=== PATIENT | male | born 1965 | race Caucasian/White ===

== ENCOUNTER 2024-02-16 11:34 | Outpatient (OUT) | payer OTHER, SELFPAY ==
--- NOTE | 2024-02-16 12:02 | XR_ITS ---
The [address] [address] Patient Name: SHEYLA KOHLI MRN: [id number] date: 1965 Sex: M Assigned Patient Location: [facility] Current Patient Location: Accession/Order Number: [id number] Exam Date: 02/16/2024 11:55 Report Date: 02/18/2024 09:10 At the request of: JEFF KILPATRICK Procedure: XR lumbar spine 2-3V EXAMINATION: XR lumbar spine 2-3V HISTORY: Chronic midline low back pain M54.50 ; lumbar pain radiating into left leg COMPARISON: No relevant comparison available. FINDINGS: BONES: Mild degenerative facet arthropathy L4-5, L5-S1. No fracture or significant spondylolisthesis. DISC SPACES: Minimal narrowing L4-5, L5-S1. PARASPINOUS: Negative. No paraspinous abnormality is seen. OTHER: Negative. XR/XR lumbar spine 2-3V IMPRESSION: 1. No appreciable acute abnormality. 2. Mild degenerative changes of lower lumbar spine. Electronically authenticated by: WENDY PERLA Date: 02/18/2024 09:10
== END 2024-02-16 11:35 | disposition home or self-care (01) ==
LOC: RAD 11:43
PROVIDERS: PCP Family Medicine; Visit Provider Family Medicine
DX: M54.50 Low back pain, unspecified (principal); G89.29 Other chronic pain; M51.36 Other intervertebral disc degeneration, lumbar region
CPT/HCPCS: 72100

== ENCOUNTER 2024-06-26 13:34 | Emergency (ER) | payer OTHER, SELFPAY ==
[2024-06-26 13:44] VITALS: BP 128/77; PULSE 88; TEMP 36.6; O2SAT 98; BMI 24.2
--- NOTE | 2024-06-26 13:53 | ECG_ITS ---
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
--- NOTE | 2024-06-26 13:53 | CT_ITS ---
[address] [address] Patient Name: SHEYLA KOHLI MRN: [id number] date: 1965 Sex: M Assigned Patient Location: ER Current Patient Location: ER Accession/Order Number: [id number] Exam Date: 06/26/2024 15:09 Report Date: 06/26/2024 15:51 At the request of: SIOBHAN OLIVIER Procedure: CT angio chest EXAMINATION: CT angio chest HISTORY: PE, right chest pain COMPARISON: No relevant comparison available. TECHNIQUE: Multi-planar CT images were created with IV contrast. Axial, Coronal, and Sagittal images. Dose reduction techniques were achieved by using automated exposure control and/or adjustment of mA and/or kV according to patient size and/or use of iterative reconstruction technique. FINDINGS: LUNGS: Mild centrilobular and paraseptal emphysema with an upper lobe predominance. Some patchy infiltrates in both lung apices, favor pleural parenchymal scarring. No significant pulmonary nodule or mass PLEURA: No mass, effusion, or pneumothorax. VASCULATURE: Normal postcontrast opacification. No filling defect to suggest a central pulmonary embolus SHRUTHI: No mass or adenopathy. MEDIASTINUM: No mass or adenopathy. CARDIAC: No enlargement or pericardial effusion Coronary arteries: Absent calcifications AORTA: No aneurysm or dissection. CHEST WALL: No mass or axillary adenopathy. BONES: No bone lesion or fracture. LIMITED ABDOMEN: No suspicious findings. Limited images of the upper abdomen. OTHER: Negative. CT/CT angio chest IMPRESSION: No central pulmonary thromboembolic disease Electronically authenticated by: MICHAEL ALY Date: 06/26/2024 15:51
--- NOTE | 2024-06-26 13:55 | ED.GENADUL1 ---
HPI HPI - General Adult General Chief complaint: Chest Pain Stated complaint: RIGHT SIDE FLANK PAIN Time Seen by Provider: 06/26/24 13:43 Source: patient Mode of arrival: walk-in Limitations: no limitations History of Present Illness HPI narrative: Patient is a 59-year-old male who presents to the emergency department for 5 to 6 days of pain in the right chest wall. He describes the pain is worse with deep breathing and movement. He believes it began after lifting a toolbox. He denies any fall or direct injury. He states last night the pain radiated to the sternum and today he is now noting the pain radiating to the right posterior thoracic area. No rashes, color change or bruising. He has not had any fevers, upper respiratory symptoms and he denies shortness of breath. No medications taken prior to arrival. He denies abdominal pain or urinary symptoms. Related Data Home Medications ?Medication ?Instructions ?Recorded ?Confirmed albuterol sulfate 90 mcg/actuation 2 puff inhalation BID PRN 06/26/24 06/26/24 aerosol inhaler (Ventolin HFA) shortness of breath or wheezing Previous Rx's ?Medication ?Instructions ?Recorded ketorolac 10 mg tablet 10 mg PO TID PRN pain #10 tabs 06/26/24 methocarbamol 750 mg tablet 750 mg PO TID PRN pain #20 tabs 06/26/24 Allergies Allergy/AdvReac Type Severity Reaction Status Date / Time Penicillins Allergy Severe Hives Verified 06/26/24 13:48 watermelon Allergy Severe Hives Verified 06/26/24 13:49 fluticasone AdvReac Severe tachycardia Verified 06/26/24 13:48 [From Advair Diskus] salmeterol AdvReac Severe tachycardia Verified 06/26/24 13:48 [From Advair Diskus] hydrocodone [From Vicodin] AdvReac Mild Unknown Verified 06/26/24 13:55 Opioid HPI Opioid Management Most Recent Opioid Data: Last Pain Scale 8 06/26/24 14:12 Last MAR Pain Assessment 06/26/24 14:12 Review of Systems ROS Constitutional Denies: fever or chills Ears, nose, mouth, and throat Denies: throat pain or nasal congestion Cardiovascular Reports: chest pain Respiratory Denies: shortness of breath Gastrointestinal Denies: abdominal pain, nausea, vomiting or diarrhea Musculoskeletal Denies: back pain or neck pain Integumentary/Breast Denies: rash Neurological Denies: numbness in extremities or weakness in extremities Hematologic/Lymphatic Denies: easy bruising or easy bleeding PFSH PFS Social History Little interest or pleasure in doing things: not at all Feeling down, depressed, or hopeless: not at all Exam Narrative Exam Narrative: Gen.: Awake, alert, in no distress Head: Normocephalic, atraumatic ENT: Moist mucous membranes Respiratory: No respiratory distress, lungs clear bilaterally Cardio: Regular rate and rhythm; tenderness of the right chest wall with no appreciable rash, swelling or ecchymosis Gastrointestinal: Abdomen is soft, nondistended and nontender to palpation Extremities: Moves extremities equally Psych: Normal mood and affect Neuro: No focal neuro deficit Skin: Warm, dry, intact Constitutional Vital Signs, click to edit/add: Last Vital Signs Temp 97.8 F 06/26/24 13:44 Pulse 77 06/26/24 16:23 Resp 18 06/26/24 16:23 BP 145/78 H 06/26/24 16:23 Pulse Ox 99 06/26/24 16:23 O2 Del Method Room Air 06/26/24 16:23 Course Vital Signs Vital signs: Vital Signs Temperature 97.8 F 06/26/24 13:44 Pulse Rate 88 06/26/24 13:44 Respiratory Rate 16 06/26/24 13:44 Blood Pressure 128/77 06/26/24 13:44 Pulse Oximetry 98 06/26/24 13:44 Oxygen Delivery Method Room Air 06/26/24 13:44 Temperature 97.8 F 06/26/24 13:44 Pulse Rate 77 06/26/24 16:23 Respiratory Rate 18 06/26/24 16:23 Blood Pressure 145/78 H 06/26/24 16:23 Pulse Oximetry 99 06/26/24 16:23 Oxygen Delivery Method Room Air 06/26/24 16:23 Medical Decision Making MDM Narrative Medical decision making narrative: Patient medicated with IV Robaxin and Toradol. Laboratory studies within normal limits, no EKG changes. CT angio of the chest with no evidence of acute cardiopulmonary changes. Patient treated for chest wall pain with muscle relaxants and NSAIDs for home. Follow-up with PCP and return to the ER if symptoms change or worsen. SUPERVISED APC VISIT, PHYSICIAN ATTESTATION: Based on the medical record the care appears appropriate. ? Medical Records Medical records reviewed: Yes I reviewed the patient's medical records Lab Data Lab results reviewed: Yes I reviewed the patient's lab results Labs: Lab Results 06/26/24 Range/Units 14:06 WBC 9.0 (4.0-11.0) 10^3/uL RBC 4.62 L (4.70-6.10) 10^6/uL Hgb 14.3 (14.0-18.0) g/dL Hct 42.1 (42.0-54.0) % MCV 91.1 (80.0-94.0) fL MCH 31.0 (25.9-34.0) pg MCHC 34.0 (29.9-35.2) g/dL RDW 12.7 (11.0-15.0) % Plt Count 165 (150-450) 10^3/uL MPV 10.4 (9.5-13.5) fL Neut % (Auto) 71.1 (43.0-75.0) % Lymph % (Auto) 22.1 (20.5-60.0) % [place] % (Auto) 5.5 (1.7-12.0) % Eos % (Auto) 0.4 L (0.9-7.0) % Baso % (Auto) 0.8 (0.2-2.0) % Neut # (Auto) 6.4 (1.4-6.5) 10^3/uL Lymph # (Auto) 2.0 (1.2-3.8) 10^3/uL [place] # (Auto) 0.5 (0.3-0.8) 10^3/uL Eos # (Auto) 0.0 (0.0-0.7) 10^3/uL Baso # (Auto) 0.1 (0.0-0.1) 10^3/uL Abs Immat Gran (auto) 0.01 (0.00-0.03) 10^3/uL Imm/Tot Granulo (auto) 0.1 (0.0-0.5) % Sodium 134 L (136-145) mmol/L Potassium 3.9 (3.5-5.1) mmol/L Chloride 101 (98-107) mmol/L Carbon Dioxide 29.9 (21.0-32.0) mmol/L Anion Gap 7.0 BUN 10.0 (7.0-18.0) mg/dL Creatinine 0.98 (0.70-1.30) mg/dL Est GFR ( Amer) >60 (>=60) Est GFR (Non-Af Amer) >60 (>=60) BUN/Creatinine Ratio 10.2 Glucose 105 (74-106) mg/dL Calcium 8.9 (8.5-10.1) mg/dL Total Bilirubin 0.6 (0.2-1.0) mg/dL AST 15 (15-37) U/L ALT 8 L (16-63) U/L Alkaline Phosphatase 57 (46-116) U/L Troponin I High Sens 5.2 (4.0-76.1) pg/mL Total Protein 7.0 (6.4-8.2) g/dL Albumin 3.8 (3.4-5.0) g/dL Globulin 3.2 g/dL Albumin/Globulin Ratio 1.2 Lipase 21.0 (16.0-77.0) U/L Imaging Data CT scan - chest: Attestation: I have reviewed the pertinent imaging results. Radiologist's impression: ITS Impressions Chest CTA 06/26/24 13:53 IMPRESSION: No central pulmonary thromboembolic disease Electronically authenticated by: MICHAEL ALY Date: 06/26/2024 15:51 ECG Data Attestation: I personally reviewed and interpreted this ECG as follows: (Normal sinus rhythm at a rate of 83, no acute ST elevation or ectopy. EKG reviewed by attending physician) Discharge Plan Discharge Chief Complaint: Chest Pain Clinical Impression: Atypical chest pain Patient Disposition: Home, Self-Care Time of Disposition Decision: 15:57 Condition: Good Prescriptions / Home Meds: New ketorolac 10 mg tablet 10 mg PO TID PRN (Reason: pain) Qty: 10 0RF methocarbamol 750 mg tablet 750 mg PO TID PRN (Reason: pain) Qty: 20 0RF No Action albuterol sulfate [Ventolin HFA] 90 mcg/actuation HFA aerosol inhaler 2 puff INHALATION BID PRN (Reason: shortness of breath or wheezing) Print Language: Northern Irish Instructions: Chest Wall Pain (ED) Referrals: JEFF KILPATRICK [Primary Care Provider] - 1 week Discharge Date/Time: 06/26/24 16:23
[2024-06-26 14:12] LABS: Basophils Absolute Auto 0.1 10^3/uL (0.0-0.1); Basophils Percent Auto 0.8 % (0.2-2.0); Eosinophils Percent Auto 0.4 % (0.9-7.0); Hematocrit 42.1 % (42.0-54.0); Hemoglobin 14.3 g/dL (14.0-18.0); Immature Granulocytes Abs Auto 0.01 10^3/uL (0.00-0.03); Immature Granulocytes Pct Auto 0.1 % (0.0-0.5); Lymphocytes Percent Auto 22.1 % (20.5-60.0); Mean Corpuscular Volume 91.1 fL (80.0-94.0); Mean Platelet Volume 10.4 fL (9.5-13.5); Monocytes Absolute Auto 0.5 10^3/uL (0.3-0.8); Monocytes Percent Auto 5.5 % (1.7-12.0); Neutrophils Absolute Auto 6.4 10^3/uL (1.4-6.5); Neutrophils Percent Auto 71.1 % (43.0-75.0); Platelet Count 165 10^3/uL (150-450); Red Blood Count 4.62 10^6/uL (4.70-6.10); Red Cell Distribution Width 12.7 % (11.0-15.0)
[2024-06-26] MEDS: KETOROLAC TROMETHAMINE 30 MG/ML VIAL IVP (14:12)
[2024-06-26] MEDS: METHOCARBAMOL 1,000 MG/10 ML VIAL 1000 MG IV (14:13)
[2024-06-26 14:30] VITALS: PULSE 74
[2024-06-26 14:45] LABS: Alanine Aminotransferase 8 U/L (16-63); Albumin Globulin Ratio 1.2; Albumin Level 3.8 g/dL (3.4-5.0); Alkaline Phosphatase 57 U/L (46-116); Aspartate Amino Transferase 15 U/L (15-37); BUN Creatinine Ratio 10.2; Bilirubin Total 0.6 mg/dL (0.2-1.0); Calcium 8.9 mg/dL (8.5-10.1); Carbon Dioxide 29.9 mmol/L (21.0-32.0); Chloride 101 mmol/L (98-107); Estimated GFR (African America >60 (>=60); Estimated GFR (Non-African Ame >60 (>=60); Globulin 3.2 g/dL; Glucose 105 mg/dL (74-106); Potassium 3.9 mmol/L (3.5-5.1); Sodium 134 mmol/L (136-145); Troponin I High Sensitivity 5.2 pg/mL (4.0-76.1)
[2024-06-26 15:01] VITALS: BP 150/81; PULSE 67; O2SAT 100
[2024-06-26 16:23] VITALS: BP 145/78; PULSE 77; O2SAT 99
== END 2024-06-26 16:23 | disposition home or self-care (01) ==
PROVIDERS: Physician Assistant; Emergency Provider Emergency Medicine; PCP Family Medicine
DX: R07.89 Other chest pain (principal)
CPT/HCPCS: 36415; 71275; 80053; 83690; 84484; 85025; 93005; 96374; 96375; 99285; J1885; J2800; Q9967

== ENCOUNTER 2025-07-06 09:43 | Outpatient (OUT) | payer OTHER, SELFPAY ==
--- OUTSIDE RECORDS SUMMARY | 2021-08-13 05:00 | XMS_ITS | Continuity of Care Document ---
Author Organization [facility] Address [address] [place] [address] Phone Care Team Providers Care Infection Preventionist Name Role Phone Siddhartha Raza DO Unavailable Allergies, Adverse Reactions, Alerts Substance Reaction Status Criticality PENICILLIN Active No Information SALMETEROL XINAFOATE Active No Info rmation FLUTICASONE PROPIONATE Active No In formation caffeine Active No Information butalbital Active No Information acetaminophen Active No Information hydrocodone Active No Information Medications Medication Instructions Dosage Effective Dates (start - stop) Status Comments Ubrelvy 100 mg tablet take 1 tablet by oral route once may repeat dose once after 2 hours if needed, not to exceed 200 mg in24 hours 100 MG - Active Tessalon Perles 100 mg capsule take 1 capsule by oral route 3 times every day as needed for cough - Active Celebrex 100 mg capsule take 1 capsule by oral route every day 100 MG - Active omeprazole 40 mg capsule,delayed release take 1 capsule by oral route every day before a meal as needed 40 MG - Active propranolol 20 mg tablet take 1 tablet by oral route 2 times every day 20 MG - Active Singulair 10 mg tablet take 1 tablet by oral route every day in the evening 10 MG - Active Symbicort 160 mcg-4.5 mcg/actuation HFA aerosol inhaler inhale 2 puff by inhalation route 2 times every day in the morning and evening 2.00 puff - Active Ventolin HFA 90 mcg/actuation aerosol inhaler inhale 2 puff by inhalation route every 4 - 6 hours as needed 180 MCG - Active Ativan 1 mg tablet take 1 tablet by oral route 3 times every day as needed 1 MG - Active F41.9 albuterol sulfate 2.5 mg/3 mL (0.083 %) solution for nebulization inhale 3 milliliter by nebulization route 3 times every day 2.5 MG - Active Imitrex 100 mg tablet take 1 tablet by oral route after onset of migraine; may repeat after 2 hours if headache returns,not to exceed 200mg in 24hrs 100 MG - Active doxycycline hyclate 100 mg tablet take 1 tablet by oral route 2 times every day 100 MG - No Longer Active oxycodone-acetamin ophen 5 mg-325 mg tablet take 1 tablet by oral route every 4 hours as needed 1 tablet - No Longer Active M25.561 Pt allergic to hydrocodone, and tramadol did not work enough Antivert 50 mg tablet take 1 tablet by oral route 4 times every day as needed 1 tablet - No Longer Active oxycodone-acetamin ophen 7.5 mg-325 mg tablet take 1 tablet by oral route every 6 hours as needed 1.00 tablet - No Longer Active M25.561 Pt allergic to hydrocodone, and tramadol did not work enough Aimovig Autoinjector 140 mg/mL subcutaneous auto-injector inject (140MG) by subcutaneous route every month in the abdomen, thigh, or outer area of upper arm 140 MG - No Longer Active Celebrex 100 mg capsule take 1 capsule by oral route every day 100 MG No Longer Active omeprazole 40 mg capsule,delayed release take 1 capsule by oral route every day before a meal as needed 40 MG No Longer Active propranolol 20 mg tablet take 1 tablet by oral route 2 times every day 20 MG No Longer Active Singulair 10 mg tablet take 1 tablet by oral route every day in the evening 10 MG - No Longer Active Symbicort 160 mcg-4.5 mcg/actuation HFA aerosol inhaler inhale 2 puff by inhalation route 2 times every day in the morning and evening 2.00 puff - No Longer Active Ventolin HFA 90 mcg/actuation aerosol inhaler inhale 2 puff by inhalation route every 4 - 6 hours as needed 180 MCG - No Longer Active Procedures Procedure Date OFFICE/OUTPATIENT VISIT, EST OFFICE/OUTPATIENT VISIT, EST IMMUNIZATION ADMIN FLU VAC NO PRSV 4 TISHA 3 YRS+ OFFICE/OUTPATIENT VISIT, EST OFFICE/OUTPATIENT VISIT, EST J&J Covid Administration J&J Covid Vaccination OFFICE/OUTPATIENT VISIT, EST OFFICE/OUTPATIENT VISIT, EST OFFICE/OUTPATIENT VISIT, EST OFFICE/OUTPATIENT VISIT, EST OFFICE/OUTPATIENT VISIT, EST OFFICE/OUTPATIENT VISIT, EST DRUG TEST PRSMV DIR OPT OBS OFFICE/OUTPATIENT VISIT, EST IMMUNIZATION ADMIN HEP A VACCINE, ADULT IM OFFICE/OUTPATIENT VISIT, EST OFFICE/OUTPATIENT VISIT, EST OFFICE/OUTPATIENT VISIT, EST DRUG SCREENING FENTANYL DRUG TEST PRSMV DIR OPT OBS IMMUNIZATION ADMIN HEP A VACCINE, ADULT IM Advance Directives Directive Yes / No Effective Date File Name No Information Encounters Encounter Description Practice Location Reason(s) For Visit Diagnoses Date Provider Providers Copied on Encounter OFFICE/OUTPA TIENT VISIT, EST [facility], [address] [place] [address], [place], [place], [id number] , [place] tel:[phone] [facility] Migraine Issues (chief complaint) Body mass index [BMI] 21.0-21.9, adultMigraine aura, persistent, intractable, with status migrainosusChronic sinusitis of both maxillary sinuses 1 [facility] DO [facility] [address], [place], [id number] , [place]. tel: [phone] OFFICE/OUTPA TIENT VISIT, [facility], [address], [place], [id number] , [place] tel: [phone] [facility] check up (chief complaint) Body mass index [BMI] 21.0-21.9, adultVertigoArthriti s 1 [facility] DO [facility]. [address] [place] [address], [id number] , [place]. tel: [phone] OFFICE/OUTPA TIENT VISIT, [facility], [address] [place] [address], [id number] , [place] tel: [phone] [facility] f/u L hip and shoulder pain (chief complaint)M usculoskele michael pain (chief complaint) Body mass index [BMI] 21.0-21.9, adultPain in left hip 1 [facility] DO [facility] [address] [place] [address], [id number] , [place]. tel: [phone] [facility], [address] [place] [address], [id number] , [place] tel: [phone] [facility] Acute wrist pain, unspecified laterality 1 [facility] DO [facility] [address], [place], [id number] , [place]. tel: [phone] OFFICE/OUTPA TIENT VISIT, [facility], [address] [place] [address], [id number] , [place] tel: [phone] [facility] med refills (chief complaint)m usc (chief complaint)M usculoskele michael pain (chief complaint) Acute pain of left shoulderBody mass index [BMI] 20.0-20.9, adultAnxiety 1 [facility] DO [facility] [address], [place], [id number] , [place]. tel:[phone] OFFICE/OUTPA TIENT VISIT, [facility], [address], [place], [id number] , [place] tel: [phone] [facility] med refill (chief complaint)M usculoskele michael pain (chief complaint) AnxietyArthritisLow back pain radiating to right legMigraine aura, persistent, intractable, with status migrainosusBody mass index [BMI] 22.0-22.9, adult Apr- 1 [facility] DO [facility] [address], [place], [id number] , [place]. tel: [phone] OFFICE/OUTPA TIENT VISIT, [facility], [address] [place] [address], [id number] , [place] tel: [phone] [facility] Sinus symptoms (chronic) (chief complaint) Chronic sinusitis of both maxillary sinusesLow back pain radiating to right legCOPD mixed typeAcute pain of right knee 1 [facility] DO [facility]. [address] [place] [address], [id number] , [place]. tel: [phone] OFFICE/OUTPA TIENT VISIT, [facility], [address] [place] [address], [id number] , [place] tel: [phone] [facility] Sinus symptoms (chronic) (chief complaint) Chronic sinusitis of both maxillary sinusesCOPD mixed typeMigraine aura, persistent, intractable, with status migrainosusLow back pain radiating to right leg 0 [facility] DO [facility]. [address] [place] [address], [id number] , [place]. tel:[phone] OFFICE/OUTPA TIENT VISIT, [facility], [address] [place] [address], [id number] , [place] tel: [phone] [facility] problem visit (chief complaint)S inus symptoms (chronic) (chief complaint) Chronic sinusitis of both maxillary sinusesCOPD mixed typeAnxiety 0 [facility] DO [facility] [address], [place], [id number] , [place]. tel: [phone] OFFICE/OUTPA TIENT VISIT, [facility], [address], [place], [id number] , [place] tel: [phone] [facility] Cough (chief complaint) Chronic sinusitis of both maxillary sinuses 0 [facility] DO [facility] [address], [place], [id number] , [place]. tel: [phone] OFFICE/OUTPA TIENT VISIT, [facility], [address], [place], [id number] , [place] tel: [phone] [facility] Med follow Up (chief complaint)b ack pain (chief complaint) Body mass index (BMI) 22.0-22.9, adultArthritisLow back pain radiating to right leg 0 [facility] DO [facility] [address], [place], [id number] , [place]. tel: [phone] OFFICE/OUTPA TIENT VISIT, [facility], [address], [place], [id number] , [place] tel: [phone] [facility] Med Refill (chief complaint)b ack pain (chief complaint) Body mass index (BMI) 21.0-21.9, adultAnxietyLow back pain radiating to right leg 0 [facility] DO [address] [address], [place], [id number] , [place]. tel: [phone] OFFICE/OUTPA TIENT VISIT, [facility], [address], [place], [id number] , [place] tel: [phone] [facility] Hep A (chief complaint)c hronic conditions (chief complaint)W eight loss (chief complaint) Body mass index (BMI) 20.0-20.9, adultCOPD mixed type 9 [facility] DO [facility] [address], [place], [id number] , [place]. tel: [phone] OFFICE/OUTPA TIENT VISIT, [facility], [address], [place], [id number] , [place] tel: [phone] [facility] MED REFILLS (chief complaint)D RUG SCREEN (chief complaint) AnxietyBody mass index (BMI) 21.0-21.9, adultSkin cancerHyperlipemia, mixed 9 [facility] DO [place]. [address], [place], [id number] , [place]. tel: [phone] OFFICE/OUTPA TIENT VISIT, [facility], [address], [place], [id number] , [place] tel: [phone] [facility] Med refill (chief complaint)U rine Drug Screen (chief complaint)O ARRS (chief complaint) AnxietyChronic sinusitis of both maxillary sinusesHypertension, unspecified typeScreening PSA (prostate specific antigen) 9 [facility]. [address], [place], [id number] , [place]. tel: [phone] [facility], [address], [place], [id number] , [place] tel: [phone] [facility] migraines/m eds (chief complaint) Body mass index (BMI) 21.0-21.9, adultChronic sinusitis of both maxillary sinusesMigraine aura, persistent, intractable, with status migrainosusHypertens ion, unspecified type 9 [facility]. [address], [place], [id number] , [place]. tel: [phone] [facility], [address], [place], [id number] , [place] tel: [phone] [facility] No Information 9 [facility] DO [place]. [address] [place] [address], [id number] , [place]. tel:[phone] [facility], [address], [place], [id number] , tel: [phone] [facility] est care (chief complaint) Body mass index (BMI) 22.0-22.9, adultAnxietyCOPD mixed typeHyperlipemia, mixedHypertension, unspecified typeChronic GERDArthritis 9 [facility]. [address] [place] [address], [id number] , [place]. tel: [phone] Family History Family Member Type Diagnosis Age At Onset Father Problem (finding) stomach cancer (Cause O f ) Father Problem (finding) Cardiovascular disease Immunizations Vaccine Date Status Comments Flulaval/ Fluarix administered Source: Ne w Immunization Record Opal COVID administered Source: New Im munization Record Hep A (adult) administered Source: New Im munization Record Hep A (adult) administered Source: New Im munization Record Payers Payer name Insurance type Covered green party ID Authoriza tion(s) Medicaid Wrap - [facility] [id number] Medicaid [place] [facility] [id number] Medicaid W[place] - [facility] [id number] Medicaid Wrap - [facility] [id number] Social History Type Description Quantity Date Captured Comments Alcohol Use Details No Caffeine Use Details soda and coffee > 32oz per day Tobacco Use Status Heavy cigarette smok er (20-39 cigs/day) Smoking Status Heavy tobacco smoker Smoking Tobacco Use Details Cigarette: No Details Available Cigarette: 1 Packs per day Sex Male Sexual Orientation Straight or heterosexual Gender Identity Male Vital Signs Date / Time: Height Weight BMI Pulse Rate Blood Pressure Temperature Respiratory Rate Body Surface Area Head Circumference Head Circ. Percentile Wt./Ravinder. Percentile BMI percentile Pulse Ox Inhaled Ox 9:08 AM 66.00 in 61.598 kg (135.80 lbs) 21.9 2 kg/m eter (2) 85 /min 136/72 mm[Hg] 98 % Chief Complaint And Reason For Visit From encounter dated '08/13/2021 09:00'. Migraine Issues (chief complaint). Description: Pt here today with complaints of migraine. Pt states that it has been going on for about a week now. Pt states he has been taking 3-4 Imitrex 100mg tablets a day with no relief. Pt is worried since last time he had to go to hospital and get MRI done due to migraine. Pt states he used to get Amiovig from neuro but states he is not seeing them anymore. I recommended him to get back in there for apt. Pt given letter today informing him Dr. Raza leaving our office & last day was 09/03. No medications or apts will be made after this day Ptsigned letter and verbalized understanding. OARRS completed, last filled Percocet 07/17 & 07/25.TGrodi SALES OPERATIONS ANALYST ,above was reviewed and agreed with MLP Reason For Referral Reason For Referral No Information Plan Of Treatment Date Type Action Status Goal Urinalysis. Due on due Goal ECG. Due on due Goal Tobacco cessation counseling completed Goal Dietary manageme nt education, guidance, and counseling completed Goal ECG. Due on due Goal Urinalysis. Due on due Goal Dietary manageme nt education, guidance, and counseling completed Goal Tobacco cessation counseling completed Goal ECG. Due on due Goal Urinalysis. Due on due Goal Tobacco cessation counseling completed Goal Dietary manageme nt education, guidance, and counseling completed Goal ECG. Due on due Goal Urinalysis. Due on due Goal ECG. Due on due Goal Urinalysis. Due on due Goal Tobacco cessation counseling completed Goal Dietary education for weight gain completed Goal ECG. Due on due Goal Urinalysis. Due on due Goal Dietary manageme nt education, guidance, and counseling completed Goal Tobacco cessation counseling completed Goal Urinalysis. Due on due Goal ECG. Due on due Goal Urinalysis. Due on due Goal ECG. Due on due Goal Urinalysis. Due on due Goal ECG. Due on due Goal Tobacco cessation counseling completed Goal ECG. Due on due Goal Urinalysis. Due on due Goal Urinalysis. Due on due Goal ECG. Due on due Goal Dietary manageme nt education, guidance, and counseling completed Goal ECG. Due on due Goal Urinalysis. Due on due Goal Dietary manageme nt education, guidance, and counseling completed Goal Tobacco cessation counseling completed Goal Tobacco cessation counseling completed Goal Dietary manageme nt education, guidance, and counseling completed Goal Tobacco cessation counseling completed Goal Dietary manageme nt education, guidance, and counseling completed Goal Tobacco cessation counseling completed Goal Dietary manageme nt education, guidance, and counseling completed Goal Tobacco cessation counseling completed Goal Dietary manageme nt education, guidance, and counseling completed Referral Ordered: X-Ray Exam Of Wrist 2 Views Left ordered Referral Ordered: Orthopedic Surgery (related to Acute pain of left shoulder) ordered Referral Ordered: X-Ray Exam Of Shoulder Minimum Of 2 Views Left ordered Referral Ordered: Referrals: Orthopedic Surgery ordered Referral Ordered: Neurology (related to Migraine aura, persistent, intractable, with status migrainosus) ordered Referral Ordered: X-Ray Exam Of Knee 3 Views Bilateral ordered Referral Ordered: X-RAY EXAM HIPS BI 3-4 VIEWS ordered Referral Ordered: Referrals: Neurology ordered Referral Ordered: X-Ray Exam Of Lumbosacral Spine Complete, Bending Views ordered Referral Ordered: X-Ray Exam Of Knee 4 Or More Views Right ordered Referral Ordered: Referrals: Pain Medicine ordered Referral Ordered: X-Ray Exam Of Lumbosacral Spine 2 Or 3 View ordered Future Order: Lab Order Complian ce Drug Analysis, Ur ([id number]), Collected on: , Sent on: Sent Future Order: Lab Order Urine, N aloxone Urine Cofirm ([id number]), Collected on: , Sent on: Sent History Of Present Illness Encounter Date Complaint History Of Prese nt Illness Migraine Issues Pt here today wi th complaints of migraine. Pt states that it has been going on for about a week now. Pt states he has been taking 3-4 Imitrex 100mg tablets a day with no relief. Pt is worried since last time he had to go to hospital and get MRI done due to migraine. Pt states he used to get Amiovig from neuro but states he is not seeing them anymore. I recommended him to get back in there for apt. Pt given letter today informing him Dr. Raza leaving our office & last day was 09/03. No medications or apts will be made after this day Pt signed letter and verbalized understanding. OARRS completed, last filled Percocet 07/17 & 07/25.Miles BURNETT ,above was reviewed and agreed with MLP check up Patient presents today stating that he has had dizzy spells and vertigo for approx. 10 days. Patient states that he ran out of his Antivert medication. Pt would like a medication refill. Patient states that he has noticed that he has been dropping items when carrying them. No other issues or concerns today. Malissa FELIX ,above was reviewed and agreed with [facility] f/u L hip and shoulder pain Pt h ere for f/u L hip and shoulder pain and to review xrays. ISIDRO Barry Musculoskeletal pain It occurs c onstantly and is worsening. Location: left hip. The pain is dull and throbbing. Context: there is no injury. The pain is aggravated by climbing stairs, movement and standing. The pain is relieved by pain/RX meds and rest. Associated symptoms include crepitus, decreased mobility, difficulty initiating sleep, joint instability, joint tenderness, limping, locking, popping, spasms and weakness. Pertinent negatives include bruising, numbness and swelling. Hand Dominance: right. [facility] med refills Patient presents for medication refills. Pt reports that the arm that he received his covid-19 vaccine in has an intermittent throbbing sensation rated a 7/10 on the numeric pain scale. No other complaints. Malissa FELIX Musculoskeletal pain Severity le cassandra is moderate-severe. It occurs constantly and is fluctuating. Location: left shoulder (rotator cuff). There is no radiation. The pain is dull and throbbing. The pain is aggravated by movement. There are no relieving factors. Associated symptoms include crepitus, decreased mobility, difficulty initiating sleep, joint tenderness, locking, nocturnal awakening and nocturnal pain. Pertinent negatives include bruising, joint instability, numbness and spasms. Hand Dominance: right. med refill Pt here for medi cation refills. Pt c/o bilateral hip and knee pain, states he would like to have an xray order sent to [facility]. Pt also requesting refills on all his medications. ISIDRO Barry Musculoskeletal pain Location: b ilateral knee (medial). There is no radiation. The pain is dull. Context: there is no injury. The pain is aggravated by bending, climbing stairs and movement. The pain is relieved by pain/RX meds and rest. Associated symptoms include crepitus, decreased mobility, joint tenderness, limping, nocturnal pain, popping and swelling. Pertinent negatives include bruising, difficulty initiating sleep, joint instability, locking, nocturnal awakening and spasms. Hand Dominance: right. Sinus symptoms (chronic) The maria esther shukla presents with bilateral frontal sinus and bilateral maxillary sinus symptoms. The sinus complaints are continual. The sinus symptoms have worsened. Today the patient complains of facial pain, facial tenderness, fatigue, nasal congestion, sinus pain and sinus pressure. The symptoms are felt to be related to seasonal allergies. The symptoms are aggravated by chemical irritants, seasonal allergens and smoke. Symptoms are improved with antibiotics with fair response and change in environment with fair response. Associated symptoms include chronic cough, cough, facial pain, facial tenderness, fatigue, headache, hoarseness, nasal congestion and sinus pressure. Pertinent negatives include anosmia, bloody sinus discharge, chronic sore throat, difficulty breathing, fever, irritability, nasal drainage and visual disturbances. Sinus symptoms (chronic) The maria esthre shukla presents with bilateral frontal sinus and bilateral maxillary sinus symptoms that began 2 months ago. The sinus symptoms have worsened. Today the patient complains of facial pain, facial tenderness, fatigue, nasal congestion, sinus pain and sinus pressure. The symptoms are felt to be related to recent URI and smoking. The symptoms are aggravated by seasonal allergens and smoke. Symptoms are improved with antibiotics with good response but not decongestants. Associated symptoms include anosmia, chronic cough, facial pain, facial tenderness, fatigue, headache, hoarseness, nasal congestion and sinus pressure. Pertinent negatives include bloody sinus discharge, difficulty breathing, fever, irritability and tooth pain. problem visit Pt here today fo r sinus issues. Pt c/o of cough and sinus pressure for 3 weeks. Pt stated he completed antibiotic course with no relief. Denies fever, chills, body aches, and ear pain. Pt states it is causing a migraine. Mild productive cough and runny nose. Pt states he needs refills on all of his meds today. ISIDRO Hogue Sinus symptoms (chronic) The maria esther shukla presents with bilateral frontal sinus and bilateral maxillary sinus symptoms that began gradually and have lasted 3 Months. The sinus complaints are continual. The sinus symptoms have worsened. Today the patient complains of facial pain, facial tenderness, fatigue, irritability, nasal congestion, sinus pain and sinus pressure. The symptoms are felt to be related to seasonal allergies and smoking. These symptoms are not related to dental infection and recent air travel. The symptoms are aggravated by seasonal allergens. Symptoms are not relieved by antibiotics, inhaled steroids or nasal lavage. Associated symptoms include chronic cough, cough, facial pain, facial tenderness, headache, nasal congestion, nasal drainage and sinus pressure. Pertinent negatives include anosmia, bloody sinus discharge, chronic sore throat, deviated septum, difficulty breathing, fatigue, fever, hoarseness, irritability, tooth pain and visual disturbances. Cough The patient desc ribes the cough as hacking and productive. It occurs persistently. The problem has become gradually worse. Context: allergies, COPD and smoker. Symptoms are aggravated by lying down. There are no relieving factors. Associated symptoms include cough, fatigue, nasal congestion, post-nasal drainage and sinus pressure. Pertinent negatives include chills, dyspnea, dyspnea on exertion, epistaxis, fever, hemoptysis, sore throat and wheezing. Additional information: Pt states that he is getting the headaches again like he did several months ago with the last sinus infection. Med follow Up Pt here today fo r medication follow up. Pt states he quit taking the Gabapentin because it made him too tired. Pt states he never got the x-ray done because hes scared to go to the hospital due to COVID. No other issues or concernsOARRS completed, last filled Gabapentin & Lorazepam 04/15TGrodi SAL[employer] OPERATIONS ANALYST back pain The problem is s table. It occurs persistently. Location of pain is lower back. The patient describes the pain as deep and diffuse. Symptoms are aggravated by daily activities. Additional information: Pt has been trying different things the gabapentin did not help, the celebrex did a little but not enough, pt would like something to help more, has failed lyrica in the past. Med Refill Pt here today fo r medication refills. Pt states that, I just have lower back pain but I know there is nothing he can do about that . PT would like to start a work up on his back. PT would like an x-ray order for this. UDS performed, pt all negative OARRS completed, last filled Ativan 07/15/19 & Percocet 06/28/19Miles BURNETT back pain The problem is w orsening. It occurs persistently. Location of pain is lower back. Pain is radiated to the left thigh. The patient describes the pain as deep and shooting. Symptoms are aggravated by bending and daily activities. Symptoms are relieved by spontaneous relief and rest. Additional information: Pt states this has been really starting to bother him and go down his left leg. Hep A Pt is here for h is #2 Hep A vaccine. Pt refilled her Ativan 07/15/19. NDiltsCMA chronic conditions Weight loss over a period of 3 month(s). Factors resulting in weight stabilization or gain include: compliance to regimen and medications. The risk factors for weight loss include COPD. There are no associated symptoms. Pertinent negatives include cold intolerance, constipation, decreased appetite, diaphoresis, diarrhea, hair loss, heat intolerance, increased thirst, irregular heartbeat/palpitations, pigment change,polyuria, syncope and tremors. Additional information: we reviewed Pt labs with him and discussed it, he is ok because he gained 2 pound since last appointment. DRUG SCREEN PT did not get a prescription for Ativan today. Pt last filled on 01/31 and the written date on script was 08/28. Pt also said he went to the restroom out front while waiting and could not provide a urine today. TGrodwilmar [facility] Pt here today fo r medication refills. PT states he has skin cancer that returns every year. He states he was seeing someone over in the [facility] building who was dermatology. PT is wondering if he needs a referral to go back to them or not. Pt states he is having issues with his skin again. He states, I am peeling my skin off like bananas . PT NEEDS REFILLS ON IMITREX, MOBIC, OMEPRAZOLE, PROPRANOLOL, SYMBICORT, VENTOLIN, NEBULIZER SOLUTION. OARRS completed, last filled Percocet form Dr. Trujillo , & Ativan 01/31TGrodwilmar LPNPt states that his skin cancer is back too. He states he spends a lot of time in the sun Urine Drug Screen Negative Benzo s, light lone for MOP. Will send for confirmatory. Ángel Morillo RN OARRS Last refilled lo razepam 01/31/2019 90 tabs with 2 refills. Oxycodone 10 (from Dr. Trujillo: 120 on 02/08/2019. Ángel Morillo RN Med refill Here for refill of Ativan. Taking as needed, states is almost out. Also requests refill of antibiotic for sinus infection . States migraines are improved with Imitrex. Needs written Rx for BP cuff to take to [facility]. Ángel Morillo RN migraines/meds Pt here today du e to migraines. He states the Topamax is not working for him. Significant other called and requested Topamax and Imitrex for patient but this was never prescribed here. Pt has never been prescribed Imitrex according to significant other. Pt states the migraine has been constant for a month now. Pt also received an injection for this that is not working too. Significant other states the injection starts with an. OARRS completed, last filled Percocet 01/[address] Trujillo & [facility] he has not way to check home blood pressure est care Pt here today to establish care. Pt was a previous pt of Dr. Raza at his [place] office. Pt here today for medication refills. OARRS completed, last filled Ativan 11/06, & [facility] that gave him bad headaches Caridopa- levodopa .. Functional Status Date Functional Assessmen t No Information Instructions Date Instruction Additional Infor mation Giving encouragement to exercise Related to Body mass index [BMI] 21.0-21.9, adult Dietary management e ducation, guidance, and counseling Related to Body mass index [BMI] 21.0-21.9, adult Dietary management e ducation, guidance, and counseling Related to Body mass index [BMI] 21.0-21.9, adult Giving encouragement to exercise Related to Body mass index [BMI] 21.0-21.9, adult Dietary management e ducation, guidance, and counseling Related to Body mass index [BMI] 21.0-21.9, adult Giving encouragement to exercise Related to Body mass index [BMI] 21.0-21.9, adult Dietary education for weight gai n Related to Body mass index [BMI] 20.0-20.9, adult Giving encouragement to exercise Related to Body mass index [BMI] 20.0-20.9, adult Giving encouragement to exercise Related to Body mass index [BMI] 22.0-22.9, adult Dietary management e ducation, guidance, and counseling Related to Body mass index [BMI] 22.0-22.9, adult Dietary management e ducation, guidance, and counseling Related to Body mass index (BMI) 22.0-22.9, adult Giving encouragement to exercise Related to Body mass index (BMI) 22.0-22.9, adult Dietary management e ducation, guidance, and counseling Related to Body mass index (BMI) 21.0-21.9, adult Giving encouragement to exercise Related to Body mass index (BMI) 21.0-21.9, adult Giving encouragement to exercise Related to Body mass index (BMI) 20.0-20.9, adult Dietary management e ducation, guidance, and counseling Related to Body mass index (BMI) 20.0-20.9, adult Dietary management e ducation, guidance, and counseling Related to Body mass index (BMI) 21.0-21.9, adult Giving encouragement to exercise Related to Body mass index (BMI) 21.0-21.9, adult Dietary management e ducation, guidance, and counseling Related to Body mass index (BMI) 21.0-21.9, adult Giving encouragement to exercise Related to Body mass index (BMI) 21.0-21.9, adult Giving encouragement to exercise Related to Body mass index (BMI) 22.0-22.9, adult Dietary management e ducation, guidance, and counseling Related to Body mass index (BMI) 22.0-22.9, adult Assessments Type Assessment Date assessment Body mass index [BMI] 21.0-21.9, adult assessment Migraine aura, persi stent, intractable, with status migrainosus assessment Chronic sinusitis of both maxill el sinuses impression Pt going to try new medications Patient Care Teams Name Effective Dates (start - stop) Status Members No Information
--- OUTSIDE RECORDS SUMMARY | 2025-07-06 09:46 | XMS_ITS | Encounter Summary ---
Author Organization [facility] Address [id number] [address] [place] [address] Care Team Providers Care Border Patrol Officer Name Role Phone ElizabethAneesh eric Andre RODRÍGUEZ Primary Care Provider [phone] Encounter Details Date Type Department Care Team (Late st Contact Info) Description 10/24/2024 Telephone [facility] - Family Medicine [address] [place] [id number] Ry Gomez CMA Social History Tobacco Use Types Packs/Day Years Used Date Smoking Tobacco: Every Day Cigarettes 3 45 Smokeless Tobacco: Never Alcohol Use Standard Drinks/Week Comments Not Currently 0 (1 standard drink = 0.6 oz pur e alcohol) [facility] Utilities Answer Date Recorded In the past 12 months has e electric, gas, oil, or water company threatened to shut off services in your home? No 09/28/2024 Social Connection and Isolat ion Panel [NHANES] Answer Date Recorded In a typical week, how many times do you talk on the phone with family, friends, or neighbors? More than three times a week 07/13/2023 How often do you get togethe r with friends or relatives? More than three times a week 07/13/2023 How often do you attend chur ch or voodoo services? Never 07/13/2023 Do you belong to any clubs o r organizations such as episcopalian groups, unions, fraternal or athletic groups, or school groups? No 07/13/2023 How often do you attend meet ings of the clubs or organizations you belong to? Never 07/13/2023 Are you , , di vorced, , never , or living with a partner? Living with partner 07/13/2023 AUDIT-C Answer Date Recorded Q1: How often do you have a drink containing alcohol? Never 07/13/2023 Q2: How many drinks containi ng alcohol do you have on a typical day when you are drinking? Patient does not drink Q3: How often do you have si x or more drinks on one occasion? Never 07/13/2023 Overall Financial Resource Strain (CARDIA) Answe r Date Recorded How hard is it for you to pa y for the very basics like food, housing, medical care, and heating? Very hard 07/13/2023 PHQ-2 Answer Date Recorded Total Score 0 07/03/2024 [facility] [place] [facility] Occupat ional Health - Occupational Stress Questionnaire Answer Date Recorded Do you feel stress - tense, restless, nervous, or anxious, or unable to sleep at night because your mind is troubled all the time - these days? Very much 07/13/2023 Exercise Vital Sign Answer Date Recorde d On average, how many days pe r week do you engage in moderate to strenuous exercise (like a brisk walk)? 7 days 07/13/2023 On average, how many minutes do you engage in exercise at this level? 40 min 07/13/2023 PRAPARE - Transportation Answer Date Re corded In the past 12 months, has l ack of transportation kept you from medical appointments or from getting medications? Yes 12/2022 In the past 12 months, has l ack of transportation kept you from meetings, work, or from getting things needed for daily living? Yes 07/13/2023 Housing Instability Answer Date Recorde d Are you worried or concerned that in the next two months you may not have stable housing that you own, rent or stay in as a part of a household? No 07/13/2023 Childcare Answer Date Recorded Do problems getting child ca re make it difficult for you to work or study? No 07/13/2023 Employment Answer Date Recorded Do you need help finding a [facility], [employer] and/or a training program? No 07/13/2023 Hunger Screening Answer Date Recorded Within the past 12 months we worried whether our food would run out before we got money to buy more. Never True 07/03/2024 Within the past 12 months th e food we bought just didn't last and we didn't have money to get more. Never True 07/03/2024 Purpose - Life Answer Date Recorded I have a purpose and direction in my life. Jeferson gly Agree 07/13/2023 Sex and Gender Information Value Date Recorded Sex Assigned at Not on file Legal Sex Male 2:08 PM EDT Gender Identity Not on file Sexual Orientation Not on file documented as of this encounter Miscellaneous Notes * Telephone Encounter - Ry Gomez CMA - 10/24/2024 4:42 PM EST - Message from Dr. Aneesh Richmond DO sent at 09/29/2024 10:44 AM EST ----- His cholesterol is still too high. Total was 212 and triglycerides were 170. His bad cholesterol, or LDL, was high at 141. He is on a high dose of Zocor. Looks like it is not effective. I would recommend changing that to atorvastatin or rosuvastatin. His glucose was 105. If he was fasting he might be impaired fasting glucose. We can check an A1c with his next visit. The rest of his metabolic panel was normal. documented in this encounter Plan of Treatment Upcoming Encounters Date Type Department Care Team (Late st Contact Info) Description 07/18/2025 10:30 AM EDT Office Visit [facility] - [facility] Medicine [address] [place] [address] Aneesh Richmond DO [address] [place] [address] documented as of this encounter Visit Diagnoses Not on filedocumented in this encounter Additional Health Concerns Assessment Noted Time PHQ-9 Depression Total Score: 0 07/03/20 24 2:18 PM EDT documented as of this encounter Care Teams Border Patrol Officer Relationship Specialty Start Date End Date Aneesh Richmond DO [address] [place] [address] PCP - General Family Medicine 07/16/22 documented as of this encounter
--- OUTSIDE RECORDS SUMMARY | 2025-07-06 09:46 | XMS_ITS | Encounter Summary ---
Author Organization [facility] tem Address [facility] [id number] [address] [place] [address] Care Team Providers Care Credit Collections Analyst Name Role Phone Aneesh Richmond DO Primary Care Provider +1- [phone] Encounter Details Date Type Department Care Team (Late st Contact Info) Description 04/03/2024 Orders Only [facility] Internal Medicine - Family Medicine [address] [place] [address] Aneesh Richmond DO [address], [place] [address] Cervical radiculopathy (Primary Dx); Paresthesia of right arm Social History Tobacco Use Types Packs/Day Years Used Date Smoking Tobacco: Every Day Cigarettes 3 45 Smokeless Tobacco: Never Alcohol Use Standard Drinks/Week Comments Not Currently 0 (1 standard drink = 0.6 oz pur e alcohol) Social Connection and Isolat ion Panel [NHANES] Answer Date Recorded In a typical week, how many times do you talk on the phone with family, friends, or neighbors? More than three times a week 07/13/2023 How often do you get togethe r with friends or relatives? More than three times a week 07/13/2023 How often do you attend chur ch or yarsani services? Never 07/13/2023 Do you belong to any clubs o r organizations such as rastafari groups, unions, fraternal or athletic groups, or [...] PHQ-2 Answer Date Recorded Total Score 0 04/03/2024 [facility] of Occupat ional Health - Occupational Stress [...] Recorded Do you need help finding a [facility] career [facility] and/or a training program? No 07/13/2023 Hunger Screening Answer Date Recorded Within the past 12 months we worried whether our food would run out before we got money to buy more. Never True 04/03/2024 Within the past 12 months th e food we bought just didn't last and we didn't have money to get more. Never True 04/03/2024 Purpose - Life Answer Date Recorded I have a purpose and direction in my life. Stron gly Agree 07/13/2023 Sex and Gender Information Value Date Recorded Sex Assigned at Not on file Legal Sex Male 2:08 PM EDT Gender Identity Not on file Sexual Orientation Not on file documented as of this encounter Plan of Treatment Upcoming Encounters Date Type Department Care Team (Late st Contact Info) Description 07/18/2025 10:30 AM EDT Office Visit [facility] - Family Medicine [address] [place] [address] Aneesh Richmond DO [address] [place] [address] documented as of this encounter Visit Diagnoses Diagnosis Cervical radiculopathy- Primary Brachial neuritis or radiculitis nos Paresthesia of right arm Disturbance of skin sensation documented in this encounter Additional Health Concerns Assessment Noted Time PHQ-9 Depression Total Score: 0 04/03/20 24 2:18 PM EDT documented as of this encounter Care Teams Credit Collections Analyst Relationship Specialty Start Date End Date Aneesh Richmond DO [address] [place] [address] PCP - General Family Medicine 07/16/22 documented as of this encounter
--- OUTSIDE RECORDS SUMMARY | 2025-07-06 09:46 | XMS_ITS | Encounter Summary ---
Author Organization [employer] tem Address [facility] [id number] [address] [place] [address] Care Team Providers Care Line Pilot Name Role Phone Aneesh Richmond DO Primary Care Provider +1- [phone] Encounter Details Date Type Department Care Team (Late Contact Info) Description 11/23/2022 Orders Only [facility] Internal Medicine - Family Medicine [address] [place] [address] Rose Romero CMA Neck pain, chronic; Cervical radiculopathy Social History Tobacco Use Types Packs/Day Years Used Date Smoking Tobacco: Every Day Cigarettes 1 45 Smokeless Tobacco: Never Alcohol Use Standard Drinks/Week Comments Not Currently 0 (1 standard drink = 0.6 oz pur e alcohol) PHQ-2 Answer Date Recorded Total Score 0 10/20/2022 Childcare Answer Date Recorded Childcare Unknown 03/20/2019 Employment Answer Date Recorded Employment Unknown 03/20/2019 Sex and Gender Information Value Date Recorded Sex Assigned at Not on file Legal Sex Male 2:08 PM EDT Gender Identity Not on file Sexual Orientation Not on file COVID-19 Exposure Response Date Recorded In the last month, have you been in contact with someone who was confirmed or suspected to have Coronavirus / COVID-19? No / Unsure 11/20/2022 9:52 AM EST documented as of this encounter Plan of Treatment Upcoming Encounters Date Type Department Care Team (Late Contact Info) Description 07/18/2025 10:30 AM EDT Office Visit [facility] Internal Medicine - Family Medicine [address] [place] [address] Aneesh Richmond DO [address], [place] [address] documented as of this encounter Visit Diagnoses Diagnosis Neck pain, chronic Cervical radiculopathy Brachial neuritis or radiculitis nos documented in this encounter Additional Health Concerns Assessment Noted Time PHQ-9 Depression Total Score: 0 10/20/19 23 1:35 PM EST documented as of this encounter Care Teams Line Pilot Relationship Specialty Start Date End Date Aneesh Richmond DO [address], [facility] [place] [address] PCP - General Family Medicine 07/16/22 documented as of this encounter
--- OUTSIDE RECORDS SUMMARY | 2025-07-06 09:46 | XMS_ITS | Encounter Summary ---
Author Organization [facility] Address [facility] [id number] [address] [place] [address] Care Team Providers Care Film Coater Name Role Phone Aneesh Richmond DO Primary Care Provider + [phone] Reason for Visit * Reason Onset Date Comments Med Refill 10/24/2024 Encounter Details Date Type Department Care Team (Late st Contact Info) Description 10/24/2024 Refill [facility] Internal Medicine - Family Medicine [address] [place] [address] Aneesh Richmond DO [address], [facility] [address] Cervical radiculopathy Social History Tobacco Use Types Packs/Day Years Used Date Smoking Tobacco: Every Day Cigarettes 3 45 Smokeless Tobacco: Never Alcohol Use Standard Drinks/Week Comments Not Currently 0 (1 standard drink = 0.6 oz pur e alcohol) [facility] Utilities Answer Date Recorded In the past 12 months has [employer], gas, oil, or water [employer] threatened to shut off services in your [...] week 07/13/2023 How often do you attend [facility] or mormonism services? Never 07/13/2023 Do you belong to any clubs o r organizations such as scientology groups, unions, fraternal or athletic groups, or [...] Answer Date Recorded Total Score 0 07/03/2024 [facility] of Occupat ional Health - Occupational Stress [...] Recorded Do you need help finding a [facility] career center and/or a training program? No [...] Internal Medicine - Family Medicine [address] [place] [address] Aneesh Richmond DO [address] [facility] [address] documented as of this encounter Visit Diagnoses Diagnosis Cervical radiculopathy Brachial neuritis or radiculitis nos documented in this encounter Additional Health Concerns Assessment Noted Time PHQ-9 Depression Total Score: 0 07/03/20 24 2:18 PM EDT documented as of this encounter Care Teams Film Coater Relationship Specialty Start Date End Date Aneesh Richmond DO [address] [facility] [place] [address] PCP - General Family Medicine 07/16/22 documented as of this encounter
--- OUTSIDE RECORDS SUMMARY | 2025-07-06 09:46 | XMS_ITS | Encounter Summary ---
Author Organization [facility] [employer] [facility] Sys tem Address [facility] [id number] [address] [place] [address] Care Team Providers Care Manager Appointment Name Role Phone Aneesh Richmond DO Primary Care Provider + [phone] Reason for Referral * Diagnostic Imaging (Routine) - Closed Specialty Diagnoses / Procedures Referred By Contac t Referred To Contact Radiology Diagnoses Cervical radiculopathy Procedures MR cervical spine with and without contrast Aneesh Richmond DO [address], [place] [address] Phone: tel: fax: Referral ID Status Reason Start Date Expiration Date Visits Re quested Visits Authorized [id number] Closed 12/14/2022 12/14/2023 1 1 Encounter Details Date Type Department Care Team (Late st Contact Info) Description 12/14/2022 Orders Only [facility] Internal Medicine - Family Medicine [address] [place] [address] Aneesh Richmond DO [address], [place] [address] Cervical radiculopathy (Primary Dx) Social History Tobacco Use Types Packs/Day Years [...] - Family Medicine [address] [place] [address] Aneesh Richmond DO [address] [facility] [place] [address] documented as of this encounter Results * X-ray eye foreign body localization (02/18/2023 2:11 PM EDT) Anatomical Region Laterality Modality Neuro, Head N/A Computed Radiogr aphy us Aneesh Richmond DO IM DIAGNOSTIC IMAGING ORDER JUAN Final Result * MR cervical spine with and without contrast (02/18/2023 2:10 PM EDT) Anatomical Region Laterality Modality MSK, Neuro, Spine, C-spine, Spine Covera N/A Magnetic Resonance us Aneesh Richmond DO IMG MRI ORDERABLES Final Res ult documented in this encounter Visit Diagnoses Diagnosis Cervical radiculopathy- Primary Brachial neuritis or radiculitis nos documented in this encounter Additional Health Concerns Assessment Noted Time PHQ-9 Depression Total Score: 0 10/20/19 23 1:35 PM EST documented as of this encounter Care Teams Manager Appointment Relationship Specialty Start Date End Date Aneesh Richmond DO [address], [place] [address] PCP - General Family Medicine 07/16/22 documented as of this encounter
--- OUTSIDE RECORDS SUMMARY | 2025-07-06 09:46 | XMS_ITS | Encounter Summary ---
Author Organization [facility] tem Address [facility] [id number] [address] [place] [address] Care Team Providers Care Hull Grinder Name Role Phone Aneesh Richmond DO Primary Care Provider [phone]- [phone] Encounter Details Date Type Department Care Team (Late st Contact Info) Description 02/21/2024 Orders Only [facility] Internal Medicine - Family Medicine [address] [place] [address] Aneesh Richmond DO [address], [place] [address] Chronic midline low back pain, unspecified whether sciatica present Social History Tobacco Use Types Packs/Day Years [...] often do you attend chur ch or episcopal services? Never 07/13/2023 Do you belong to any clubs o r organizations such as catholic groups, unions, fraternal or athletic groups, or [...] PHQ-2 Answer Date Recorded Total Score 0 12/30/2023 [facility] of Occupat ional Health - Occupational Stress [...] Recorded Do you need help finding a [facility] career center and/or a training program? No 07/13/2023 Hunger Screening Answer Date Recorded Within the past 12 months we worried whether our food would run out before we got money to buy more. Never True 01/14/2024 Within the past 12 months th e food we bought just didn't last and we didn't have money to get more. Never True 01/14/2024 Purpose - Life Answer Date Recorded I [...] Medicine - Family Medicine [address] [place] [address] Aneesh Richmond DO [address], [place] [address] documented as of this encounter Procedures Procedure Name Priority Date/Time Associated Diagnosis Comments XR SPINE LUMBAR 2 OR 3 VWS Routine 02/21/2024 4:10 PM EDT Chronic midline low back pain, unspecified whether sciatica present documented in this encounter Results * X-ray spine lumbar 2 or 3 views (02/21/2024 4:10 PM EDT) Anatomical Region Laterality Modality MSK, Neuro, Spine, L-spine N/A Compu garry Radiography Aneesh Richmond DO [facility] DIAGNOSTIC IMAGING ORDER JUAN Final Result documented in this encounter Visit Diagnoses Diagnosis Chronic midline low back pain, unspecified whether sciatica present documented in this encounter Additional Health Concerns Assessment Noted Time PHQ-9 Depression Total Score: 0 12/30/19 24 2:02 PM EDT documented as of this encounter Care Teams Hull Grinder Relationship Specialty Start Date End Date Aneesh Richmond DO [address], [place] [address] PCP - General Family Medicine 07/16/22 documented as of this encounter
--- OUTSIDE RECORDS SUMMARY | 2025-07-06 09:46 | XMS_ITS | Patient Health Record ---
Author Organization [facility] [place] Address [address] [place] [address] Support Name Relationship Address Phone Laurel Hannah Emergency Contact Unknown Nichole Nubia Guarantor Unknown [phone] Reason For Referral No Information Medications Medication SIG (Take, Route, Fr equency, Duration) Notes Start Date End Date Status Prilosec OTC 20 mg Active Zocor tablet Active albuterol solution Active Proventil Active Vicodin 500 mg-5 mg 1 tablet(s) Q4-6H; D uration: 15 days 12/31/2008 Active Plan Of Treatment No Information Insurance Providers Payer Name Payer Address Payer Phone Subscriber Number Group Number Insured Name Patient Relationship to Insured Coverage Start Date Coverage End Date SELF PAY ON PATIENT [employer] Nubia Varela Self - patient is the insured 2
--- OUTSIDE RECORDS SUMMARY | 2025-07-06 09:46 | XMS_ITS | Encounter Summary ---
Author Organization [facility] s tem Address [facility] [id number] [address] [place] [address] Care Team Providers Care Fur Cleaner Name Role Phone Aneesh Richmond DO Primary Care Provider +1 [phone] Encounter Details Date Type Department Care Team (Late st Contact Info) Description 02/28/2024 Orders Only [facility] Internal Medicine - Family Medicine [address] [place] [address] Aneesh Richmond DO [address], [place] [address] Social History Tobacco Use Types Packs/Day Years [...] often do you attend chur ch or nondenominational services? Never 07/13/2023 Do you belong to any clubs o r organizations such as restoration groups, unions, fraternal or athletic groups, or [...] Answer Date Recorded Total Score 0 12/30/2023 [facility] of Occupat ional Health - Occupational Stress [...] Recorded Do you need help finding a [facility] and/or a training program? No [...] - Family Medicine [address] [place] [address] Aneesh Richmond DO [address], [facility] [place] [address] documented as of this encounter Visit Diagnoses Not on filedocumented in this encounter Additional Health Concerns Assessment Noted Time PHQ-9 Depression Total Score: 0 12/30/19 24 2:02 PM EDT documented as of this encounter Care Teams Fur Cleaner Relationship Specialty Start Date End Date Aneesh Richmond DO [address] [facility] [address] PCP - General Family Medicine 07/16/22 documented as of this encounter
--- OUTSIDE RECORDS SUMMARY | 2025-07-06 09:46 | XMS_ITS | Encounter Summary ---
Author Organization [employer] tem Address [facility] [id number] [address] [place] [address] Care Team Providers Care Stock Sorter Name Role Phone ElizabethAneesh eric Andre RODRÍGUEZ Primary Care Provider [phone] Encounter Details Date Type Department Care Team (Late st Contact Info) Description 04/03/2024 Telephone [facility] Internal Medicine - Family Medicine [address] [place] [address] Juan, Radha, WIRE REPAIRER Social History Tobacco Use Types Packs/Day Years [...] often do you attend chur ch or jain services? Never 07/13/2023 Do you belong to any clubs o r organizations such as yarsani groups, unions, fraternal or athletic groups, or [...] Answer Date Recorded Total Score 0 04/03/2024 [facility] [place] of Occupat ional Health - Occupational Stress [...] Recorded Do you need help finding a [facility] career center and/or a training program? No [...] encounter Miscellaneous Notes * Telephone Encounter - Radha Martinez CMA - 04/03/2024 5:00 PM EDT [facility] can you clarify the directions for pt sumatriptan? * Telephone Encounter - Radha Martinez CMA - 04/03/2024 5:00 PM EDT Roselyn wanted to know how long these were suppose to last 30,60,or 90 day documented in this encounter Plan of Treatment Upcoming Encounters Date Type Department Care Team (Late st Contact Info) Description 07/18/2025 10:30 AM EDT Office Visit [facility] Medicine - Family Medicine [address] [place] [address] Aneesh Richmond DO [address] [facility] [place] [address] documented as of this encounter Visit Diagnoses Not on filedocumented in this encounter Additional Health Concerns Assessment Noted Time PHQ-9 Depression Total Score: 0 04/03/20 24 2:18 PM EDT documented as of this encounter Care Teams Stock Sorter Relationship Specialty Start Date End Date Aneesh Richmond DO [address] [facility] [place] [address] PCP - General Family Medicine 07/16/22 documented as of this encounter
--- OUTSIDE RECORDS SUMMARY | 2025-07-06 09:46 | XMS_ITS | Encounter Summary ---
Author Organization [facility] [employer] [facility] tem Address [facility] [id number] [address] [place] [address] Care Team Providers Care Tower Hand Name Role Phone Aneesh Richmond DO Primary Care Provider +[phone] Reason for Visit * Reason Comments Med Refill Encounter Details Date Type Department Care Team (Late st Contact Info) Description 12/18/2022 Refill [facility] Internal Medicine - Family Medicine [address] [place] [address] Aneesh Richmond DO [address], [place] [address] Cervical radiculopathy Social History Tobacco Use Types [...] - Family Medicine [address] [place] [address] Aneesh Richmond DO [address], [facility] [place] [address] documented as of this encounter Visit Diagnoses Diagnosis Cervical radiculopathy Brachial neuritis or radiculitis nos documented in this encounter Additional Health Concerns Assessment Noted Time PHQ-9 Depression Total Score: 0 10/20/19 23 1:35 PM EST documented as of this encounter Care Teams Tower Hand Relationship Specialty Start Date End Date Aneesh Richmond DO [address], [facility] [place] [place] [address] PCP - General Family Medicine 07/16/22 documented as of this encounter
--- OUTSIDE RECORDS SUMMARY | 2025-07-06 09:46 | XMS_ITS | Encounter Summary ---
Author Organization [employer] Sys tem Address [facility] [id number] [address] [place] [address] Care Team Providers Care Executive Secretary Social Welfare Name Role Phone Aneesh Richmond DO Primary Care Provider + [phone] Reason for Visit * Reason Onset Date Comments Med Refill 12/04/2022 Encounter Details Date Type Department Care Team (Late Contact Info) Description 12/04/2022 [facility] [address] [facility] [address] Rose Romero CMA Cervical radiculopathy Social History Tobacco Use Types [...] Medicine - Family Medicine [address] [place] [address] Aneesh Richmond DO [address] [facility] [facility] [place] [address] documented as of this encounter Visit Diagnoses Diagnosis Cervical radiculopathy Brachial neuritis or radiculitis nos documented in this encounter Additional Health Concerns Assessment Noted Time PHQ-9 Depression Total Score: 0 10/20/19 23 1:35 PM EST documented as of this encounter Care Teams Executive Secretary Social Welfare Relationship Specialty Start Date End Date Aneesh Richmond DO [address] [place] [address] PCP - General Family Medicine 07/16/22 documented as of this encounter
--- OUTSIDE RECORDS SUMMARY | 2025-07-06 09:46 | XMS_ITS | Encounter Summary ---
Author Organization [facility] Address [id number] [address] [place] [address] Care Team Providers Care Segmental Wall Installer Name Role Phone Aneesh Richmond DO Primary Care Provider [phone]- [phone] Reason for Visit * Reason Onset Date Comments Med Refill 11/02/2022 Encounter Details Date Type Department Care Team (Late st Contact Info) Description 11/02/2022 Refill [facility] Internal Medicine - Family Medicine [address] [place] [address] Rose Romero CMA Social History Tobacco Use Types Packs/Day [...] have Coronavirus / COVID-19? No / Unsure 10/20/2022 1:27 PM EST documented as of this encounter Miscellaneous Notes * Telephone Encounter - Aneesh Richmond DO - 11/02/2022 1:35 PM EST I can not give him a new opioid without an appointment. I put him on tramadol at his visit. This was from the ER * Telephone Encounter - Rose Romero CMA - 11/02/2022 1:35 PM EST I spoke with the patient and he gave me the wrong med. He said it is the Tramadol. documented in this encounter Plan of Treatment Upcoming Encounters Date Type Department Care Team (Late st Contact Info) Description 07/18/2025 10:30 AM EDT Office Visit [facility] Internal Medicine - Family Medicine [address] [place] [address] Aneesh Richmond DO [address], [facility] [place] [address] documented as of this encounter Visit Diagnoses Not on filedocumented in this encounter Additional Health Concerns Assessment Noted Time PHQ-9 Depression Total Score: 0 10/20/19 1:35 PM EST documented as of this encounter Care Teams Segmental Wall Installer Relationship Specialty Start Date End Date Aneesh Richmond DO [address] [facility] [place] [address] PCP - General Family Medicine 07/16/22 documented as of this encounter
--- OUTSIDE RECORDS SUMMARY | 2025-07-06 09:46 | XMS_ITS | Encounter Summary ---
Author Organization [facility] tem Address [facility] [place][id number] [address] [place] [address] Care Team Providers Care Graphic Arts Technician Name Role Phone Aneesh Richmond DO Primary Care Provider [phone] [phone] Reason for Visit * Reason Comments Med Refill Encounter Details Date Type Department Care Team (Late Contact Info) Description 12/09/2022 Refill [facility] Internal Medicine - Family Medicine [address] [place] [address] Aneesh Richmond DO [address] [place] [address] Anxiety disorder, unspecified Social History Tobacco Use Types Packs/Day Years [...] Medicine - Family Medicine [address] [place] [address] Aneesh Richmond DO [address], [place] [address] documented as of this encounter Visit Diagnoses Diagnosis Anxiety disorder, unspecified documented in this encounter Additional Health Concerns Assessment Noted Time PHQ-9 Depression Total Score: 0 10/20/19 23 1:35 PM EST documented as of this encounter Care Teams Graphic Arts Technician Relationship Specialty Start Date End Date Aneesh Richmond DO [address] [facility] [place] [address] PCP - General Family Medicine 07/16/22 documented as of this encounter
--- OUTSIDE RECORDS SUMMARY | 2025-07-06 09:46 | XMS_ITS | Encounter Summary ---
Author Organization [employer] s tem Address [facility] [id number] [address] [place] [address] Care Team Providers Care Automobile Leasing Supervisor Name Role Phone ElizabethAneesh eric Andre RODRÍGUEZ Primary Care Provider + [phone] Encounter Details Date Type Department Care Team (Late st Contact Info) Description 02/11/2024 Telephone [facility] Internal Medicine - Family Medicine [address] [place] [id number] Juan, Radha, COMMERCIAL INTELLIGENCE MANAGER Social History Tobacco Use Types Packs/Day Years [...] often do you attend chur ch or church services? Never 07/13/2023 Do you belong to any clubs o r organizations such as zoroastrianism groups, unions, fraternal or athletic groups, or [...] Answer Date Recorded Total Score 0 12/30/2023 [facility] [place] of Occupat ional Health - Occupational Stress [...] Recorded Do you need help finding a [facility] career center and/or a training program? No [...] Telephone Encounter - Radha Martinez CMA - 02/11/2024 12:30 PM EDT [facility] to [facility] if you wanted the tramadol to last 5 or 7 days * Telephone Encounter - Aneesh Richmond DO - 02/11/2024 12:30 PM EDT 7 days documented in this encounter Plan of Treatment Upcoming Encounters Date Type Department Care Team (Late st Contact Info) Description 07/18/2025 10:30 AM EDT Office Visit [facility] Internal Medicine - Family Medicine [address] [place] [address] Aneesh Richmond DO [address] [facility] [place] [address] documented as of this encounter Visit Diagnoses Not on filedocumented in this encounter Additional Health Concerns Assessment Noted Time PHQ-9 Depression Total Score: 0 12/30/19 24 2:02 PM EDT documented as of this encounter Care Teams Automobile Leasing Supervisor Relationship Specialty Start Date End Date Aneesh Richmond DO [address] [facility] [place] [address] PCP - General Family Medicine 07/16/22 documented as of this encounter
--- OUTSIDE RECORDS SUMMARY | 2025-07-06 09:47 | XMS_ITS | Encounter Summary ---
Author Organization [facility] Address [facility] [id number] [address] [place] [address] Care Team Providers Care Stock Worker And Deliverer Name Role Phone Aneesh Richmond DO Primary Care Provider + [phone] Reason for Visit * Reason Comments Med Refill Encounter Details Date Type Department Care Team (Late st Contact Info) Description 10/16/2024 Refill [facility] Internal Medicine - Family Medicine [address] [place] [address] Aneesh Richmond DO [address], [place] [address] Cervical radiculopathy Social History Tobacco Use Types Packs/Day Years Used Date Smoking Tobacco: Every Day Cigarettes 3 45 Smokeless Tobacco: Never Alcohol Use Standard Drinks/Week Comments Not Currently 0 (1 standard drink = 0.6 oz pur e alcohol) [facility] Utilities Answer Date Recorded In the past 12 months has [employer], gas, oil, or water [employer] threatened to shut off services in your [...] week 07/13/2023 How often do you attend [facility] or gnosticist services? Never 07/13/2023 Do you belong to [...] Answer Date Recorded Total Score 0 07/03/2024 [facility] of Occupat ional Health - Occupational Stress [...] Recorded Do you need help finding a [facility] career center and/or a training [...] Telephone Encounter - Aneesh Richmond DO - 10/16/2024 5:56 PM EST Prescription already sent in documented in this encounter Plan of Treatment Upcoming Encounters Date Type Department Care Team (Late st Contact Info) Description 07/18/2025 10:30 AM EDT Office Visit [facility] Internal Medicine - Family Medicine [address] [place] [address] Aneesh Richmond DO [address], [place] [address] documented as of this encounter Visit Diagnoses Diagnosis Cervical radiculopathy Brachial neuritis or radiculitis nos documented in this encounter Additional Health Concerns Assessment Noted Time PHQ-9 Depression Total Score: 0 07/03/20 24 2:18 PM EDT documented as of this encounter Care Teams Stock Worker And Deliverer Relationship Specialty Start Date End Date Aneesh Richmond DO [address] [facility] [address] PCP - General Family Medicine 07/16/22 documented as of this encounter
--- OUTSIDE RECORDS SUMMARY | 2025-07-06 09:47 | XMS_ITS | Encounter Summary ---
Author Organization [facility] Address [facility] [id number] [address] [place] [address] Care Team Providers Care Theatrical Trouper Name Role Phone Aneesh Richmond DO Primary Care Provider + [phone] Reason for Visit * Reason Onset Date Comments Med Refill 10/10/2024 Encounter Details Date Type Department Care Team (Late st Contact Info) Description 10/10/2024 Refill [facility] Internal Medicine - Family Medicine [address] [place] [address] Aneesh Richmond DO [address], [facility] [place] [address] Cervical radiculopathy Social History Tobacco Use Types Packs/Day Years Used Date Smoking Tobacco: Every Day Cigarettes 3 45 Smokeless Tobacco: Never Alcohol Use Standard Drinks/Week Comments Not Currently 0 (1 standard drink = 0.6 oz pur e alcohol) [facility] Utilities Answer Date Recorded In the past 12 months has [employer], gas, oil, or water [employer] threatened to shut off services in your [...] week 07/13/2023 How often do you attend [facility] or temple services? Never 07/13/2023 Do you belong to any clubs o r organizations such as temple groups, unions, fraternal or athletic groups, or [...] Answer Date Recorded Total Score 0 07/03/2024 [facility] of Occupat ional Health - Occupational [...] Recorded Do you need help finding a [facility] career center and/or a training program? [...] Medicine - Family Medicine [address] [place] [address] Aneesh Richmond DO [address] [facility] [place] [address] documented as of this encounter Visit Diagnoses Diagnosis Cervical radiculopathy Brachial neuritis or radiculitis nos documented in this encounter Additional Health Concerns Assessment Noted Time PHQ-9 Depression Total Score: 0 07/03/20 24 2:18 PM EDT documented as of this encounter Care Teams Theatrical Trouper Relationship Specialty Start Date End Date Aneesh Richmond DO [address] [facility] [place] [address] PCP - General Family Medicine 07/16/22 documented as of this encounter
--- OUTSIDE RECORDS SUMMARY | 2025-07-06 09:47 | XMS_ITS | Encounter Summary ---
Author Organization [facility] Address [id number] [address] [place] [address] Care Team Providers Care Novelty Dipper Name Role Phone Aneesh Richmond DO Primary Care Provider + [phone] Reason for Visit * Reason Onset Date Comments Med Refill 07/02/2024 Encounter Details Date Type Department Care Team (Late st Contact Info) Description 07/02/2024 Refill [facility] Internal Medicine - Family Medicine [address] [place] [address] Aneesh Richmond DO [address], [facility] [place] [address] Cervical radiculopathy Social History Tobacco Use Types [...] often do you attend chur ch or hoahaoism services? Never 07/13/2023 Do you belong to any clubs o r organizations such as denominational groups, unions, fraternal or athletic groups, or [...] Answer Date Recorded Total Score 0 07/03/2024 [facility] of Occupat ional Health - [...] Recorded Do you need help finding a [facility] career center and/or a training program? [...] Telephone Encounter - Aneesh Richmond DO - 07/02/2024 11:34 AM EDT Was just sent in documented in this encounter Plan of Treatment Upcoming Encounters Date Type Department Care Team (Late st Contact Info) Description 07/18/2025 10:30 AM EDT Office Visit [facility] Internal Medicine - Family Medicine [address] [place] [address] Aneesh Richmond DO [address] [place] [address] documented as of this encounter Visit Diagnoses Diagnosis Cervical radiculopathy Brachial neuritis or radiculitis nos documented in this encounter Additional Health Concerns Assessment Noted Time PHQ-9 Depression Total Score: 0 04/03/20 24 2:18 PM EDT documented as of this encounter Care Teams Novelty Dipper Relationship Specialty Start Date End Date Aneesh Richmond DO [address] [facility] [place] [address] PCP - General Family Medicine 07/16/22 documented as of this encounter
--- OUTSIDE RECORDS SUMMARY | 2025-07-06 09:47 | XMS_ITS | Encounter Summary ---
Author Organization [facility] tem Address [facility] [id number] [address] [place] [address] Care Team Providers Care Career Professional Name Role Phone Aneesh Richmond DO Primary Care Provider [phone]- [phone] Encounter Details Date Type Department Care Team (Late st Contact Info) Description 08/25/2023 Orders Only [facility] Internal Medicine - Family Medicine [address] [place] [address] Aneesh Richmond DO [address], [place] [address] Cubital tunnel syndrome on left; Cervical radiculopathy Social History Tobacco Use Types [...] often do you attend chur ch or latter day services? Never 07/13/2023 Do you belong to any clubs o r organizations such as congregational groups, unions, fraternal or athletic groups, or [...] PHQ-2 Answer Date Recorded Total Score 0 07/13/2023 [facility] of Occupat ional Health - Occupational [...] Recorded Do you need help finding a [facility] career center and/or a training program? No 07/13/2023 Hunger Screening Answer Date Recorded Within the past 12 months we worried whether our food would run out before we got money to buy more. Never True 07/13/2023 Within the past 12 months th e food we bought just didn't last and we didn't have money to get more. Never True 07/13/2023 Purpose - Life Answer Date Recorded I [...] Medicine - Family Medicine [address] [place] [address] Aneesh Richmond DO [address] [facility], [place] [address] documented as of this encounter Procedures Procedure Name Priority Date/Time Associated Diagnosis Comments AMB REFERRAL TO ORTHOPEDIC SURGERY Routine 08/18/2023 Cubital tunnel syndrome on left Cervical radiculopathy documented in this encounter Results * Ambulatory referral to Orthopedic Surgery (08/18/2023) us Aneesh Richmond DO OUTPATIENT REFERRAL ORDERABL ES Final Result MANUALLY TRANSCRIBED RESULTS documented in this encounter Visit Diagnoses Diagnosis Cubital tunnel syndrome on left Cervical radiculopathy Brachial neuritis or radiculitis nos documented in this encounter Additional Health Concerns Assessment Noted Time PHQ-9 Depression Total Score: 0 07/13/20 23 1:30 PM EDT documented as of this encounter Care Teams Career Professional Relationship Specialty Start Date End Date Aneesh Richmond DO [address], [place] [address] PCP - General Family Medicine 07/16/22 documented as of this encounter
--- OUTSIDE RECORDS SUMMARY | 2025-07-06 09:47 | XMS_ITS | Encounter Summary ---
Author Organization [facility] tem Address [id number] [address] [place] [address] Care Team Providers Care [employer] Sales Name Role Phone Aneesh Richmond DO Primary Care Provider + [phone] Reason for Visit * Reason Comments Med Refill Encounter Details Date Type Department Care Team (Late st Contact Info) Description 08/11/2024 Refill [facility] Internal Medicine - Family Medicine [address] [place] [address] Aneesh Richmond DO [address], [place] [address] Cervical radiculopathy Social History Tobacco Use Types [...] any clubs o r organizations such as orthodox groups, unions, fraternal or athletic groups, or [...] Answer Date Recorded Total Score 0 07/03/2024 [facility] of Occupat ional Health - [...] Recorded Do you need help finding a [facility] career [facility] and/or a training program? [...] Telephone Encounter - Aneesh Richmond DO - 08/11/2024 2:22 PM EDT Prescription just sent in documented in this encounter Plan of Treatment Upcoming Encounters Date Type Department Care Team (Late st Contact Info) Description 07/18/2025 10:30 AM EDT Office Visit [facility] Internal Medicine - Family Medicine [address] [place] [address] Aneesh Richmond DO [address] [facility] [place] [address] documented as of this encounter Visit Diagnoses Diagnosis Cervical radiculopathy Brachial neuritis or radiculitis nos documented in this encounter Additional Health Concerns Assessment Noted Time PHQ-9 Depression Total Score: 0 07/03/20 24 2:18 PM EDT documented as of this encounter Care Teams [employer] Sales Relationship Specialty Start Date End Date Aneesh Richmond DO [address] [facility] [facility] [place] [address] PCP - General Family Medicine 07/16/22 documented as of this encounter
--- OUTSIDE RECORDS SUMMARY | 2025-07-06 09:47 | XMS_ITS | Encounter Summary ---
Author Organization [facility] Dublin[facility] [employer] Sys tem Address [facility] [id number] [address] [place] [address] Care Team Providers Care Health Care / Medical Job Titles Name Role Phone Aneesh Richmond DO Primary Care Provider [phone]- [phone] Reason for Visit * Reason Comments Med Refill Encounter Details Date Type Department Care Team (Late st Contact Info) Description 10/11/2022 Refill [facility] Internal Medicine - Family Medicine [address] [place] [address] Aneesh Richmond DO [address], [place] [address] Chronic obstructive pulmonary disease, unspecified (CMS-HCC); Anxiety disorder, unspecified; Essential (primary) hypertension Social History Tobacco Use Types Packs/Day Years Used Date Smoking Tobacco: Every Day Cigarettes 1 45 Smokeless Tobacco: Never Alcohol Use Standard Drinks/Week Comments Not Currently 0 (1 standard drink = 0.6 oz pur e alcohol) PHQ-2 Answer Date Recorded Total Score 1 09/17/2022 Childcare Answer Date Recorded Childcare Unknown 03/20/2019 [...] have Coronavirus / COVID-19? No / Unsure 09/17/2022 3:41 PM EST documented as of this encounter Plan of Treatment Upcoming Encounters Date Type Department Care Team (Late st Contact Info) Description 07/18/2025 10:30 AM EDT Office Visit [facility] Internal Medicine - Family Medicine [address] [place] [address] Aneesh Richmond DO [address] [facility] [place] [address] documented as of this encounter Visit Diagnoses Diagnosis Chronic obstructive pulmonary disease, unspecified (CMS-HCC) Anxiety disorder, unspecified Essential (primary) hypertension Unspecified essential hypertension documented in this encounter Additional Health Concerns Assessment Noted Time PHQ-9 Depression Total Score: 1 09/17/20 22 3:53 PM EST documented as of this encounter Care Teams Health Care / Medical Job Titles Relationship Specialty Start Date End Date Aneesh Richmond DO [address] [facility] [place] [address] PCP - General Family Medicine 07/16/22 documented as of this encounter
--- OUTSIDE RECORDS SUMMARY | 2025-07-06 09:47 | XMS_ITS | Encounter Summary ---
Author Organization [facility] Address [facility] [id number] [address] [place] [address] Care Team Providers Care Heel Seat Pounder Name Role Phone Aneesh Richmond DO Primary Care Provider + [phone] Reason for Visit * Reason Onset Date Comments Med Refill 06/19/2024 Encounter Details Date Type Department Care Team (Late st Contact Info) Description 06/19/2024 Refill [facility] Internal Medicine - Family Medicine [address] [place] [address] Aneesh Richmond DO [address], [facility] [place] [address] Cervical radiculopathy Social History Tobacco Use Types [...] often do you attend chur ch or jew services? Never 07/13/2023 Do you belong to any clubs o r organizations such as pentecostal groups, unions, fraternal or athletic groups, or [...] Answer Date Recorded Total Score 0 04/03/2024 [facility] of Occupat ional Health - Occupational [...] Recorded Do you need help finding a [facility] career center and/or a training program? [...] - Family Medicine [address] [place] [address] Aneesh Richmond DO [address] [facility] [place] [address] documented as of this encounter Visit Diagnoses Diagnosis Cervical radiculopathy Brachial neuritis or radiculitis nos documented in this encounter Additional Health Concerns Assessment Noted Time PHQ-9 Depression Total Score: 0 04/03/20 24 2:18 PM EDT documented as of this encounter Care Teams Heel Seat Pounder Relationship Specialty Start Date End Date Aneesh Richmond DO [address] [place] [address] PCP - General Family Medicine 07/16/22 documented as of this encounter
--- OUTSIDE RECORDS SUMMARY | 2025-07-06 09:47 | XMS_ITS | Encounter Summary ---
Author Organization [facility] [employer] s tem Address [id number] [address] [place] [address] Care Team Providers Care Hip Hop Dance Instructor Name Role Phone Aneesh Richmond DO Primary Care Provider +1 [phone] Encounter Details Date Type Department Care Team (Late st Contact Info) Description 07/10/2024 Orders Only [facility] Internal Medicine - Family Medicine [address] [place] [address] Aneesh Richmond DO [address], [place] [address] Herpes zoster without complication (Primary Dx) Social History Tobacco Use Types [...] Answer Date Recorded Total Score 0 07/03/2024 [facility] of Occupat ional Health - [...] Recorded Do you need help finding a [facility] career center and/or a training program? [...] - Family Medicine [address] [place] [address] Aneesh Richmond DO [address], [facility] [place] [address] documented as of this encounter Visit Diagnoses Diagnosis Herpes zoster without complication- Primary documented in this encounter Additional Health Concerns Assessment Noted Time PHQ-9 Depression Total Score: 0 07/03/20 24 2:18 PM EDT documented as of this encounter Care Teams Hip Hop Dance Instructor Relationship Specialty Start Date End Date Aneesh Richmond DO [address] [facility] [place] [address] PCP - General Family Medicine 07/16/22 documented as of this encounter
--- OUTSIDE RECORDS SUMMARY | 2025-07-06 09:47 | XMS_ITS | Encounter Summary ---
Author Organization [facility] s tem Address [facility] [id number] [address] [place] [address] Care Team Providers Care Client Support Professional Name Role Phone Aneesh Richmond DO Primary Care Provider +1 [phone] Encounter Details Date Type Department Care Team (Late st Contact Info) Description 01/12/2024 Orders Only [facility] Internal Medicine - Family Medicine [address] [place] [address] Aneesh Richmond DO [address], [place] [address] Social History Tobacco Use Types Packs/Day Years [...] often do you attend chur ch or mu-ism services? Never 07/13/2023 Do you belong to any clubs o r organizations such as yarsanism groups, unions, fraternal or athletic groups, or [...] Answer Date Recorded Total Score 0 12/30/2023 [facility] of Occupat ional Health - Occupational Stress [...] Recorded Do you need help finding a [facility] career center and/or a training program? [...] - Family Medicine [address] [place] [address] Aneesh Richmond DO [address], [place] [address] documented as of this encounter Procedures Procedure Name Priority Date/Time Associated Diagnosis Comments IMMUNE FECAL OB - FIT Routine 12/29/2023 11:21 AM EDT documented in this encounter Results * Immune fecal OB (12/29/2023 11:21 AM EDT) us Scanning Provider External BODY FLUIDS AND STOOL S ORDERABLES Final Result MANUALLY TRANSCRIBED RESULTS documented in this encounter Visit Diagnoses Not on filedocumented in this encounter Additional Health Concerns Assessment Noted Time PHQ-9 Depression Total Score: 0 12/30/19 24 2:02 PM EDT documented as of this encounter Care Teams Client Support Professional Relationship Specialty Start Date End Date Aneesh Richmond DO [address] [place] [address] PCP - General Family Medicine 07/16/22 documented as of this encounter
--- OUTSIDE RECORDS SUMMARY | 2025-07-06 09:47 | XMS_ITS | Encounter Summary ---
Author Organization [employer] s tem Address [id number] [address] [place] [address] Care Team Providers Care Cut Press Operator Name Role Phone Aneesh Richmond DO Primary Care Provider Encounter Details Date Type Department Care Team (Late Contact Info) Description 08/20/2022 Orders Only [facility] Internal Medicine - Family Medicine [address] [place] [address] Aneesh Richmond DO [address], [place] [address] Social History Tobacco Use Types Packs/Day Years Used Date Smoking Tobacco: Every Day Cigarettes 1 45 Smokeless Tobacco: Never Alcohol Use Standard Drinks/Week Comments Not Currently 0 (1 standard drink = 0.6 oz pur e alcohol) Childcare Answer Date Recorded Childcare Unknown 03/20/2019 [...] Medicine - Family Medicine [address] [place] [address] Aneesh Richmond DO [address], [place] [address] documented as of this encounter Visit Diagnoses Not on filedocumented in this encounter Care Teams Cut Press Operator Relationship Specialty Start Date End Date Aneesh Richmond DO [address] [facility], [facility] [place], [place] [address] PCP - General Family Medicine 07/16/22 documented as of this encounter
--- OUTSIDE RECORDS SUMMARY | 2025-07-06 09:47 | XMS_ITS | Encounter Summary ---
Author Organization [employer] Address [facility] [id number] [address] [place] [address] Care Team Providers Care Beverage Specialist Name Role Phone ElizabethAneesh eric Primary Care Provider + [phone] Reason for Visit * Reason Onset Date Comments Med Refill 10/31/2024 Encounter Details Date Type Department Care Team (Late st Contact Info) Description 10/31/2024 Refill [facility] - Family Medicine [address] [place] [address] Juan, Radha, CONCRETE FLOOR INSTALLER Cervical radiculopathy Social History Tobacco Use Types Packs/Day Years Used Date Smoking Tobacco: Every Day Cigarettes 3 45 Smokeless Tobacco: Never Alcohol Use Standard Drinks/Week Comments Not Currently 0 (1 standard drink = 0.6 oz pur e alcohol) [facility] Utilities Answer Date Recorded In the past 12 months has [employer], gas, oil, or water company threatened to [...] often do you attend chur ch or jewish services? Never 07/13/2023 Do you belong to any clubs o r organizations such as evangelical groups, unions, fraternal or athletic groups, or [...] Answer Date Recorded Total Score 0 07/03/2024 [facility] of [...] Recorded Do you need help finding a [facility] career center and/or a training [...] - Family Medicine [address] [place] [address] Aneesh Richmond DO [address] [facility] [address] documented as of this encounter Visit Diagnoses Diagnosis Cervical radiculopathy Brachial neuritis or radiculitis nos documented in this encounter Additional Health Concerns Assessment Noted Time PHQ-9 Depression Total Score: 0 07/03/20 24 2:18 PM EDT documented as of this encounter Care Teams Beverage Specialist Relationship Specialty Start Date End Date Aneesh Richmond DO [address] [facility] [address] PCP - General Family Medicine 07/16/22 documented as of this encounter
--- OUTSIDE RECORDS SUMMARY | 2025-07-06 09:47 | XMS_ITS | Encounter Summary ---
Author Organization [employer] s tem Address [facility] [place][id number] [address] [place] [address] Care Team Providers Care Investigations Manager Name Role Phone ElizabethAneesh eric Andre RODRÍGUEZ Primary Care Provider +[phone] Encounter Details Date Type Department Care Team (Late st Contact Info) Description 09/29/2024 Telephone [facility] - Family Medicine [address] [place] [phone] Ry Gomez CMA Social History Tobacco Use Types Packs/Day Years Used Date Smoking Tobacco: Every Day Cigarettes 3 45 Smokeless Tobacco: Never Alcohol Use Standard Drinks/Week Comments Not Currently 0 (1 standard drink = 0.6 oz pur e alcohol) [facility] Utilities Answer Date Recorded In the past [...] often do you attend chur ch or gnosticist services? Never 07/13/2023 Do you belong to any clubs o r organizations such as faith groups, unions, fraternal or athletic groups, or [...] Answer Date Recorded Total Score 0 07/03/2024 [facility] [place] of Occupat ional Health - Occupational Stress [...] you need help finding a [facility] and/or a training program? [...] Telephone Encounter - Ry Gomez CMA - 09/29/2024 10:47 AM EST ----- Message from Dr. Aneesh Richmond DO sent [...] - Family Medicine [address] [place] [address] Aneesh Richmond DO [address] [place] [address] documented as of this encounter Visit Diagnoses Not on filedocumented in this encounter Additional Health Concerns Assessment Noted Time PHQ-9 Depression Total Score: 0 07/03/20 24 2:18 PM EDT documented as of this encounter Care Teams Investigations Manager Relationship Specialty Start Date End Date Aneesh Richmond DO [address] [place] [address] PCP - General Family Medicine 07/16/22 documented as of this encounter
--- OUTSIDE RECORDS SUMMARY | 2025-07-06 09:47 | XMS_ITS | Encounter Summary ---
Author Organization [employer] s tem Address [facility] [place]-[id number] [address] [place] [address] Care Team Providers Care Emergency Room Clerk Name Role Phone ElizabethAneesh eric Andre RODRÍGUEZ Primary Care Provider [phone] Encounter Details Date Type Department Care Team (Late st Contact Info) Description 10/05/2024 Telephone [facility] - Family Medicine [address] [place] [phone] Ry Gomez CMA Social History Tobacco Use Types Packs/Day Years Used Date Smoking Tobacco: Every Day Cigarettes 3 45 Smokeless Tobacco: Never Alcohol Use Standard Drinks/Week Comments Not Currently 0 (1 standard drink = 0.6 oz pur e alcohol) [facility] Utilities Answer Date Recorded In the past [...] any clubs o r organizations such as restorationism groups, unions, fraternal or athletic groups, or [...] Answer Date Recorded Total Score 0 07/03/2024 [facility] of Occupat ional Health - Occupational Stress [...] Recorded Do you need help finding a [facility] career [facility] and/or a training program? [...] Telephone Encounter - Ry Gomez CMA - 10/05/2024 4:34 PM EST - Message from Dr. Aneesh [...] was 105. If he was fasting he mightbe impaired fasting glucose. We can check an A1c with his next visit. The rest of his metabolic panel was normal. documented in this encounter Plan of Treatment Upcoming Encounters Date Type Department Care Team (Late st Contact Info) Description 07/18/2025 10:30 AM EDT Office Visit [facility] - Family Medicine [address] [place] [address] Aneesh Richmond DO [address] [place] [address] documented as of this encounter Visit Diagnoses Not on filedocumented in this encounter Additional Health Concerns Assessment Noted Time PHQ-9 Depression Total Score: 0 07/03/20 24 2:18 PM EDT documented as of this encounter Care Teams Emergency Room Clerk Relationship Specialty Start Date End Date Aneesh Richmond DO [address] [place] [address] PCP - General Family Medicine 07/16/22 documented as of this encounter
--- OUTSIDE RECORDS SUMMARY | 2025-07-06 09:47 | XMS_ITS | Encounter Summary ---
Author Organization [facility] Address [facility] [place][id number] [address] [place] [address] Care Team Providers Care Social Security Benefits Interviewer Name Role Phone Aneesh Richmond DO Primary Care Provider + [phone] Reason for Visit * Reason Comments Med Refill Encounter Details Date Type Department Care Team (Late st Contact Info) Description 08/24/2024 Refill [facility] - Family Medicine [address] [place] [address] Aneesh Richmond DO [address] [place] [address] Cervical radiculopathy Social History Tobacco Use Types [...] often do you attend chur ch or sikhism services? Never 07/13/2023 Do you belong to any clubs o r organizations such as pentecostalism groups, unions, fraternal or athletic groups, or [...] Answer Date Recorded Total Score 0 07/03/2024 [facility] of Occupat ional Health - [...] Recorded Do you need help finding a [facility] career [facility] and/or a training program? [...] Medicine - Family Medicine [address] [place] [address] Aneesh Richmond DO [address] [facility] [place] [address] documented as of this encounter Visit Diagnoses Diagnosis Cervical radiculopathy Brachial neuritis or radiculitis nos documented in this encounter Additional Health Concerns Assessment Noted Time PHQ-9 Depression Total Score: 0 07/03/20 24 2:18 PM EDT documented as of this encounter Care Teams Social Security Benefits Interviewer Relationship Specialty Start Date End Date Aneesh Richmond DO [address] [place] [address] PCP - General Family Medicine 07/16/22 documented as of this encounter
--- OUTSIDE RECORDS SUMMARY | 2025-07-06 09:47 | XMS_ITS | Encounter Summary ---
Author Organization [employer] Address [facility] [id number] [address] [place] [address] Care Team Providers Care Supervisor Assembling Name Role Phone Aneesh Richmond DO Primary Care Provider [phone] Reason for Visit * Reason Comments Med Refill Encounter Details Date Type Department Care Team (Late Contact Info) Description 06/08/2023 Refill [facility] - Family Medicine [address] [place] [address] Aneesh Richmond DO [address], [facility] [address] Anxiety disorder, unspecified type; Cervical radiculopathy Social History Tobacco Use Types Packs/Day Years Used Date Smoking Tobacco: Every Day Cigarettes 1 45 Smokeless Tobacco: Never Alcohol Use Standard Drinks/Week Comments Not Currently 0 (1 standard drink = 0.6 oz pur e alcohol) PHQ-2 Answer Date Recorded Total Score 0 04/12/2023 Childcare Answer Date Recorded Childcare Unknown 03/20/2019 [...] Description 07/18/2025 10:30 AM EDT Office Visit [facility] - Family Medicine [address] [place] [address] Aneesh Richmond DO [address] [place] [address] documented as of this encounter Visit Diagnoses Diagnosis Anxiety disorder, unspecified type Cervical radiculopathy Brachial neuritis or radiculitis nos documented in this encounter Additional Health Concerns Assessment Noted Time PHQ-9 Depression Total Score: 0 04/12/20 23 3:31 PM EDT documented as of this encounter Care Teams Supervisor Assembling Relationship Specialty Start Date End Date Aneesh Richmond DO [address] [place] [address] PCP - General Family Medicine 07/16/22 documented as of this encounter
--- OUTSIDE RECORDS SUMMARY | 2025-07-06 09:47 | XMS_ITS | Encounter Summary ---
Author Organization [facility] Address [facility] [place]-[id number] [address] [place] [address] Care Team Providers Care Precision Machining Instructor Name Role Phone Aneesh Richmond DO Primary Care Provider [phone]- [phone] Encounter Details Date Type Department Care Team (Late st Contact Info) Description 10/12/2024 Orders Only [facility] - Family Medicine [address] [place] [address] Aneesh Richmond DO [address], [place] [address] Social History Tobacco Use Types Packs/Day Years Used Date Smoking Tobacco: Every Day Cigarettes 3 45 Smokeless Tobacco: Never Alcohol Use Standard Drinks/Week Comments Not Currently 0 (1 standard drink = 0.6 oz pur e alcohol) [facility] Utilities Answer Date Recorded In the past 12 months has [employer], [employer], oil, or water [employer] threatened to shut off services in your [...] often do you attend chur ch or restoration services? Never 07/13/2023 Do you belong to any clubs o r organizations such as druze groups, unions, fraternal or athletic groups, or [...] Answer Date Recorded Total Score 0 07/03/2024 [facility] of Occupat ional Health - Occupational [...] Do you need help finding a [facility] career center and/or a training [...] Medicine [address] [place] [address] Aneesh Richmond DO [address], [facility] [address] documented as of this encounter Visit Diagnoses Not on filedocumented in this encounter Additional Health Concerns Assessment Noted Time PHQ-9 Depression Total Score: 0 07/03/20 24 2:18 PM EDT documented as of this encounter Care Teams Precision Machining Instructor Relationship Specialty Start Date End Date Aneesh Richmond DO [address] [facility] [address] PCP - General Family Medicine 07/16/22 documented as of this encounter
--- OUTSIDE RECORDS SUMMARY | 2025-07-06 09:47 | XMS_ITS | Encounter Summary ---
Author Organization [employer] s tem Address [facility] [place]-[id number] [address] [place] [address] Care Team Providers Care Buttoner Name Role Phone ElizabethAneesh eric Andre RODRÍGUEZ Primary Care Provider [phone] Encounter Details Date Type Department Care Team (Late st Contact Info) Description 10/30/2024 Telephone [facility] - Family Medicine [address] [place] [address] Ry Gomez CMA Social History Tobacco Use Types Packs/Day Years Used Date Smoking Tobacco: Every Day Cigarettes 3 45 Smokeless Tobacco: Never Alcohol Use Standard Drinks/Week Comments Not Currently 0 (1 standard drink = 0.6 oz pur e alcohol) [facility] Utilities Answer Date Recorded [...] often do you attend chur ch or mormonism services? Never 07/13/2023 Do you [...] Date Recorded Total Score 0 07/03/2024 [facility] of Occupat ional Health - Occupational Stress [...] purpose and direction in my life. Jeferson aceves Agree 07/13/2023 Sex and Gender Information Value Date Recorded Sex Assigned at Not on file Legal Sex Male 2:08 PM EDT Gender Identity Not on file Sexual Orientation Not on file documented as of this encounter Miscellaneous Notes * Telephone Encounter - Ry Gomez CMA - 10/30/2024 12:56 PM EST Message from Dr. Aneesh Richmond DO sent [...] rest of his metabolic panel was normal. * Telephone Encounter - Ivory Jalloh CMA - 10/30/2024 12:56 PM EST Patient called and stated to send in whatever is covered by his insurance. documented in this encounter Plan of Treatment Upcoming Encounters Date Type Department Care Team (Late st Contact Info) Description 07/18/2025 10:30 AM EDT Office Visit [facility] - Family Medicine [address] [place] [address] Aneesh Richmond DO [address], [place] [address] documented as of this encounter Visit Diagnoses Not on filedocumented in this encounter Additional Health Concerns Assessment Noted Time PHQ-9 Depression Total Score: 0 07/03/20 24 2:18 PM EDT documented as of this encounter Care Teams Buttoner Relationship Specialty Start Date End Date Aneesh Richmond DO [address] [facility], [place] [address] PCP - General Family Medicine 07/16/22 documented as of this encounter
--- OUTSIDE RECORDS SUMMARY | 2025-07-06 09:47 | XMS_ITS | Encounter Summary ---
Author Organization [employer] s [employer] Address [facility] [place][id number] [address] [place] [address] Care Team Providers Care Geological Manager Name Role Phone Aneesh Richmond DO Primary Care Provider Encounter Details Date Type Department Care Team (Late st Contact Info) Description 08/31/2022 [facility]phone [facility] [address] [place] [address] Nhi Black MA Social History Tobacco Use Types Packs/Day Years [...] encounter Miscellaneous Notes * Telephone Encounter - Nhi Black MA - 08/31/2022 2:09 PM EST Sera called stating the patient needs a referral to Dr. Landon, a Business Broker in [place]. * Telephone Encounter - Aneesh Richmond DO - 08/31/2022 2:09 PM EST He was referred from the ER. He was given his information. He can call them to set up appt. Can discuss it further at his appt in a couple weeks * Telephone Encounter - Nhi Black MA - 08/31/2022 2:09 PM EST Sera notified and understands. documented in this encounter Plan of Treatment Upcoming Encounters Date Type Department Care Team (Late st Contact Info) Description 07/18/2025 10:30 AM EDT Office Visit [facility] - Family Medicine [address] [place] [address] Aneesh Richmond DO [address] [place] [address] documented as of this encounter Visit Diagnoses Not on filedocumented in this encounter Care Teams Geological Manager Relationship Specialty Start Date End Date Aneesh Richmond DO [address] [place] [address] PCP - General Family Medicine 07/16/22 documented as of this encounter
--- OUTSIDE RECORDS SUMMARY | 2025-07-06 09:47 | XMS_ITS | Encounter Summary ---
Author Organization [facility] Address [facility] [place][id number] [address] [place] [address] Care Team Providers Care Tank Furnace Operator Name Role Phone Aneesh Richmond DO Primary Care Provider + [phone] Reason for Visit * Reason Onset Date Comments Med Refill 10/01/2024 Encounter Details Date Type Department Care Team (Late st Contact Info) Description 10/01/2024 Refill [facility] - Family Medicine [address] [place] [address] Aneesh Richmond DO [address], [facility] [place] [address] Cervical radiculopathy Social History Tobacco Use Types Packs/Day Years Used Date Smoking Tobacco: Every Day Cigarettes 3 45 Smokeless Tobacco: Never Alcohol Use Standard Drinks/Week Comments Not Currently 0 (1 standard drink = 0.6 oz pur e alcohol) [facility] Utilities Answer Date Recorded In the past 12 months has [employer], gas, oil, or water [employer] threatened to shut off services in your [...] week 07/13/2023 How often do you attend [facility] or sabianism services? Never 07/13/2023 Do you belong to any clubs o r organizations such as anabaptism groups, unions, fraternal or athletic groups, or [...] Date Recorded Total Score 0 07/03/2024 [facility] of Occupat ional Health - Occupational [...] Recorded Do you need help finding a [facility] career center and/or a training program? [...] Medicine - Family Medicine [address] [place] [address] Aneesh Richmond DO [address] [facility] [address] documented as of this encounter Visit Diagnoses Diagnosis Cervical radiculopathy Brachial neuritis or radiculitis nos documented in this encounter Additional Health Concerns Assessment Noted Time PHQ-9 Depression Total Score: 0 07/03/20 24 2:18 PM EDT documented as of this encounter Care Teams Tank Furnace Operator Relationship Specialty Start Date End Date Aneesh Richmond DO [address] [facility] [address] PCP - General Family Medicine 07/16/22 documented as of this encounter
--- OUTSIDE RECORDS SUMMARY | 2025-07-06 09:47 | XMS_ITS | Encounter Summary ---
Author Organization [employer] tem Address [facility] [place]-[id number] [address] [place] [address] Care Team Providers Care Solar Energy Sales Specialist Name Role Phone Aneesh Richmond DO Primary Care Provider Encounter Details Date Type Department Care Team (Late Contact Info) Description 06/29/2022 Orders Only [facility] - Family Medicine [address] [place] [address] Aneesh Richmond DO [address], [facility] [place] [address] Pure hypercholesterolemia (Primary Dx) Social History Tobacco Use Types Packs/Day Years Used Date Smoking Tobacco: Never Assessed Childcare Answer Date Recorded Childcare Unknown 03/20/2019 [...] Medicine - Family Medicine [address] [place] [address] Aneesh Richmond DO [address], [facility] [place] [address] documented as of this encounter Visit Diagnoses Diagnosis Pure hypercholesterolemia- Primary documented in this encounter Care Teams Solar Energy Sales Specialist Relationship Specialty Start Date End Date Aneesh Richomnd DO [address], [facility] [address] PCP - General Family Medicine 07/16/22 documented as of this encounter
--- OUTSIDE RECORDS SUMMARY | 2025-07-06 09:47 | XMS_ITS | Encounter Summary ---
Author Organization [employer] Address [facility] [place][id number] [address] [place] [address] Care Team Providers Care Orthotic/Prosthetic Practitioner Name Role Phone Aneesh Richmond DO Primary Care Provider [phone]- [phone] Encounter Details Date Type Department Care Team (Late Contact Info) Description 09/02/2022 Orders Only [facility] - Family Medicine [address] [place] [address] External, Scanning Provider Social History Tobacco Use Types Packs/Day Years [...] - Family Medicine [address] [place] [address] Aneesh Richmond DO [address] [facility] [place] [address] documented as of this encounter Procedures Procedure Name Priority Date/Time Associated Diagnosis Comments XR SHOULDER LT MIN 2 VWS Routine 09/01/2022 documented in this encounter Results * X-ray shoulder left minimum 2 views (09/01/2022) Anatomical Region Laterality Modality MSK, Upper Extremities, Shoulder Left Computed Radiography 09/01/2022 us Scanning Provider External IMG DIAGNOSTIC IMAGIN G ORDERABLES Final Result documented in this encounter Visit Diagnoses Not on filedocumented in this encounter Care Teams Orthotic/Prosthetic Practitioner Relationship Specialty Start Date End Date Aneesh Richmond DO [address] [facility], [place] [address] PCP - General Family Medicine 07/16/22 documented as of this encounter
--- OUTSIDE RECORDS SUMMARY | 2025-07-06 09:47 | XMS_ITS | Encounter Summary ---
Author Organization [facility] Address [facility] [place]-[id number] [address] [place] [address] Care Team Providers Care Magnetic Tester Name Role Phone Aneesh Richmond DO Primary Care Provider + [phone] Reason for Visit * Reason Comments Med Refill Encounter Details Date Type Department Care Team (Late st Contact Info) Description 07/08/2024 Refill [facility] - Family Medicine [address] [place] [address] Aneesh Richmond DO [address], [place] [address] Cervical radiculopathy Social History Tobacco Use Types [...] often do you attend chur ch or hinduism services? Never 07/13/2023 Do you belong to any clubs o r organizations such as restorationist groups, unions, fraternal or athletic groups, or [...] Answer Date Recorded Total Score 0 07/03/2024 [facility] of Occupat ional Health - [...] Recorded Do you need help finding a [facility] career [facility] and/or a training [...] Medicine - Family Medicine [address] [place] [address] Aneesh Richmond DO [address] [facility] [place] [address] documented as of this encounter Visit Diagnoses Diagnosis Cervical radiculopathy Brachial neuritis or radiculitis nos documented in this encounter Additional Health Concerns Assessment Noted Time PHQ-9 Depression Total Score: 0 07/03/20 24 2:18 PM EDT documented as of this encounter Care Teams Magnetic Tester Relationship Specialty Start Date End Date Aneesh Richmond DO [address] [facility] [place] [address] PCP - General Family Medicine 07/16/22 documented as of this encounter
--- OUTSIDE RECORDS SUMMARY | 2025-07-06 09:47 | XMS_ITS | Encounter Summary ---
Author Organization [facility] Address [facility] [id number] [address] [place] [address] Care Team Providers Care Band Bias Machine Operator Name Role Phone Aneesh Richmond DO Primary Care Provider + [phone] Reason for Visit * Reason Onset Date Comments Med Refill 10/31/2024 Encounter Details Date Type Department Care Team (Late st Contact Info) Description 10/31/2024 Refill [facility] - Family Medicine [address] [place] [address] Aneesh Richmond DO [address], [facility] [place] [address] Cervical radiculopathy Social History Tobacco Use Types Packs/Day Years Used Date Smoking Tobacco: Every Day Cigarettes 3 45 Smokeless Tobacco: Never Alcohol Use Standard Drinks/Week Comments Not Currently 0 (1 standard drink = 0.6 oz pur e alcohol) [facility] Utilities Answer Date Recorded In the past 12 months has [employer], gas, oil, or water [employer] threatened to shut off services in your [...] week 07/13/2023 How often do you attend [facility] or christian services? Never 07/13/2023 Do you belong to any clubs o r organizations such as taoism groups, unions, fraternal or athletic groups, or [...] Answer Date Recorded Total Score 0 07/03/2024 [facility] of Occupat ional Health - Occupational [...] Recorded Do you need help finding a [facility] career center and/or a training program? No [...] Medicine - Family Medicine [address] [place] [address] Aneesh Richmond DO [address] [facility] [place] [place] [address] documented as of this encounter Visit Diagnoses Diagnosis Cervical radiculopathy Brachial neuritis or radiculitis nos documented in this encounter Additional Health Concerns Assessment Noted Time PHQ-9 Depression Total Score: 0 07/03/20 24 2:18 PM EDT documented as of this encounter Care Teams Band Bias Machine Operator Relationship Specialty Start Date End Date Aneesh Richmond DO [address] [facility] [place] [address] PCP - General Family Medicine 07/16/22 documented as of this encounter
--- OUTSIDE RECORDS SUMMARY | 2025-07-06 09:47 | XMS_ITS | Encounter Summary ---
Author Organization [employer] Address [facility] [id number] [address] [place] [address] Care Team Providers Care Job Coach/Job Developer Name Role Phone Aneesh Richmond DO Primary Care Provider +1- [phone] Encounter Details Date Type Department Care Team (Late Contact Info) Description 09/01/2022 Orders Only [facility] Internal Medicine - Family Medicine [address] [place] [phone] External, Scanning Provider Social History Tobacco Use [...] Medicine - Family Medicine [address] [place] [phone] Aneesh Richmond DO [address] [facility] [place] [address] documented as of this encounter Procedures Procedure Name Priority Date/Time Associated Diagnosis Comments CT CERVICAL SPINE WO CONT Routine 08/14/2022 documented in this encounter Results * CT cervical spine without contrast (08/14/2022) Anatomical Region Laterality Modality MSK, Neuro, Spine, C-spine, Spine Covera N/A Computed Tomography 08/14/2022 us Scanning Provider External IMG CT ORDERABLES Fin al Result documented in this encounter Visit Diagnoses Not on filedocumented in this encounter Care Teams Job Coach/Job Developer Relationship Specialty Start Date End Date Aneesh Richmond DO [address] [facility], [place] [address] PCP - General Family Medicine 07/16/22 documented as of this encounter
--- OUTSIDE RECORDS SUMMARY | 2025-07-06 09:47 | XMS_ITS | Encounter Summary ---
Author Organization [employer] Address [facility] [id number] [address] [place] [address] Care Team Providers Care Drum Loader And Unloader Name Role Phone Aneesh Richmond DO Primary Care Provider +[phone]- [phone] Reason for Visit * Reason Comments Med Refill Encounter Details Date Type Department Care Team (Late Contact Info) Description 07/13/2022 Refill [facility] Internal Medicine - Family Medicine [address] [place] [address] Aneesh Richmond DO [address] [facility] [address] Unspecified asthma, uncomplicated Social History Tobacco Use Types Packs/Day Years [...] - Family Medicine [address] [place] [phone] Aneesh Richmond DO [address] [facility] [address] documented as of this encounter Visit Diagnoses Diagnosis Unspecified asthma, uncomplicated documented in this encounter Care Teams Drum Loader And Unloader Relationship Specialty Start Date End Date Aneesh Richmond DO [address], [facility] [address] PCP - General Family Medicine 07/16/22 documented as of this encounter
--- OUTSIDE RECORDS SUMMARY | 2025-07-06 09:47 | XMS_ITS | Encounter Summary ---
Author Organization [facility] [employer] [facility] [employer] Address [id number] [address] [place] [address] Care Team Providers Care Chief Of Service Name Role Phone Aneesh Richmond DO Primary Care Provider +[phone] Encounter Details Date Type Department Care Team (Late st Contact Info) Description 10/06/2023 Orders Only [facility] - Family Medicine [address] [place] [address] Aneesh Richmond DO [address], [place] [address] Social History Tobacco Use Types Packs/Day Years [...] often do you attend chur ch or yazidi services? Never 07/13/2023 Do you belong to any clubs o r organizations such as buddhist groups, unions, fraternal or athletic groups, or [...] Answer Date Recorded Total Score 0 07/13/2023 [facility] of Occupat ional Health - Occupational Stress [...] Recorded Do you need help finding a l al career center and/or a training program? No [...] - Family Medicine [address] [place] [address] Aneesh Richmond DO [address], [facility] [place] [address] documented as of this encounter Visit Diagnoses Not on filedocumented in this encounter Additional Health Concerns Assessment Noted Time PHQ-9 Depression Total Score: 0 07/13/20 23 1:30 PM EDT documented as of this encounter Care Teams Chief Of Service Relationship Specialty Start Date End Date Aneesh Richmond DO [address] [facility] [place] [address] PCP - General Family Medicine 07/16/22 documented as of this encounter
--- OUTSIDE RECORDS SUMMARY | 2025-07-06 09:47 | XMS_ITS | Encounter Summary ---
Author Organization [facility] Address [id number] [address] [place] [address] Care Team Providers Care Rn Palliative Care Name Role Phone Aneesh Richmond DO Primary Care Provider + [phone] Reason for Visit * Reason Comments Med Refill Encounter Details Date Type Department Care Team (Late st Contact Info) Description 07/21/2024 Refill [facility] - Family Medicine [address] [place] [address] Aneesh Richmond DO [address], [place] [address] Cervical radiculopathy Social History Tobacco Use Types [...] often do you attend chur ch or buddhist services? Never 07/13/2023 Do you belong to any clubs o r organizations such as methodist groups, unions, fraternal or athletic groups, or [...] Answer Date Recorded Total Score 0 07/03/2024 [facility] of Occupat ional Health - Occupational [...] Recorded Do you need help finding a [facility] career [facility] and/or a training program? [...] Medicine - Family Medicine [address] [place] [address] Aneesh Richmond DO [address] [place] [address] documented as of this encounter Visit Diagnoses Diagnosis Cervical radiculopathy Brachial neuritis or radiculitis nos documented in this encounter Additional Health Concerns Assessment Noted Time PHQ-9 Depression Total Score: 0 07/03/20 24 2:18 PM EDT documented as of this encounter Care Teams Rn Palliative Care Relationship Specialty Start Date End Date Aneesh Richmond DO [address] [facility] [address] PCP - General Family Medicine 07/16/22 documented as of this encounter
--- OUTSIDE RECORDS SUMMARY | 2025-07-06 09:47 | XMS_ITS | Encounter Summary ---
Author Organization [employer] Address [facility] [place]-[id number] [address] [place] [address] Care Team Providers Care Software Systems Analyst Name Role Phone PhaniAneesh coughlin Andre RODRÍGUEZ Primary Care Provider [phone] [phone] Encounter Details Date Type Department Care Team (Late st Contact Info) Description 08/31/2024 Telephone [facility] Internal Medicine - Family Medicine [address] [place] [phone] Ry Gomez CMA Social History Tobacco Use [...] often do you attend chur ch or anabaptist services? Never 07/13/2023 Do you belong to any clubs o r organizations such as congregation groups, unions, fraternal or athletic groups, or [...] Answer Date Recorded Total Score 0 07/03/2024 [facility] of Occupat ional Health - Occupational Stress [...] Recorded Do you need help finding a [facility] and/or a training program? [...] - Family Medicine [address] [place] [address] Aneesh Richmond DO [address], [facility] [place] [address] documented as of this encounter Visit Diagnoses Not on filedocumented in this encounter Additional Health Concerns Assessment Noted Time PHQ-9 Depression Total Score: 0 07/03/20 24 2:18 PM EDT documented as of this encounter Care Teams Software Systems Analyst Relationship Specialty Start Date End Date Aneesh iRchmond DO [address] [facility] [address] PCP - General Family Medicine 07/16/22 documented as of this encounter
--- OUTSIDE RECORDS SUMMARY | 2025-07-06 09:47 | XMS_ITS | Encounter Summary ---
Author Organization [facility] Address [facility] [id number] [address] [place] [address] Care Team Providers Care Client Executive Name Role Phone Aneesh Richmond DO Primary Care Provider [phone] Encounter Details Date Type Department Care Team (Late st Contact Info) Description 11/27/2023 Orders Only [facility] - Family Medicine [address] [place] [address] Aneesh Richmond DO [address], [place] [address] Social History Tobacco Use Types Packs/Day Years [...] often do you attend chur ch or sabianism services? Never 07/13/2023 Do you belong to any clubs o r organizations such as religious groups, unions, fraternal or athletic groups, or [...] Answer Date Recorded Total Score 0 07/13/2023 [facility] of Occupat ional Health - Occupational Stress [...] - Family Medicine [address] [place] [address] Aneesh Richmond DO [address], [facility] [place] [address] documented as of this encounter Visit Diagnoses Not on filedocumented in this encounter Additional Health Concerns Assessment Noted Time PHQ-9 Depression Total Score: 0 07/13/20 23 1:30 PM EDT documented as of this encounter Care Teams Client Executive Relationship Specialty Start Date End Date Aneesh Richmond DO [address] [facility] [address] PCP - General Family Medicine 07/16/22 documented as of this encounter
--- OUTSIDE RECORDS SUMMARY | 2025-07-06 09:47 | XMS_ITS | Encounter Summary ---
Author Organization [facility] Address [id number] [address] [place] [address] Care Team Providers Care Associate Software Engineer Name Role Phone Aneesh Richmond DO Primary Care Provider + [phone] Reason for Visit * Reason Onset Date Comments Med Refill 07/15/2024 Encounter Details Date Type Department Care Team (Late st Contact Info) Description 07/15/2024 Refill [facility] - Family Medicine [address] [place] [address] Aneesh Richmond DO [address], [facility] [place] [address] Herpes zoster without complication Social History Tobacco Use Types Packs/Day Years [...] often do you attend chur ch or faith services? Never 07/13/2023 Do you belong to any clubs o r organizations such as jewish groups, unions, fraternal or athletic groups, or [...] Answer Date Recorded Total Score 0 07/03/2024 [facility] of Occupat ional Health - Occupational Stress [...] Recorded Do you need help finding a [facility] career center and/or a training program? [...] Medicine - Family Medicine [address] [place] [address] Aneesh Richmond DO [address] [facility] [place] [address] documented as of this encounter Visit Diagnoses Diagnosis Herpes zoster without complication documented in this encounter Additional Health Concerns Assessment Noted Time PHQ-9 Depression Total Score: 0 07/03/20 24 2:18 PM EDT documented as of this encounter Care Teams Associate Software Engineer Relationship Specialty Start Date End Date Aneesh Richmond DO [address] [facility] [place] [address] PCP - General Family Medicine 07/16/22 documented as of this encounter
--- OUTSIDE RECORDS SUMMARY | 2025-07-06 09:47 | XMS_ITS | Encounter Summary ---
Author Organization [employer] s tem Address [id number] [address] [place] [address] Care Team Providers Care Final Assembly And Packing Supervisor Name Role Phone ElizabethAneesh eric Andre RODRÍGUEZ Primary Care Provider [phone] Encounter Details Date Type Department Care Team (Late st Contact Info) Description 01/25/2024 Telephone [facility] Internal Medicine - Family Medicine [address] [place] [phone] Juan, Radha, ACUTE CARE PHYSICAL THERAPIST Social History Tobacco Use Types Packs/Day Years [...] often do you attend chur ch or confucianist services? Never 07/13/2023 Do you belong to any clubs o r organizations such as muslim groups, unions, fraternal or athletic groups, or [...] Answer Date Recorded Total Score 0 12/30/2023 [facility] of Occupat ional Health - Occupational Stress [...] Recorded Do you need help finding a [facility] career center and/or a training program? [...] Telephone Encounter - Radha Martinez CMA - 01/25/2024 8:10 AM EDT [facility] long you wanted this Rx to last 5 or 7 days * Telephone Encounter - Aneesh Richmond DO - 01/25/2024 8:10 AM EDT 5 days * Telephone Encounter - Radha Martinez CMA - 01/25/2024 8:10 AM EDT Ok thank you I called and let them know documented in this encounter Plan of Treatment Upcoming Encounters Date Type Department Care Team (Late st Contact Info) Description 07/18/2025 10:30 AM EDT Office Visit [facility] - Family Medicine [address] [place] [address] Aneesh Richmond DO [address] [facility] [place] [address] documented as of this encounter Visit Diagnoses Not on filedocumented in this encounter Additional Health Concerns Assessment Noted Time PHQ-9 Depression Total Score: 0 12/30/19 24 2:02 PM EDT documented as of this encounter Care Teams Final Assembly And Packing Supervisor Relationship Specialty Start Date End Date Aneesh Richmond DO [address] [place] [address] PCP - General Family Medicine 07/16/22 documented as of this encounter
--- OUTSIDE RECORDS SUMMARY | 2025-07-06 09:47 | XMS_ITS | Encounter Summary ---
Author Organization [facility] Address [facility] [place]-[id number] [address] [place] [address] Care Team Providers Care News Anchor Name Role Phone Aneesh Richmond Primary Care Provider +1 [phone] Encounter Details Date Type Department Care Team (Late st Contact Info) Description 06/27/2024 Orders Only [facility] - Family Medicine [address] [place] [address] External, Scanning Provider Social History Tobacco Use [...] often do you attend chur ch or tenriism services? Never 07/13/2023 Do you belong to [...] Answer Date Recorded Total Score 0 04/03/2024 [facility] of Occupat ional [...] Recorded Do you need help finding a [employer] career center and/or a training program? No [...] - Family Medicine [address] [place] [address] Aneesh Richmond DO [address], [facility] [place] [address] documented as of this encounter Visit Diagnoses Not on filedocumented in this encounter Additional Health Concerns Assessment Noted Time PHQ-9 Depression Total Score: 0 04/03/20 24 2:18 PM EDT documented as of this encounter Care Teams News Anchor Relationship Specialty Start Date End Date Aneesh Richmond DO [address] [facility] [place] [place] [address] PCP - General Family Medicine 07/16/22 documented as of this encounter
--- OUTSIDE RECORDS SUMMARY | 2025-07-06 09:47 | XMS_ITS | Encounter Summary ---
Author Organization [facility] Address [facility] [id number] [address] [place] [address] Care Team Providers Care Power Plant Superintendent Name Role Phone Aneesh Richmond DO Primary Care Provider + [phone] Reason for Visit * Reason Onset Date Comments Med Refill 08/30/2024 Encounter Details Date Type Department Care Team (Late st Contact Info) Description 08/30/2024 Refill [facility] - Family Medicine [address] [place] [address] Aneesh Richmond DO [address], [facility] [place] [address] Cervical radiculopathy Social History Tobacco Use Types [...] often do you attend chur ch or shinto services? Never 07/13/2023 Do you belong to any clubs o r organizations such as jehovah's witness groups, unions, fraternal or athletic groups, or [...] Answer Date Recorded Total Score 0 07/03/2024 [facility] of Occupat ional Health - Occupational Stress [...] Recorded Do you need help finding a [facility] career center and/or a training program? [...] encounter Miscellaneous Notes * Telephone Encounter - Tiffanie Miller CMA - 08/30/2024 4:19 PM EST Left message to find out if pt got the refill from the rx from last week. documented in this encounter Plan of Treatment Upcoming Encounters Date Type Department Care Team (Late st Contact Info) Description 07/18/2025 10:30 AM EDT Office Visit [facility] - Family Medicine [address] [place] [address] Aneesh Richmond DO [address] [place] [address] documented as of this encounter Visit Diagnoses Diagnosis Cervical radiculopathy Brachial neuritis or radiculitis nos documented in this encounter Additional Health Concerns Assessment Noted Time PHQ-9 Depression Total Score: 0 07/03/20 24 2:18 PM EDT documented as of this encounter Care Teams Power Plant Superintendent Relationship Specialty Start Date End Date Aneesh Richmond DO [address] [place] [address] PCP - General Family Medicine 07/16/22 documented as of this encounter
--- OUTSIDE RECORDS SUMMARY | 2025-07-06 09:47 | XMS_ITS | Encounter Summary ---
Author Organization [employer] Address [facility] [id number] [address] [place] [address] Care Team Providers Care Quality Assurance Monitor Final Name Role Phone Aneesh Richmond DO Primary Care Provider Encounter Details Date Type Department Care Team (Latest Contact Info) Description 08/10/2022 Orders Only [facility] Internal Medicine - Family Medicine [address] [place] [address] Nhi Black MA Pure hypercholesterolemia Social History Tobacco Use Types Packs/Day Years [...] have Coronavirus / COVID-19? No / Unsure 07/20/2022 3:10 PM EDT documented as of this encounter Progress Notes * Nhi Black MA - 08/10/2022 10:54 AM EDT Left voicemail to call back. documented in this encounter Plan of Treatment Upcoming Encounters Date Type Department Care Team (Late st Contact Info) Description 07/18/2025 10:30 AM EDT Office Visit [facility] - Family Medicine [address] [place] [phone] Aneesh Richmond DO [address] [place] [address] documented as of this encounter Procedures Procedure Name Priority Date/Time Associated Diagnosis Comments LIPID PROFILE Routine 07/28/2022 Pure hypercholesterolemia COMPREHENSIVE METABOLIC PANEL Routine 07/28/2022 Pure hypercholesterolemia documented in this encounter Results * (ABNORMAL) Lipid panel (07/28/2022) External Cholesterol 205(A) <=200 MANUALLY TRANSCRIBED RESULTS External Cholesterol:Hdl 5.1 MANUALLY TRANSCRIBED RESULTS External Hdl Cholesterol 40 40 - 60 MANUALLY TRANSCRIBED RESULTS External Ldl (Calc) 145.6 MANUALLY TRANSCRIBED RESULTS External Triglycerides 97 <=150 MANUALLY TRANSCRIBED RESULTS External Very Low Lipoprotein 19.4 MANUALLY TRANSCRIBED RESULTS Blood 07/28/2022 us Aneesh Richmond DO LAB BLOOD ORDERABLES Final R esult Performing Organization Address [facility] Phone Number MANUALLY TRANSCRIBED RESULTS * Comprehensive metabolic panel (07/28/2022) Blood 07/28/2022 us Aneesh Richmond DO LAB BLOOD ORDERABLES Final R esult Performing Organization Address City/[facility] Phone Number MANUALLY TRANSCRIBED RESULTS documented in this encounter Visit Diagnoses Diagnosis Pure hypercholesterolemia documented in this encounter Care Teams Quality Assurance Monitor Final Relationship Specialty Start Date End Date Aneesh Richmond DO [address] [place] [address] PCP - General Family Medicine 07/16/22 documented as of this encounter
--- OUTSIDE RECORDS SUMMARY | 2025-07-06 09:48 | XMS_ITS | Encounter Summary ---
Author Organization [employer] s tem Address [facility] [id number] [address] [place] [address] Care Team Providers Care Psych Nurse Name Role Phone ElizabethAneesh eric Andre RODRÍGUEZ Primary Care Provider [phone] Encounter Details Date Type Department Care Team (Late st Contact Info) Description 04/06/2024 Telephone [facility] Internal Medicine - Family Medicine [address] [place] [address] Juan, Radha, DRIER TAKE OFF TENDER Social History Tobacco Use Types Packs/Day Years [...] often do you attend chur ch or christianity services? Never 07/13/2023 Do you belong to [...] Answer Date Recorded Total Score 0 04/03/2024 [facility] of Occupat ional Health - Occupational Stress [...] Recorded Do you need help finding a [facility] career center and/or a training [...] Telephone Encounter - Radha Martinez CMA - 04/06/2024 4:55 PM EDT [facility] verification on directions and quantity for the imitrex documented in this encounter Plan of Treatment Upcoming Encounters Date Type Department Care Team (Late st Contact Info) Description 07/18/2025 10:30 AM EDT Office Visit [facility] - Family Medicine [address] [place] [address] Aneesh Richmond DO [address] [facility] [place] [address] documented as of this encounter Visit Diagnoses Not on filedocumented in this encounter Additional Health Concerns Assessment Noted Time PHQ-9 Depression Total Score: 0 04/03/20 24 2:18 PM EDT documented as of this encounter Care Teams Psych Nurse Relationship Specialty Start Date End Date Aneesh Richmond DO [address] [place] [address] PCP - General Family Medicine 07/16/22 documented as of this encounter
--- OUTSIDE RECORDS SUMMARY | 2025-07-06 09:48 | XMS_ITS | Encounter Summary ---
Author Organization [employer] tem Address [facility] [id number] [address] [place] [address] Care Team Providers Care Chalk Extruding Machine Operator Name Role Phone ElizabethAneesh eric Andre RODRÍGUEZ Primary Care Provider +[phone] Encounter Details Date Type Department Care Team (Late st Contact Info) Description 06/04/2025 Telephone [facility] - Family Medicine [address] [place] [id number] Ry Gomez CMA Social History Tobacco Use Types Packs/Day Years Used Date Smoking Tobacco: Every Day Cigarettes 3 45 Smokeless Tobacco: Never Alcohol Use Standard Drinks/Week Comments Not Currently 0 (1 standard drink = 0.6 oz pur e alcohol) [facility] Utilities Answer Date Recorded In the [...] often do you attend chur ch or zoroastrian services? Never 07/13/2023 Do you belong to any clubs o r organizations such as quaker groups, unions, fraternal or athletic groups, or [...] PHQ-2 Answer Date Recorded Total Score 0 04/09/2025 [facility] [place] of Occupat ional Health - Occupational Stress [...] got money to buy more. Never True 04/09/2025 Within the past 12 months th e food we bought just didn't last and we didn't have money to get more. Never True 04/09/2025 Purpose - Life Answer Date Recorded I have a purpose and direction in my life. Stron gly Agree 07/13/2023 Sex and Gender Information Value Date Recorded Sex Assigned at Not on file Legal Sex Male 2:08 PM EDT Gender Identity Not on file Sexual Orientation Not on file documented as of this encounter Miscellaneous Notes * Telephone Encounter - Ry Gomez CMA - 06/04/2025 8:57 AM EDT Pt called and would like a refill on his TRAMDOL. Pharmacy is listed and correct. documented in this encounter Plan of Treatment Upcoming Encounters Date Type Department Care Team (Late st Contact Info) Description 07/18/2025 10:30 AM EDT Office Visit [facility] - Family Medicine [address] [place] [address] Aneesh Richmond DO [address] [facility] [place] [address] documented as of this encounter Visit Diagnoses Not on filedocumented in this encounter Additional Health Concerns Assessment Noted Time PHQ-9 Depression Total Score: 0 04/09/20 25 10:02 AM EDT documented as of this encounter Care Teams Chalk Extruding Machine Operator Relationship Specialty Start Date End Date Aneesh Richmond DO [address] [facility] [address] PCP - General Family Medicine 07/16/22 documented as of this encounter
--- OUTSIDE RECORDS SUMMARY | 2025-07-06 09:48 | XMS_ITS | Encounter Summary ---
Author Organization [facility] Address [facility] [id number] [address] [place] [address] Care Team Providers Care Machine Operator Helper Name Role Phone Aneesh Richmond DO Primary Care Provider + [phone] Reason for Visit * Reason Onset Date Comments Med Refill 06/29/2025 Encounter Details Date Type Department Care Team (Late st Contact Info) Description 06/29/2025 Refill [facility] - Family Medicine [address] [place] [address] Aneesh Richmond DO [address] [place], [facility] [place] [address] Cervical radiculopathy Social History Tobacco Use Types Packs/Day Years Used Date Smoking Tobacco: Every Day Cigarettes 3 43.4 Started: 01/28/1982 Smokeless Tobacco: Never Alcohol Use Standard Drinks/Week Comments Not Currently 0 (1 standard drink = 0.6 oz pur e alcohol) [facility] Utilities Answer Date Recorded In the past 12 months has [employer] electric, gas, oil, or water company threatened [...] How often do you attend [facility] or zoroastrianism services? Never 07/13/2023 Do you belong to any clubs o r organizations such as adventist groups, unions, fraternal or athletic groups, or [...] Answer Date Recorded Total Score 0 04/09/2025 [facility] of Occupat ional Health - [...] Recorded Do you need help finding a [facility] career center and/or a training [...] - Family Medicine [address] [place] [address] Aneesh Richmond DO [address] [facility] [place] [address] documented as of this encounter Visit Diagnoses Diagnosis Cervical radiculopathy Brachial neuritis or radiculitis nos documented in this encounter Additional Health Concerns Assessment Noted Time PHQ-9 Depression Total Score: 0 04/09/20 25 10:02 AM EDT documented as of this encounter Care Teams Machine Operator Helper Relationship Specialty Start Date End Date Aneesh Richmond DO [address] [facility] [place] [place] [address] PCP - General Family Medicine 07/16/22 documented as of this encounter
--- OUTSIDE RECORDS SUMMARY | 2025-07-06 09:48 | XMS_ITS | Encounter Summary ---
Author Organization [employer] Address [facility] [id number] [address] [place] [address] Care Team Providers Care Switchboard Troubleshooter Name Role Phone Aneesh Richmond DO Primary Care Provider [phone]- [phone] Reason for Visit * Reason Comments Med Refill Encounter Details Date Type Department Care Team (Late Contact Info) Description 03/10/2023 Refill [facility] - Family Medicine [address] [place] [address] Aneesh Richmond DO [address], [facility] [place] [address] Cervical radiculopathy; Anxiety disorder, unspecified type Social History Tobacco Use Types Packs/Day Years [...] - Family Medicine [address] [place] [address] Aneesh Richmond DO [address] [facility] [place] [address] documented as of this encounter Visit Diagnoses Diagnosis Cervical radiculopathy Brachial neuritis or radiculitis nos Anxiety disorder, unspecified type documented in this encounter Additional Health Concerns Assessment Noted Time PHQ-9 Depression Total Score: 0 10/20/19 23 1:35 PM EST documented as of this encounter Care Teams Switchboard Troubleshooter Relationship Specialty Start Date End Date Aneesh Richmond DO [address] [facility] [facility] [place] [address] PCP - General Family Medicine 07/16/22 documented as of this encounter
--- OUTSIDE RECORDS SUMMARY | 2025-07-06 09:48 | XMS_ITS | Encounter Summary ---
Author Organization [employer] s tem Address [id number] [address] [place] [address] Care Team Providers Care Welder Assistant Name Role Phone Aneesh Richmond DO Primary Care Provider [phone]- [phone] Encounter Details Date Type Department Care Team (Late Contact Info) Description 05/11/2023 Orders Only [facility] Internal [facility] - Family Medicine [address] [place] [address] Carlito Jade DO [address] [place] [address] Social History Tobacco Use Types Packs/Day Years [...] Medicine - Family Medicine [address] [place] [address] Aneesh Richmond DO [address] [facility], [facility] [place] [address] documented as of this encounter Visit Diagnoses Not on filedocumented in this encounter Additional Health Concerns Assessment Noted Time PHQ-9 Depression Total Score: 0 04/12/20 23 3:31 PM EDT documented as of this encounter Care Teams Welder Assistant Relationship Specialty Start Date End Date Aneesh Richmond DO [address], [facility] [place] [address] PCP - General Family Medicine 07/16/22 documented as of this encounter
--- OUTSIDE RECORDS SUMMARY | 2025-07-06 09:48 | XMS_ITS | Clinical Summary ---
Author Organization [facility] Address [address], [address] [place] [address] Care Team Providers Care Mosaic Tiler Name Role Phone Unavailable Primary Care Provider Unavailabl e Allergies Active Allergy Reactions Criticality Noted Date Comments Fluticasone-Salmeterol Other (See Comments) Racing heart Awsikwplps-Ekat-Slcvbzre Itching,Rash Low 2 Penicillins Hives 11/03/2011 Medications albuterol (PROVENTIL) (2.5 MG/3ML) 0.083% nebulizer solution Take 2.5 mg by nebulization every 6 hours as needed. Active lansoprazole (PREVACID) 30 MG capsule Take 30 mg by mouth daily. Active albuterol (PROVENTIL HFA;VENTOLIN HFA) 108 (90 BASE) MCG/ACT inhaler Inhale 2 puffs into the lungs every 4 hours as needed. Active simvastatin (ZOCOR) 40 MG tablet Take 40 mg by mouth nightly. Active loperamide (IMODIUM) 1 MG/5ML solution Take 1 mg by mouth once as needed. Active meclizine (ANTIVERT) 25 MG tablet Take 1 tablet by mouth daily as needed for Dizziness for 90 days. 30 tablet 2 2 Active tiotropium (SPIRIVA HANDIHALER) 18 MCG inhalation capsule Inhale 18 mcg into the lungs daily. Active cyclobenzaprine (FLEXERIL) 10 MG tablet Take 1 tablet by mouth daily as needed for Muscle spasms for 90 days. 30 tablet 2 3 Active LORazepam (ATIVAN) 0.5 MG tablet Take 1 tablet by mouth nightly for 30 days. 30 tablet 2 3 Active oxyCODONE-aceta minophen (PERCOCET) 5-325 MG per tablet Take 1 tablet by mouth every 6 hours as needed for Pain for 30 days. Fill prescription on or after 02/07/2013 120 tablet 0 3 Active oxyCODONE-aceta minophen (PERCOCET) 5-325 MG per tablet Take 1 tablet by mouth every 6 hours as needed for Pain for 30 days. Fill prescription on or after 01/05/2013 120 tablet 0 3 Active oxyCODONE-aceta minophen (PERCOCET) 5-325 MG per tablet Take 1 tablet by mouth every 6 hours as needed for Pain for 30 days. Fill prescription on or after 12/08/12 120 tablet 0 3 Active Active Problems Problem Noted Date Diagnosed Date Low back pain radiating to both legs 12/17/2011 Neck pain, chronic 12/17/2011 Sleep disorder 12/17/2011 Chronic pain 12/17/2011 Family History Medical History Relation Name Comments Cancer Father stomach Cancer Mother lung cancer Relation Name Status Comments Father Mother Alive Social History Tobacco Use Types Packs/Day Years Used Date Smoking Tobacco: Every Day Cigarettes 1 35 Smokeless Tobacco: Never Tobacco Cessation:Ready to Q uit: No Comments:tried everything Alcohol Use Standard Drinks/Week Comments No 0 (1 standard drink = 0.6 oz pur e alcohol) Sex and Gender Information Value Date Recorded Sex Assigned at Not on file Legal Sex Male 5:02 PM EST Gender Identity Not on file Sexual Orientation Not on file Last Filed Vital Signs Vital Sign Reading Time Taken Comments Blood Pressure 98/66 12/08/2012 3:06 PM EST Pulse 90 12/08/2012 3:06 PM EST Temperature 37.3 C (99.1 F) 12/08/2012 3:06 PM EST Respiratory Rate 18 12/08/2012 3:06 PM EST Oxygen Saturation - - Inhaled Oxygen Concentration - - Weight 65.5 kg (144 lb 8 oz) 12/08/2012 3:06 PM EST Height 170.2 cm (5' 7 ) 12/08/2012 3:06 PM EST Body Mass Index 22.63 12/08/2012 3:06 PM EST Plan of Treatment Not on file
--- OUTSIDE RECORDS SUMMARY | 2025-07-06 09:48 | XMS_ITS | Encounter Summary ---
Author Organization [facility] Address [id number] [address] [place] [address] Care Team Providers Care Learning And Development Specialist Name Role Phone Aneesh Richmond DO Primary Care Provider + [phone] Reason for Visit * Reason Onset Date Comments Med Refill 07/02/2025 Encounter Details Date Type Department Care Team (Late st Contact Info) Description 07/02/2025 Refill [facility] - Family Medicine [address] [place] [address] Aneesh Richmond DO [address], [facility] [place] [address] Cervical radiculopathy Social History Tobacco Use Types Packs/Day Years Used Date Smoking Tobacco: Every Day Cigarettes 3 43.4 Started: 01/28/1982 Smokeless Tobacco: Never Alcohol Use Standard Drinks/Week Comments Not Currently 0 (1 standard drink = 0.6 oz pur e alcohol) [facility] Utilities Answer Date Recorded In the past 12 months has [employer] electric, gas, oil, or water company threatened [...] week 07/13/2023 How often do you attend [facility] or voodoo services? Never 07/13/2023 Do you belong to any clubs o r organizations such as spiritism groups, unions, fraternal or athletic groups, or [...] Answer Date Recorded Total Score 0 04/09/2025 [facility] of Occupat ional Health - [...] Recorded Do you need help finding a [facility] career center and/or a training program? No [...] - Family Medicine [address] [place] [address] Aneesh Richmond DO [address] [place] [address] documented as of this encounter Visit Diagnoses Diagnosis Cervical radiculopathy Brachial neuritis or radiculitis nos documented in this encounter Additional Health Concerns Assessment Noted Time PHQ-9 Depression Total Score: 0 04/09/20 25 10:02 AM EDT documented as of this encounter Care Teams Learning And Development Specialist Relationship Specialty Start Date End Date Aneesh Richmond DO [address] [facility] [place] [address] PCP - General Family Medicine 07/16/22 documented as of this encounter
--- OUTSIDE RECORDS SUMMARY | 2025-07-06 09:48 | XMS_ITS | Encounter Summary ---
Author Organization [employer] tem Address [id number] [address] [place] [address] Care Team Providers Care Body Mechanic Apprentice Name Role Phone Aneesh Richmond DO Primary Care Provider [phone]- [phone] Encounter Details Date Type Department Care Team (Late Contact Info) Description 04/08/2023 Orders Only [facility] Internal Medicine - Family Medicine [address] [place] [address] Aneesh Richmond DO [address], [facility] [place] [address] Social History Tobacco Use Types Packs/Day Years [...] Description 07/18/2025 10:30 AM EDT [facility] [address] [place] [address] Aneesh Richmond DO [address] [place], [facility] [place] [address] documented as of this encounter Visit Diagnoses Not on filedocumented in this encounter Additional Health Concerns Assessment Noted Time PHQ-9 Depression Total Score: 0 10/20/19 23 1:35 PM EST documented as of this encounter Care Teams Body Mechanic Apprentice Relationship Specialty Start Date End Date Aneesh Richmond DO [address], [facility] [place] [address] PCP - General Family Medicine 07/16/22 documented as of this encounter
--- OUTSIDE RECORDS SUMMARY | 2025-07-06 09:48 | XMS_ITS | Encounter Summary ---
Author Organization [employer] Address [id number] [address] [place] [address] Care Team Providers Care Building Maintenance Custodian Name Role Phone Aneesh Richmond DO Primary Care Provider [phone]- [phone] Reason for Visit * Reason Comments Med Refill Encounter Details Date Type Department Care Team (Late Contact Info) Description 07/07/2023 Refill [facility] - Family Medicine [address] [place] [address] Aneesh Richmond DO [address], [facility] [place] [address] Anxiety disorder, unspecified type; Cervical radiculopathy Social [...] - Family Medicine [address] [place] [address] Aneesh Richmond DO [address] [facility] [place] [address] documented as of this encounter Visit Diagnoses Diagnosis Anxiety disorder, unspecified type Cervical radiculopathy Brachial neuritis or radiculitis nos documented in this encounter Additional Health Concerns Assessment Noted Time PHQ-9 Depression Total Score: 0 04/12/20 23 3:31 PM EDT documented as of this encounter Care Teams Building Maintenance Custodian Relationship Specialty Start Date End Date Aneesh Richmond DO [address] [place] [address] PCP - General Family Medicine 07/16/22 documented as of this encounter
--- OUTSIDE RECORDS SUMMARY | 2025-07-06 09:48 | XMS_ITS | Encounter Summary ---
Author Organization [employer] Address [id number] [address] [place] [address] Care Team Providers Care Supervisor Powdered Metal Name Role Phone ElizabethAneesh eric Andre RODRÍGUEZ Primary Care Provider +[phone] Encounter Details Date Type Department Care Team (Late st Contact Info) Description 04/26/2024 Telephone [facility] Internal Medicine - Family Medicine [address] [place] [address] Juan, Radha, RADIO STATION OPERATOR Social History Tobacco Use Types Packs/Day Years [...] Answer Date Recorded Total Score 0 04/03/2024 [facility] of Occupat ional Health - Occupational Stress [...] Telephone Encounter - Radha Martinez CMA - 04/26/2024 4:19 PM EDT Pt called requesting a refill on his tramadol , after looking at his RX he still has 1 refill left Called left vm on private vm documented in this encounter Plan of Treatment Upcoming Encounters Date Type Department Care Team (Late st Contact Info) Description 07/18/2025 10:30 AM EDT Office Visit [facility] - Family Medicine [address] [place] [address] Aneesh Richmond DO [address] [facility] [place] [place] [address] documented as of this encounter Visit Diagnoses Not on filedocumented in this encounter Additional Health Concerns Assessment Noted Time PHQ-9 Depression Total Score: 0 04/03/20 24 2:18 PM EDT documented as of this encounter Care Teams Supervisor Powdered Metal Relationship Specialty Start Date End Date Aneesh Richmond DO [address] [facility] [place] [address] PCP - General Family Medicine 07/16/22 documented as of this encounter
--- OUTSIDE RECORDS SUMMARY | 2025-07-06 09:48 | XMS_ITS | Encounter Summary ---
Author Organization [employer] Address [facility] [id number] [address] [place] [address] Care Team Providers Care Biometrics Head Name Role Phone Aneesh Richmond DO Primary Care Provider [phone]- [phone] Reason for Visit * Reason Comments Med Refill Encounter Details Date Type Department Care Team (Late Contact Info) Description 04/08/2023 Refill [facility] - Family Medicine [address] [place] [address] Aneesh Richmond DO [address] [place] [address] Chronic obstructive pulmonary disease, unspecified (CMS-HCC); Cervical radiculopathy; Anxiety disorder, unspecified type; Essential (primary) hypertension Social History Tobacco Use [...] - Family Medicine [address] [place] [address] Aneesh Richmond DO [address] [facility] [place] [address] documented as of this encounter Visit Diagnoses Diagnosis Chronic obstructive pulmonary disease, unspecified ([facility]) Cervical radiculopathy Brachial neuritis or radiculitis nos Anxiety disorder, unspecified type Essential (primary) hypertension Unspecified essential hypertension documented in this encounter Additional Health Concerns Assessment Noted Time PHQ-9 Depression Total Score: 0 10/20/19 23 1:35 PM EST documented as of this encounter Care Teams Biometrics Head Relationship Specialty Start Date End Date Aneesh Richmond DO [address] [facility] [place] [address] PCP - General Family Medicine 07/16/22 documented as of this encounter
--- OUTSIDE RECORDS SUMMARY | 2025-07-06 09:48 | XMS_ITS | Clinical Summary ---
Author Organization [employer] tem Address [id number] [address] [place] [address] Care Team Providers Care Digital Sales Executive Name Role Phone Aneesh Richmond Primary Care Provider Allergies Active Allergy Reactions Criticality Noted Date Comments Butalbital-Acetaminoph en-Caff Itching,Rash Low 06/09/2012 Carbidopa-Levodopa 10/20/2022 Other reaction(s): cant walk Fluticasone Propion-Salmeterol Other (See Comments) 11/03/2011 Racing heart Hydrocodone-Acetaminop hen GI Disturbance 10/20/2022 Penicillins Hives 11/03/2011 Camphor-Methyl Salicyl-Menthol Other (See Comments) 09/07/2023 Burnt really bad Watermelon Rash Low 10/20/2022 Medications RESTASIS 0.05 % ophthalmic emulsion Administer 1 drop to both eyes. 06/02/20 24 Active sildenafiL (VIAGRA) 100 mg tablet Take 1 tablet (100 mg total) by mouth as needed for erectile dysfunction. 10 tablet 5 01/06/20 25 Active SUMAtriptan (IMITREX) 100 mg tablet Take 1 tablet (100 mg total) by mouth once as needed for migraine (migraine) for up to 27 doses. May repeat in 2 hours if unresolved. Do not exceed 200 mg in 24 hours. 9 tablet 2 03/07/20 25 Active metoprolol tartrate (LOPRESSOR) 25 mg tabletIndications :Essential (primary) hypertension TAKE 1 TABLET BY MOUTH TWICE DAILY 60 tablet 5 03/27/20 25 Active SYMBICORT 160-4.5 mcg/actuation inhalerIndication s:Chronic obstructive pulmonary disease, unspecified (CMS-HCC) INHALE 2 PUFFS BY MOUTH TWICE DAILY 10.2 g 03/27/20 25 Active cyclobenzaprine (FLEXERIL) 10 mg tabletIndications :Cervical radiculopathy TAKE 1 TABLET BY MOUTH THREE TIMES DAILY NEEDED 60 tablet 03/27/20 25 Active mupirocin (BACTROBAN) 2 % ointment Apply 1 Application topically 3 (three) times a day. 15 g 04/09/20 25 Active rosuvastatin (CRESTOR) 20 mg tablet TAKE 1 TABLET BY MOUTH IN THE MORNING 30 tablet 04/26/20 25 Active VENTOLIN HFA 90 mcg/actuation inhalerIndication s:Cervical radiculopathy INHALE 2 PUFFS BY MOUTH EVERY 4 HOURS NEEDED FOR WHEEZING 18 g 04/26/20 25 Active montelukast (SINGULAIR) 10 mg tabletIndications :Unspecified asthma, uncomplicated Take 1 tablet (10 mg total) by mouth nightly. 90 tablet 06/21/20 25 Active albuterol (PROVENTIL,VENTOL IN) 2.5 mg /3 mL (0.083 %) nebulizer solutionIndicatio ns:Pulmonary emphysema, unspecified emphysema type Inhale 3 mL (2.5 mg total) by nebulization every 6 (six) hours as needed for wheezing. 75 mL 06/21/20 25 Active famotidine (PEPCID) 20 mg tablet Take 1 tablet (20 mg total) by mouth in the morning and at bedtime. 60 tablet 06/21/20 25 Active celecoxib (CeleBREX) 200 mg capsuleIndication s:Cervical radiculopathy TAKE 1 CAPSULE BY MOUTH TWICE DAILY -- IN THE MORNING and AT BEDTIME 60 capsule 06/21/20 25 Active traMADoL (ULTRAM) 50 mg tabletIndications :Cervical radiculopathy Take 1 tablet (50 mg total) by mouth every 8 (eight) hours as needed for pain. 20 tablet 1 07/02/20 25 Active montelukast (SINGULAIR) 10 mg tabletIndications :Unspecified asthma, uncomplicated TAKE 1 TABLET BY MOUTH IN THE EVENING 90 tablet 1 12/29/19 25 025 Discontin ued(Reord er) albuterol (PROVENTIL,VENTOL IN) 2.5 mg /3 mL (0.083 %) nebulizer solutionIndicatio ns:Pulmonary emphysema, unspecified emphysema type Inhale 3 mL (2.5 mg total) by nebulization every 6 (six) hours as needed for wheezing. 75 mL 5 01/06/20 25 025 Discontin ued(Reord er) famotidine (PEPCID) 20 mg tablet TAKE 1 TABLET BY MOUTH TWICE DAILY 60 tablet 1 04/26/20 25 025 Discontin ued(Reord er) celecoxib (CeleBREX) 200 mg capsuleIndication s:Cervical radiculopathy TAKE 1 CAPSULE BY MOUTH TWICE DAILY -- IN THE MORNING and AT BEDTIME 60 capsule 1 04/26/20 25 025 Discontin ued(Reord er) traMADoL (ULTRAM) 50 mg tabletIndications :Cervical radiculopathy Take 1 tablet (50 mg total) by mouth every 8 (eight) hours as needed for pain. 20 tablet 1 06/04/20 25 025 Discontin ued(Reord er) traMADoL (ULTRAM) 50 mg tabletIndications :Cervical radiculopathy Take 1 tablet (50 mg total) by mouth every 8 (eight) hours as needed for pain. 20 tablet 1 06/18/20 25 025 Discontin ued(Reord er) Active Problems Problem Noted Date Diagnosed Date Gastroesophageal reflux disease 04/03/2024 Migraine 04/03/2024 Cubital tunnel syndrome on left 05/05/2023 Numbness and tingling 05/05/2023 Weakness 05/05/2023 Cervical radiculopathy 10/20/2022 Primary hypertension 09/18/2022 Generalized anxiety disorder 07/20/2022 Cigarette smoker 07/20/2022 Basal cell adenocarcinoma 07/20/2022 Nodule of skin of neck 07/20/2022 COPD (chronic obstructive pulmonary disease) 07/2022 Pure hypercholesterolemia 06/29/2022 Low back pain radiating to both legs 12/17/2011 Neck pain, chronic 12/17/2011 Sleep disorder 12/17/2011 Encounters Date Type Department Care Team Description 07/02/2025 Refill [facility] [address] [place] [address] Aneesh Richmond, DO Cervical radiculopathy 06/29/2025 Refill [facility] [address] [place] [address] Aneesh Richmond, DO Cervical radiculopathy 06/21/2025 Refill [facility] [address] [place] [address] Rose Romero, [facility] Unspecified asthma, uncomplicated; Pulmonary emphysema, unspecified emphysema type ([facility]); Cervical radiculopathy 06/16/2025 Refill [facility] [address] [place] [address] Aneesh Richmond, DO Cervical radiculopathy 06/04/2025 Refill [facility] [address] [place] [address] Aneesh Richmond, DO Cervical radiculopathy 06/04/2025 Telephone [facility] [address] [place] [address] Ry Gomez CMA 05/16/2025 Refill [facility] [address] [place] [address] Aneesh Richmond, DO Cervical radiculopathy 05/04/2025 Refill [facility] [address] [place] [address] Aneesh Richmond, DO Cervical radiculopathy 04/26/2025 Refill [facility] [address] [place] [address] Aneesh Richmond, DO Cervical radiculopathy 04/15/2025 Refill [facility] [address] [place] [address] Aneesh Richmond, DO Cervical radiculopathy 04/09/2025 10:00 AM EDT Office Visit [facility] [address] [place] [address] Aneesh Richmond, DO Cervical radiculopathy (Primary Dx); Cigarette smoker; Pulmonary emphysema, unspecified emphysema type ([facility]); Primary hypertension 04/09/2025 Travel from Last 3 Months Immunizations Immunization Administration Dates Next Due Hepatitis A 07/25/2019,01/13/2019 Influenza, Injectable, quadr ivalent (PF) 07/13/2023,07/17/2021,07/23/2018,07/16 Pneumococcal Polysaccharide 07/23/2018 Family History Medical History Relation Name Comments COPD Brother 1 Throat cancer Brother 2 Rectal cancer Brother 3 Stomach cancer Father Lung cancer Mother Lung cancer Sister survived Ovarian cancer Sister survived Stomach cancer Sister from [facility] cancer-62 Relation Name Status Comments Brother 1 Alive Brother 2 Alive Brother 3 Alive Brother 4 Alive Brother 5 Alive Father Mother Sister Social History Tobacco Use Types Packs/Day Years Used Date Smoking Tobacco: Every Day Cigarettes 3 43.4 Started: 01/28/1982 Smokeless Tobacco: Never Tobacco Cessation:Ready to Q uit: Not Asked; Counseling Given: Not Answered Alcohol Use Standard Drinks/Week Comments Not Currently 0 (1 standard drink = 0.6 oz pur e alcohol) [employer] Utilities Answer Date Recorded In the past 12 months has [email or web address], [employer], oil, or water [employer] threatened to shut off services in your [...] week 07/13/2023 How often do you attend [facility] or bahai services? Never 07/13/2023 Do you belong to any clubs o r organizations such as mu-ism groups, unions, fraternal or athletic groups, or [...] Answer Date Recorded Total Score 0 04/09/2025 [facility] - Occupational [...] Sign Reading Time Taken Comments Blood Pressure 128/78 04/09/2025 10:04 AM EDT Pulse 79 04/09/2025 10:04 AM EDT Temperature 36.4 C (97.5 F) 04/09/2025 10:04 AM EDT Respiratory Rate 20 04/09/2025 10:04 AM EDT Oxygen Saturation 97% 04/09/2025 10:04 AM EDT Inhaled Oxygen Concentration - - Weight 68.2 kg (150 lb 6.4 oz) 04/09/2025 10:04 AM EDT Height 167.6 cm (5' 5.98 ) 04/09/2025 10:04 AM E DT Body Mass Index 24.29 04/09/2025 10:04 AM EDT Plan of Treatment Upcoming Encounters Date Type Department Care Team (Late st Contact Info) Description 07/18/2025 10:30 AM EDT Office Visit [facility] [address] [place] [address] Aneesh Richmond, DO [address], [facility] [address] Health Maintenance Due Date Last Done Comments Tobacco Counseling 1965 DTaP,Tdap and Td Vaccines (1 - Tdap) 01/28/1983 Zoster (Shingles) Vaccine (1 of 2) 01/28/1983 Colonoscopy 02/06/2025 02/07/2024, 02/07/2024 COVID-19 Vaccine (2024-2 6 season) 2025 08/12/2021, 01/14/2021 Influenza Vaccine 06/11/2025 07/13/2023, , 07/23/2018, Additional history exists Adult BMI Screening 04/09/2026 04/09/2025 Depression Screening 04/09/2026 04/09/2025 Tobacco Screening 04/09/2026 04/09/2025 Medical Devices Not on file Procedures Procedure Name Priority Date/Time Associated Diagnosis Comments PROVATION COLONOSCOPY Routine 02/07/2024 8:31 AM EDT from Last 3 Months or Most Recently Relevant to Health Maintenance Results * Colonoscopy Report (02/07/2024 8:31 AM EDT) Narrative SYSTEMGENERATED, DOCUMENTATION - 02/07/2024 8:31 AM EDT This order has been auto-finalized for image and report archival in PACs. *For full report details, please reach out to your physician. This image is visible to you in MyChart.* us Kuldeep Fountain DO IMG OR IMG ORDERABLES Final Result from Last 3 Months or Most Recently Relevant to Health Maintenance Insurance [employer] Care Teams Digital Sales Executive Relationship Specialty Start Date End Date Aneesh Richmond DO [address], [place] [address] PCP - General Family Medicine 07/16/22
--- NOTE | 2025-07-06 09:49 | CT_ITS ---
The [address] [address] Patient Name: SHEYLA KOHLI MRN: [id number] date: 1965 Sex: M Assigned Patient Location: CT Current Patient Location: CT Accession/Order Number: [id number] Exam Date: 07/06/2025 10:00 Report Date: 07/06/2025 10:53 At the request of: JEFF KILPATRICK Procedure: CT lung screening low-dose LOW-DOSE SCREENING CHEST CT WITHOUT CONTRAST COMPARISON: 06/26/2024 CLINICAL DATA: Current smoker 3 packs per day for 41 years Spiral axial unenhanced low-dose images were obtained through the chest. Images were reviewed using both narrow and wide window settings. This CT exam was performed using one or more following dose reduction techniques: Automated exposure control, adjustment of the mA and/or kV according to patient size, or use of iterative reconstruction technique. The heart is normal size. No pericardial effusion is seen. There is minor coronary artery disease. No aortic aneurysm is visualized. A few small nonpathologic lymph nodes are present. There is minor gynecomastia. There is subtle dextroscoliotic curvature and mild endplate spurring. There is scarring at the lung apices along with subpleural blebs. There are some additional airspace lucencies. Scarring and/or atelectasis is again seen at the lingula. There is no focal consolidation, pleural effusion or pneumothorax. No developing nodularity is seen. Limited cuts through the upper abdomen show no contributory findings. CT/CT lung screening low-dose IMPRESSION: OBSTRUCTIVE LUNG DISEASE WITH SCARRING AND POSSIBLE ATELECTASIS. NO PULMONARY NODULARITY. Lung RADS category 1 - negative Twelve-month low-dose CT follow-up suggested. Impression dictated by: Essence Perez M.D. 07/06/2025 10:53 AM Dictation Location: [place] [address] Electronically authenticated by: [id number] Y Date: 07/06/2025 10:53
--- OUTSIDE RECORDS SUMMARY | 2025-07-06 09:49 | XMS_ITS | Encounter Summary ---
Author Organization [employer] tem Address [id number] [address] [place] [address] Care Team Providers Care Triage Clinician Name Role Phone Aneesh Richmond DO Primary Care Provider [phone] Reason for Visit * Reason Onset Date Comments Med Refill 12/29/2022 Encounter Details Date Type Department Care Team (Late Contact Info) Description 12/29/2022 Refill [facility] - [facility] [address] [place] [address] Rose Romero CMA Cervical radiculopathy Social History [...] Medicine - Family Medicine [address] [place] [address] Aneesh Richmond DO [address] [place] [address] documented as of this encounter Visit Diagnoses Diagnosis Cervical radiculopathy Brachial neuritis or radiculitis nos documented in this encounter Additional Health Concerns Assessment Noted Time PHQ-9 Depression Total Score: 0 10/20/19 23 1:35 PM EST documented as of this encounter Care Teams Triage Clinician Relationship Specialty Start Date End Date Aneesh Richmond DO [address] [place] [address] PCP - General Family Medicine 07/16/22 documented as of this encounter
--- OUTSIDE RECORDS SUMMARY | 2025-07-06 09:49 | XMS_ITS | Encounter Summary ---
Author Organization [facility] tem Address [facility]-[id number] [address] [place] [address] Care Team Providers Care Painting Contractor Name Role Phone Aneesh Richmond DO Primary Care Provider [phone]- [phone] Encounter Details Date Type Department Care Team (Late st Contact Info) Description 01/09/2025 Orders Only [facility] - [facility] [address] [place] [address] Aneesh Richmond DO [address], [place] [address] Social History Tobacco Use Types Packs/Day Years Used Date Smoking Tobacco: Every Day Cigarettes 3 45 Smokeless Tobacco: Never Alcohol Use Standard Drinks/Week Comments Not Currently 0 (1 standard drink = 0.6 oz pur e alcohol) [facility] Utilities Answer Date Recorded In the past 12 months has [employer], [employer], oil, or water [employer] threatened to shut off services in your [...] often do you attend chur ch or advent services? Never 07/13/2023 Do you belong to [...] PHQ-2 Answer Date Recorded Total Score 0 01/05/2025 [facility] [...] Recorded Do you need help finding a [facility] career center and/or a training program? No 07/13/2023 Hunger Screening Answer Date Recorded Within the past 12 months we worried whether our food would run out before we got money to buy more. Never True 01/05/2025 Within the past 12 months th e food we bought just didn't last and we didn't have money to get more. Never True 01/05/2025 Purpose - Life Answer Date Recorded I [...] Medicine [address] [place] [address] Aneesh Richmond DO [address], [facility] [place] [address] documented as of this encounter Visit Diagnoses Not on filedocumented in this encounter Additional Health Concerns Assessment Noted Time PHQ-9 Depression Total Score: 0 01/06/20 25 8:55 AM EDT documented as of this encounter Care Teams Painting Contractor Relationship Specialty Start Date End Date Aneesh Richmond DO [address] [facility] [place] [address] PCP - General Family Medicine 07/16/22 documented as of this encounter
--- OUTSIDE RECORDS SUMMARY | 2025-07-06 09:49 | XMS_ITS | Encounter Summary ---
Author Organization [employer] Address [id number] [address] [place] [address] Care Team Providers Care Hydropulper Operator Name Role Phone Aneesh Richmond Primary Care Provider [phone] [phone] Encounter Details Date Type Department Care Team (Late st Contact Info) Description 02/12/2025 Refill [facility] - [facility] Medicine [address] [place] [address] Ayse Lopez, SWAPNIL Cervical radiculopathy Social History Tobacco Use Types Packs/Day Years Used Date Smoking Tobacco: Every Day Cigarettes 3 45 Smokeless Tobacco: Never Alcohol Use Standard Drinks/Week Comments Not Currently 0 (1 standard drink = 0.6 oz pur e alcohol) [facility] Utilities Answer Date Recorded In the past 12 months has [employer], gas, oil, or water company threatened [...] often do you attend chur ch or buddhism services? Never 07/13/2023 Do you belong to [...] Answer Date Recorded Total Score 0 01/05/2025 [facility] - Occupational [...] Recorded Do you need help finding a [facility] career center and/or a training program? [...] - Family Medicine [address] [place] [address] Aneesh Richmond DO [address] [place] [address] documented as of this encounter Visit Diagnoses Diagnosis Cervical radiculopathy Brachial neuritis or radiculitis nos documented in this encounter Additional Health Concerns Assessment Noted Time PHQ-9 Depression Total Score: 0 01/06/20 25 8:55 AM EDT documented as of this encounter Care Teams Hydropulper Operator Relationship Specialty Start Date End Date Aneesh Richmond DO [address] [place] [address] PCP - General Family Medicine 07/16/22 documented as of this encounter
--- OUTSIDE RECORDS SUMMARY | 2025-07-06 09:49 | XMS_ITS | Encounter Summary ---
Author Organization [employer] tem Address [facility]-[id number] [address] [place] [address] Care Team Providers Care Chemists Name Role Phone Aneesh Richmond DO Primary Care Provider [phone]- [phone] Encounter Details Date Type Department Care Team (Late Contact Info) Description 01/15/2023 Orders Only [facility] - Family Medicine [address] [place] [address] Aneesh Richmond DO [address], [facility] [place] [address] Social History Tobacco Use Types Packs/Day Years [...] Description 07/18/2025 10:30 AM EDT [facility] [address] [place] [address] Aneesh Richmond DO [address], [facility] [place] [address] documented as of this encounter Visit Diagnoses Not on filedocumented in this encounter Additional Health Concerns Assessment Noted Time PHQ-9 Depression Total Score: 0 10/20/19 23 1:35 PM EST documented as of this encounter Care Teams Chemists Relationship Specialty Start Date End Date Aneesh Richmond DO [address], [facility] [place] [address] PCP - General Family Medicine 07/16/22 documented as of this encounter
--- OUTSIDE RECORDS SUMMARY | 2025-07-06 09:49 | XMS_ITS | Encounter Summary ---
Author Organization [employer] Address [facility]-[id number] [address] [place] [address] Care Team Providers Care Casino Investigator Name Role Phone ElizabethAneesh reic Primary Care Provider + [phone] Reason for Visit * Reason Onset Date Comments Med Refill 01/16/2025 Encounter Details Date Type Department Care Team (Late st Contact Info) Description 01/16/2025 Refill [facility] - Family Medicine [address] [place] [address] Juan, Radha, ORDER MAKE UP CLERK Cervical radiculopathy Social History Tobacco Use Types Packs/Day Years Used Date Smoking Tobacco: Every Day Cigarettes 3 45 Smokeless Tobacco: Never Alcohol Use Standard Drinks/Week Comments Not Currently 0 (1 standard drink = 0.6 oz pur e alcohol) [facility] Utilities Answer Date Recorded In the past 12 months has [employer], gas, oil, or water company threatened to [...] any clubs o r organizations such as jain groups, unions, fraternal or athletic groups, or [...] Answer Date Recorded Total Score 0 01/05/2025 [facility] ional Health - [...] Recorded Do you need help finding a [facility] career center and/or a training program? No [...] - Family Medicine [address] [place] [address] Aneesh Richmond DO [address] [place] [address] documented as of this encounter Visit Diagnoses Diagnosis Cervical radiculopathy Brachial neuritis or radiculitis nos documented in this encounter Additional Health Concerns Assessment Noted Time PHQ-9 Depression Total Score: 0 01/06/20 25 8:55 AM EDT documented as of this encounter Care Teams Casino Investigator Relationship Specialty Start Date End Date Aneesh Richmond DO [address] [facility] [place] [address] PCP - General Family Medicine 07/16/22 documented as of this encounter
--- OUTSIDE RECORDS SUMMARY | 2025-07-06 09:49 | XMS_ITS | CCD ---
Author Organization [facility] Inform ion [facility] Care Team Providers Care Director Of Cloud Services Name Role Phone ANEESH RICHMOND Primary Care Physician [phone] Carlito Orosco Attending Unavailable Devyn Randall Attending Unavailable FURLONG, DR ANEESH Powell Admitting Unavailable FURLONG, DR ANEESH Powell Consulting Unavailable [facility] [place] [facility] Primary Care Unavailable FURNG, DR ANEESH Powell Attending Unavailable FURLONG, DR ANEESH Powell Attending Unavailable FURLONG, DR ANEESH Powell Referring Unavailable FURLONG, DR ANEESH Powell Admitting Unavailable FURLONG, DR ANEESH Powell Consulting Unavailable [facility] [place] [facility] Primary Care Unavailable ZIEBER, DR WENDY Samuels Consulting Unavailable FURLONG, DR ANEESH Powell Admitting Unavailable FURLONG, DR ANEESH Powell Primary Care Unavailable FURLONG, DR ANEESH Powell Consulting Unavailable FURLONG, DR ANEESH Powell Attending Unavailable CRESSKILL, DR MICHAEL Bear Consulting Unavailable ZIEBER, DR WENDY Samuels Consulting Unavailable FURLONG, DR ANEESH Powell Primary Care Unavailable HAY ., DR HAGAN Attending Unavailable HAY ., DR HAGAN Admitting Unavailable Leti Rothman Unavailable ROMA MONK Admitting Unavailable ROMA MONK Attending Unavailable ROMA MONK Referring Unavailable ELIZABETHLOANEESH ENCARNACION Primary Care Unavailable ROMA MONK Attending Unavailable ROMA MONK Referring Unavailable ELIZABETHLONG, ANEESH Powell Primary Care Unavailable MICHAEL SOLOMON Attending Unavailable ANEESH RICHMOND Primary Care Unavailable Furlong Aneesh RODRÍGUEZ Primary Care Provider ANEEHS RICHMOND Referring Unavailable ANEESH RICHMOND Primary Care Unavailable ANEESH RICHMOND Referring Unavailable ELIZABETHLOSHASHANK, ANEESH Powell Primary Care Unavailable [place]long Aneesh RODRÍGUEZ Primary Care Provider GABRIELLANG, ANEESH Powell Attending Unavailable FURLONG, ANEESH G Referring Unavailable FURLONG, ANEESH G Primary Care Unavailable FURLONG, ANEESH G Attending Unavailable FURLONG, ANEESH G Referring Unavailable FURLONG, ANEESH G Primary Care Unavailable FURLONG, ANEESH G Attending Unavailable FURLONG, ANEESH G Referring Unavailable FURLONG, ANEESH G Primary Care Unavailable FURLONG, ANEESH G Attending Unavailable FURLONG, ANEESH G Referring Unavailable FURLONG, ANEESH G Primary Care Unavailable Allergies Allergy Classification Reported Allergen(s) Allergy Type Date of Onset Reaction(s) Facility (20 sources) Acetaminophen / HYDROcodone; Translations: [acetaminophen-hy drocodone] Drug Allergy 10-20-19 23 Stomach ache (finding), GI Disturbance [facility] (20 sources) Carbidopa / Levodopa; Translations: [carbidopa-levodo pa] Drug Allergy 10-20-19 23 cant walk [facility] (20 sources) fluticasone / salmeterol; Translations: [fluticasone-salm eterol] Drug Allergy 11-03-19 12 Tachycardia (finding), Other (See Comments) [facility] (3 sources) Penicillin; Translations: [penicillin] Drug Allergy Urticaria (disorder) [facility] (20 sources) watermelon allergenic extract; Translations: [Watermelon] Drug Allergy 10-20-19 23 Rash [facility] (1 source) Acetaminophen / butalbital / Caffeine Drug Allergy 06-27-20 13 [facility] (1 source) Acetaminophen / HYDROcodone Drug Allergy 06-27-20 13 [facility] (1 source) fluticasone / salmeterol Drug Allergy 06-27-20 13 [facility] (1 source) Morphine Drug Allergy 06-27-20 13 [facility] (10 sources) Penicillins; Translations: [PENICILLINS] Drug allergy (disorder) 11-03-19 12 Hives [facility] (1 source) traMADol Drug Allergy 05-24-20 14 [facility] (20 sources) Acetaminophen / butalbital / Caffeine Drug Allergy 06-09-20 12 Itching, Rash [facility] (2 sources) Penicillin V Drug Allergy Unknown [employer] Other (3 sources) Acetaminophen / HYDROcodone; Translations: [HYDROCODONE-ACET AMINOPHEN] Drug Allergy 10-20-19 [facility] (3 sources) FLUTICASONE PROPION-SALMETERO L; Translations: [FLUTICASONE PROPION-SALMETERO L] Propensity to adverse reactions to drug (disorder) 11-03-19 [facility] (20 sources) CAMPHOR-METHYL SALICYL-MENTHOL; Translations: [CAMPHOR-METHYL SALICYL-MENTHOL] Propensity to adverse reactions to drug (disorder) 09-07-20 23 Other (See Comments) [facility] (4 sources) BUTALBITAL-ACETAM INOPHEN-CAFF; Translations: [BUTALBITAL-ACETA MINOPHEN-CAFF] Propensity to adverse reactions to drug (disorder) 06-09-20 [facility] [employer] (20 sources) Penicillins Propensity to adverse reactions to drug 11-03-19 12 [facility] [facility] (20 sources) Penicillins Propensity to adverse reactions to drug 11-03-[address] [facility] Medications Current Medications Medication Drug Class(es) Dates Sig (Normalized) Sig (Original) acetaminophen 325 mg / HYDROcodone bitartrate 5 mg oral tablet (1 source) Opioid Agonist Start: 09-01-2022 acetaminophen-hydr ocodone 325 mg-5 mg oral tablet 1 tab(s), Oral, q4hr for pain, 12 tab(s), Refill(s) 0, [employer] #72, 168, cm, 09/01/22 13:11:00 EST, Height/Length Dosing, 65, kg, 09/01/22 13:11:00 EST, Weight Dosing Start Date: 09/01/22 Status: Ordered acetaminophen 325 mg / oxyCODONE hydrochloride 5 mg oral tablet (1 source) Opioid Agonist Start: 08-14-2022 End: 08-17-2022 Percocet 5 mg-325 mg oral tablet 1 tab(s), Oral, q6hr for 3 day(s), 18 tab(s), Refill(s) 0, [employer] #72, 168, cm, 08/14/22 14:46:00 EDT, Height/Length Dosing, 65, kg, 08/14/22 14:46:00 EDT, Weight Dosing Start Date: 08/14/22 Stop Date: 08/17/22 Status: Ordered albuterol 0.83 mg/ml inhalation solution (20 sources) beta2-Adrenergic Agonist Start: 01-05-2025 End: 06-21-2025 take 3 mL by inhalation every six hours as needed for wheezing albuterol (PROVENTIL,VENTOLI N) 2.5 mg /3 mL (0.083 %) nebulizer solution Indications: Pulmonary emphysema, unspecified emphysema type (CMS-HCC) Inhale 3 mL (2.5 mg total) by nebulization every 6 (six) hours as needed for wheezing. 75 mL 5 06/21/2025 Active Start: 09-27-2023 End: 04-26-2025 take 2 puff(s) by mouth every four hours as needed for wheezing VENTOLIN HFA 90 mcg/actuation inhaler Indications: Cervical radiculopathy INHALE 2 PUFFS BY MOUTH EVERY 4 HOURS NEEDED FOR WHEEZING 18 g 1 04/26/2025 Active Start: 09-17-2023 End: 04-04-2024 take 3 mL by inhalation every four hours as needed for wheezing albuterol (PROVENTIL,VENTOLIN) 2.5 mg /3 mL (0.083 %) nebulizer solution Indications: Pulmonary emphysema, unspecified emphysema type (CMS-HCC) Inhale 3 mL (2.5 mg total) by nebulization every 4 (four) hours as needed for wheezing or shortness of breath. 75 mL 2 09/17/2023 04/04/2024 Discontinued (Therapy completed) 60 actuat budesonide 0.16 mg/actuat / formoterol fumarate 0.0045 mg/actuat metered dose inhaler (20 sources) Corticosteroid, beta2-Adrenergic Agonist Start: 09-27-2023 End: 03-27-2025 take 2 puff(s) by mouth twice daily SYMBICORT 160-4.5 mcg/actuation inhaler Indications: Chronic obstructive pulmonary disease, unspecified (CMS-HCC) INHALE 2 PUFFS BY MOUTH TWICE DAILY 10.2 g 5 03/27/2025 Active take 2 puff(s) by inhalation onc e daily Symbicort 80-4.5 MCG/ACT 2 puffs Inhalation Once a day Active celecoxib 200 mg oral capsule (20 sources) Nonsteroidal Anti-inflammatory Drug Start: 07-28-2023 End: 06-21-2025 take 1 capsule by mouth twice daily at bedtime celecoxib (CeleBREX) 200 mg capsule Indications: Cervical radiculopathy TAKE 1 CAPSULE BY MOUTH TWICE DAILY -- IN THE MORNING and AT BEDTIME 60 capsule 1 06/21/2025 Active cyclobenzaprine hydrochloride 10 mg oral tablet (20 sources) Muscle Relaxant Start: 09-27-2023 End: 03-27-2025 take 1 tablet by mouth three times daily as needed cyclobenzaprine (FLEXERIL) 10 mg tablet Indications: Cervical radiculopathy TAKE 1 TABLET BY MOUTH THREE TIMES DAILY NEEDED 60 tablet 5 03/27/2025 Active take 1 tablet by wandy th every twenty-four hours Cyclobenzaprine HCl 10 MG 1 tablet at bedtime as needed Orally Once a day Active cycloSPORINE 0.5 mg/ml ophthalmic suspension (20 sources) Calcineurin Inhibitor Immunosuppressant Start: 06-02-2024 RESTASIS 0.05 % ophthalmic emulsion Administer 1 drop to both eyes. 06/02/2024 Active famotidine 20 mg oral tablet (20 sources) Histamine-2 Receptor Antagonist Start: 04-03-2024 End: 06-21-2025 take 1 tablet by mouth at bedtime famotidine (PEPCID) 20 mg tablet Take 1 tablet (20 mg total) by mouth in the morning and at bedtime. 60 tablet 1 06/21/2025 Active lansoprazole 30 mg delayed release oral capsule (2 sources) Proton Pump Inhibitor take 1 capsule by mouth every twenty-four hours LORazepam 0.5 mg oral tablet (2 sources) Benzodiazepine take 1 tablet by mouth every twelve hours Ativan 0.5 MG 1 tablet Orally Twice a day Active methylPREDNISolone 4 mg oral tablet (2 sources) Corticosteroid Start: 03-31-2023 Medrol (Aj) 4 MG as directed Orally daily for 6 days Mar, Active metoprolol tartrate 25 mg oral tablet (20 sources) beta-Adrenergic Karoline Start: 09-27-2023 End: 03-27-2025 take 1 tablet by mouth twice daily metoprolol tartrate (LOPRESSOR) 25 mg tablet Indications: Essential (primary) hypertension TAKE 1 TABLET BY MOUTH TWICE DAILY 60 tablet 5 03/27/2025 Active take 1 tablet by wandy th every twelve hours Metoprolol Tartrate 25 MG 1 tablet with food Orally Twice a day Active montelukast 10 mg oral tablet (20 sources) Leukotriene Receptor Antagonist Start: 06-28-2023 End: 06-21-2025 take 1 tablet by mouth once daily montelukast (SINGULAIR) 10 mg tablet Indications: Unspecified asthma, uncomplicated Take 1 tablet (10 mg total) by mouth nightly. 90 tablet 1 06/21/2025 Active mupirocin 0.02 mg/mg topical ointment (9 sources) RNA Synthetase Inhibitor Antibacterial Start: 04-09-2025 mupirocin (BACTROBAN) 2 % ointment Apply 1 Application topically 3 (three) times a day. 15 g 04/09/2025 Active ProAir HFA 108 (90 Base) MCG/ACT (2 sources) take 2 puff(s) by inhalation every four hours as needed ProAir HFA 108 (90 Base) MCG/ACT 2 puffs as needed Inhalation every 4 hrs Active rosuvastatin calcium 20 mg oral tablet (20 sources) HMG-CoA Reductase Inhibitor Start: 11-03-2024 End: 04-26-2025 take 1 tablet by mouth in the morning rosuvastatin (CRESTOR) 20 mg tablet TAKE 1 TABLET BY MOUTH IN THE MORNING 30 tablet 5 04/26/2025 Active sildenafil 100 mg oral tablet (20 sources) Phosphodiesterase 5 Inhibitor Start: 01-05-2025 sildenafiL (VIAGRA) 100 mg tablet Take 1 tablet (100 mg total) by mouth as needed for erectile dysfunction. 10 tablet 5 01/05/2025 Active Start: 03-31-2022 End: 01-05-2025 take 1 tablet by mouth once daily as needed sildenafiL (VIAGRA) 50 mg tablet Take 1 tablet (50 mg total) by mouth daily as needed. 03/31/2022 01/05/2025 Discontinued (Dose adjustment) simvastatin 40 mg oral tablet (20 sources) HMG-CoA Reductase Inhibitor Start: 07-14-2023 End: 11-03-2024 take 1 tablet by mouth once daily simvastatin (ZOCOR) 40 mg tablet Indications: Pure hypercholesterolemia TAKE 1 TABLET BY MOUTH NIGHTLY 30 tablet 5 08/22/2024 Active sod sulf-pot chloride-mag sulf 1.479-0.188- 0.225 gram tablet (5 sources) Start: 01-14-2024 sod sulf-pot chloride-mag sulf 1.479-0.188- 0.225 gram tablet Indications: Screen for colon cancer Please see instructional sheet given by physicians office. 24 tablet 01/14/2024 Active Start: 01-14-2024 sod sulf-pot c hloride-mag sulf 1.479-0.188- 0.225 gram tablet Indications: Screen for colon cancer Please see instructional sheet given by physicians office. 24 tablet 0 01/14/2024 Active SUMAtriptan 100 mg oral tablet (20 sources) Serotonin-1b and Serotonin-1d Receptor Agonist Start: 04-03-2024 End: 03-06-2025 take 1 tablet by mouth once as needed SUMAtriptan (IMITREX) 100 mg tablet Take 1 tablet (100 mg total) by mouth once as needed for migraine (migraine) for up to 27 doses. May repeat in 2 hours if unresolved. Do not exceed 200 mg in 24 hours. 9 tablet 2 03/07/2025 Active tiotropium 0.018 mg inhalation powder (2 sources) Anticholinergic take 1 capsule by inhalation once daily traMADol hydrochloride 50 mg oral tablet (20 sources) Opioid Agonist Start: 06-18-2025 End: 07-02-2025 take 1 tablet by mouth every eight hours as needed for pain traMADoL (ULTRAM) 50 mg tablet Indications: Cervical radiculopathy Take 1 tablet (50 mg total) by mouth every 8 (eight) hours as needed for pain. 20 tablet 1 07/02/2025 Active Start: 06-04-2025 End: 06-16-2025 take 1 tablet by mouth every eight hours as needed for pain traMADoL (ULTRAM) 50 mg tablet Indications: Cervical radiculopathy Take 1 tablet (50 mg total) by mouth every 8 (eight) hours as needed for pain. 20 tablet 1 06/04/2025 06/16/2025 Discontinued (Reorder) Start: 12-01-2024 End: 05-31-2025 take 1 tablet by mouth every eight hours as needed for pain traMADoL (ULTRAM) 50 mg tablet Indications: Cervical radiculopathy Take 1 tablet (50 mg total) by mouth every 8 (eight) hours as needed for pain for up to 14 days. 20 tablet 1 05/05/2025 05/16/2025 Discontinued (Reorder) Start: 11-10-2024 End: 11-29-2024 take 1 tablet by mouth every eight hours as needed for pain traMADoL (ULTRAM) 50 mg tablet Indications: Cervical radiculopathy Take 1 tablet (50 mg total) by mouth every 8 (eight) hours as needed for pain. 20 tablet 11/24/2024 11/29/2024 Discontinued (Reorder) Start: 10-05-2024 End: 11-07-2024 take 1 tablet by mouth every eight hours as needed for pain traMADoL (ULTRAM) 50 mg tablet Indications: Cervical radiculopathy TAKE 1 TABLET BY MOUTH EVERY 8 HOURS NEEDED FOR PAIN 20 tablet 10/31/2024 11/07/2024 Discontinued (Reorder) Start: 09-25-2024 End: 10-03-2024 take 1 tablet by mouth every eight hours as needed for pain traMADoL (ULTRAM) 50 mg tablet Indications: Cervical radiculopathy Take 1 tablet (50 mg total) by mouth every 8 (eight) hours as needed for pain. 20 tablet 09/25/2024 10/03/2024 Discontinued (Reorder) Start: 08-01-2024 End: 09-18-2024 take 1 tablet by mouth every eight hours as needed for pain traMADoL (ULTRAM) 50 mg tablet Indications: Cervical radiculopathy Take 1 tablet (50 mg total) by mouth every 8 (eight) hours as needed for pain. 20 tablet 09/18/2024 Active Start: 02-01-2024 End: 07-29-2024 take 1 tablet by mouth every six hours as needed for pain traMADoL (ULTRAM) 50 mg tablet Indications: Cervical radiculopathy take 1 tablet by mouth every 6 hours as needed for pain 20 tablet 1 07/21/2024 07/29/2024 Discontinued (Reorder) Start: 01-24-2024 End: 01-30-2024 take 1 tablet by mouth every six hours as needed for pain traMADoL (ULTRAM) 50 mg tablet Indications: Cervical radiculopathy TAKE 1 TABLET BY MOUTH EVERY 6 HOURS NEEDED FOR PAIN for up to 5 days 20 tablet 01/25/2024 Active Start: 01-18-2024 End: 01-22-2024 take 1 tablet by mouth every six hours as needed for pain traMADoL (ULTRAM) 50 mg tablet Indications: Cervical radiculopathy TAKE 1 TABLET BY MOUTH EVERY 6 HOURS NEEDED FOR PAIN for up to 7 (SEVEN) days 20 tablet 01/18/2024 01/22/2024 Discontinued (Reorder) Start: 09-10-2023 End: 01-06-2024 take 1 tablet by mouth every six hours as needed for pain traMADoL (ULTRAM) 50 mg tablet Indications: Cervical radiculopathy TAKE 1 TABLET BY MOUTH EVERY 6 HOURS NEEDED FOR PAIN for up to 7 (SEVEN) days 20 tablet 0 01/06/2024 Active Start: 03-31-2023 take 1 tablet by wandy th every twenty-four hours traMADol HCl 50 MG 1 tablet as needed Orally Once a day for 14 days Mar, Active valACYclovir 1000 mg oral tablet (1 source) Herpesvirus Nucleoside Analog DNA Polymerase Inhibitor, Herpes Simplex Virus Nucleoside Analog DNA Polymerase Inhibitor, Herpes Zoster Virus Nucleoside Analog DNA Polymerase Inhibitor Start: 07-03-2024 End: 07-10-2024 take 1 tablet by mouth three times daily valACYclovir (VALTREX) 1000 mg tablet Indications: Cervical radiculopathy , Paresthesia of right arm Take 1 tablet (1,000 mg total) by mouth 3 (three) times a day for 7 days. 21 tablet 07/03/2024 07/10/2024 Active Completed/Discontinued Medications Medication Drug Class(es) Dates Sig (Normalized) Sig (Original) gabapentin 100 mg oral capsule (2 sources) Anti-epileptic Agent Start: 01-05-2025 End: 01-09-2025 take 1 capsule by mouth three times daily gabapentin (NEURONTIN) 100 mg capsule Indications: Cervical radiculopathy Take 1 capsule (100 mg total) by mouth 3 (three) times a day. 90 capsule 2 01/05/2025 01/09/2025 Discontinued (Patient Never Started This Medication) ketorolac tromethamine 10 mg oral tablet (1 source) Nonsteroidal Anti-inflammatory Drug, Cyclooxygenase Inhibitor Start: 06-26-2024 End: 07-03-2024 take 1 tablet by mouth three times daily as needed for pain ketorolac (TORADOL) 10 mg tablet Take 1 tablet (10 mg total) by mouth 3 (three) times a day as needed for pain. 06/26/2024 07/03/2024 Discontinued (Therapy completed) Problems Active Problems Problem Classification Problem Date Documented Date Episodic/Chronic Anxiety disorders (20 sources) Generalized anxiety disorder; Translations: [Generalized anxiety disorder] Onset: 07-20-2022 07-20-2022 Chronic Asthma (4 sources) Uncomplicated asthma; Translations: [Unspecified asthma, uncomplicated] 01-05-2024 Chronic Chronic obstructive pulmonary disease and bronchiectasis (20 sources) Chronic obstructive lung disease; Translations: [Chronic obstructive pulmonary disease, unspecified] Onset: 07-20-2022 04-12-2023 Chronic Disorders of lipid metabolism (20 sources) Pure hypercholesterolemia, unspecified; Translations: [Pure hypercholesterolemia] Onset: 06-29-2022 Chronic Esophageal disorders (20 sources) Gastroesophageal reflux disease; Translations: [Gastro-esophageal reflux disease without esophagitis] Onset: 04-03-2024 04-03-2024 Chronic Essential hypertension (20 sources) Essential hypertension; Translations: [Essential (primary) hypertension] Onset: 09-18-2022 09-18-2022 Chronic Headache; including migraine (20 sources) Migraine; Translations: [Migraine, unspecified, not intractable, without status migrainosus] Onset: 04-03-2024 04-03-2024 Chronic Other and unspecified benign neoplasm (1 source) Benign neoplasm of colon, unspecified; Translations: [Benign neoplasm of colon, unspecified] Onset: 02-07-2024 Episodic Other male genital disorders (2 sources) Male erectile dysfunction, unspecified; Translations: [Impotence of organic origin] Onset: 01-05-2025 01-05-2025 Chronic Other nervous system disorders (1 source) Chronic pain; Translations: [Other chronic pain] Onset: 08-14-2022 Chronic Other nervous system disorders (2 sources) Brachial plexus disorder; Translations: [Brachial plexus disorders] Chronic Other nervous system disorders (2 sources) Brachial plexus disorders Chronic Other nervous system disorders (20 sources) Lesion of ulnar nerve, left upper limb; Translations: [Lesion of ulnar nerve] Onset: 05-05-2023 07-13-2023 Chronic Other nervous system disorders (3 sources) Paresthesia of right upper limb; Translations: [Paresthesia of skin] 09-28-2024 Episodic Other non-traumatic joint disorders (1 source) Pain of left shoulder joint; Translations: [Pain in left shoulder] Onset: 09-01-2022 Episodic Other screening for suspected conditions (not mental disorders or infectious disease) (3 sources) Encounter for screening for malignant neoplasm of colon; Translations: [Patient encounter status] Onset: 02-07-2024 12-30-2023 Episodic Other skin disorders (1 source) Sebaceous cyst of skin; Translations: [Sebaceous cyst] 09-28-2024 Episodic Spondylosis; intervertebral disc disorders; other back problems (20 sources) Neck pain; Translations: [Cervicalgia] Onset: 12-17-2011 Episodic Substance-related disorders (20 sources) Nicotine dependence, cigarettes, uncomplicated; Translations: [Cigarette smoker ] Onset: 06-01-2022 07-20-2022 Chronic Unclassified (1 source) Screening Onset: 02-07-2024 Unclassified (1 source) Annual Exam Onset: 09-28-2024 Unclassified (1 source) controlled medications Onset: 07-03-2024 Past or Other Problems Problem Classification Problem Date Documented Da te Episodic/Chronic Malaise and fatigue (20 sources) Asthenia; Translations: [Weakness] Onset: 05-05-2023 07-13-2023 Episodic Mood disorders (20 sources) Mood disorders Onset: 07-03-2024 Resolved: 04-09-2025 07-03-2024 Other nervous system disorders (20 sources) Numbness and tingling sensation of skin; Translations: [Anesthesia of skin] Onset: 05-05-2023 07-13-2023 Episodic Other nervous system disorders (1 source) Paresthesia of skin; Translations: [Paresthesia of skin] Onset: 07-03-2024 Episodic Other non-epithelial cancer of skin (20 sources) Basal cell carcinoma of face; Translations: [Basal cell carcinoma of face] Onset: 07-20-2022 07-20-2022 Episodic Other non-traumatic joint disorders (4 sources) Pain in left knee; Translations: [PAIN IN LEFT KNEE] Onset: 05-29-2022 Episodic Other non-traumatic joint disorders (1 source) Pain in right knee; Translations: [PAIN IN RIGHT KNEE] Onset: 08-22-2022 Episodic Other skin disorders (20 sources) Nodule of skin of neck; Translations: [Localized swelling, mass and lump, neck] Onset: 07-20-2022 07-20-2022 Episodic Residual codes; unclassified (4 sources) Procedure and treatment not carried out due to patient leaving prior to being seen by health care provider; Translations: [PROC AND TX NOT CARRIED OUT PT LEAVE] Onset: 08-13-2022 Episodic Residual codes; unclassified (20 sources) Sleep disorder; Translations: [Sleep disorder, unspecified] Onset: 12-17-2011 07-20-2022 Episodic Residual codes; unclassified (1 source) Family history of malignant tumor of rectum; Translations: [Family history of malignant neoplasm of digestive organs] 01-14-2024 Episodic Residual codes; unclassified (1 source) FH: Stomach cancer; Translations: [Family history of malignant neoplasm of digestive organs] 01-14-2024 Episodic Viral infection (1 source) Herpes zoster without complication; Translations: [Zoster without complications] 07-03-2024 Episodic Results Test Name Value Interpretation Reference Range Facility COMPREHENSIVE METABOLIC PANE [facility] 09-28-2024 Albumin [Mass/Vol] 4.3 g/dL Normal 3.2-5.3 [facility] Comment on above: Performed By: #### C SARATH, 15039-3 #### [facility] ([id number]) [address], [address] [place] [address] ALP [Catalytic activity/Vol] 54 U/L Normal 39-130 [facility] Comment on above: Performed By: #### Gracia CLEMENS, [id number] #### [facility] ([id number]) [address], [address] [place] [address] ALT [Catalytic activity/Vol] 5 U/L Normal 0-40 [facility] Comment on above: Performed By: #### Gracia CLEMENS, [id number] #### [facility] ([id number]) [address], [address] [place] [address] Anion gap [Moles/Vol] 5 mmol/L Normal 5-15 [facility] Comment on above: Performed By: #### C SARATH [id number] #### [facility] ([id number]) [address], [address] [place] [address] AST [Catalytic activity/Vol] 17 U/L Normal 0-41 [facility] Comment on above: Performed By: #### Gracia CLEMENS, [id number] #### [facility] ([id number]) [address], [address] [place] [address] Bilirubin [Mass/Vol] 0.4 mg/dL Normal 0.3-1.2 [facility] Comment on above: Performed By: #### Gracia CLEMENS, [id number] #### [facility] ([id number]) [address], [address] [place] [address] Calcium [Mass/Vol] 9.5 mg/dL Normal 8.5-10.5 [facility] Comment on above: Performed By: #### Gracia CLEMENS, [id number] #### [facility] ([id number]) [address], [address] [place] [address] Chloride [Moles/Vol] 101 mmol/L Normal 98-109 [facility] Comment on above: Performed By: #### Gracia CLEMENS, [id number] #### [facility] ([id number]) [address], [address] [place] [address] CO2 [Moles/Vol] 30 mmol/L Normal 22-32 [facility] Comment on above: Performed By: #### Gracia CLEMENS, 03082-8 #### [facility] ([id number]) [address], [address] [place] [address] Creatinine [Mass/Vol] 1.25 mg/dL Normal 0.60-1.30 [facility] Comment on above: Result Comment: METH OD TRACEABLE TO IDMS STANDARD Performed By: #### Gracia CLEMENS, 87771-4 #### [facility] ([id number]) [address], [address] [place] [address] GFR/1.73 sq M.predicted eliot g non-blacks MDRD (S/P/Bld) [Vol rate/Area] 66 mL/min/{1.73_m2} Normal >59 [facility] Comment on above: Result Comment: Reported eGFR is based on the CKD-EPI 2020 equation that does not use a race coefficient. Performed By: #### Gracia CLEMENS 59163-2 #### [facility] ([id number]) [address] [address] [place] [address] Glucose [Mass/Vol] 105 mg/dL High 65-99 [facility] Comment on above: Performed By: #### Gracia CLEMENS 01098-6 #### [facility] ([id number]) [address] [address] [place] [address] Potassium [Moles/Vol] 4.5 mmol/L Normal 3.5-5.0 [facility] Comment on above: Performed By: #### Gracia CLEMENS 48234-4 #### [facility] ([id number]) [address], [address] [place] [address] Protein [Mass/Vol] 7.0 g/dL Normal 6.0-8.0 [facility] Comment on above: Performed By: #### Gracia CLEMENS 70689-4 #### [facility] ([id number]) [address] [address] [place] [address] Sodium [Moles/Vol] 136 mmol/L Normal 134-146 [facility] Comment on above: Performed By: #### Gracia CLEMENS 57141-9 #### [facility] ([id number]) [address] [address] [place] [address] Urea nitrogen [Mass/Vol] 13 mg/dL Normal 5-23 [facility] Comment on above: Performed By: #### Gracia CLEMENS 30308-7 #### [facility] ([id number]) [address], [address] [place] [address] Lipid 1996 panelon 4 Cholesterol [Mass/Vol] 212 mg/dL High 150-200 [facility] Comment on above: Performed By: #### Gracia CLEMENS, 65390-2 #### [facility] ([id number]) [address] [place] [address] Cholesterol in HDL [Mass/Vol] 37 mg/dL Low >39 [facility] Comment on above: Result Comment: HDL <40 mg/dL - High Risk HDL > or = 40mg/dL- Desirable HDL >60 mg/dL - Negative Risk Performed By: #### Gracia CLEMENS, 65507-0 #### [facility] ([id number]) [address] [place] [address] Cholesterol in LDL [Mass/Vol] 141 mg/dL High <130 [facility] Comment on above: Result Comment: LDL <100 mg/dL - Desirable LDL >160 mg/dL - High Risk Performed By: #### Gracia CLEMENS, 99097-1 #### [facility] ([id number]) [address] [place] [address] Cholesterol in VLDL [Mass/Vol] 34 mg/dL High 0-30 [facility] Comment on above: Performed By: #### Gracia CLEMENS, 64537-9 #### [facility] ([id number]) [address], [address] [place] [address] CHOLESTEROL:HDL 5.7 High 1.0-5.0 [facility] Comment on above: Performed By: #### Gracia CLEMENS 40582-0 #### [facility] ([id number]) [address], [address] [place] [address] Triglyceride [Mass/Vol] 170 mg/dL High 27-150 P [facility] Comment on above: Performed By: #### C SARATH, 80352-8 #### [facility] ([id number]) [address] [place] [address] DRUG SCREEN, URINEon 024 AMPHETAMINE/METHAMP Negative [facility] Comment on above: Result Comment: AMPH /METH screening cut off = 1000 ng/mL Performed By: #### D SUAREZ #### [facility] ([id number]) [address] [place] [address] BARBITURATES Negative Normal NEG [facility] Comment on above: Result Comment: Maryuri iturates screening cut off value = 200 ng/mL Performed By: #### D SUAREZ #### [facility] ([id number]) [address] [place] [address] BENZODIAZEPINES Negative Normal NEG [facility] Comment on above: Result Comment: Cali odiazepines screening cut off value = 200 ng/mL Performed By: #### D SUAREZ #### [facility] ([id number]) [address] [place] [address] CANNABINOIDS Negative Normal NEG [facility] Comment on above: Result Comment: Chastity abinoids/THC screening cut off value = 50 ng/mL Performed By: #### D SUAREZ #### [facility] ([id number]) [address] [place] [address] COCAINE METABOLITE Negative Normal NEG [facility] Comment on above: Result Comment: Coca ine screening cut off value = 300 ng/mL Performed By: #### D SUAREZ #### [facility] ([id number]) [address] [place] [address] ECSTASY Negative Normal NEG [facility] Comment on above: Result Comment: Ecst asy screening cut off value = 500 ng/mL This report is intended for use in clinical monitoring or management of patients. Performed By: #### D SUAREZ #### [facility] ([id number]) [address] [place] [address] METHADONE Negative Normal NEG [facility] Comment on above: Result Comment: Meth adone screening cut off value = 300 ng/mL. Performed By: #### D SUAREZ #### [facility] ([id number]) [address] [place] [address] OPIATES Negative Normal [facility] Comment on above: Result Comment: Opia paulina screening cut off value = 300 ng/mL NOTE: This test is used for the detection of codeine, hydrocodone (>1000 ng/mL), morphine and hydromorphone (>900 ng/mL) in urine. Performed By: #### D SUAREZ #### [facility] ([id number]) [address] [place] [address] OXYCODONE Negative Normal [facility] Comment on above: Result Comment: Oxyc odone screening cut off value = 300 ng/mL NOTE: This test is used for the detection of oxycodone and oxymorphone in urine. Performed By: #### D SUAREZ #### [facility] ([id number]) [address] [place] [address] PHENCYCLIDINE Negative Normal [facility] Comment on above: Result Comment: Phen cyclidine screening cut off value = 25 ng/mL Performed By: #### D SUAREZ #### [facility] ([id number]) [address] [place] [address] Drug Screen, Urineon 024 Amphetamines Screen method >1000 ng/mL Ql (U) Negative Negative^N [facility] Comment on above: AMPH/METH screening cut off = 1000 ng/mL Barbiturates Screen Ql (U) Negative N egative^N [facility] Comment on above: Barbiturates screeni ng cut off value = 200 ng/mL Benzodiazepines Ql (U) Negative Negat jamal^N [facility] Comment on above: Benzodiazepines scre ening cut off value = 200 ng/mL Cocaine Ql (U) Negative Negative^N [facility] Comment on above: Cocaine screening cu t off value = 300 ng/mL Methadone Screen Ql (U) Negative Nega tive^N [facility] Comment on above: Methadone screening cut off value = 300 ng/mL. Methylenedioxymethamphetamin e Screen Ql (U) Negative Negative^N [facility] Comment on above: Ecstasy screening cu t off value = 500 ng/mL This report is intended for use in clinical monitoring or management of patients. Opiates Screen Ql (U) Negative Negati ve^N [facility] Comment on above: Opiates screening cu t off value = 300 ng/mL NOTE: This test is used for the detection of codeine, hydrocodone (>1000 ng/mL), morphine and hydromorphone (>900 ng/mL) in urine. oxyCODONE Ql (U) Negative Negative^N [facility] Comment on above: Oxycodone screening cut off value = 300 ng/mL NOTE: This test is used for the detection of oxycodone and oxymorphone in urine. Phencyclidine Screen method >25 ng/mL Ql (U) Negative Negative^N [facility] Comment on above: Phencyclidine screen ing cut off value = 25 ng/mL Tetrahydrocannabinol Screen method >50 ng/mL Ql (U) Negative Negative^N [facility] Comment on above: Cannabinoids/THC scr eening cut off value = 50 ng/mL [facility] Tramadol and Metabolite, Uon 07-03-2024 O-desmethyltramadol 26314 ng/mL Normal Cutoff:25 [facility] Comment on above: Result Comment: NOTE ADDITIONAL INFORMATION Testing performed by Liquid Chromatography-Tandem Mass Spectrometry (LC-MS/MS). This test was developed and its performance characteristics determined by [facility] in a manner consistent with CLIA requirements. This test has not been cleared or approved by the U.S. Food and Drug Administration. Test Performed by: [facility] [place] [address] Land Acquisition Specialist: Bev Kim Ph.D.; CLIA# [id number] Tramadol 86860 ng/mL Normal Cutoff:25 [facility] Surgical Pathologyon 024 Surgical Pathology Normal [facility] Comment on above: Result Comment: [facility] [address] [place] [address] Surgical Pathology Consultation Patient Name:NUBIA VARELA:1965 (Age: 59)Gender:MTaken:02/07/2024eported:02/10/2024hysician(s ):Roma Monk D.O. ([phone])Copy To: Rec. #:[id number]: #[id number] Final Pathologic Diagnosis 1. Rectal polyp, biopsy: Hyperplastic polyp. 2. Sigmoid colon polyp, biopsies: Sessile serrated lesions (2 largest fragments); negative for dysplasia. Tubular adenoma(s) (3 fragments). Hyperplastic polyp (2 fragments). 3. Splenis flexure polyp, biopsy: Sessile serrated lesion; negative for dysplasia. 4. Descending colon polyp, biopsy: Tubular adenoma. Report Electronically Signed Out 02/10/2024Gene MD Jun Interpretation [place] [address], License number: [id number]. Clinical History Screening. Gross Description 1. Received in formalin labeled, makenzie VARELA are 2 pale-conn delicate soft tissue fragments, each 0.4 cm in greatest dimension. The specimens are filtered and submitted in a single cassette. (1, ns, [id number], m6) TB 2. Received in formalin labeled, STUARD, sigmoid are 7 conn delicate soft tissue polypoid fragments, 0.1-0.9 cm in greatest dimension. The 2 largest polyps are inked differentially black and green and are serially sectioned and trisected respectively and submitted entirely in cassette A. The smaller soft tissue fragments are filtered and submitted entirely in cassette B. (2, ns, [id number], m6) TB 3. Received in formalin labeled, SEUN, splenic is a pale-conn delicate soft tissue bit, 0.5 cm in greatest dimension. The specimen is filtered and submitted in a single cassette. (1, ns, [id number], m6) TB 4. Received in formalin labeled, SEUN, descending is a pale-conn delicate soft tissue bit, 0.5 cm in greatest dimension. The specimen is filtered and submitted in a single cassette. (1, ns, [id number], m6) TB tgb/02/08/2024[facility]AK Specimen(s) Received 1: Rectal polyp 2: Sigmoid colon polyp x9 3: Splenic flexure polyp 4: Descending colon polyp Fee Codes(s): 1; 37711 2; 83405 3; 94041 4; 21252 MRI CSPINE WO W CONon 2022 MRI [facility] WO W CON EXAMINATION: MRI [facility] WO W CON HISTORY: Cervical radiculopathy ; left arm numbness and tingling COMPARISON: No relevant comparison available. TECHNIQUE: A variety of imaging planes and parameters were utilized for visualization of suspected pathology prior to and after ml intravenous Dotarem injection. FINDINGS: CRANIOCERVICAL AREA: Normal foramen magnum with no Chiari malformation. PARASPINAL AREA: Normal with no visible mass. BONES: Mechanical fusion of C5-6 via anterior plate and screws. No bone fracture, spondylolisthesis , or lesion. CORD: Normal caliber, contour, and signal intensity. CERVICAL DISC LEVELS: C2-C3: Mild right foramen narrowing secondary to mild diffuse disc bulging and uncovertebral joint spurring C3-C4: Marked central canal and bilateral foramen narrowing. Mild diffuse disc bulging, small posterior disc protrusion, uncovertebral joint spurring, and mild degenerative facet arthropathy. No significant disc height reduction. C4-C5: Moderate central canal and moderate-marked bilateral foramen narrowing. Mild diffuse disc bulging, uncovertebral joint spurring, and mild degenerative facet arthropathy. No significant disc height reduction. C5-C6: Moderate central canal and bilateral foramen narrowing. Mild diffuse disc bulging and degenerative facet arthropathy. Anterior mechanical fusion and intervertebral disc spacer. C6-C7: Marked central canal and bilateral foramen narrowing. Moderate diffuse disc bulging and mild disc height reduction. Mild degenerative facet arthropathy. C7-T1:. Early degenerative disc disease is present without focal protrusion or neural impingement. IMPRESSION: 1. Marked central canal and foramen narrowing C3-4 and C6-C7 secondary to degenerative disc disease and facet arthropathy. 2. Multilevel moderate central canal and foramen narrowing. 3. C5-6 anterior mechanical fusion and intervertebral disc spacer. Electronically authenticated by: WENDY PERLA Date: 2023-02-18 08:26 Normal [facility] XR FOREIGN BODY EYEon 2022 XR FOREIGN BODY EYE EXAMINATION: XR FOREIGN BODY EYE HISTORY: Foreign body in eye COMPARISON: No relevant comparison available. FINDINGS: ORBITS: Negative for a metallic foreign body. OTHER: Negative. IMPRESSION: No metallic foreign body in the orbits Electronically authenticated by: MICHAEL ALY Date: 2023-02-17 12:51 Normal [facility] Coding Summary.on 09-02-2022 Coding Summary. CD:[id number] 84RJg3dTr+PGhlYWQ +LP4ZLZYbL77ydGDu tR1QU6sUWA4OQOJAU KJKSH8LYS8krFB5QA syM5RpuuZb JhhtaLEnLO06ZVu0Y GU1iWgbAGcwcA6fcK DfD1y4EzCvGL16wE0 7JMnsCVTbJeZ5RrIp bjsgbWFy G6iyVeLbrNWwHos+P HRhYmxlIHdpZHRoPS cxMDAlJyBzdHlsZT0 fLm5mQDTnGJSlhYge cHNlOiBj c1xlRPUbQSclOV9ah PehA2IdrLV5MQAbl9 m5Zw76bZH+PHRkIHN 9sFwePUjkn786KnMz g1mpYLS9 hWQcNPcjWKT3D74uw 6V3FNXlHDCyOBU5dM Y8jK5tqIjyredkB1R ysFRrMaJ2FPQ5zBFc eY8gkQgr wlspcL2yWgo+Q09ES O5UNLVJRT1SLok8O1 RkPjwvdHI+WU22RVS bMM28kGFpvACmx5qa nUk4KvWj LPTaVXK9zEmaFDhlh 9PnKYByO88sqRElq1 Y2BTFbtHngwGNmEaP uyOY9wN5iOMjyxtqm w6pmujeh Rrvtj0rpbq87nK78L 68uFSbsOUTbWAG9MG MqVGTteThlux3nvX1 wIi8+TVgyq3fwu5qi kBj6RiSu JRAypnDdrGjnVHC9o 3WeTa25Y6QpzKmdz0 XlCre5rd24vKAto9W 0uPI8YMoeHOQmtF2y LWxlZnQ6 IFXzNsPrfD69eUFyC YszIb8stFhmbPmlOI 3wEWLdbjbrSIHpgE7 iLHMvtBXfoXpbII2u NTBpbjtm x204QwHbCFG5GIVvd PUkU9BjmL7yDwHnLQ LmYRArN4PtpYYgJBt hU547IKmoKpU7BTQa wwWkV7Dl EPMnyEmgRpN0a4D2S m4Nl6YizyyqPZT5PF ogIDExLzIzLzIwMjI 3Z9RzGny2NFQevUgd RS4rS5Jg SLJkcjenvxjioNZ4U LDwODWltC71rONhAB etIr5bo0Y3t207WST hQJXgpE53Eo5qnCkx MTBwdCBU tR9cciswm4tixqyuR tHlJRSwFGf4ROo3PD GmhIboVaKqYIY4SgW 0STY5sCFauH6hoVts fcgghY9d Oyc+X11xjC6qEJP1C HA7jvrqJSTqvuYlBG 03QK86J7EkYfhccZS ibGU+PGRpdiBzdHls HL9oHxLk i6yio0YtGYpsV4AaT EGpGNxgUiv6SPXzWZ Q0dMH3jA8eQXZgNVd pg4I8tSB4Y6QabbJz fh8cn4ud OTDfNZzqG64asFSwp 8Y1NCMrrJQ0JVRmbX wcEjZwbM09Uaj+PGN gtYofx0SfXgxgr4mq u7ftqIi8 IjMwJSIgdmFsaWduP GI5f8KyMs31Q96yHJ dpZHRoPSIxNSUiIHZ jcDxjwr9dfC3bFk4+ PGNvbCB3 tMN2dZ3uXDNrKpW3X LqxG869EiXvwXFhJq yzj2gcc6rygLk4XiK wJSIgdmFsaWduPSJ0 s1CfYn16 T00pJTxfOUTnTPSiR FNjMSFvoRbrjw7inG 9wIi8+IT4bv0zsgp9 4kH53yRF+PHRkIHN0 eWxlPSdw INVohX6oLRloFbJ5S XInAdAqzX96gNVoAA lkWg9tpRfddCroJK5 yINLwwvqjv038JlEm k3idKLLs eFKtERbqFHK1H64rx 6I6OISfWBDkYNC0rB S1eJ0saRfkziasdPO mdDsgdmVydGljYWwt CCakZ557 IHRvcDsnPlBhdGllb cKmXyPvYIq5A6TeGg c7IVRamVoaQZ8alHW jTBaxAp2vdYinkDjg BI7qZTRo rktgc379TpAtl8nhY FSyoHJmEKbeHZD5I1 5vv5P9XSRmRTLhLKI 8qEF5fM0bjMwfjszt bGVmdDsg dmVydGljYWwtYWxpZ 246IHRvcDsnPkJpcn PaLZRyiCZ2VF71VY2 5bEMni7E2yAH8N0Tr ZGRpbmct rpmxtRO4YJSmFECif I89Ig2beRfiKz1xEM DuIIT9CINjgHYxD9F tyT0xRsDoXHWxBZKd T0UhvOUz URcmO080OHfvLmW4P FBkmnBwQ6IwJCJjvY gkZpH8l7Q0Db9CV2Y 9XU67SK03ePKwr0A7 oFH8J5Yf TXFitrlpvdducWZ2K NWgDEPqbF97Wr4imB hpWh4aMGWtMCQ4ACV daMCcT6IpgN6qYxYx MDAwMDAw W4VpnTRbWSfrM812Y ZnuXiW5VOWbouKhM1 ZrJLIxbGvcOnS2b1D 5Hl0AANv7FB14MM80 rBZsw3T6 cTD5T9AhQKHwiosfx bkbsCM3CGTfETSajP 27Kg0mpNsvVj2dJGH oBVY8XUOnqXYiF0Oh dM6xVvWt GTKkVSKkA8NxcRXkP ExpC493HMzbMiM2NR QzuiZrZ1GlFNOdsUd tNhM7s6L7Fj5UOLKw CI36IDV0 uGL7MF21ON98V7KpZ jwvdGFibGU+PHRhYm xlIHdpZHRoPScxMDA pGnYjpIezMK4nUw7z ZGVyLWNv kNwtaEYtOxFif6rvA GEyLWggRS8jsOslI9 GjnVC0XRRah0z0Ji5 0Z86aI2GkaZK+PGNv jXY2cGB8 zT6zJsExQqN1FAflX 288UoAvfJEbNftxk6 zas6punSl6LjL5UPF wrjAmiTgmGLJ1n5Fc Oj64N24i IHdpZHRoPSIxNSUiI RJoaBnofp5pvW6zCc 8+NOMjbHC9qKQ1eL2 nAtXjGgX8GFyxO459 InRvcCIv Qtbgv7zqv9vvsQd2J jIwJSIgdmFsaWduPS B8l2DgQa42J0QvnVc lb8VbGda2lo51xUYs e3N4pLS6 O0IyPTNnarlgzBOel WztBY8eXYMhpqgqSY WweR3mIAJjK4x9RhW cCyT2CRqsZ4BodjJ6 IDEwcHQg FMlvMMX6J23lr2O7J YTmBHChRHL3vSA4iY 1hbGlnbjogbGVmdDs gdmVydGljYWwtYWxp Q477LEKq dIxaLTErjJ6vPETtb SHryPmaHW6mODRvtz snPlNUVUFSRCwgVFJ YS8o2L5UqGrd8AKVd yJsaBX5z eEDfVBfeJy1kkAwvp AmkCK3zNLGkrxbmTC KapA9mOLXaiSTknZa qFW5iCNLvjaszf097 OiAxMHB0 CWDgiSApQ6CdxB0nD uArFCYzOLIdJ8BmyZ IaDCjbO849OJsnDrR 1VQDsbzUkU0KaCHDg aWduOiB0 m6F6Wf0gAU4pPU2fB IL7EI54YU70rEEab9 I3sRF5A9XhXIYqwgo emrwfcST1DMRmUNVi pY73sQRz XDjrPb4ty0I5g522T GNeZSPkpV48Av9xeL dmMZPpxZVVlN8jqtp db8hzixcvEhLyCHTq YIc6GSz2 OIUeqGftUeLhIPD4Z uF5RWN2mSKdzW2vfX goxwxsnX1cJlx+NTg eOYEmyqV4T2FoKsc0 ZCBzdHls OV0dhXIjRFaqFf4tm KmdnEbyRD9tQCTrld ywWYIdnK4oGUVrtEO vtJruEG8wZIGjaujq p641AfDx JEY5SSBfyDYuM7Tpw V0cQaOpBFWpVFDhL2 NpwDTvYKebA933DBs oZeH0LSNkzbIqZ5Nf LWFsaWdu UyD9k9V5Jq6FZWiiK L56UR28nIHxv1A2pP Q5B2HfQWRgqaqwcun ngRZ2IPXzKLLtlE08 cGFkZGlu Az0zi6E4d296IPDwZ UVscE42Rs3ioWfoMZ IkqPIKqN4qjeiqi4o vcjogIzAwMDAwMDt0 ZJs1UEIz aOxwVwFuNIT3WmG6V MF1dEAhnA6djUajhl ciaH3aPcn+PU6absh ualT3AX32UI65V9Wz PjwvdGFi bGU+PHRhYmxlIHdpZ HRoPScxMDAlJyBzdH pqFU5zNm2dITKrMSB meIxxjHTeEtMvr2ty YXBzZTsg SG1cxTjgI4KffOP6O TEjd1g4Xq83V66aV6 JvdXA+JCTrxHJ1cXL 6lU9iAiCvTpX8MYjs B925TfCb yIVuFqenn9bip4rjj Fy1OcVxAASxwrSvbE fcWVR8z2GgVe84N13 sIHdpZHRoPSIyMCUi IHZhbGln wm7mjX0ySj6+PGNvb OV5sLS2cP5uCvHpWa M3VAvgL757YlSnhWM tVyvdR22oU4MayFC+ PHRyPjx0 QYEzdMjbIF4mjMLsJ OemUz8lIZJ1TuCrAn OpGDdcJ1FlGHAwwaq zibybyFH9VXBvXTEm qZ70On5z gRpsFi3qAPTmERL2P NIjvZNnX4AreW9fLs SgJMOpTBPlI0FbtBP tCNtyR704HMbpQuY5 IHZlcnRp C8XwSZQaqLygLvG7l 9T8Sb2QfHvpjIGhYS 1dTsThRUc0C9YlPbk 3YXFjrUurAR7faRAt NOdxOu4l nCktsXovZQ0bXEFep icfy947ItKfn6ncPM MywPEsVNweXPR5Z59 tk9F7GWWkZVJbYGZ7 gNK0oZ6w bGlnbjogbGVmdDsgd mVydGljYWwtYWxpZ2 46IHRvcDsnPkZJTjo 2C4FvEob9MFNmlQfw GI0rrIKk BHasWx1gfRbqcWorP C7vPUWzxbrmn687Tk Bdt4mnHXEcmZNpHHm iGCV1X62mm7H4JFIy MDAwMDA7 fCR1kF9zyDjnmnvlp GVmdDsgdmVydGljYW rsVRjyG506OBXacRk vGy6VEcf3I6YgQee7 ZCBzdHls NK0uwTIvTSjuQt1ul KcqbIlbDV8iEOUtng xtm885VbEyu8trBEM hnZHxFEuqUXQ8X68s m3S0DATd BKViUZZ5xDF6fH8fp GlnbjogbGVmdDsgdm IxaWwpLGhaJIjtN12 6IHRvcDsnPlBheWVy OjwvdGQ+ DT98sc23R8JmAzmgQ fw5QBZnKWW2nEZ6zW 6wVNPrYTbno8P9oSU 4B8NlbwDilg9gk4ve YXBzZTog Y29s (more content not included)... Normal [facility] Discharge Instructionson Discharge Instructions [id number] Normal [facility] ED Clinical Summaryon 2021 ED Clinical Summary [address] [address] ED Clinical Summary Person Information Name: NUBIA VARELA/[facility] Age: 57 Years : 1965 Sex: Male Language: Turkish PCP: ANEESH RICHMOND DO Marital Status: Single Visit Id: Visit Reason: Paresthesia; Arm pain-swelling; Neck pain; PAIN RADIATING FROM LEFT ARM TO FINGERS, AND ALSO INTO NECK Speciality: Acuity: 3 Enc Type: Emergency Med Service: Emergency Arrival: 09/01/2022 13:04:04 Discharge: 09/01/2022 14:39:59 LOS: 000 01:35 Checkin: 09/01/2022 13:04:04 Checkout: 09/01/2022 14:39:59 Dispo Type: Home (Routine DC) EVENTS: Event Name Event Status Request Date/Time Start Date/Time Complete Date/Time Arrive Complete 09/01/2022 13:04:04 09/01/2022 13:04:04 09/01/2022 13:04:04 Document Home Meds Request 09/01/2022 13:04:04 Triage Complete 09/01/2022 13:04:04 09/01/2022 13:10:59 09/01/2022 13:10:59 Bed Assign Complete 09/01/2022 13:07:01 09/01/2022 13:07:01 09/01/2022 13:07:01 Dr Exam Complete 09/01/2022 13:07:01 09/01/2022 13:09:09 09/01/2022 13:09:09 RN Exam Complete 09/01/2022 13:07:01 09/01/2022 14:42:29 09/01/2022 14:42:29 Registration Complete 09/01/2022 13:09:09 09/01/2022 13:15:13 09/01/2022 13:15:13 Dr Exam Complete 09/01/2022 13:10:01 09/01/2022 13:10:01 09/01/2022 13:10:01 Reg Complete Request 09/01/2022 13:15:13 X-Ray Complete 09/01/2022 13:30:57 09/01/2022 13:56:50 09/01/2022 14:09:57 Wet Read Complete 09/01/2022 14:09:57 09/01/2022 14:32:12 09/01/2022 14:32:12 Meds Admin Complete 09/01/2022 14:18:45 09/01/2022 14:39:04 Discharge Complete 09/01/2022 14:30:00 09/01/2022 14:43:11 09/01/2022 14:43:11 Transfer Complete 09/01/2022 14:43:11 09/01/2022 14:43:11 09/01/2022 14:43:11 ADDRESS: [facility] [address] [facility] [id number] PHYS DOC NOTES: MEDICAL INFORMATION: Prescriptions Given: [facility], [address] [place], [place] [id number], [phone] acetaminophen-hyd rocodone (acetaminophen-hy drocodone 325 mg-5 mg oral tablet) 1 Tablets By Mouth every 4 hours as needed for pain. Refills: 0. PATIENT EDUCATION INFORMATION: Instructions: Chronic Pain, Adult Follow up: With: Address: When: ANEESH RICHMOND [address] [place], [place] [id number] Business (1) In 3 days 09/04/2022 DIAGNOSIS: Left shoulder pain; Neck pain on left side Normal [facility] ED Note-Physicianon 09-01-20 ED Note-Physician Basic Information Time Seen: Jourdan Reeves PA-C 09/01/2022 13:09 Chief Complaint Pt reports left arm pain and paresthesia since july. Pt reports pain radiates into left side of neck. Denies JOHN. Pt reports he was seen in july and was a r/o stroke. History of Present Illness Patient is a 57-year-old male who presents ED complaining of left-sided neck pain which radiates to his left shoulder as well as left arm paresthesias. Patient states that his symptoms began mid July of this year. Patient was seen on August 14 of this ED for these complaints as well. Patient states that his symptoms have not changed since this time. Patient denies any new injuries since he was last evaluated in the ED. Patient states that his pain began suddenly in mid July and is remained consistent throughout that time. Patient does report calling his primary care doctor to be seen for the symptoms and states that he has an appointment set for several weeks from now. Patient also states that he is been given referral to a spinal surgeon for evaluation of the symptoms. A CT scan was performed patient's last visit this ED which found no acute fracture or other abnormalities but did find degenerative changes. Patient has been taking luht-[id number]-[id number] medications for symptoms with little relief. Patient was given pain medication on his last presentation to ED, but states that he ran out of these shortly after being prescribed them. Family history: Reviewed and noncontributory Social history: Reviewed and noncontributory Review of Systems Full 10 system ROS performed. Pt denies symptoms except as noted above in the HPI. Physical Exam Vitals & Measurements T: 36.7 ?C(Oral) HR: 92(Peripheral) RR: 16 BP: 144/71 SpO2: 99% HT: 168 cm WT: 65 kg BMI: 23.03 General: Pt is in NAD Skin: Pt skin is warm and dry, no rashes or lesions appreciated HEENT: Atraumatic, normocephalic. Clear sclera. PERRLA. Extraocular movements grossly intact. Pulmonary: Breathing normally, no respiratory distress, no retractions, lungs CTAB Cardiovascular: Regular rate and rhythm, no murmurs/gallops/r ubs. Distal pulses palpable in upper and lower extremities bilaterally Gastrointestinal: +BSX4. Abdomen soft, nondistended, nontender. No peritoneal signs present. Musculoskeletal: Patient is full and equal strength in upper extremities bilaterally. Patient has pain with ranging of the left shoulder. Patient also has tenderness of the paraspinous muscles on the left side of the cervical cervical and thoracic spine. Patient with tenderness on palpation of the anterior left shoulder. Neurological: Pt is alert and oriented. Sensation grossly intact in upper and lower extremities bilaterally. Lymphatic: No lymphadenopathy appreciated. No peripheral edema appreciated Psychiatric: Pt is cooperative, communicative, appropriately reactive Medical Decision Making Patient chart reviewed and noted. CT scan was performed with negative findings of this patient on his last presentation to the ED. At that time patient was instructed to follow-up with primary care. Patient states he has not been able to get an appointment with his primary care to follow-up on the symptoms. Patient does not complain of any new symptoms since his last presentation to the ED. Patient is documented with any new injury since his presentation to the ED. Patient states he feels like his left shoulder is broken. Patient denies any trauma which would explain the sensation. Patient does complain that a x-ray of his left shoulder was not performed on his last presentation to the ED. X-ray performed, negative findings. Importance of follow-up with primary care discussed with patient. Patient questions answered. Return precaution discussed with patient. Patient discharged home for outpatient follow-up. Assessment/Plan Left shoulder pain (M25.512: Pain in left shoulder) Neck pain on left side (M54.2: Cervicalgia) Orders: acetaminophen-hyd rocodone, 1 tab(s), Oral, q4hr for pain, 12 tab(s), Refill(s) 0, [facility], 168, cm, 09/01/22 13:11:00 EST, Height/Length Dosing, 65, kg, 09/01/22 13:11:00 EST, Weight Dosing acetaminophen-oxy codone, 1 tab(s), Tab, Oral, Once, Stop date 09/01/22 14:18:00 EST, STAT, Start date 09/01/22 14:18:00 EST XR Shoulder Complete Left Medications Administered Given Percocet 325 mg-5 mg Tab, 1 tab(s), Oral Disposition Plan Patient Discharge Condition Stable Discharge Disposition To home Discharge Prescription List Prescriptions acetaminophen-hyd rocodone 325 mg-5 mg oral tablet, 1 tab(s), Oral, q4hr, PRN Follow-up With When Contact Information ANEESH RICHMOND In 3 days 09/04/[address] [place] [address] Business (1) Additional Instructions: Patient Education Chronic Pain, Adult Attestation Patient seen and evaluated by the physician field technical assistant. Attending physician was present in the emergency department and supervised care. This visit (more content not included)... Normal [facility] Comment on above: Result Comment: Elec tronically Signed By: Jourdan Reeves PA-C\.br\Date and Time Signed: 09/01/22 17:10 EST\.br\Electronically Co-Signed By: Carlito Orosco DO\.br\Date and Time Co-Signed: 09/01/22 17:54 EST ED Patient Education Noteon 09-01-2022 ED Patient Education Note Oncology Chronic Pain, Adult Chronic pain is a type of pain that lasts or keeps coming back (recurs) for at least six months. You may have chronic headaches, abdominal pain, or body pain. Chronic pain may be related to an illness, such as fibromyalgia or complex regional pain syndrome. Sometimes the cause of chronic pain is not known. Chronic pain can make it hard for you to do daily activities. If not treated, chronic pain can lead to other health problems, including anxiety and depression. Treatment depends on the cause and severity of your pain. You may need to work with a pain specialist to come up with a treatment plan. The plan may include medicine, counseling, and physical therapy. Many people benefit from a combination of two or more types of treatment to control their pain. Follow these instructions at home: Lifestyle ? Consider keeping a pain diary to share with your health care providers. ? Consider talking with a mental health care provider (psychologist) about how to cope with chronic pain. ? Consider joining a chronic pain support group. ? Try to control or lower your stress levels. Talk to your health care provider about strategies to do this. General instructions ? Take mpwf-bea-uylzada and prescription medicines only as told by your health care provider. ? Follow your treatment plan as told by your health care provider. This may include: ? Gentle, regular exercise. ? Eating a healthy diet that includes foods such as vegetables, fruits, fish, and lean meats. ? Cognitive or behavioral therapy. ? Working with a physical therapist. ? Meditation or yoga. ? Acupuncture or massage therapy. ? Aroma, color, light, or sound therapy. ? Local electrical stimulation. ? Shots (injections) of numbing or pain-relieving medicines into the spine or the area of pain. ? Check your pain level as told by your health care provider. Ask your health care provider if you should use a pain scale. ? Learn as much as you can about how to manage your chronic pain. Ask your health care provider if an intensive pain rehabilitation program or a chronic pain specialist would be helpful. ? Keep all follow-up visits as told by your health care provider. This is important. Contact a health care provider if: ? Your pain gets worse. ? You have new pain. ? You have trouble sleeping. ? You have trouble doing your normal activities. ? Your pain is not controlled with treatment. ? Your have side effects from pain medicine. ? You feel weak. Get help right away if: ? You lose feeling or have numbness in your body. ? You lose control of bowel or bladder function. ? Your pain suddenly gets much worse. ? You develop shaking or chills. ? You develop confusion. ? You develop chest pain. ? You have trouble breathing or shortness of breath. ? You pass out. ? You have thoughts about hurting yourself or others. This information is not intended to replace advice given to you by your health care provider. Make sure you discuss any questions you have with your health care provider. Document Released: 06/19/2003 Document Revised: 09/09/2018 Document Reviewed: 03/16/2017 [employer] Patient Education ? 2019 [facility]. Normal [facility] ED Patient Summaryon 022 ED Patient Summary [place] [id number] Patient Discharge Instructions Person Information Name: NUBIA VARELA Age: 57 Years Arrival Date: 09/01/2022 13:04:04 Discharge Diagnosis: Left shoulder pain; Neck pain on left side Primary Care Physician: ANEESH RICHMOND DO Provider Information Primary Provider: Carlito Orosco DO Advanced Renal Technician:Jourdan Newby PA-C The exam and treatment you received in the Emergency Department were for an urgent problem and are not intended as complete care. It is important that you follow up with a doctor, nurse practitioner, or physician?s field technical assistant for ongoing care. If your symptoms become worse or you do not improve as expected and you are unable to reach your usual health care provider, you should return to the Emergency Department. We are available 24 hours a day. NUBIA VARELA has been given the following list of patient education materials, prescriptions and follow-up instructions: Follow-up Instructions: With: Address: When: ANEESH RICHMOND [facility] [address] [facility] [place] [place] [id number] Business (1) In 3 days 09/04/2022 In the event that this physician does not participate in your insurance network, please consult with your insurance company to find a nearby participating provider. Patient Education Materials: Chronic Pain, Adult A MESSAGE TO ALL PATIENTS REGARDING OPIOIDS PRESCRIPTION OPIOIDS: WHAT YOU NEED TO KNOW Prescription opioids can be used to help relieve mtgmuunv-ar-dylhb e pain and are often prescribed following a surgery or injury, or for certain health conditions. These medications can be an important part of the treatment but also come with serious risks. It is important to work with your healthcare provider to make sure you are getting the safest, most effective care. WHAT ARE THE RISKS AND SIDE EFFECTS OF OPIOID USE? Prescription opioids carry serious risks of addiction and overdose, especially with prolonged use. An opioid overdose, often marked by slowed breathing, can cause sudden . The use of prescription opioids can have a number of side effects as well, even when taken as directed: ? Tolerance?meaning you might need to take more of the medication for the same pain relief ? Physical dependence?meanin g you have symptoms of withdrawal when a medication is stopped ? Increased sensitivity to pain ? Constipation ? Nausea, vomiting, and dry mouth ? Sleepiness and dizziness ? Confusion ? Depression ? Low levels of testosterone that can result in lower sex drive, energy, and strength ? Itching and sweating RISKS ARE GREATER WITH: ? History of drug misuse, substance use disorder, or overdose ? Mental health conditions (such as depression or anxiety) ? Sleep apnea ? Older age (65 years and older) ? Avoid alcohol while taking prescription opioids. Also, unless specifically advised by your health care provider, medications to avoid include: ? Benzodiazepines (such as Xanax or Valium) ? Muscle relaxants (such as Soma or Flexeril) ? Hypnotics (such as Ambien or Lunesta) ? Other prescription opioids KNOW YOUR OPTIONS Talk to your health care provider about ways to manage your pain that don?t involve prescription opioids. Some of these options may actually work better and have fewer risks and side effects. Options may include: ? Pain relievers such as acetaminophen, ibuprofen, and naproxen ? Some medication that are also used for depression or seizures ? Physical therapy and exercise ? Cognitive behavioral therapy, a psychological, goal-directed approach, in which patients learn how to modify physical, behavioral, and emotional triggers of pain and stress. IF YOU ARE PRESCRIBED OPIOIDS FOR PAIN: ? Never take opioids in greater amounts or more often than prescribed. ? Follow up with your primary health care provider. o Work together to create a plan on how to manage your pain. o Talk about ways to help manage your pain that don?t involve prescription opioids. o Talk about any and all concerns and side effects. ? Help prevent misuse and abuse o Never sell or share prescription opioids. o Never use another person?s prescription opioids. ? Store prescription opioids in a secure place and out of reach of others (this may include visitors, children, friends, and family). ? Safely dispose of unused prescription opioids: Find your community drug take-back program or your pharmacy mail-back program, or flush them down the toilet, following guidance from the Food and Drug Administration (www.fda.gov/Drug s/ResourcesForYou ). ? Visit www.cdc.gov/drugo verdose to learn about the risks of opioids abuse and overdose. ? If you believe you may be struggling with addiction, tell your health field care manager and ask for guidance or call [facility]S National Helpline at 4-419-125-PAWM. (more content not included)... [facility] XR Shoulder Complete Lefton 09-01-2022 XR Shoulder Complete Left Exam Date/Time : 09/01/2022 14:09 EST Reason for Exam: Pain, Non Traumatic Report IMPRESSION: NEGATIVE SIDE SHOULDER. CLINICAL HISTORY: Pain, Non Traumatic COMPARISON: NONE FINDINGS: AP, internal, external rotation, Y and axillary views of the left shoulder demonstrate no evidence of a fracture, dislocation, bone or joint abnormality. FINAL REPORT Dictated: 09/01/2022 2:33 pm Brendon Collier MD Signed (Electronic Signature): 09/01/2022 2:33 pm Signed by: Brendon Collier MD Transcribed by: JANEEN Technologist: DEDRA Rousseau [facility] Coding Summary.on 08-17-2022 Coding Summary. [id number] 94IVk6cKc+PGhlYWQ +FX3EPBFrW61gwWQx nF0KD9yRJK4KFUQZV WRIUX1BKY9dwBL7IH avY6JrcwZb TztouLXsAW47TPv5X NN7fEddFSybeH3jsD IwK8m0XaKjGJ01pN4 9TOmsCDVmQvI6ZoQi bjsgbWFy T2dpEzNdqIKqNly+P HRhYmxlIHdpZHRoPS cxMDAlJyBzdHlsZT0 lVe0zATCuLBBeoXeu cHNlOiBj k1ipKRHgBTdgZM6ms MluT7NyzVF5WWSny2 r0Bj58bWS+PHRkIHN 8mPvaMSxuu163BaUg y4noNGG3 uUSvRJviQLJ2D00ia 6G8LDSgBQTuWAQ2mM G4iD6abZgnmplnZ4Q tjXSqBjO5XGA2zGBh cA9quUtk dmsvhO4kOcy+Q09ES Y6UJRWIAB8TRee0G6 RkPjwvdHI+IN96UCN aOJ43jPVsjPRst9zc lQv3AnSj HSBdRJK1eIbaBVsgf 1AwHAAeT55ffOLde7 I7TOYhqHsmjZJqMrW xqXX3pE9oHXzjctmv p4qroudj Bhvlx5yoaj05dP39D 96tXJxsEAQdDEJ3ME BqMEXsbHuxtt1ixG5 wIi8+MDmim2gqf8me uLf0TbZe JFBcvkVdmRgjLHA5t 5MrIr04Y1KjbKysb9 JuDud0ww21tVSmk8Z 1cFL6VQddRXEweY3m LWxlZnQ6 LKOgZoSwmH00bFUaY FkaAq9cbQcbhOjvMU 0rDSOlayhjKJXpdE0 oMLHptKRybUtjGM7n NTBpbjtm q799TdFnOXG3UGJbj WQlA4KnkP4dTaSkMJ PhGYZfE6SbeXKzRXt gL964FCyrCbC6OGRd dnQvV8Rw VGTuzGksReW5b6M9E l6Wa5WgwxcbOZO8OE kcAEPdAbP7HaHvLmB 2J9XgLew2GANzpBoj AB5nB0Ij NSYtjffzybgrnBN3G HSrLVHjpT51hKNxAJ wuXw5bg2N7h440MMB aMKCenA92Pe3nkZfr MTBwdCBU dR4zdnojp5bpqhfiB cYcIPPkARx6SDo6GP SdvZfiZxAlAIF3PcS 4JFL5lOPdrH0hjSzt ghugdI1c Oyc+S13vtF1gSAO3B NO4kmzxFSFukiEuPS 05IW98Q8XuUqzmeYZ ibGU+PGRpdiBzdHls DZ2xUoFt n2djh9PsIFsbV0CwM OYjLGsxIut5LYLeKV D7nIM7aE8eGYFqOHu lg5J9yXK0F7RkktBr qo5pk9ef QVRjDRdeD97nfZOak 0T0DCFuhTM4HJWmyQ dnBeLhgF81Tro+PGN jhMnjp6XzSlckg9fb s4fjsJy5 IjMwJSIgdmFsaWduP LQ5s0GfLm01S51oBA dpZHRoPSIxNSUiIHZ dsDqpqr7orB7xGt7+ PGNvbCB3 tGD1zP4eWDBdFvM9B JxxI451UuGytXSbOq qjd5ual0gaoLj9KrJ wJSIgdmFsaWduPSJ0 n8NtBe60 U16sCIvhWFLwWIOkO QScJUBjnIjrel9xoX 9wIi8+LQ5ni2zcbo0 9hQ32dUB+PHRkIHN0 eWxlPSdw VSKffV5gPZavJxI1Y WTaUaTkrK38yTBlCK nfOn5ynKtzpFakBP1 eYTQxxaahl100GdOf c8yeFMWa nBVrCLqkXZN3W18rl 4M6YLJgDXTmOYJ4eB H0mY1xcHwwpljjsIK mdDsgdmVydGljYWwt YDnlR796 IHRvcDsnPlBhdGllb fHkJfJkLRr2V3JwTm j8PNLkxZzrNC7lnKH kORofDn8arPoqrFcn YW2mMKSd xxzjk535CqKdt1tjM NFiwTDiRBbpKKS5X8 1my5Y1BIUwDEFfQES 7tLS6uM8ksUiznkus bGVmdDsg dmVydGljYWwtYWxpZ 246IHRvcDsnPkJpcn SoXBAniER9NP24QP7 7yMOsy5S9xYD7K2Wu ZGRpbmct cikjpYF8CWCiCVJza N55Ep3owOqbOc3qAF ZgBQD9XCVpnRHiS8X gaD4tDhUzWTQuNTKu D4LylKJh EDqwC459PMbkWwU2H QStziIvS2VaVFInaR eeNsN8g1F4Mv0SN1D 2TN19IY31dPSwf7Q8 eOD2K7Kc SMHbfncznilkhZV0X ZOpEJBcbC60Og1hhZ nvEs6xKNLbORC7BQT fiGCmT6FzrC8eQbZm MDAwMDAw X8EdfZPgRZhkS010J KlsAgP2BBRmayTjD8 JiWTXhoLmhWvF7i1D 1Vk0FBKd2ZP56TY76 vMKmj4D6 fIT7X1FtDMKockwvc gkhpNJ8KFBwNLBqwR 94Vu8vnAmwMi4zUZR gQYZ9XOWtoOImY7Wh eX9pFsHt ANKuXPZrQ6ZpqJGyJ TapR699KExiJiH7YR BwotArR7YaCWMtoXr pCyM5r6N9Hc3ZMMFa AR71TMG2 gLY4PL41WT67F1PaK jwvdGFibGU+PHRhYm xlIHdpZHRoPScxMDA iSwPfaDdlNC5lHo5a ZGVyLWNv fKzbzVJlBsHcp3msZ WShCZaiYH3bbCvsQ0 McuYK2BOSoa8f2Aa4 5A16kN6NekFE+PGNv aUC1fIO8 aH4cXmVoXhU0GRcdF 662YjAztJOxYezjb0 hgt7mfeMi2GmJ0CDK llvIfbRfqHBV9h0Lt Pw38P67f IHdpZHRoPSIxNSUiI IJblTsvte9alA4eQj 8+GMKnkCD7dFA3kL7 wQkQtHgP4SWukY165 InRvcCIv Odhbz9rzw1rxeQy1Q jIwJSIgdmFsaWduPS Z0g8EuIx27R2XngXo dh8PxGjg4jk78zFJr t0N0zHZ5 J2ZbAUGbnxnakCOir PnwCN0jQHOjlfviNM OmhJ4mEDPlN2x7BvY pIuG3TYhlL1FowjC4 IDEwcHQg VGijZVX3O77rd9O6R JSsXIPpLNE7zGT5pJ 1hbGlnbjogbGVmdDs gdmVydGljYWwtYWxp Y242YQVw hTiiKITsjB7vDAGdy ICbcRkoXF4zQJXocj snPlNUVUFSRCwgVFJ SS3w2D5WlAha7QLYm kIzxCW3u aHEkWJwzGu6fnCvtm ZdsRM5jGHHjjgggYK ZsjS5gIJOghNDikQx qIT1cTPReuvhvw470 OiAxMHB0 JNXdiRXpC2CqhF4dQ rLtEEOiNNUkZ9WotE UoBYmrD615QMfcNmL 9UQXfdnXgZ3LrZHCh aWduOiB0 b3M6Fr1rZN0eVT6nK YA0YX30BP93wSVcw6 M5xMM6J5RlRKZptnu jyjwpgGT3JOJmMVZu oS15jYOr CXelYj6gk2F8t920M GAjVGIhtS08Sd9agE efQWYmzJYPeN9qpey ry2dmgomlJuPnYHZd IOb3TEg8 OGJouBcaTuIzYRZ2K sJ7ZLM7jVVovA1pvV kizepxgP8rNfy+NTg yZKLwuzT4E7IsUwy0 ZCBzdHls UH7zrDWuNZelRo7mz ZhxtBsuDU5bNGEomk sbLKZsbA3cSGNumPO mdAzlAA6jQESioeqn w716QzQz JZI2FINznWRzM9Mqq A0bUkBzNUFlLLUkM8 McaPAoSGakI274FSh lIeH1WQCypwIeL5Qq LWFsaWdu KwJ1r9Y7Hr7IOIpsQ E97SE49pRJze9N7vU X4M6RcRHZfjgqgkzv tnQB1UDFrHZClsR08 cGFkZGlu Rr3ij9Y8o557MJXrX HXnzK56Wk7zzPnePE TcbESWcC7frktlz8v vcjogIzAwMDAwMDt0 MXo1ITWk vJvzTkTnXCT2WhH0Y MQ9jCFqzW8ewBhbwd bsqW9uMxf+YW8hofu iqcH1IJ30DO70S0Pf PjwvdGFi bGU+PHRhYmxlIHdpZ HRoPScxMDAlJyBzdH ulHG3vLp1bIDNlPFV rvYnejGToIwMkl6ef YXBzZTsg FS6qjFdxH5FccNB7D YQfn4t6Ki84T66yZ1 JvdXA+LEKmpYV0bTL 8qY3aWvZnFtG8SWvd S917MrQi gYBnUepmh2hzd3ylj Qg8JqDgLVVobtWihY nsCJK2n3KyJy52G32 sIHdpZHRoPSIyMCUi IHZhbGln zp3oqI8jTl9+PGNvb KZ3pWK1kA5kFhMpGc F6ELbrO602BlTatPX lEkeiE03wW5CxuME+ PHRyPjx0 BQTvxTtnGO9gyPBqH YlaTk8yBJI6FsIzQy RgBSnxO0XbBNBvpby fvphamEY2FFFjCLXl lW88Bm5d bLvfAs9iZTWiFKV6Y CMijMHhQ0JmwZ1dNm XjTHTgKUQvG4DgrED rOSrrE401GVfxMiF0 IHZlcnRp D8FuXWSedOekEoH4x 3S0Ds3CmZyxrAGrMY 6yMzEpRRo9E1XhLfs 6NVRmgDerNW5zdSVj XQeaSe0q xYnkoGgmYE6dYWCbh ghme499VzBdn3pbMU CkpFTsWVbaVXU5S05 fw1T3EDYdCKPiSZW2 fIE8pU9t bGlnbjogbGVmdDsgd mVydGljYWwtYWxpZ2 46IHRvcDsnPkZJTjo 8S9PsYns9IDYlyDnn MI3knYRb SWlzIo2lcSohqJfxU S5kEMHloboqo866Ji Soo4neHCHdoHKvUQs nBRL0Q39qj9M1LYPo MDAwMDA7 qKB5nQ6beRnpsiafg GVmdDsgdmVydGljYW haCSerP204XOLyhOq tVi8SJoq7L7VfUov9 ZCBzdHls FR5bkTDrBOzjMn1vd ZheqMsyEQ8iAEZqhq sau630ZfPyq9zzUAF uzPCzKVueORF9B85e y6N7EJVz JYFxVWI2rQA0gM0zr GlnbjogbGVmdDsgdm FeyYxhFDwwYEzvO98 6IHRvcDsnPlBheWVy OjwvdGQ+ UD65jh55I2XtMsgtQ ns1EVCrHZC5zKD8jF 2nMHWdMCpnp1C3tTV 1T4YpbuAwcy6av5mb YXBzZTog Y29s (more content not included)... Normal [facility] CT Spine Cervical w/o Contra juan josé 08-14-2022 CT Spine Cervical w/o Contrast Exam Date /Time: 08/14/2022 15:36 EDT Reason for Exam: Neck pain, acute, no red flags;Other (please specify) Report IMPRESSION: POSTSURGICAL CHANGES AT C5-C6. HYPERTROPHIC DEGENERATIVE CHANGES. NO EVIDENCE OF ACUTE/RECENT CERVICAL SPINE FRACTURE. CLINICAL HISTORY: Neck pain, acute, no red flags. COMMENT: Unenhanced images were obtained. There is slight cervical levoscoliosis. There are mild hypertrophic degenerative arthritic changes at the atlantoodontoid articulation. There are postsurgical changes at C5-C6. There is a metallic surgical plate anterior to the vertebral bodies, with screws extending into the vertebral bodies. There is anterior interbody fusion, with prosthetic spacer device within the interspace. There is marginal hypertrophic spurring of vertebral bodies from C4 to C7. The cervical facet joints are unremarkable. The cervical vertebral bodies are maintained in height. No fracture nor subluxation is noted. There is no prevertebral retropharyngeal soft tissue swelling. There are emphysematous bulla at both lung apices. All CT scans at this facility use dose modulation, iterative reconstruction, and/or weight based dosing when appropriate to reduce radiation dose to as low as reasonably achievable. FINAL REPORT Dictated: 08/14/2022 4:01 pm Bulmaro Hardin M.D. Signed (Electronic Signature): 08/14/2022 4:01 pm Signed by: Bulmaro Hardin M.D. Transcribed by: JANEEN Technologist: RAND [facility] Consent for Treatmenton Consent for Treatment [id number]:127 Normal [facility] Discharge Instructionson Discharge Instructions [id number]:12 [id number] Normal [facility] ED Clinical Summaryon 2021 ED Clinical Summary [address] [address] ED Clinical Summary Person Information Name: NUBIA VARELA/[facility] Age: 57 Years : 1965 Sex: Male Language: Turkish PCP: ANEESH RICHMOND DO Marital Status: Single Visit Id: Visit Reason: Neck pain; Hand pain-swelling; Arm pain-swelling; Paresthesia; PAIN AND NUMBNESS IN LEFT ARM Speciality: Acuity: 4 Enc Type: Emergency Med Service: Emergency Arrival: 08/14/2022 14:39:52 Discharge: 08/14/2022 16:29:49 LOS: 000 01:50 Checkin: 08/14/2022 14:39:52 Checkout: 08/14/2022 16:29:49 Dispo Type: Home (Routine DC) EVENTS: Event Name Event Status Request Date/Time Start Date/Time Complete Date/Time Arrive Complete 08/14/2022 14:39:52 08/14/2022 14:39:52 08/14/2022 14:39:52 Document Home Meds Request 08/14/2022 14:39:52 Triage Complete 08/14/2022 14:39:52 08/14/2022 14:46:44 08/14/2022 14:46:44 Bed Assign Complete 08/14/2022 14:43:43 08/14/2022 14:43:43 08/14/2022 14:43:43 Dr Exam Complete 08/14/2022 14:43:43 08/14/2022 14:53:59 08/14/2022 14:53:59 RN Exam Complete 08/14/2022 14:43:43 08/14/2022 16:22:20 08/14/2022 16:22:20 Registration Complete 08/14/2022 14:53:59 08/14/2022 15:19:20 08/14/2022 15:19:20 Dr Exam Complete 08/14/2022 14:56:06 08/14/2022 14:56:06 08/14/2022 14:56:06 CT Complete 08/14/2022 15:05:57 08/14/2022 15:36:22 08/14/2022 15:36:27 Meds Admin Complete 08/14/2022 15:05:57 08/14/2022 15:24:23 Reg Complete Request 08/14/2022 15:19:20 Discharge Complete 08/14/2022 16:26:22 08/14/2022 16:29:56 08/14/2022 16:29:56 Transfer Complete 08/14/2022 16:29:56 08/14/2022 16:29:56 08/14/2022 16:29:56 ADDRESS: [facility] [address] [place] [id number] PHYS DOC NOTES: MEDICAL INFORMATION: Prescriptions Given: New Medications [facility], [address] [place] [id number], [phone] acetaminophen-oxy codone (Percocet 5 mg-325 mg oral tablet) 1 Tablets By Mouth every 6 hours for 3 Days. Refills: 0. PATIENT EDUCATION INFORMATION: Instructions: Chronic Pain, Adult; Cervical Radiculopathy, Eqoy-ol-Gfce Follow up: With: Address: When: Alejandro Landon [address] [place] [id number] Business (1) In 3 days 08/17/2022 Comments: May follow-up with Dr. Landon for further evaluation of your chronic neck pain. With: Address: When: ANEESH RICHMOND [address] [place], [place] [id number] [employer] (1) In 3 days 08/17/2022 Comments: Follow-up with your primary care provider in 3 to 5 days. If symptoms worsen, do not improve, or new symptoms arise please report back to emergency department for further evaluation. DIAGNOSIS: Chronic neck pain; Neuropathy, cervical (radicular); Other chronic pain Normal [facility] ED Note-Physicianon 08-14-20 ED Note-Physician Basic Information Time Seen: Darci ALVA, Yovanny Snyder 08/14/2022 14:54 Chief Complaint Pt reports numbness and tingling in left arm and hand. Pt reports this has been going on since jul 29. Hx of neck surgery. Neck pain as well. History of Present Illness 57-year-old male reports the emergency department with a chief complaint of pain in his left arm and some tingling sensation. He reports that this has been going on since July 29. He states that the pain starts in his left side of his neck, goes into the shoulder, into his elbow, and sometimes even into his hand. He reports that most of the pain is in his elbow currently. He states he does have a numbness/tingling sensation in this area, that comes and goes, as well as pain that comes and goes. He reports that he thought he would get checked out. Reports he has had multiple neck surgeries before for herniated disc. He states that he is also having neck pain in his left side. Denies any pain in the middle of his neck. Denies any episodes of nausea or vomiting. Denies any injury or trauma to this area. Review of Systems A 10 point review of systems is negative except as noted above. Medical and Surgical History: Reviewed and noted Social history: Lives at home Family History: Reviewed. Tobacco: Denies Physical Exam Vitals & Measurements T: 36.7 ?C(Oral) HR: 74(Peripheral) RR: 18 BP: 160/80 SpO2: 99% HT: 168 cm WT: 65 kg BMI: 23.03 general: The patient appears well and in no apparent distress. Patient is resting comfortably in chair. Afebrile Skin: Warm, dry, no pallor noted. Head: Normocephalic, atraumatic Neck: No JVD Eye: PERRLA, EOMI ENT: Moist mucus membranes Cardiovascular: Regular rate normal peripheral perfusion. Radial pulses +2 bilaterally Respiratory: No respiratory distress no accessory muscle use no obvious audible wheezing Chest Wall: no deformity Musculoskeletal: Limited range of motion of the left arm due to pain. , no deformity, no swelling . Tenderness just laterally to the cervical spine on the left side. GI: No obvious distention Neurological: A&O moves all extremities equal strength and symmetry. Full sensations. 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 Psychiatric: Cooperative and appropriate Medical Decision Making 57-year-old male reports emergency department with chief complaint of left-sided neck pain, shoulder pain, left arm pain. Reports that has been going on since July 29. Reports history of neck surgery. States that he is having these symptoms that radiate down the left side of his neck. Physical exam reveals no neurological defects. I did discuss this with the patient. Due to the patient's complaints, I did give him Percocet here as well did a CT of the cervical spine. CT of the cervical spine revealed postsurgical changes at the C5/C6 level, with hypertrophic degenerative changes with no evidence of acute or recent cervical spine fracture. I discussed this with the patient. I discussed the need to follow-up with a spine surgeon for further evaluation of his neuropathy and radicular symptoms. Patient was understanding of this. I did give him Percocet medication for pain management. Follow-up with your primary care provider in 3 to 5 days. If symptoms worsen, do not improve, or new symptoms arise please report back to emergency department for further evaluation. The patient was understanding and agreeable to plan moving forward. Assessment/Plan Chronic neck pain (M54.2: Cervicalgia) Neuropathy, cervical (radicular) (M54.12: Radiculopathy, cervical region) Other chronic pain (G89.29: Other chronic pain) Orders: acetaminophen-oxy codone, 1 tab(s), Tab, Oral, Once, Stop date 08/14/22 15:01:00 EDT, STAT, Start date 08/14/22 15:01:00 EDT acetaminophen-oxy codone, 1 tab(s), Oral, q6hr for 3 day(s), 18 tab(s), Refill(s) 0, [facility] #72, 168, cm, 08/14/22 14:46:00 EDT, Height/Length Dosing, 65, kg, 08/14/22 14:46:00 EDT, Weight Dosing CT Spine Cervical w/o Contrast Medications Administered Given Percocet 325 mg-5 mg Tab, 1 tab(s), Oral Disposition Plan Patient Discharge Condition Stable, improved Discharge Disposition To home Discharge Prescription List Prescriptions Percocet 5 mg-325 mg oral tablet, 1 tab(s), Oral, q6hr Follow-up With When Contact Information Alejandro Landon In 3 days 08/17/2022 EST [address] [place] [address]- Business (1) Additional Instructions: May follow-up with Dr. Landon for further evaluation of your chronic neck pain. ANEESH RICHMOND In 3 days 08/17/2022 EST [address] [place] [id number] Business (1) Additional Instructions: Follow-up with your primary care provider in 3 to 5 days. If symptoms worsen, do not improve, or new symptoms arise please report back to emergency department for further evaluation. Patient Education Chronic Pain, Adult Cervical Radiculopathy, Easy-t (more content not included)... Normal [facility] Comment on above: Result Comment: Elec tronically Signed By: Yovanny Bejarano PA-C\.br\Date and Time Signed: 08/14/22 19:46 EDT\.br\Electronically Co-Signed By: Devyn Randall DO\.br\Date and Time Co-Signed: 08/14/22 20:25 EDT ED Patient Education Noteon 08-14-2022 ED Patient Education Note Oncology Chronic Pain, Adult Chronic pain is a type of pain that lasts or keeps coming back (recurs) for at least six months. You may have chronic headaches, abdominal pain, or body pain. Chronic pain may be related to an illness, such as fibromyalgia or complex regional pain syndrome. Sometimes the cause of chronic pain is not known. Chronic pain can make it hard for you to do daily activities. If not treated, chronic pain can lead to other health problems, including anxiety and depression. Treatment depends on the cause and severity of your pain. You may need to work with a pain specialist to come up with a treatment plan. The plan may include medicine, counseling, and physical therapy. Many people benefit from a combination of two or more types of treatment to control their pain. Follow these instructions at home: Lifestyle ? Consider keeping a pain diary to share with your health care providers. ? Consider talking with a mental health care provider (psychologist) about how to cope with chronic pain. ? Consider joining a chronic pain support group. ? Try to control or lower your stress levels. Talk to your health care provider about strategies to do this. General instructions ? Take juyh-obj-pnvexqd and prescription medicines only as told by your health care provider. ? Follow your treatment plan as told by your health care provider. This may include: ? Gentle, regular exercise. ? Eating a healthy diet that includes foods such as vegetables, fruits, fish, and lean meats. ? Cognitive or behavioral therapy. ? Working with a physical therapist. ? Meditation or yoga. ? Acupuncture or massage therapy. ? Aroma, color, light, or sound therapy. ? Local electrical stimulation. ? Shots (injections) of numbing or pain-relieving medicines into the spine or the area of pain. ? Check your pain level as told by your health care provider. Ask your health care provider if you should use a pain scale. ? Learn as much as you can about how to manage your chronic pain. Ask your health care provider if an intensive pain rehabilitation program or a chronic pain specialist would be helpful. ? Keep all follow-up visits as told by your health care provider. This is important. Contact a health care provider if: ? Your pain gets worse. ? You have new pain. ? You have trouble sleeping. ? You have trouble doing your normal activities. ? Your pain is not controlled with treatment. ? Your have side effects from pain medicine. ? You feel weak. Get help right away if: ? You lose feeling or have numbness in your body. ? You lose control of bowel or bladder function. ? Your pain suddenly gets much worse. ? You develop shaking or chills. ? You develop confusion. ? You develop chest pain. ? You have trouble breathing or shortness of breath. ? You pass out. ? You have thoughts about hurting yourself or others. This information is not intended to replace advice given to you by your health care provider. Make sure you discuss any questions you have with your health care provider. Document Released: 06/19/2003 Document Revised: 09/09/2018 Document Reviewed: 03/16/2017 [employer] Patient Education ? 2020 [facility]. Orthopedics Cervical Radiculopathy Cervical radiculopathy means that a nerve in the neck (a cervical nerve) is pinched or bruised. This can happen because of an injury to the cervical spine (vertebrae) in the neck, or as a normal part of getting older. This can cause pain or loss of feeling (numbness) that runs from your neck all the way down to your arm and fingers. Often, this condition gets better with rest. Treatment may be needed if the condition does not get better. What are the causes? ? A neck injury. ? A bulging disk in your spine. ? Muscle movements that you cannot control (muscle spasms). ? Tight muscles in your neck due to overuse. ? Arthritis. ? Breakdown in the bones and joints of the spine (spondylosis) due to getting older. ? Bone spurs that form near the nerves in the neck. What are the signs or symptoms? ? Pain. The pain may: ? Run from the neck to the arm and hand. ? Be very bad or irritating. ? Be worse when you move your neck. ? Loss of feeling or tingling in your arm or hand. ? Weakness in your arm or hand, in very bad cases. How is this treated? In many cases, treatment is not needed for this condition. With rest, the condition often gets better over time. If treatment is needed, options may include: ? Wearing a soft neck collar (cervical collar) for short periods of time, as told by your doctor. ? Doing exercises (physical therapy) to strengthen your neck muscles. ? Taking medicines. ? Having shots (injections) in your spine, in very bad cases. ? Having surgery. This may be needed if other treatments do not help. The type of surgery that is used depends on the cause of your condition. Follow these i (more content not included)... Normal [facility] ED Patient Summaryon 022 ED Patient Summary [address] [address] Patient Discharge Instructions Person Information Name: NUBIA VARELA Age: 57 Years Arrival Date: 08/14/2022 14:39:52 Discharge Diagnosis: Chronic neck pain; Neuropathy, cervical (radicular); Other chronic pain Primary Care Physician: ANEESH RICHMOND DO Provider Information Primary Provider: Devyn Randall DO Advanced Renal Technician:None The exam and treatment you received in the Emergency Department were for an urgent problem and are not intended as complete care. It is important that you follow up with a doctor, nurse practitioner, or physician?s field technical assistant for ongoing care. If your symptoms become worse or you do not improve as expected and you are unable to reach your usual health care provider, you should return to the Emergency Department. We are available 24 hours a day. NUBIA VARELA has been given the following list of patient education materials, prescriptions and follow-up instructions: Follow-up Instructions: With: Address: When: Alejandro Landon [address] [place] [id number] Business (1) In 3 days 08/17/2022 Comments: May follow-up with Dr. Landon for further evaluation of your chronic neck pain. With: Address: When: ANEESH RICHMOND [address] [place], [place] [id number] (1) In 3 days 08/17/2022 Comments: Follow-up with your primary care provider in 3 to 5 days. If symptoms worsen, do not improve, or new symptoms arise please report back to emergency department for further evaluation. In the event that this physician does not participate in your insurance network, please consult with your insurance company to find a nearby participating provider. Patient Education Materials: Chronic Pain, Adult; Cervical Radiculopathy, Lojv-js-Xxdk A MESSAGE TO ALL PATIENTS REGARDING OPIOIDS PRESCRIPTION OPIOIDS: WHAT YOU NEED TO KNOW Prescription opioids can be used to help relieve ogiylvoq-wb-esioa e pain and are often prescribed following a surgery or injury, or for certain health conditions. These medications can be an important part of the treatment but also come with serious risks. It is important to work with your healthcare provider to make sure you are getting the safest, most effective care. WHAT ARE THE RISKS AND SIDE EFFECTS OF OPIOID USE? Prescription opioids carry serious risks of addiction and overdose, especially with prolonged use. An opioid overdose, often marked by slowed breathing, can cause sudden . The use of prescription opioids can have a number of side effects as well, even when taken as directed: ? Tolerance?meaning you might need to take more of the medication for the same pain relief ? Physical dependence?meanin g you have symptoms of withdrawal when a medication is stopped ? Increased sensitivity to pain ? Constipation ? Nausea, vomiting, and dry mouth ? Sleepiness and dizziness ? Confusion ? Depression ? Low levels of testosterone that can result in lower sex drive, energy, and strength ? Itching and sweating RISKS ARE GREATER WITH: ? History of drug misuse, substance use disorder, or overdose ? Mental health conditions (such as depression or anxiety) ? Sleep apnea ? Older age (65 years and older) ? Avoid alcohol while taking prescription opioids. Also, unless specifically advised by your health care provider, medications to avoid include: ? Benzodiazepines (such as Xanax or Valium) ? Muscle relaxants (such as Soma or Flexeril) ? Hypnotics (such as Ambien or Lunesta) ? Other prescription opioids KNOW YOUR OPTIONS Talk to your health care provider about ways to manage your pain that don?t involve prescription opioids. Some of these options may actually work better and have fewer risks and side effects. Options may include: ? Pain relievers such as acetaminophen, ibuprofen, and naproxen ? Some medication that are also used for depression or seizures ? Physical therapy and exercise ? Cognitive behavioral therapy, a psychological, goal-directed approach, in which patients learn how to modify physical, behavioral, and emotional triggers of pain and stress. IF YOU ARE PRESCRIBED OPIOIDS FOR PAIN: ? Never take opioids in greater amounts or more often than prescribed. ? Follow up with your primary health care provider. o Work together to create a plan on how to manage your pain. o Talk about ways to help manage your pain that don?t involve prescription opioids. o Talk about any and all concerns and side effects. ? Help prevent misuse and abuse o Never sell or share prescription opioids. o Never use another person?s prescription opioids. ? Store prescription opioids in a secure place and out of reach of others (this may include visitors, children, friends, and family). ? Safely dispose of unused prescription opioids: Fin (more content not included)... Normal [facility] LIPID PROFILEon 07-28-2022 CHOL-HDL RATIO NORM SEE BELOW Normal [facility] Comment on above: Result Comment: 3.3 - 4.4 LOW RISK 4.4 - 7.1 AVERAGE RISK 7.1 - 11.0 MODERATE RISK >11.0 HIGH RISK Performed By: #### C MP, LIPID #### [facility] [address] [address] [address] Jitendra Odell Cholesterol [Mass/Vol] 205 mg/dL Critically high <=200 [facility] Comment on above: Performed By: #### C MP, LIPID #### [facility] [address], [place] [address] Dr. Jitendra Odell Cholesterol in HDL [Mass/Vol] 40 mg/dL Normal 40-60 [facility] Comment on above: Performed By: #### C MP, LIPID #### [facility] [address] [place], [place] [address] Dr. Jitendra Odell Cholesterol in LDL [Mass/Vol] 145.6 mg/dL Normal [facility] Comment on above: Performed By: #### C MP, LIPID #### [facility] [address] [address] [address] Jitendra Odell Cholesterol.total/Cholestero l in HDL [Mass ratio] 5.1 {ratio} Normal [facility] Comment on above: Performed By: #### C MP, LIPID #### [facility] [address] [address] [address] Jitendra Odell HDL NORMAL > or = 60 mg/dl - LOW CARDIOVASCULAR RISK <40 mg/dl - HIGH CARDIOVASCULAR RISK Normal [facility] Comment on above: Performed By: #### C MP, LIPID #### [facility] [address] [address] [address] Jitendra Odell LDL CALC NORMAL SEE BELOW Normal [facility] Comment on above: Result Comment: <100 mg/dl OPTIMAL 100 - 129 mg/dl NEAR OR ABOVE OPTIMAL 130 - 159 mg/dl BORDERLINE HIGH 160 - 189 mg/dl HIGH >190 mg/dl VERY HIGH Performed By: #### C MP, LIPID #### [facility] [address] [place] [address] Dr. Jitendra Odell Triglyceride [Mass/Vol] 97 mg/dL Normal <=150 T [facility] Comment on above: Performed By: #### C MP, LIPID #### [facility] [address] [place] [address] Dr. Jitendra Odell VLDL CALC 19.4 mg/dL Normal [facility] Comment on above: Performed By: #### C MP, LIPID #### [facility] [address] [place] [address] Dr. Jitendra Odell PROF 14(COMP METB)on 022 Albumin [Mass/Vol] 3.6 g/dL Normal 3.4-5.0 [facility] Comment on above: Performed By: #### C MP, LIPID #### [facility] [address] [place] [address] Dr. Jitendra Odell Albumin/Globulin [Mass ratio] 1.0 {ratio} Normal [facility] Comment on above: Performed By: #### C MP, LIPID #### [facility] [address] [address] [address] Jitendra Odell ALP [Catalytic activity/Vol] 62 U/L Normal 46-116 [facility] Comment on above: Performed By: #### C MP, LIPID #### [facility] [address] [address] [address] Jitendra Odell ALT [Catalytic activity/Vol] 12 U/L Critically low 16- 63 [facility] Comment on above: Performed By: #### C MP, LIPID #### [facility] [address] [address] [address] Jitendra Odell Anion gap [Moles/Vol] 9.2 mmol/L Normal [facility] Comment on above: Performed By: #### C MP, LIPID #### [facility] [address] [place] [address] Dr. Jitendra Odell AST [Catalytic activity/Vol] 16 U/L Normal 15-37 [facility] Comment on above: Performed By: #### C MP, LIPID #### [facility] [address] [place] [address] Dr. Jitendra Odell Bilirubin [Mass/Vol] 0.3 mg/dL Normal 0.2-1.0 [facility] Comment on above: Performed By: #### C MP, LIPID #### [facility] [address] [place] [address] Dr. Jitendra Odell Calcium [Mass/Vol] 8.9 mg/dL Normal 8.5-10.1 [facility] Comment on above: Performed By: #### C MP, LIPID #### [facility] [address] [place] [address] Dr. Jitendra Odell Chloride [Moles/Vol] 102 mmol/L Normal 98-107 [facility] Comment on above: Performed By: #### C MP, LIPID #### [facility] [address] [address] [address] Jitendra Odell CO2 [Moles/Vol] 29.0 mmol/L Normal 21.0-32.0 [facility] Comment on above: Performed By: #### C MP, LIPID #### [facility] [address] [place] [address] Dr. Jitendra Odell Creatinine [Mass/Vol] 1.14 mg/dL Normal 0.70-1.30 [facility] Comment on above: Performed By: #### C MP, LIPID #### [facility] [address] [place] [address] Dr. Jitendra Odell EGFR-AF NIGERIEN >60 Normal >=60 [facility] Comment on above: Performed By: #### C MP, LIPID #### [facility] [address] [address] [address] Jitendra Odell EGFR-NON AF NIGERIEN >60 Normal >=60 [facility] Comment on above: Performed By: #### C MP, LIPID #### [facility] [address] [place] [address] Dr. Jitendra Odell Globulin (S) [Mass/Vol] 3.7 g/dL Normal [facility] Comment on above: Performed By: #### C MP, LIPID #### [facility] [address] [address] [address] Jitendra dOell Glucose [Mass/Vol] 172 mg/dL Critically high 74-106 [facility] Comment on above: Performed By: #### C MP, LIPID #### [facility] [address] [address] [address] Jitendra Odell Potassium [Moles/Vol] 4.2 mmol/L Normal 3.5-5.1 [facility] Comment on above: Performed By: #### C MP, LIPID #### [facility] [address] [place] [address] Dr. Jitendra Odell Protein [Mass/Vol] 7.3 g/dL Normal 6.4-8.2 [facility] Comment on above: Performed By: #### C MP, LIPID #### [facility] [address] [place] [address] Dr. Jitendra Odell Sodium [Moles/Vol] 136 mmol/L Normal 136-145 [facility] Comment on above: Performed By: #### C MP, LIPID #### [facility] [address] [place] [address] Dr. Jitendra Odell Urea nitrogen [Mass/Vol] 10.0 mg/dL Normal 7.0-18.0 [facility] Comment on above: Performed By: #### C MP, LIPID #### [facility] [address], [place] [address] Dr. Jitendra Odell Urea nitrogen/Creatinine [Ma ss ratio] 8.8 mg/mg Normal [facility] Comment on above: Performed By: #### C MP, LIPID #### [facility] [address], [place] [address] LUNG CANCER SCREENINGon 0 05-29-2022 CT LUNG CANCER SCREENING EXAMINATION: CT LUNG CANCER SCREENING HISTORY: Tobacco dependence caused by cigarettes COMPARISON: No relevant comparison available. TECHNIQUE: Axial, Coronal, and Sagittal images were created without the administration of IV contrast material. Dose reduction techniques were achieved by using automated exposure control and/or adjustment of mA and/or kV according to patient size and/or use of iterative reconstruction technique. FINDINGS: LUNGS: Mild emphysematous changes. No suspicious nodules or acute infiltrates. PLEURA: No mass, effusion, or pneumothorax. VASCULATURE: No abnormality. SHRUTHI: No mass or pathologic adenopathy. MEDIASTINUM: No mass or pathologic adenopathy. CARDIAC: No enlargement, pericardial thickening, or significant calcification. AORTA: No aneurysm or dissection. CHEST WALL: No mass or axillary adenopathy BONES: No bone lesion or fracture. LIMITED ABDOMEN: No suspicious findings. Limited images of the upper abdomen. OTHER: Negative. IMPRESSION: 1. LUNG SCREENING: Lung-RADS Category 1 Negative. No nodules and definitely benign nodules. Continue annual screening with LDCT in 12 months. Electronically authenticated by: WENDY PERLA Date: 2022-05-29 17:42 Normal [facility] COMPREHENSIVE METABOLIC PANE Dylon 04-01-2022 Albumin [Mass/Vol] 4.4 g/dL Normal 3.6-5.1 [facility] Comment on above: Performed By: #### 7 087, 3492, [id number] #### [facility] [address], [address] [place] [phone] Band Manager: Srinivas Lombardi MD Albumin/Globulin [Mass ratio] 1.8 {ratio} Normal 1.0-2 .5 [facility] Comment on above: Performed By: #### 7 600, 5363, 68465 #### [facility] of [address], [address] [place] [address] Band Manager: Srinivas Lombardi MD ALP [Catalytic activity/Vol] 61 U/L Normal 35-144 [facility] Comment on above: Performed By: #### 7 600, 5363, 48252 #### [facility] of [address], [address] [place] [address] Band Manager: Srinivas Lombardi MD ALT [Catalytic activity/Vol] 4 U/L Low 9-46 [facility] Comment on above: Performed By: #### 7 600, 5363, 53076 #### [facility] of [place] [address] Band Manager: Srinivas Lombardi MD AST [Catalytic activity/Vol] 14 U/L Normal 10-35 [facility] Comment on above: Performed By: #### 7 600, 5363, 06427 #### [facility] of [address], [address] [place] [address] Band Manager: Srinivas Lombardi MD Bilirubin [Mass/Vol] 0.7 mg/dL Normal 0.2-1.2 [facility] Comment on above: Performed By: #### 7 600, 5363, 81550 #### [facility] of [address], [address] [place] [address] Band Manager: Srinivas Lombardi MD BUN/CREATININE RATIO NOT APPLICABLE Normal 6-22 [facility] Comment on above: Performed By: #### 7 600, 5363, 98479 #### [facility] of [address], [address] [place] [address] Band Manager: Srinivas Lombardi MD Calcium [Mass/Vol] 9.4 mg/dL Normal 8.6-10.3 [facility] Comment on above: Performed By: #### 7 600, 5363, 89432 #### [facility] of [address], [address] [place] [address] Band Manager: Srinivas Lombardi MD Chloride [Moles/Vol] 103 mmol/L Normal 98-110 [facility] Comment on above: Performed By: #### 7 600, 5363, 23677 #### [facility] [place] [address] Band Manager: Srinivas Lombardi MD CO2 [Moles/Vol] 28 mmol/L Normal 20-32 [facility] Comment on above: Performed By: #### 7 600, 5363, 01007 #### [facility] [place] [address] Band Manager: Srinivas Lombardi MD Creatinine [Mass/Vol] 1.16 mg/dL Normal 0.70-1.[address] [facility] Comment on above: Result Comment: For patients >49 years of age, the reference limit for Creatinine is approximately 13% higher for people identified as -Pakistani. Performed By: #### 7 600, 5363, 05419 #### [facility] [place] [address] Band Manager: Srinivas Lombardi MD eGFR NON-AFR. NIGERIEN 69 mL/min/1.73m2 Normal > OR = 60 [facility] Comment on above: Performed By: #### 7 600, 5363, 75483 #### [facility] [place] [address] Band Manager: Srinivas Lombardi MD GFR/1.73 sq M.predicted eliot g blacks MDRD (S/P/Bld) [Vol rate/Area] 80 mL/min/{1.73_m2} Normal > OR = 60 [facility] Comment on above: Performed By: #### 7 600, 5363, 50598 #### [facility] [place] [address] Band Manager: Srinivas Lombardi MD Globulin (S) [Mass/Vol] 2.5 g/dL Normal 1.9-3.7 [facility] Comment on above: Performed By: #### 7 600, 5363, 23044 #### [facility] of [address], [address] [place] [address] Band Manager: Srinivas Lombardi MD Glucose [Mass/Vol] 92 mg/dL Normal 65-99 [facility] Comment on above: Result Comment: Fasting reference interval Performed By: #### 7 600, 5363, [id number] #### [facility] of [address], [address] [place] [address] Band Manager: Srinivas Lombardi MD Potassium [Moles/Vol] 4.1 mmol/L Normal 3.5-5.3 [facility] Comment on above: Performed By: #### 7 600, 5363, [id number] #### [facility] of [address], [address] [place] [address] Band Manager: Srinivas Lombardi MD Protein [Mass/Vol] 6.9 g/dL Normal 6.1-8.1 [facility] Comment on above: Performed By: #### 7 600, 5363, [id number] #### [facility] of [address], [address] [place] [address] Band Manager: Srinivas Lombardi MD Sodium [Moles/Vol] 138 mmol/L Normal 135-146 [facility] Comment on above: Performed By: #### 7 600, 5363, [id number] #### [facility] of [place] [address] Band Manager: Srinivas Lombardi MD Urea nitrogen [Mass/Vol] 8 mg/dL Normal 7-25 [facility] Comment on above: Performed By: #### 7 600, 5363, [id number] #### [facility] of [address], [address] [place] [address] Band Manager: Srinivas Lombardi MD LIPID PANEL, [facility] 03-12 Cholesterol [Mass/Vol] 243 mg/dL High <200 [facility] Comment on above: Order Comment: FASTI NG:YES FASTING: YES Performed By: #### 7 600, 5363, [id number] #### [facility] of [address], [address] [place] [address] Band Manager: Srinivas Lombardi MD Cholesterol in HDL [Mass/Vol] 38 mg/dL Low > OR = 40 [facility] Comment on above: Order Comment: FASTI NG:YES FASTING: YES Performed By: #### 7 600, 5363, [id number] #### [facility] [address], [address] [place] [address] Band Manager: Srinivas Lombardi MD Cholesterol in LDL [Mass/Vol] 183 mg/dL High [facility] Comment on above: Order Comment: FASTI NG:YES FASTING: YES Result Comment: Refe rence range: <100 Desirable range <100 mg/dL for primary prevention; <70 mg/dL for patients with CHD or diabetic patients with > or = 2 CHD risk factors. LDL-C is now calculated using the Shalonda calculation, which is a validated novel method providing better accuracy than the Friedewald equation in the estimation of LDL-C. Gurpreet SS et al. MARIAM. 2013;310(19): 0546-4366 (http://education.Social Plus/faq/BYM954) Performed By: #### 7 600, 5363, 13114 #### [facility] [address], [address] [place] [address] Band Manager: Srinivas Lombardi MD Cholesterol.total/Cholestero l in HDL [Mass ratio] 6.4 {ratio} High <5.0 [facility] Comment on above: Order Comment: FASTI NG:YES FASTING: YES Performed By: #### 7 600, 5363, [id number] #### [facility] [address], [address] [place] [address] Band Manager: Srinivas Lombardi MD NON HDL CHOLESTEROL 205 mg/dL (calc) High <130 [facility] Comment on above: Order Comment: FASTI NG:YES FASTING: YES Result Comment: For patients with diabetes plus 1 major ASCVD risk factor, treating to a non-HDL-C goal of <100 mg/dL (LDL-C of <70 mg/dL) is considered a therapeutic option. Performed By: #### 7 600, 5363, [id number] #### [facility] [address], [address] [place] [address] Band Manager: Srinivas Lombardi MD Triglyceride [Mass/Vol] 97 mg/dL Normal <150 [facility] Comment on above: Order Comment: FASTI NG:YES FASTING: YES Performed By: #### 7 600, 5363, [id number] #### [facility] [address], [address] [place] [id number] Band Manager: Srinivas Lombardi MD PSA, TOTALon 04-01-2022 PSA, TOTAL 1.23 ng/mL Normal < OR = 4.00 [facility] Comment on above: Result Comment: The total PSA value from this assay system is standardized against the WHO standard. The test result will be approximately 20% lower when compared to the equimolar-standardized total PSA (Aashish Lyle). Comparison of serial PSA results should be interpreted with this fact in mind. This test was performed using the Siemens chemiluminescent method. Values obtained from different assay methods cannot be used interchangeably. PSA levels, regardless of value, should not be interpreted as absolute evidence of the presence or absence of disease. Performed By: #### 7 600, 5363, [id number] #### [facility] [address], [address] [place] [phone] Band Manager: Srinivas Lombardi MD Vital Signs Date Time Vital Sign Value Performing Clinician Facility 04-09-2025 10:04-0400 Body height 167.6 cm [employer] [facility] 04-09-2025 10:04-0400 Body mass index (BMI) [Ratio] 24.29 kg/m2 [employer] DO [facility] 04-09-2025 10:04-0400 Body temperature 97.5 [degF] [employer] [facility] 04-09-2025 10:04-0400 Body weight 68.22 kg [employer] [facility] 04-09-2025 10:04-0400 Diastolic blood pressure 78 mm[Hg] Aneesh Furlong DO Work Phone: [facility] [employer] 04-09-2025 10:04-0400 Heart rate 79 /min Aneesh Furlong DO Work Phone: [facility] [employer] [facility] 04-09-2025 10:04-0400 Respiratory rate 20 /min Aneesh Furlong DO Work Phone: [facility] [employer] [place] [facility] 04-09-2025 10:04-0400 SaO2% (BldA) [Mass fraction] 97 % Aneesh Furlong DO Work Phone: [facility] [employer] 04-09-2025 10:04-0400 Systolic blood pressure 128 mm[Hg] Aneesh Furlong DO Work Phone: [facility] [employer] [place] [facility] 01-05-2025 08:56-0400 Body height 167.6 cm Aneesh Furlong DO Work Phone: [facility] [employer] 01-05-2025 08:56-0400 Body mass index (BMI) [Ratio] 24.38 kg/m2 Aneesh Furlong DO Work Phone: [facility] [employer] 01-05-2025 08:56-0400 Body temperature 97.2 [degF] Aneesh Furlong DO Work Phone: [facility] [employer] [place] [facility] 01-05-2025 08:56-0400 Body weight 68.49 kg Aneesh Furlong DO Work Phone: [facility] [employer] 01-05-2025 08:56-0400 Diastolic blood pressure 60 mm[Hg] Aneesh Furlong DO Work Phone: [facility] [employer] 01-05-2025 08:56-0400 Heart rate 70 /min Aneesh Furlong DO Work Phone: [facility] [employer] [place] [facility] 01-05-2025 08:56-0400 Respiratory rate 16 /min Aneesh Furlong DO [facility] 01-05-2025 08:56-0400 SaO2% (BldA) [Mass fraction] 100 % Aneesh Furlong DO Work Phone: [facility] [employer] 01-05-2025 08:56-0400 Systolic blood pressure 110 mm[Hg] Aneesh Furlong DO Work Phone: [facility] [employer] [place] [facility] 09-28-2024 14:54-0500 Body height 167.6 cm Aneesh Furlong DO Work Phone: [facility] 09-28-2024 14:54-0500 Body mass index (BMI) [Ratio] 24.18 kg/m2 Aneesh Furlong DO Work Phone: [facility] 09-28-2024 14:54-0500 Body temperature 97.59 [degF] Aneesh Furlong DO Work Phone: [facility] [employer] 09-28-2024 14:54-0500 Body weight 67.95 kg Aneesh Furlong DO Work Phone: [facility] [employer] 09-28-2024 14:54-0500 Diastolic blood pressure 54 mm[Hg] Aneesh Furlong DO Work Phone: [facility] [employer] [place] [facility] 09-28-2024 14:54-0500 Heart rate 62 /min Aneesh Furlong DO Work Phone: [facility] [employer] 09-28-2024 14:54-0500 Respiratory rate 18 /min Aneesh Furlong DO Work Phone: [facility] 09-28-2024 14:54-0500 SaO2% (BldA) [Mass fraction] 96 % Aneesh Furlong DO Work Phone: [facility] 09-28-2024 14:54-0500 Systolic blood pressure 116 mm[Hg] Aneesh Furlong DO Work Phone: [facility] [employer] [place] [facility] 07-03-2024 14:18-0400 Body height 167.6 cm Aneesh Furlong DO Work Phone: [facility] [employer] [place] [facility] 07-03-2024 14:18-0400 Body mass index (BMI) [Ratio] 24.63 kg/m2 Aneesh Furlong DO Work Phone: [facility] 07-03-2024 14:18-0400 Body temperature 97.5 [degF] Aneesh Furlong DO Work Phone: [facility] 07-03-2024 14:18-0400 Body weight 69.22 kg Aneesh Furlong DO Work Phone: [facility] [employer] [place] [facility] 07-03-2024 14:18-0400 Diastolic blood pressure 58 mm[Hg] Aneesh Furlong DO Work Phone: [facility] 07-03-2024 14:18-0400 Heart rate 68 /min Aneesh Furlong DO Work Phone: [facility] 07-03-2024 14:18-0400 Respiratory rate 18 /min Aneesh Furlong DO Work Phone: [facility] 07-03-2024 14:18-0400 SaO2% (BldA) [Mass fraction] 100 % Aneesh Furlong DO Work Phone: [facility] 07-03-2024 14:18-0400 Systolic blood pressure 102 mm[Hg] Aneesh Furlong DO Work Phone: [facility] 04-03-2024 14:18-0400 Body height 167.6 cm Aneesh Furlong DO Work Phone: [facility] 04-03-2024 14:18-0400 Body mass index (BMI) [Ratio] 24.47 kg/m2 Aneesh Furlong DO Work Phone: [facility] 04-03-2024 14:18-0400 Body temperature 97.81 [degF] Aneesh Furlong DO Work Phone: [facility] 04-03-2024 14:18-0400 Body weight 68.77 kg Aneesh Furlong DO Work Phone: [facility] 04-03-2024 14:18-0400 Diastolic blood pressure 68 mm[Hg] Aneesh Furlong DO Work Phone: [facility] 04-03-2024 14:18-0400 Heart rate 69 /min Aneesh Furlong DO Work Phone: [facility] 04-03-2024 14:18-0400 SaO2% (BldA) [Mass fraction] 97 % Aneesh Furlong DO Work Phone: [facility] 04-03-2024 14:18-0400 Systolic blood pressure 100 mm[Hg] Aneesh Furlong DO Work Phone: [facility] 01-14-2024 11:14-0400 Body mass index (BMI) [Ratio] 25.15 kg/m2 Blanca Banuelos [employer] Work Phone: [facility] 01-14-2024 11:14-0400 Body weight 70.67 kg Blanca Banuelos [employer] Work Phone: [facility] 01-14-2024 11:14-0400 Diastolic blood pressure 82 mm[Hg] Blanca Banuelos [employer] Work Phone: [facility] 01-14-2024 11:14-0400 Systolic blood pressure 171 mm[Hg] Blanca Banuelos [employer] Work Phone: [facility] 12-30-2023 14:07-0400 Body height 167.6 cm Aneesh Furlong DO Work Phone: [facility] 12-30-2023 14:07-0400 Body mass index (BMI) [Ratio] 24.45 kg/m2 Aneesh Furlong DO Work Phone: [facility] 12-30-2023 14:07-0400 Body temperature 97.3 [degF] Aneesh Furlong DO Work Phone: [employer] 12-30-2023 14:07-0400 Body weight 68.72 kg Aneesh Furlong DO [facility] 12-30-2023 14:07-0400 Diastolic blood pressure 72 mm[Hg] Aneesh Furlong DO Work Phone[facility] 12-30-2023 14:07-0400 Heart rate 94 /min Aneesh Furlong DO Work Phone[facility] 12-30-2023 14:07-0400 Respiratory rate 20 /min Aneesh Furlong DO [facility] 12-30-2023 14:07-0400 SaO2% (BldA) [Mass fraction] 100 % Aneesh Furlong DO [facility] 12-30-2023 14:07-0400 Systolic blood pressure 120 mm[Hg] Aneesh Furlong DO Work Phone: [employer] 07-26-2023 11:40-0400 Body height 167.64 cm Leti Blades Other [employer] Other 07-26-2023 11:40-0400 Body mass index (BMI) [Ratio] 24.85 kg/m2 Leti Blades Other [employer] Other 07-26-2023 11:40-0400 Body weight 69.85 kg Leti Blades Other [employer] Other 03-31-2023 14:20-0400 Body height 167.64 cm Leti Blades Other [employer] Other 03-31-2023 14:20-0400 Body mass index (BMI) [Ratio] 23.72 kg/m2 Leti Blades Other [employer] Other 03-31-2023 14:20-0400 Body weight 66.68 kg Leti Blades Other [employer] Other 03-31-2023 14:20-0400 Diastolic blood pressure 64 mm[Hg] Leti Blades Other [employer] Other 03-31-2023 14:20-0400 Systolic blood pressure 120 mm[Hg] Leti Blades Other [employer] Other 09-01-2022 13:07-0500 Body temperature 98.06 [degF] Carlito Orosco [facility] 09-01-2022 13:07-0500 Diastolic blood pressure 71 mm[Hg] Carlito Orosco [facility] 09-01-2022 13:07-0500 Heart rate 92 /min Carlito Orosco [facility] 09-01-2022 13:07-0500 Respiratory rate 16 /min Carlito Orosco [facility] 09-01-2022 13:07-0500 SaO2% (BldA) [Mass fraction] 99 % Carlito Orosco [facility] 09-01-2022 13:07-0500 Systolic blood pressure 144 mm[Hg] Carlito Orosco [facility] 08-14-2022 14:44-0400 Body temperature 98.06 [degF] Devyn Randall [facility] 08-14-2022 14:44-0400 Diastolic blood pressure 80 mm[Hg] Devyn Randall [facility] 08-14-2022 14:44-0400 Heart rate 74 /min Devyn Randall [facility] 08-14-2022 14:44-0400 Respiratory rate 18 /min Devyn Randall [facility] 08-14-2022 14:44-0400 SaO2% (BldA) [Mass fraction] 99 % Devyn Randall [facility] 08-14-2022 14:44-0400 Systolic blood pressure 160 mm[Hg] Devyn Randall [facility] Encounters Encounter Date Encounter Type Care Provider Facility Start: 07-02-2025 End: 07-02-2025 Refill Aneesh G Furlong DO [facility] Comment on above: Cervical radiculopat hy Start: 06-21-2025 End: 06-21-2025 Refill Rose Romero CMA [facility] Comment on above: Unspecified asthma, uncomplicated; Pulmonary emphysema, unspecified emphysema type ([facility]); Cervical radiculopathy Start: 06-16-2025 End: 06-18-2025 Refill Aneesh G Furlong DO Work Phone[facility] Comment on above: Cervical radiculopat hy Start: 06-04-2025 End: 06-04-2025 Refill Aneesh G Furlong DO Work Phone: [facility] Comment on above: Cervical radiculopat hy Start: 05-16-2025 End: 05-17-2025 Refill Aneesh G Furlong DO Work Phone: [facility] Comment on above: Cervical radiculopat hy Start: 05-04-2025 End: 05-04-2025 Refill Aneesh G Furlong DO Work Phone: [facility] Family Medicine Comment on above: Cervical radiculopat hy Start: 04-26-2025 End: 04-26-2025 Refill Aneesh G Furlong DO Work Phone: [facility] Family Medicine Comment on above: Cervical radiculopat hy Start: 04-15-2025 End: 04-16-2025 Refill Aneesh G Furlong DO Work Phone: [facility] Medicine Comment on above: Cervical radiculopat hy Start: 04-09-2025 End: 04-09-2025 Office outpatient visit 25 minutes Aneesh oJhnsonlong DO Work Phone: [facility] Medicine Comment on above: Cervical radiculopat hy (Primary Dx); Cigarette smoker; Pulmonary emphysema, [facility] Primary hypertension Start: 04-09-2025 End: 04-09-2025 ambulatory [facility] Start: 04-02-2025 End: 04-03-2025 Refill Aneesh G Furlong DO Work Phone: [facility] Comment on above: Cervical radiculopat hy Start: 03-27-2025 End: 03-27-2025 Refill Aneesh G Furlong DO Work Phone: [facility] Internal Medicine Family Medicine Comment on above: Essential (primary) hypertension; Chronic obstructive pulmonary disease, unspecified [facility] Cervical radiculopathy Start: 03-26-2025 End: 03-26-2025 Refill Aneesh G Furlong DO Work Phone: [facility] Family Medicine Comment on above: Cervical radiculopat hy Start: 03-19-2025 End: 03-19-2025 Refill Aneesh G Furlong DO Work Phone: [facility] Internal Medicine - Family Medicine Comment on above: Cervical radiculopat hy Start: 03-12-2025 End: 03-13-2025 Refill Aneesh G Furlong DO Work Phone: [facility] Comment on above: Cervical radiculopat hy Start: 03-06-2025 End: 03-07-2025 Refill Aneesh G Furlong DO Work Phone: [facility] Start: 03-05-2025 End: 03-06-2025 Refill Aneesh G Furlong DO Work Phone: [facility] Comment on above: Cervical radiculopat hy Start: 02-26-2025 End: 02-26-2025 Refill Aneesh G Furlong DO Work Phone: [facility] Family [facility] Comment on above: Cervical radiculopat hy Start: 02-18-2025 End: 02-19-2025 Refill Aneesh G Furlong DO Work Phone: [facility] Comment on above: Cervical radiculopat hy Start: 02-11-2025 End: 02-12-2025 Refill Aneesh G Furlong DO Work Phone: [facility] Comment on above: Cervical radiculopat hy Start: 02-04-2025 End: 02-05-2025 Refill Aneesh G Furlong DO Work Phone: [facility] Comment on above: Cervical radiculopat hy Start: 2025 End: 2025 Refill Aneesh G Furlong DO Work Phone: [facility] Comment on above: Cervical radiculopat hy Start: 01-22-2025 End: 01-22-2025 Refill Aneesh G Furlong DO Work Phone: [facility] Comment on above: Cervical radiculopat hy Start: 01-15-2025 End: 01-16-2025 Refill Aneesh Powell Furlong DO Work Phone: [facility] Comment on above: Cervical radiculopat hy Start: 01-09-2025 End: 01-09-2025 Refill Aneesh G Furlong DO Work Phone: [facility] Comment on above: Cervical radiculopat hy Start: 01-05-2025 End: 01-05-2025 Office outpatient visit 25 minutes Aneesh Johnsonlong DO Work Phone: [facility] Comment on above: Cervical radiculopat hy (Primary Dx); Erectile dysfunction, unspecified erectile dysfunction type; Pulmonary emphysema, unspecified emphysema type ([facility]); Primary hypertension Start: 01-05-2025 End: 01-05-2025 [facility] Start: 01-03-2025 End: 01-03-2025 ambulatory Not Available Start: 01-02-2025 End: 01-03-2025 Refill Aneesh Johnsonlong DO Work Phone[facility] Comment on above: Cervical radiculopat hy Start: 12-28-2024 End: 12-28-2024 Refill Aneesh Powell Furlong DO Work Phone: [facility] Comment on above: Unspecified asthma, uncomplicated Start: 12-21-2024 End: 12-22-2024 Refill Aneesh G Furlong DO Work Phone: [facility] Comment on above: Cervical radiculopat hy Start: 12-14-2024 End: 12-15-2024 Refill Aneesh G Furlong DO Work Phone: [facility] Comment on above: Cervical radiculopat hy Start: 12-07-2024 End: 12-08-2024 Refill Aneesh G Furlong DO Work Phone: [facility] Medicine Family [facility] Comment on above: Cervical radiculopat hy Start: 11-29-2024 End: 12-01-2024 Refill Aneesh Powell Furlong DO Work Phone: [facility] Comment on above: Cervical radiculopat hy Start: 11-29-2024 End: 12-01-2024 Refill Aneesh Powell Furlong DO Work Phone: [facility] Comment on above: Cervical radiculopat hy Start: 11-23-2024 End: 11-24-2024 Refill Aneesh G Furlong DO Work Phone: [facility] Comment on above: Cervical radiculopat hy Start: 11-17-2024 End: 11-17-2024 Refill Aneesh Powell Furlong DO Work Phone: [facility] Comment on above: Cervical radiculopat hy Start: 11-16-2024 End: 11-17-2024 Refill Aneesh Powell Furlong DO Work Phone: [facility] Comment on above: Cervical radiculopat hy Start: 11-07-2024 End: 11-10-2024 Refill Aneesh Powell Furlong DO Work Phone: [facility] Comment on above: Cervical radiculopat hy Start: 11-03-2024 End: 11-03-2024 Orders Only Aneesh Powell Furlong DO Work Phone: [facility] Family [facility] Start: 10-31-2024 End: 10-31-2024 Refill Aneesh G Furlong DO Work Phone: [facility] Internal [facility] Comment on above: Cervical radiculopat hy Start: 10-24-2024 End: 10-25-2024 Refill Aneesh G Furlong DO Work Phone: [facility] Comment on above: Cervical radiculopat hy Start: 10-18-2024 End: 10-18-2024 Refill Aneesh Richmond DO Work Phone: [facility] Comment on above: Cervical radiculopat hy Start: 10-12-2024 End: 10-12-2024 Refill Aneesh Richmond DO Work Phone: [facility] Comment on above: Cervical radiculopat hy Start: 10-03-2024 End: 10-05-2024 Refill Radha Juan [employer] [facility] Comment on above: Cervical radiculopat hy Start: 09-28-2024 End: 09-28-2024 ambulatory [facility] Start: 09-28-2024 Encounter for genera l adult medical examination without abnormal findings [facility] Start: 09-28-2024 End: 09-28-2024 Patient encounter status Aneesh Richmond DO Work Phone: [facility] [employer] [place] [facility] Work Phone: Start: 09-28-2024 End: 09-28-2024 Periodic preventive med est patient 40-64yrs Aneesh Richmond DO Work Phone: [facility] Comment on above: Well adult [facility] (Primary Dx); Paresthesia of right arm; Primary hypertension; Pulmonary emphysema, unspecified emphysema type ([facility]); Sebaceous cyst; Cervical spinal stenosis Start: 09-28-2024 End: 09-28-2024 ambulatory [facility] Start: 09-28-2024 Encounter for genera l adult medical examination without abnormal findings [facility] Start: 09-20-2024 End: 09-20-2024 Refill Aneesh Richmond DO Work Phone: [facility] Comment on above: Essential (primary) hypertension; Chronic obstructive pulmonary disease, unspecified ([facility]) Start: 09-18-2024 End: 09-18-2024 Refill Aneesh G Furlong DO Work Phone: [facility] Comment on above: Cervical radiculopat hy Start: 09-10-2024 End: 09-10-2024 Refill Aneesh G Furlong DO Work Phone: [facility] Comment on above: Cervical radiculopat hy Start: 09-08-2024 End: 09-08-2024 Refill Aneesh G Furlong DO Work Phone: [facility] Start: 09-07-2024 End: 09-08-2024 Refill Aneesh G Furlong DO Work Phone: [facility] [facility] Comment on above: Cervical radiculopat hy Start: 08-31-2024 End: 08-31-2024 Refill Aneesh G Furlong DO Work Phone: [facility] Comment on above: Cervical radiculopat hy Start: 08-22-2024 End: 08-22-2024 Refill Aneesh G Furlong DO [facility] Phone[facility] Comment on above: Pure hypercholestero lemia Start: 08-10-2024 End: 08-11-2024 Refill Aneesh G Furlong DO Work Phone: [facility] Comment on above: Cervical radiculopat hy Start: 07-29-2024 End: 07-30-2024 Refill Aneesh G Furlong DO Work Phone: [facility] Comment on above: Cervical radiculopat hy Start: 07-29-2024 End: 08-01-2024 Refill Aneesh G Furlong DO Work Phone: [facility] Comment on above: Cervical radiculopat hy Start: 07-20-2024 End: 07-21-2024 Refill Aneesh Richmond DO Work Phone: [facility] Comment on above: Cervical radiculopat hy Start: 07-03-2024 End: 07-03-2024 ambulatory ANEESH RICHMOND [facility] Start: 07-03-2024 End: 07-03-2024 [facility] Start: 07-03-2024 End: 07-03-2024 Office outpatient visit 25 minutes Aneesh Richmond DO Work Phone: [facility] Comment on above: Cervical radiculopat hy (Primary Dx); Paresthesia of right arm; Herpes zoster without complication Start: 06-29-2024 End: 06-30-2024 Refill Aneesh Richmond DO Work Phone: [facility] Comment on above: Unspecified asthma, uncomplicated Start: 06-26-2024 End: 07-01-2024 Refill Aneesh Richmond DO Work Phone: [facility] Comment on above: Cervical radiculopat hy Start: 06-13-2024 End: 06-17-2024 Refill Aneesh Richmond DO Work Phone: [facility] Comment on above: Cervical radiculopat hy Start: 05-29-2024 End: 06-03-2024 Refill Aneesh Richmond DO Work Phone: [facility] Comment on above: Cervical radiculopat hy Start: 05-24-2024 End: 05-24-2024 Refill Aneesh Richmond DO Work Phone: [facility] Comment on above: Cervical radiculopat hy Start: 05-16-2024 End: 05-20-2024 Refill Aneesh G Furlong DO Work Phone: [facility] Comment on above: Cervical radiculopat hy Start: 05-03-2024 End: 05-05-2024 Refill Aneesh G Furlong DO Work Phone: [facility] Comment on above: Cervical radiculopat hy Start: 04-20-2024 End: 04-21-2024 Refill Aneesh G Furlong DO Work Phone: [facility] Comment on above: Cervical radiculopat hy Start: 04-06-2024 End: 04-06-2024 Orders Only Aneesh G Furlong DO Work Phone: [facility] Start: 04-04-2024 End: 04-04-2024 Refill Aneesh G Furlong DO Work Phone: [facility] Comment on above: Essential (primary) hypertension; Cervical radiculopathy; Chronic obstructive pulmonary disease, unspecified ([facility]) Start: 04-03-2024 End: 04-03-2024 Office outpatient visit 25 minutes Aneesh G Furlong DO Work Phone: [facility] Comment on above: Paresthesia of right arm (Primary Dx); Gastroesophageal reflux disease, unspecified whether esophagitis present; Cigarette smoker; Other migraine without status migrainosus, not intractable Start: 03-27-2024 End: 03-28-2024 Refill Aneesh G Furlong DO Work Phone: [facility] Comment on above: Cervical radiculopat hy Start: 03-13-2024 End: 03-15-2024 Refill Aneesh G Furlong DO Work Phone: [facility] Comment on above: Cervical radiculopat hy Start: 03-08-2024 End: 03-08-2024 Refill Aneesh G Furlong DO Work Phone: [facility] Comment on above: Cervical radiculopat hy; Pure hypercholesterolemia Start: 03-05-2024 End: 03-08-2024 Refill Aneesh G Furlong DO Work Phone: [facility] Comment on above: Cervical radiculopat hy Start: 02-27-2024 End: 02-28-2024 Refill Aneesh G Furlong DO Work Phone: [facility] Comment on above: Cervical radiculopat hy Start: 02-23-2024 End: 02-23-2024 Orders Only Aneesh G Furlong DO Work Phone: [facility] Comment on above: Pure hypercholestero lemia Start: 02-21-2024 End: 02-21-2024 Refill Aneesh G Furlong DO Work Phone: [facility] Comment on above: Cervical radiculopat hy Start: 02-20-2024 End: 02-21-2024 Refill Aneesh G Furlong DO Work Phone: [facility] Comment on above: Cervical radiculopat hy Start: 02-14-2024 End: 02-14-2024 Telephone encounter aKdy Mccrary CMA [facility] Start: 02-09-2024 End: 02-10-2024 Refill Aneesh G Furlong DO Work Phone: [facility] Comment on above: Cervical radiculopat hy Start: 02-08-2024 End: 02-08-2024 Evaluation and management of inpatient MICHAEL SOLOMON [facility] Start: 02-07-2024 End: 02-08-2024 Evaluation and management of inpatient ROMA MONK [facility] Start: 01-30-2024 End: 02-01-2024 Refill Aneesh Powell Furlong DO Work Phone: [facility] Comment on above: Cervical radiculopat hy Start: 01-25-2024 End: 01-25-2024 Refill Rose Romero [facility] Comment on above: Cervical radiculopat hy Start: 01-22-2024 End: 01-24-2024 Refill Aneesh G Furlong DO Work Phone: [facility] Comment on above: Cervical radiculopat hy Start: 01-21-2024 End: 01-24-2024 Refill Aneesh G Furlong DO Work Phone: [facility] Comment on above: Cervical radiculopat hy Start: 01-14-2024 End: 01-14-2024 Office outpatient new 30 minutes Blanca Banuelos [employer] Work Phone: [facility] General [facility] Comment on above: Screen for colon can cer (Primary Dx); Family history of rectal cancer; Family history of stomach cancer Start: 01-06-2024 Refill Ry cotto [facility] Comment on above: Cervical radiculopat hy Start: 01-05-2024 Refill Aneesh Johnsonlo ng DO Work Phone: [facility] Comment on above: Hyperlipidemia, unsp ecified; Unspecified asthma, uncomplicated Start: 12-30-2023 End: 12-30-2023 Office outpatient visit 25 minutes Aneesh G Furlong DO Work Phone: [facility] Comment on above: Cervical radiculopat hy (Primary Dx); Chronic midline low back pain, unspecified whether sciatica present; Screen for colon cancer; Cubital tunnel syndrome on left; Neck pain, chronic; Cigarette smoker Start: 11-26-2023 Refill Radha Martinez [facility] Comment on above: Cervical radiculopat hy Start: 10-06-2023 Refill Aneesh encarnacion DO Work Phone: [facility] Comment on above: Cervical radiculopat hy Start: 07-26-2023 End: 07-26-2023 ambulatory Leti Blades Other [facility] [employer] Other Start: 07-26-2023 Office outpatient vi sit 15 minutes Leti Blades [facility] Start: 03-31-2023 End: 03-31-2023 ambulatory Leti Blades Other [facility] [employer] Other Start: 03-31-2023 Office outpatient ne w 45 minutes Leti Blades [facility] Start: 02-17-2023 End: 02-18-[address] ANEESH RICHMOND Facility: Start: 09-01-2022 End: 09-01-2022 Emergency department patient visit Carlito Orosco [facility] Start: 09-01-2022 End: 09-01-2022 Emergency department patient visit Carlito Orosco [facility] Start: 08-14-2022 End: 08-14-2022 Emergency department patient visit Devyn Randall [facility] Start: 08-14-2022 End: 08-14-2022 Emergency department patient visit Devyn Randall [facility] Start: 08-13-2022 End: 08-13-[address] ANEESH RICHMOND Facility:[facility] Start: 07-28-2022 End: 07-29-[address] ANEESH RICHMOND Facility:[facility] Start: 05-29-2022 End: 05-30-[address] ANEESH RICHMOND Facility:[facility] Procedures Date Procedure Procedure Detail Performing Clinician Start: 04-09-2025 Adult depression scr eening assessment Aneesh Richmond DO Work Phone: Start: 01-05-2025 Adult depression scr eening assessment Aneesh Johnsonlong DO Work Phone: Start: 07-03-2024 Adult depression scr eening assessment Aneeshtessa Johnsonlong DO Work Phone: Start: 04-03-2024 Adult depression scr eening assessment Aneesh Johnsonlong DO Work Phone: Start: 02-07-2024 Colonoscopy Aneesh Fur long DO Work Phone: Start: 12-30-2023 Adult depression scr eening assessment Aneesh Johnsonlong DO Work Phone: Start: 07-13-2023 Adult depression scr eening assessment Aneesh Johnsonlong DO Work Phone: Plan of Treatment Date Care Activity Detail Author Start: 02-06-2034 Screening for malign ant neoplasm of colon Colonoscopy [facility] Start: 04-09-2026 Adult BMI Screening Adult BMI Screen ing [facility] Start: 04-09-2026 Depression Screening Depression Scre ening [facility] Start: 04-09-2026 Tobacco Screening Tobacco Screening [facility] Start: 01-05-2026 Adult BMI Screening Adult BMI Screen ing [facility] Start: 01-05-2026 Depression Screening Depression Scre ening [facility] Start: 01-05-2026 Tobacco Screening Tobacco Screening [facility] Start: 09-28-2025 Adult BMI Screening Adult BMI Screen ing [facility] Start: 09-28-2025 Tobacco Screening Tobacco Screening [facility] Start: 07-18-2025 End: 07-18-2025 Patient encounter procedure 07/18/2025 10:30 AM EDT Office Visit [facility] [address] [place] [address] Abisai Richmondnis Andre, DO [address], [place] [address] [facility] Start: 07-03-2025 Adult BMI Screening Adult BMI Screen ing [facility] Start: 07-03-2025 Depression Screening Depression Scre ening [facility] Start: 07-03-2025 Tobacco Screening Tobacco Screening [facility] Start: 06-11-2025 COVID-19 Vaccine ( season) COVID-19 Vaccine ( season) [facility] Start: 06-11-2025 Influenza vaccination Influenza Vacc ine [facility] Start: 04-09-2025 End: 04-09-2026 CT Chest for screening WO contrast CT low dose lung screening (Annual) Imaging Routine Cigarette smoker Expected: 04/09/2025, Expires: 04/09/[address] [facility] Work Phone: Comment on above: Expected: 04/09/2025 , Expires: 04/09/2026 Start: 04-09-2025 End: 04-09-2025 Patient encounter procedure 04/09/2025 10:00 AM EDT Office Visit [facility] [address] [place] [address] Aneesh Richmond, DO [address], [facility] [address] [facility] Start: 04-03-2025 Adult BMI Screening Adult BMI Screen ing [facility] Start: 04-03-2025 Depression Screening Depression Scre ening [facility] Start: 04-03-2025 Tobacco Screening Tobacco Screening [facility] Start: 02-06-2025 Adult BMI Screening Adult BMI Screen ing [facility] Start: 02-06-2025 Screening for malign ant neoplasm of colon Colonoscopy [facility] Start: 02-06-2025 Tobacco Screening Tobacco Screening [facility] Start: 01-13-2025 Adult BMI Screening Adult BMI Screen ing [facility] Start: 01-13-2025 Tobacco Screening Tobacco Screening [facility] Start: 01-05-2025 End: 01-05-2025 Patient encounter procedure 01/05/2025 9:00 AM EDT Office Visit [facility] [address] [place] [address] Aneesh Richmond, DO [address], [place] [address] [facility] Start: 12-29-2024 Adult BMI Screening Adult BMI Screen ing [facility] Start: 12-29-2024 Depression Screening Depression Scre ening [facility] Start: 12-29-2024 Tobacco Screening Tobacco Screening [facility] Start: 10-13-2024 Tobacco Counseling Tobacco Counselin g [facility] Start: 10-11-2024 Influenza vaccination Influenza Vacc ine [facility] Comment on above: Postponed from 06/11 (Insurance / Financial) Start: 09-28-2024 End: 09-28-2024 Patient encounter procedure 09/28/2024 2:45 PM EST Office Visit [facility] [address] [place] [address] Aneesh Richmond, [address], [place] [address] [facility] Family [facility] Start: 09-24-2024 Adult BMI Screening Adult BMI Screen ing [facility] Start: 09-24-2024 Tobacco Screening Tobacco Screening [facility] Start: 07-13-2024 Depression Screening Depression Scre ening [facility] Start: 07-03-2024 End: 07-03-2024 Patient encounter procedure 07/03/2024 2:00 PM EDT Office Visit [facility] [address] [place] [address] Aneesh Richmond, DO [address], [place] [address] [facility] Start: 06-26-2024 Administration of varicella zoster vaccine Zoster (Shingles) Vaccine (1 of 2) [facility] Comment on above: Postponed from 01/28 (Patient Refused) Start: 06-11-2024 COVID-19 Vaccine ( season) COVID-19 Vaccine ( season) [facility] Start: 06-11-2024 COVID-19 Vaccine ( season) COVID-19 Vaccine () [facility] Start: 06-11-2024 Influenza vaccination Influenza Vacc ine [facility] Start: 04-03-2024 End: 04-03-2024 Patient encounter procedure [facility] Start: 02-07-2024 End: 02-07-2024 Admission to same day surgery center 02/07/2024 10:30 AM EDT - 02/07/2024 11:00 AM EDT Surgery [facility] [address] [place] [id number] Roma Monk, DO [address] [place] [address] [id number] COLONOSCOPY DIAGNOSTIC / SCREENING [85719 (CPT )] [facility] Comment on above: COLONOSCOPY DIAGNOST IC / SCREENING [11209 (CPT )] Start: 02-07-2024 End: 02-07-2024 Colonoscopy flx dx w/collj spec when [facility] SURGERY Start: 02-07-2024 Subsequent hospital visit by physician 02/07/2024 10:30 AM EDT Hospital Encounter [facility] [address] [place] [address] Roma Monk, DO [address] [place] [address] [facility] Start: 02-01-2024 End: 02-01-2024 ambulatory 02/01/2024 3:50 PM EDT Support Visit [facility] - Pre Admit [address] [place] [address] [facility] - Pre Ad[facility] Start: 01-14-2024 End: 01-14-2024 Patient encounter procedure 01/14/2024 11:00 AM EDT Office Visit [facility] [address] [place] [id number] Blanca Banuelos, [employer] [address] [place] [address] [facility] Start: 12-30-2023 End: 12-29-2024 XR Lumbar spine 2 or 3 Views X-ray spine lumbar 2 or 3 views Imaging Routine Chronic midline low back pain, unspecified whether sciatica present Expected: 12/30/2023, Expires: 12/29/2024 [facility] Work Phone: Comment on above: Expected: 12/30/2023 , Expires: 12/29/2024 Start: 10-14-2023 End: 10-14-2023 Patient encounter procedure 10/14/2023 2:20 PM EST Office Visit [facility] [address] [place] [address] Aneesh Rcihmond, DO [address], [facility] [address] [facility] Start: 06-11-2023 COVID-19 Vaccine ( season) COVID-19 Vaccine ( season) [facility] Start: 01-28-2009 Screening for malign ant neoplasm of colon Colonoscopy [facility] Start: 01-28-1983 Administration of varicella zoster vaccine Zoster (Shingles) Vaccine (1 of 2) [facility] Start: 01-28-1983 DTaP,Tdap and Td Vaccines (1 - Tdap) DTaP,Tdap and Td Vaccines (1 - Tdap) [employer] Start: 01-28-1982 Adult BMI Follow Up Plan Adult BMI Follow Up Plan [facility] Start: 1964 Tobacco Counseling Tobacco Counselin g [facility] End: 01-13-2025 Colonoscopy Colonoscopy GI Routine Screen for colon cancer 1 Occurrences starting 01/14/2024 until 01/13/2025 [employer] Work Phone: Comment on above: 1 Occurrences starti ng 01/14/2024 until 01/13/2025 End: 09-28-2025 Comprehensive metabolic 2000 panel - Serum or Plasma Comprehensive metabolic panel Lab Routine Well adult health check 1 Occurrences starting 09/28/2024 until 09/28/2025 [employer] Work Phone: Comment on above: 1 Occurrences starti ng 09/28/2024 until 09/28/2025 End: 09-28-2025 EMG EMG Neurology Routine Paresthesia of right arm 1 Occurrences starting 09/28/2024 until 09/28/2025 [employer] Comment on above: 1 Occurrences starti ng 09/28/2024 until 09/28/2025 End: 04-03-2025 EMG EMG Neurology Routine Paresthesia of right arm 1 Occurrences starting 04/03/2024 until 04/03/2025 [employer] Work Phone: Comment on above: 1 Occurrences starti ng 04/03/2024 until 04/03/2025 End: 09-28-2025 Lipid panel Lipid panel Lab Routine Well adult health check 1 Occurrences starting 09/28/2024 until 09/28/2025 [employer] Comment on above: 1 Occurrences starti ng 09/28/2024 until 09/28/2025 End: 07-03-2025 Tramadol and Metabolite, U Tramadol and Metabolite, U Lab Routine Cervical radiculopathy 1 Occurrences starting 07/03/2024 until 07/03/2025 [employer] Work Phone: Comment on above: 1 Occurrences starti ng 07/03/2024 until 07/03/2025 Tramadol and Metabol ite, U Tramadol and Metabolite, U Lab Routine Cervical radiculopathy 07/03/2024 6:30 PM EDT [facility] Immunizations Immunization Date Immunization Notes Care Provider Michael montes de oca 07-13-2023 influenza, injectabl e, quadrivalent, preservative free Aneesh Furlong DO Work Phone: [facility] 07-13-2023 influenza virus vaccine, unspecified formulation Aneesh Furlong DO Work Phone: [facility] 07-17-2021 influenza, injectabl e, quadrivalent, preservative free Aneesh Furlong DO Work Phone: [facility] 07-25-2019 hepatitis A vaccine, adult dosage Aneesh Furlong DO Work Phone: [facility] 01-13-2019 hepatitis A vaccine, adult dosage Aneesh Furlong DO Work Phone: [facility] 07-23-2018 influenza, injectabl e, quadrivalent, preservative free Aneesh Furlong DO Work Phone: [facility] 07-23-2018 pneumococcal polysaccharide vaccine, 23 valent Aneesh Furlong DO Work Phone: [facility] 07-16-2017 influenza, injectabl e, quadrivalent, preservative free Aneesh Furlong DO Work Phone: [facility] 04-25-2014 tetanus toxoid, redu clive diphtheria toxoid, and acellular pertussis vaccine, adsorbed Leti Blades Other [employer] Other Payers Date Payer Category Payer Medicaid [facility] [employer] HMO [id number] 2022- [phone] [address] [place] [address] [id number] 2022 Medicaid HMO [facility] [id number] 1964 Unknown [id number] 1964 Unknown [id number] [id number] 1964 Unknown [id number] [id number] 1964 Unknown [id number] [id number] 1964 Unknown [id number] [id number] 1964 Unknown [id number] [id number] 1964 Unknown [id number] 2.16.840.1.598909.3.579.2.1286 1964 Unknown [id number] 2.16.840.1.179475.3.579.2.1286 1964 Unknown [id number] 2.16.840.1.280172.3.579.2.1286 1964 Unknown [id number] 2.16.840.1.953080.3.579.2.128 1964 Unknown [id number] 2.16.840.1.927394.3.579.2.1286 1964 Unknown [id number] 2.16.840.1.806928.3.579.2.1286 1964 Unknown [id number] 2.16.840.1.378305.3.579.2.1259 1964 Unknown [id number] [id number]86 1964 Unknown [id number] 2.16.840.1.145944.3.579.2.1286 1964 Unknown [id number] [id number] 1964 Unknown [id number] 1959 Unknown [id number] 1959 Unknown [id number] Social History Date Type Detail Facility Tobacco smoking status [facility] Start: 07-13-2023 End: 04-09-2025 Sex Assigned At Male [facility] Start: 01-28-1982 End: 06-12-2025 Tobacco smoking status MDIS Smokes tobacco daily [facility] Start: 01-28-1982 History of tobacco use Cigarette Smo ker [facility] Start: 07-13-2023 End: 07-03-2024 Cigarettes smoked current (pack per day) - Reported 3 [facility] Start: 07-03-2024 End: 06-12-2025 Tobacco use and exposure Smokeless tobacco non-user [facility] Start: 07-03-2024 End: 06-12-2025 Alcoholic beverage intake Ex-drinker (finding) [facility] Do you belong to any clubs or organizations such as buddhism groups, unions, fraternal or athletic groups, or school groups? No [facility] Are you now , , , , never or living with a partner? Living with partner [facility] How often to you hav e a drink containing alcohol? Never [facility] How many standard dr inks containing alcohol do you have on a typical day? Patient does not drink [facility] How hard is it for y ou to pay for the very basics like food, housing, medical care, and heating Very hard [facility] Do you feel stress - tense, restless, nervous, or anxious, or unable to sleep at night because your mind is troubled all the time - these days [OSQ] Very much [facility] Start: 1965 Sex assigned at Not on file [facility] [employer] Start: 05-14-2015 Sex Male (finding) [facility] Functional Status Date Assessment Result Facility 09-01-2022 Functional Status N/A [facility] 08-14-2022 Functional Status N/A [facility] Clinical Notes 05-29-2022 to 04-09-2025 Aneesh Richmond, DO - 04/09/2025 10:00 AM EDTPatient InstructionsAbisaitessa Richmond, DO 01/05/2025 9:00 AM EDTTelephone Encounter - Aneesh Richmond, DO - 12/28/2024 9:08 AM EDT Note Date & Type Note Facility 04-09-2025 History of Presen t illness Narrative Subjective Patient ID: Nubia Varela is a 60 y.o. male. Nubia presents today to recheck his arm numbness tingling and pain. He refused to take the gabapentin because he heard people were coming suicide on it. He is using tramadol 3 a day with benefit. He is also using Celebrex 200 mg twice a day and cyclobenzaprine 10 mg 3 times a day. Those do provide benefit. He is not having any side effects. He had a blister on his left foot that broke open. Also has 1 on his right foot. Sometimes they start out with small blisters. This recently started. He is still smoking. He does not want any assistance to quit. He does not have any symptoms of lung cancer. I had ordered a low-dose CT scan of his lungs in the past but he has not gotten them done yet. He is not sure why. He does not recall getting phone calls but admits that he does not answer them if he thinks it is a Spam call. He has heard of healthcare scams. The following portions of the patient's history were reviewed and updated as appropriate: allergies, current medications, past family history, past medical history, past social history, past surgical history, problem list, and medication reconciliation was completed including current medication and post discharge medication. Review of Systems Constitutional: Negative. Respiratory: Positive for shortness of breath and wheezing. Gastrointestinal: Negative. Genitourinary: Negative. Musculoskeletal: Positive for back pain and neck pain. Neurological: Positive for numbness. Psychiatric/Behavioral: Negative. Objective Physical Exam Vitals reviewed. Exam conducted with a paper bag press operator present (Girlfriend). Constitutional: General: He is not in acute distress. Appearance: He is normal weight. He is not ill-appearing. HENT: Head: Normocephalic. Mouth/Throat: Lips: Whitakers. Pharynx: No pharyngeal swelling. Tonsils: No tonsillar exudate or tonsillar abscesses. Comments: edentulous Eyes: General: No scleral icterus. Extraocular Movements: Extraocular movements intact. Conjunctiva/sclera: Conjunctivae normal. Cardiovascular: Rate and Rhythm: Normal rate and regular rhythm. Pulses: Normal pulses. Heart sounds: Normal heart sounds. No murmur heard. Pulmonary: Effort: Pulmonary effort is normal. No respiratory distress. Breath sounds: Normal breath sounds. No wheezing, rhonchi or rales. Genitourinary: Comments: Declined Neurological: General: No focal deficit present. Mental Status: He is alert and oriented to person, place, and time. Cranial Nerves: Cranial nerves 2-12 are intact. Gait: Gait is intact. Psychiatric: Attention and Perception: Attention and perception normal. Mood and Affect: Mood and affect normal. Speech: Speech normal. Behavior: Behavior normal. Behavior is cooperative. Thought Content: Thought content normal. Cognition and Memory: Cognition normal. Judgment: Judgment normal. Assessment/Plan Nubia was seen today for controlled substance. Diagnoses and all orders for this visit: Cervical radiculopathy - traMADoL (ULTRAM) 50 mg tablet; Take 1 tablet (50 mg total) by mouth every 8 (eight) hours as needed for pain. I do see where he had a visit in December at [facility] for an EMG but I do not see the results. We will have to call the neurologist office to get the official reading. He may need an MRI of his neck. He is using high risk medication with benefit. It is improving his quality of life and helping him with his ADLs. We will continue it. He is also using Celebrex and cyclobenzaprine with improvement. Cigarette smoker - CT low dose lung screening (Annual); Future He smoke cigarettes. He smoked 3 packs a day for 45 years. He has an extremely high cigarette burden. He does not have any symptoms of lung cancer. He would pursue further evaluation and treatment. He did agree to the test after discussing risks and benefits. I told him to expect a phone call from the hospital in the next few days to a week or so. Pulmonary emphysema, unspecified emphysema type ([facility]) Stable. Continue inhalers Primary hypertension Blood pressure at goal. Continue current regimen Other orders - mupirocin (BACTROBAN) 2 % ointment; Apply 1 Application topically 3 (three) times a day. documented in this encounter [facility] 04-09-2025 Instructions Aneesh Richmond DO - 04/09/2025 10:00 AM EDT Are You Ready To Kick The Habit? Free Tobacco Cessation Resources [facility] Services [facility] provide all employees with free tobacco cessation services that include: Counseling to understand nicotine addiction Education about medications that can help you successfully quit Assistance with developing a plan to quit Call to set up an individual appointment or find out when group classes will be held: Sher[facility]: [phone] [facility]: [phone] [facility]: [phone] [facility]: [phone] Quit Smoking Action Plan and Resources [facility] offers an eight-week, online smoking cessation plan to all [facility] employees, regardless of whether [employer] is your medical insurance provider. Go to [email or web address]/[email or web address] ness and click the Health Risk Assessment and Resources link to get started. In the Ivojh6Xgcoup menu, click Action Plans instead of Health Risk Assessment to access the Quit Smoking Action Plan. Additional smoking cessation resources are also available to all [facility] employees on the Zdurs7Pjcxfd web page at www.RunTitle.com/quit smoking. [employer] Tobacco Cessation Program If [employer] is your medical insurance provider, there are more free resources available to you, including: No copays or deductibles on local tobacco cessation counseling services to help you quit Prescription assistance for tobacco cessation medications to help you quit For details about the tobacco cessation program available to [employer] members, go to www.RunTitle.REPUCOM (Search: Tobacco Cessation Program). [place] Tobacco Quit Line 1-728-KSZF-NOW ( ) is a toll-free, telephonic service that helps [place] residents quit smoking and using tobacco. It is staffed by experts who tailor a quit plan for you and provide you with advice. [place] Tobacco Quit Line 0-959-ZZRX-NOW ( ) is a toll-free, telephonic service that helps [place] residents quit smoking and using tobacco. It is staffed by experts who tailor a quit plan for you and provide you with advice. Two weeks of nicotine replacement therapy may be provided at no charge, if needed. Additional Resources These national organizations also offer free information and resources to help you quit tobacco: [employer]--www.cancer.org/healthy/ stayawayfromtobacco [place] [employer]--www.heart.org (Search: Quit Smoking) Centers for Disease Control and Prevention--www.cdc.gov/tobacco [place] [employer]--www.lungusa.org [facility] History of Presen t illness Narrative Subjective Patient ID: Nubia Varela is a 59 y.o. male. Nubia presents today for recheck of his neck and left arm pain. He said he had the EMG done yesterday by Dr. Trujillo. He says the pain is getting worse. He would like to increase the tramadol to 4 a day. He is also taking Celebrex which helps mildly. He hears cracking every time he turns his neck. He is not having any side effects from the tramadol. Does help improve his quality of life. It helps him sleep. He would also like to increased his dose of Viagra. The 50 mg is not effective for him. He also wants a refill of his albuterol nebulizer medication. He does use that with benefit. He also uses the rescue inhaler as needed with benefit. He is taking the maintenance inhaler every day. The following portions of the patient's history were reviewed and updated as appropriate: allergies, current medications, past family history, past medical history, past social history, past surgical history, problem list, and medication reconciliation was completed including current medication and post discharge medication. Review of Systems Constitutional: Negative. Respiratory: Positive for shortness of breath and wheezing. Musculoskeletal: Positive for back pain. Neurological: Positive for numbness. Psychiatric/Behavioral: Negative. Objective Physical Exam Exam conducted with a paper bag press operator present (Catie Mendes MS 3). Constitutional: General: He is not in acute distress. Appearance: He is normal weight. He is not ill-appearing. HENT: Head: Normocephalic. Mouth/Throat: Lips: Whitakers. Dentition: Abnormal dentition. Tongue: No lesions. Palate: No mass. Pharynx: No pharyngeal swelling or oropharyngeal exudate. Tonsils: No tonsillar exudate or tonsillar abscesses. Comments: edentulous Eyes: General: No scleral icterus. Extraocular Movements: Extraocular movements intact. Conjunctiva/sclera: Conjunctivae normal. Cardiovascular: Rate and Rhythm: Normal rate and regular rhythm. Pulses: Normal pulses. Heart sounds: Normal heart sounds. No murmur heard. Pulmonary: Effort: Pulmonary effort is normal. No respiratory distress. Breath sounds: Normal breath sounds. No wheezing, rhonchi or rales. Genitourinary: Comments: Declined Musculoskeletal: Cervical back: Neck supple. Lymphadenopathy: Cervical: No cervical adenopathy. Neurological: General: No focal deficit present. Mental Status: He is alert and oriented to person, place, and time. Cranial Nerves: Cranial nerves 2-12 are intact. Gait: Gait is intact. Psychiatric: Attention and Perception: Attention and perception normal. Mood and Affect: Mood and affect normal. Speech: Speech normal. Behavior: Behavior normal. Behavior is cooperative. Thought Content: Thought content normal. Cognition and Memory: Cognition normal. Judgment: Judgment normal. Assessment/Plan Nubia was seen today for controlled medication check. Diagnoses and all orders for this visit: Cervical radiculopathy - gabapentin (NEURONTIN) 100 mg capsule; Take 1 capsule (100 mg total) by mouth 3 (three) times a day. Patient still with neck and arm pain. We will await results of the EMG but he is complaining of neuropathic pain so I am going to add gabapentin 100 mg 3 times a day instead of increasing the opioid. Risks of long-term opioid use discussed. He needs a nerve pain modulator if he is having nerve pain. Opioids do not treat the underlying issue. May need to see a surgeon. He is using high risk medication with benefit. There are no adverse reactions. It is helping improve his quality of life and ADLs. The OARRS/MAPPS database was reviewed today and found to be appropriate. No indication of medication diversion, or non compliance. Erectile dysfunction, unspecified erectile dysfunction type We will increase the sildenafil to 100 mg daily as needed. Pulmonary emphysema, unspecified emphysema type ([facility]) - albuterol (PROVENTIL,VENTOLIN) 2.5 mg /3 mL (0.083 %) nebulizer solution; Inhale 3 mL (2.5 mg total) by nebulization every 6 (six) hours as needed for wheezing. Renew albuterol unit dose. Consider triple therapy. Consider PFTs Primary hypertension Blood pressure at goal. Other orders - sildenafiL (VIAGRA) 100 mg tablet; Take 1 tablet (100 mg total) by mouth as needed for erectile dysfunction. documented in this encounter [facility] 12-28-2024 Miscellaneous Notes Rx sent in. He is supposed to be seen every 3 months for tramadol. I won't be able to send any more in until he is seen documented in this encounter [facility] 12-28-2024 Telephone encounter Note Rx sent in. He is supposed to be seen every 3 months for tramadol. I won't be able to send any more in until he is seen [facility] 09-28-2024 History of Presen t illness Narrative Subjective Patient ID: Nubia Varela is a 59 y.o. male. Nubia presents today for his annual wellness. He is taking his medications. He is not having any side effects. He is still having issues with numbness and tingling in his right upper extremity. He did not hear anything from the neurologist yet about doing an EMG. He has noticed he has weakness now and is dropping things. He is seen in the water conservation specialist for lesion on the back of his neck. They are concerned that it is cancer. He also has a lesion on the side of his neck which is irritating but benign. A water conservation specialist declined to remove it. He said I should remove it if it is bothering him. The following portions of the patient's history were reviewed and updated as appropriate: allergies, current medications, past family history, past medical history, past social history, past surgical history, problem list, and medication reconciliation was completed including current medication and post discharge medication. Review of Systems Constitutional: Negative. HENT: Negative. Eyes: Negative. Respiratory: Positive for shortness of breath (inhalers help). Cardiovascular: Negative. Gastrointestinal: Negative. Endocrine: Negative. Genitourinary: Negative. Musculoskeletal: Positive for arthralgias and neck pain. Skin: Negative. Allergic/Immunologic: Negative. Neurological: Positive for numbness. Hematological: Negative. Psychiatric/Behavioral: Negative. Objective Physical Exam Exam conducted with a paper bag press operator present (BRIELLE and Sylwia Carias MS 3). Constitutional: General: He is not in acute distress. Appearance: He is normal weight. He is not ill-appearing. HENT: Head: Normocephalic. Right Ear: Tympanic membrane, ear canal and external ear normal. Left Ear: Tympanic membrane, ear canal and external ear normal. Nose: Nose normal. Mouth/Throat: Lips: Whitakers. Mouth: Mucous membranes are moist. Dentition: Abnormal dentition. Tongue: No lesions. Palate: No mass. Pharynx: Oropharynx is clear. No pharyngeal swelling or oropharyngeal exudate. Tonsils: No tonsillar exudate or tonsillar abscesses. Comments: edentulous Eyes: General: No scleral icterus. Extraocular Movements: Extraocular movements intact. Conjunctiva/sclera: Conjunctivae normal. Cardiovascular: Rate and Rhythm: Normal rate and regular rhythm. Pulses: Normal pulses. Heart sounds: Normal heart sounds. No murmur heard. Pulmonary: Effort: Pulmonary effort is normal. No respiratory distress. Breath sounds: Normal breath sounds. No wheezing, rhonchi or rales. Abdominal: General: Bowel sounds are normal. There is no distension. Palpations: Abdomen is soft. There is no mass. Tenderness: There is no abdominal tenderness. There is no guarding or rebound. Hernia: No hernia is present. Genitourinary: Comments: Declined Musculoskeletal: Cervical back: Neck supple. Right lower leg: No edema. Left lower leg: No edema. Lymphadenopathy: Cervical: No cervical adenopathy. Skin: General: Skin is warm and dry. Findings: Lesion (freely movable, nontender cystic lesion on the left side of his neck) present. Neurological: General: No focal deficit present. Mental Status: He is alert and oriented to person, place, and time. Cranial Nerves: Cranial nerves 2-12 are intact. Gait: Gait is intact. Psychiatric: Attention and Perception: Attention and perception normal. Mood and Affect: Mood and affect normal. Speech: Speech normal. Behavior: Behavior normal. Behavior is cooperative. Thought Content: Thought content normal. Cognition and Memory: Cognition normal. Judgment: Judgment normal. Assessment/Plan Nubia was seen today for annual exam. Diagnoses and all orders for this visit: Well adult health check - Comprehensive metabolic panel; Future - Lipid panel; Future Health maintenance discussed. Check CMP and lipids. Recommended to get vaccinations at the pharmacy. Paresthesia of right arm - Cancel: EMG; Future - EMG; Future Resend EMG of right upper extremity . If it is cubital tunnel then he can have surgery locally and does not need to see a neurosurgeon. Primary hypertension Blood pressure at goal. Check CMP. Pulmonary emphysema, unspecified emphysema type ([facility]-HCC) Stable. Continue current regimen. Sebaceous cyst Lesion on the left side of his neck is is sebaceous cyst clinically. It really does not need to be removed. If he would like it removed that would send him to ENT Cervical spinal stenosis Check EMG. May need to see neurosurgeon. Continue tramadol 3 times daily as needed. He is using high risk medication with benefit. Past MRIs reviewed. documented in this encounter [facility] 08-31-2024 Miscellaneous Notes Pharmacy called [facility] and wanted to know if this TRAMDOL was ok to fill since he has not gotten in a while. I said yes ,but he will be due for a Controlled visit with Dr Richmond. documented in this encounter [facility] 08-31-2024 Telephone encounter Note Pharmacy called [facility] [place] [facility] and wanted to know if this TRAMDOL was ok to fill since he has not gotten in a while. I said yes ,but he will be due for a Controlled visit with Dr Richmond. [facility] History of Presen t illness Narrative Subjective Patient ID: Nubia Varela is a 59 y.o. male. Nubia presents for recheck of his tramadol. He is using about 3 a day. He is having right arm pain. His left arm pain is improved since his surgery. He did not get the EMG done. No one called him he said. He said he went up to the neurosurgeon's office but they said there was no referral there. He is not having any side effects from the medication. It does provide moderate relief when he uses it. He had right sided chest pain and went to the ER last week. Then a couple days later he developed a blistering rash on the right chest wall. He didn't get his EMG done. The following portions of the patient's history were reviewed and updated as appropriate: allergies, current medications, past family history, past medical history, past social history, past surgical history, problem list, and medication reconciliation was completed including current medication and post discharge medication. Review of Systems Objective Physical Exam Vitals reviewed. Exam conducted with a paper bag press operator present (Girlfriend). Constitutional: General: He is not in acute distress. Appearance: He is not ill-appearing. Eyes: General: No scleral icterus. Extraocular Movements: Extraocular movements intact. Conjunctiva/sclera: Conjunctivae normal. Cardiovascular: Rate and Rhythm: Normal rate and regular rhythm. Pulses: Normal pulses. Heart sounds: Normal heart sounds. No murmur heard. Pulmonary: Effort: Pulmonary effort is normal. No respiratory distress. Breath sounds: Normal breath sounds. No wheezing, rhonchi or rales. Musculoskeletal: Cervical back: Neck supple. Skin: Findings: Rash (Red plaque on the right flank very suspicious for herpes zoster) present. Neurological: General: No focal deficit present. Mental Status: He is alert and oriented to person, place, and time. Cranial Nerves: Cranial nerves 2-12 are intact. Gait: Gait is intact. Psychiatric: Mood and Affect: Mood normal. Behavior: Behavior normal. Thought Content: Thought content normal. Judgment: Judgment normal. Assessment/Plan Nubia was seen today for controlled medications. Diagnoses and all orders for this visit: Cervical radiculopathy - Drug Screen, Urine; Future - Tramadol and Metabolite, U; Future - valACYclovir (VALTREX) 1000 mg tablet; Take 1 tablet (1,000 mg total) by mouth 3 (three) times a day for 7 days. Continue tramadol for treatment of cervical radiculopathy. He was told he needed to have the EMG done to correctly diagnose the problem and see if he needs to see the neurosurgeon or orthopedist. Neurosurgeon could also take care of cubital tunnel syndrome. He is using high risk medication with benefit. Consider using gabapentin. Paresthesia of right arm - valACYclovir (VALTREX) 1000 mg tablet; Take 1 tablet (1,000 mg total) by mouth 3 (three) times a day for 7 days. Get EMG done. Herpes zoster without complication He went to the emergency room couple days prior to the outbreak of this rash which said it looked like a burn or a blister. Probably is shingles. Will treat with Valtrex 1 g 3 times a day for 7 days. Can use tramadol as needed for pain. I encouraged him get his shingles vaccine in 2 weeks. documented in this encounter [facility] 05-03-2024 Miscellaneous Notes I ordered an EMG last month on his right arm. Has he had it yet? documented in this encounter [facility] 05-03-2024 Telephone encounter Note I ordered an EMG last month on his right arm. Has he had it yet? [facility] 04-03-2024 History of Presen t illness Narrative Subjective Patient ID: Nubia Varela is a 59 y.o. male. Nubia presents today for recheck of his neck and arm pain. Still has numbness and tingling at times in his left arm. He had a cubital tunnel release a few months ago. He has now getting the same symptoms in his right arm. Both his pinky and index finger have numbness, tingling and pain. He is using tramadol about 3 a day. It is providing benefit. He is able to do ADLs as his pain is improved. It is improving his quality of life. He does not have any side effects with it. He would like to continue it. He is also taking Celebrex twice a day as well as cyclobenzaprine. He also gets sharp shooting pain when he puts his elbow on a table. He is also having heartburn since we stopped his PPI. I did remind him why we stopped it due to the risks and he agrees not to restart it but would like something for his heartburn. Also has migraine headaches have returned. He used to take a monthly injection to prevent them but his insurance would no longer cover it. We he used to take Imitrex and that worked well. I discussed with him the newer medications that are available for migraines that do not have cardiovascular risk but he says his insurance does not cover them. He had a colonoscopy and had 12 polyps removed. The surgeon recommended that he check him in 1 year with a colonoscopy. The following portions of the patient's history were reviewed and updated as appropriate: allergies, current medications, past family history, past medical history, past social history, past surgical history, problem list, and medication reconciliation was completed including current medication and post discharge medication. Review of Systems Constitutional: Negative. Respiratory: Negative. Cardiovascular: Negative. Gastrointestinal: Positive for abdominal pain (Heartburn). Musculoskeletal: Positive for neck pain. Neurological: Positive for numbness and headaches. Psychiatric/Behavioral: Negative. Objective Physical Exam Constitutional: General: He is not in acute distress. Appearance: He is normal weight. HENT: Head: Normocephalic. Cardiovascular: Rate and Rhythm: Normal rate and regular rhythm. Pulses: Normal pulses. Heart sounds: Normal heart sounds. No murmur heard. Pulmonary: Effort: Pulmonary effort is normal. No respiratory distress. Breath sounds: No wheezing, rhonchi or rales. Abdominal: General: Bowel sounds are normal. Palpations: Abdomen is soft. Tenderness: There is no abdominal tenderness. There is no guarding or rebound. Musculoskeletal: General: Tenderness present. Right elbow: Tenderness (Cubital tunnel) present. Neurological: General: No focal deficit present. Mental Status: He is alert and oriented to person, place, and time. Cranial Nerves: No cranial nerve deficit. Gait: Gait normal. Comments: + Tinel's sign at cubital tunnel Psychiatric: Mood and Affect: Mood normal. Behavior: Behavior normal. Thought Content: Thought content normal. Judgment: Judgment normal. Assessment/Plan Nubia was seen today for controlled substance. Diagnoses and all orders for this visit: Paresthesia of right arm - EMG; Future I suspect that he is cubital tunnel syndrome on his right arm. Could also have cervical radiculopathy so check an EMG to confirm. May need to the orthopedist again or neurosurgeon. He is using tramadol 3 a day with benefit. It is improving his quality of life and allowing him to do ADLs more easily. He does not have any side effects. We will continue medication as well as Celebrex and cyclobenzaprine. Gastroesophageal reflux disease, unspecified whether esophagitis present We discussed long-term use of PPIs versus H2 blockers. We will try Pepcid 20 mg twice a day. Try to avoid smoking as that will aggravate occurred. Cigarette smoker He was encouraged to quit. Less than 3 minute spent discussing Other migraine without status migrainosus, not intractable He is used Imitrex in the past with benefit. It is not as safe as the newer agents but he said that his insurance will not cover them. We will renew Imitrex for now. Other orders - famotidine (PEPCID) 20 mg tablet; Take 1 tablet (20 mg total) by mouth in the morning and 1 tablet (20 mg total) before bedtime. - Discontinue: SUMAtriptan (IMITREX) 100 mg tablet; Take 1 tablet (100 mg total) by mouth once as needed for migraine (max 2/day) for up to 90 doses. May repeat in 2 hours if unresolved. Do not exceed 200 mg in 24 hours. documented in this encounter [facility] 02-14-2024 Miscellaneous Notes ----- Message from Roma Monk DO sent at 02/14/2024 7:05 AM EDT ----- Please let patient know that he had multiple polyps removed and they are benign and I recommend recheck colonoscopy in 1 year due to the number of polyps. Please put him on recall list for 1 year. Thanks, Dr. Powell Spoke with patient regarding pathology results. Patient verbally understood with no further questions. Recall to be put in chart. documented in this encounter [facility] 02-14-2024 Telephone encounter Note ----- Message from Roma Monk DO sent at 02/14/2024 7:05 AM EDT ----- Please let patient know that he had multiple polyps removed and they are benign and I recommend recheck colonoscopy in 1 year due to the number of polyps. Please put him on recall list for 1 year. ThanksDr. Powell [facility] 02-14-2024 Telephone encounter Note Spoke with patient regarding pathology results. Patient verbally understood with no further questions. Recall to be put in chart. [facility] 01-21-2024 Miscellaneous Notes Was previously sent in documented in this encounter [facility] 01-21-2024 Telephone encounter Note Was previously sent in [facility] 01-14-2024 History of Presen t illness Narrative Images from the original note were not included. Chief Complaint: Colon cancer screening History of Present Illness Nubia Varela is a 58 y.o. male who presents to the office for colon cancer screening. It has been at least 10 years since his last colonoscopy. He denies any changes in his bowels including diarrhea, constipation, abdominal pain, melena, hematochezia, unexplained weight loss. He states it takes him 2 hours to have a bowel movement. There is a family history of rectal cancer in his brother, diagnosed when he was 62 years old. There is a family history of stomach cancer in his father and sister. His brother had esophageal cancer. He reports gastroesophageal reflux. He was previously on a PPI, but no longer takes one. He drinks 4 pots of coffee daily. He does not drink any water. He smokes 3 packs of cigarettes daily. I think it would be a good idea for him to have an EGD as well, patient declined. He states he is not having any problems and he will call back to schedule this at a later date if he wishes. Review of Systems Constitutional: Negative for fever and unexpected weight change. HENT: Negative for trouble swallowing. Respiratory: Negative for shortness of breath. Cardiovascular: Negative for chest pain. Gastrointestinal: Negative for nausea, vomiting, abdominal pain, diarrhea, constipation, blood in stool and black tarry stool. Genitourinary: Negative for dysuria and difficulty urinating. Musculoskeletal: Negative for gait problem. Skin: Negative for rash and wound. Neurological: Negative for dizziness, weakness and light-headedness. Hematological: Does not bruise/bleed easily. Psychiatric/Behavioral: Negative for confusion. Past Medical History: Diagnosis Date Back pain COPD (chronic obstructive pulmonary disease) ([facility]) Hyperlipidemia Hypertension Parkinson disease ([facility]) Skin cancer Visual impairment Past Surgical History: Procedure Laterality Date SKIN BIOPSY Cancer on right side of nose SPINE SURGERY Cervical spine fusion TRANSPOSITION DECOMPRESSION NERVE ULNAR Left 09/24/2023 Performed by Leonard Wells DO at [facility] Allergies Allergen Reactions Carbidopa-Levodopa Other reaction(s): cant walk Fluticasone Propion-Salmeterol Other (See Comments) Racing heart Hydrocodone-Acetaminophen GI Disturbance Penicillins Hives Salonpas [Camphor-Methyl Salicyl-Menthol] Other (See Comments) Burnt really bad Ocbogpfgtr-Buctfflkrdqji-Uevb Itching and Rash Watermelon Rash Current Outpatient Medications: albuterol (PROVENTIL,VENTOLIN) 2.5 mg /3 mL (0.083 %) nebulizer solution, Inhale 3 mL (2.5 mg total) by nebulization every 4 (four) hours as needed for wheezing or shortness of breath., Disp: 75 mL, Rfl: 2 celecoxib (CeleBREX) 200 mg capsule, TAKE 1 CAPSULE BY MOUTH IN THE MORNING and ONE CAPSULE BY MOUTH BEFORE bedtime, Disp: 60 capsule, Rfl: 2 cyclobenzaprine (FLEXERIL) 10 mg tablet, TAKE 1 TABLET BY MOUTH THREE TIMES DAILY NEEDED, Disp: 60 tablet, Rfl: 5 metoprolol tartrate (LOPRESSOR) 25 mg tablet, TAKE 1 TABLET BY MOUTH TWICE DAILY, Disp: 60 tablet, Rfl: 5 montelukast (SINGULAIR) 10 mg tablet, take 1 tablet by mouth in the evening, Disp: 90 tablet, Rfl: 1 sildenafiL (VIAGRA) 50 mg tablet, Take 1 tablet (50 mg total) by mouth daily as needed., Disp: , Rfl: simvastatin (ZOCOR) 40 mg tablet, Take 1 tablet (40 mg total) by mouth nightly., Disp: 30 tablet, Rfl: 11 SYMBICORT 160-4.5 mcg/actuation inhaler, INHALE 2 PUFFS BY MOUTH TWICE DAILY, Disp: 10.2 g, Rfl: 5 traMADoL (ULTRAM) 50 mg tablet, TAKE 1 TABLET BY MOUTH EVERY 6 HOURS NEEDED FOR PAIN for up to 7 (SEVEN) days, Disp: 20 tablet, Rfl: 0 VENTOLIN HFA 90 mcg/actuation inhaler, INHALE 2 PUFFS BY MOUTH EVERY 4 HOURS NEEDED FOR WHEEZING, Disp: 18 g, Rfl: 5 sod sulf-pot chloride-mag sulf 1.479-0.188- 0.225 gram tablet, Please see instructional sheet given by physicians office., Disp: 24 tablet, Rfl: 0 Social History Socioeconomic History Marital status: Spouse name: Not on file Number of children: Not on file Years of education: Not on file Highest education level: Not on file Occupational History Not on file Tobacco Use Smoking status: Every Day Packs/day: 3.00 Years: 45.00 Additional pack years: 0.00 Total pack years: 135.00 Types: Cigarettes Smokeless tobacco: Never Vaping Use Vaping Use: Former Substances: Nicotine Substance and Sexual Activity Alcohol use: Not Currently Drug use: Never Sexual activity: Yes Partners: Female Other Topics Concern Not on file Social History Narrative Not on file Social Determinants of Health Financial Resource Strain: High Risk (07/13/2023) Overall Financial Resource Strain (CARDIA) Difficulty of Paying Living Expenses: Very hard Food Insecurity: No Food Insecurity (01/14/2024) Hunger Screening Food Insecurity - Worry: Never True Food Insecurity - Inability: Never True Recent Concern: Food Insecurity - Food Insecurity Present (12/30/2023) Hunger Screening Food Insecurity - Worry: Sometimes True Food Insecurity - Inability: Sometimes True Transportation Needs: Unmet Transportation Needs (07/13/2023) PRAPARE - Transportation Lack of Transportation (Medical): Yes Lack of Transportation (Non-Medical): Yes Physical Activity: Sufficiently Active (07/13/2023) Exercise Vital Sign Days of Exercise per Week: 7 days Minutes of Exercise per Session: 40 min Stress: Stress Concern Present (07/13/2023) [place] of Occupational Health - Occupational Stress Questionnaire Feeling of Stress : Very much Social Connections: Moderately Isolated (07/13/2023) Social Connection and Isolation Panel [NHANES] Frequency of Communication with Friends and Family: More than three times a week Frequency of Social Gatherings with Friends and Family: More than three times a week Attends Baptism Services: Never Active Member of Clubs or Organizations: No Attends Club or Organization Meetings: Never Marital Status: Living with partner Interpersonal Safety: Not At Risk (07/13/2023) Humiliation, Afraid, Rape, and Kick questionnaire Fear of Current or Ex-Partner: No Emotionally Abused: No Physically Abused: No Sexually Abused: No Housing Instability: Low Risk (07/13/2023) Housing Instability Housing Instability: No Family History Problem Relation Age of Onset Lung cancer Mother Stomach cancer Father Stomach cancer Sister from stomach cancer-62 Lung cancer Sister survived Ovarian cancer Sister survived COPD Brother Throat cancer Brother Rectal cancer Brother 62 Objective Physical Exam Constitutional: General: He is not in acute distress. Appearance: Normal appearance. He is not ill-appearing. HENT: Head: Normocephalic and atraumatic. Mouth/Throat: Mouth: Mucous membranes are moist. Eyes: Pupils: Pupils are equal, round, and reactive to light. Cardiovascular: Rate and Rhythm: Normal rate. Pulmonary: Effort: Pulmonary effort is normal. No respiratory distress. Abdominal: General: There is no distension. Palpations: Abdomen is soft. Musculoskeletal: General: Normal range of motion. Skin: General: Skin is warm and dry. Neurological: Mental Status: He is alert and oriented to person, place, and time. Mental status is at baseline. Vital Signs: Blood pressure 171/82, weight 70.7 kg (155 lb 12.8 oz). Respiratory Source: No data recorded Admission Weight: Weight: 70.7 kg (155 lb 12.8 oz) Labs Lab Results Component Value Date WBC 5.6 09/07/2023 HGB 14.5 09/07/2023 HCT 43.4 09/07/2023 MCV 90 09/07/2023 PLT 105 (L) 09/07/2023 Lab Results Component Value Date GLU 86 09/07/2023 CALCIUM 9.4 09/07/2023 K 4.4 09/07/2023 CO2 29 09/07/2023 CL 101 09/07/2023 BUN 11 09/07/2023 CREATININE 1.13 09/07/2023 No results found for: AMYLASE No results found for: LIPASE Lab Results Component Value Date ALT 6 09/07/2023 AST 19 09/07/2023 ALKPHOS 64 09/07/2023 No results found for: INR , PROTIME Assessment Screening colonoscopy Family history of rectal cancer in brother Plan Colonoscopy with possible biopsy and/or polypectomy. Risks, benefits, and alternatives discussed with patient. Educated on bowel evacuation preparation. Patient verbalizes understanding and wishes to proceed. Highly encouraged him to quit smoking and cut back on his caffeine intake. He needs to be drinking at least 64 oz of water daily, this will likely help him move his bowels easier. Evaluation included: Preparing to see the patient (e.g., review of tests) Obtaining and/or reviewing separately obtained history Performing a medically appropriate examination and/or evaluation Counseling and educating the patient/family/caregiver Referring and communicating with other health customer care associate Screen for colon cancer [Z12.11] MAURICE ARREDONDO [facility] Phys[facility] General Surgery [place] This note was created with the assistance of a speech recognition program. While intending to generate a timely document that accurately reflects the content of the visit, no guarantee can be provided that every grammatical or spelling mistake has been or will be identified or corrected. Thank you for your understanding. MAURICE Arredondo 01/14/24 1138 documented in this encounter [facility] 01-06-2024 Miscellaneous Notes Pt would like a refill on tramdol documented in this encounter [facility] 01-06-2024 Telephone encounter Note Pt would like a refill on tramdol [facility] 12-30-2023 History of Presen t illness Narrative Images from the original note were not included. Subjective Patient ID: Nubia Varela is a 58 y.o. male. Patient presents for recheck of neck and arm pain. He had surgery to release the ulnar nerve at the cubital tunnel. He is still having pain there when he rests his elbow on arm rests. Still gets numbness and tingling in his arm. Feels there is still something wrong with his neck. He is having low back pain. It started 2-3 weeks ago. He has pain down his left leg at times. There was no injury. We also discussed colon cancer screening. He said he had a colonoscopy done years ago by Dr. Monk. He does not know when the date was. I do not see any records in [facility] so it may have been over 10 years ago. He said he was having a rectal prolapse at the time. The following portions of the patient's history were reviewed and updated as appropriate: allergies, current medications, past family history, past medical history, past social history, past surgical history, problem list, and medication reconciliation was completed including current medication and post discharge medication. Review of Systems Objective Physical Exam Constitutional: General: He is not in acute distress. Appearance: He is normal weight. He is not ill-appearing. HENT: Head: Normocephalic. Cardiovascular: Rate and Rhythm: Normal rate and regular rhythm. Pulses: Normal pulses. Heart sounds: Normal heart sounds. No murmur heard. Pulmonary: Effort: Pulmonary effort is normal. Breath sounds: Decreased breath sounds present. Musculoskeletal: Lumbar back: Tenderness and bony tenderness present. No swelling, edema, deformity, signs of trauma, lacerations or spasms. Negative right straight leg raise test and negative left straight leg raise test. No scoliosis. Back: Skin: General: Skin is warm and dry. Neurological: General: No focal deficit present. Mental Status: He is alert. Cranial Nerves: Cranial nerves 2-12 are intact. Gait: Gait is intact. Deep Tendon Reflexes: Reflex Scores: Patellar reflexes are 2+ on the right side and 2+ on the left side. Achilles reflexes are 1+ on the right side and 1+ on the left side. Psychiatric: Attention and Perception: Attention normal. Mood and Affect: Mood and affect normal. Speech: Speech normal. Behavior: Behavior normal. Behavior is cooperative. Thought Content: Thought content normal. Cognition and Memory: Cognition normal. Assessment/Plan Nubia was seen today for controlled sub. Diagnoses and all orders for this visit: Chronic midline low back pain, unspecified whether sciatica present - X-ray spine lumbar 2 or 3 views; Future Will check x-ray of his low back. I did not see any records of any imaging in the last few years. May need further evaluation. Clinically no sign of sciatica other where reports left leg pain at times. Cervical radiculopathy - celecoxib (CeleBREX) 200 mg capsule; TAKE 1 CAPSULE BY MOUTH IN THE MORNING and ONE CAPSULE BY MOUTH BEFORE bedtime - traMADoL (ULTRAM) 50 mg tablet; TAKE 1 TABLET BY MOUTH EVERY 6 HOURS NEEDED FOR PAIN for up to 7 (SEVEN) days Renew Celebrex. Stressed the importance of taking that prior to the tramadol for optimal pain treatment. He is using high risk medication with benefit. He has not having any side effects. The MRI and EMG reports were again reviewed with the patient. Per the EMG there did not appear to be any cervical radiculopathy. Pain in his left arm still may be from his ulnar neuropathy. It may take up to a year for that to improve. He says his insurance does not cover tramadol and he had to pay several dollars for the last prescription. He asked about changing it to something else. The OARRS/MAPPS database was reviewed today and found to be appropriate. No indication of medication diversion, or non compliance. Screen for colon cancer - Ambulatory referral to General Surgery; Future We discussed checking for colon cancer. He had a brother that had rectal cancer so he should have a colonoscopy every 5 years. I do not see any records in [place] at all so he is probably overdue. I will send a referral over to the surgeon who did his previous colonoscopy. Cubital tunnel syndrome on left Likely still has residual symptoms and needs to give it more time. Neck pain, chronic Reviewed his MRI and neurosurgical consult. There appeared to be spondylosis there with multiple levels of neural foraminal narrowing although the EMG did not reveal any neuropathy. I would favor giving it more time. I did discuss sending him to pain management but he refused. He said he had shots in the past and it did not work. Cigarette smoker He refuses low-dose CT scan and assistance to help quit smoking. At least 3 minute spent discussing risks of smoking and benefits of quitting. documented in this encounter [facility] 11-26-2023 Miscellaneous Notes He is way overdue for controlled substance visit. Please set up Overdue for appointment LM ON VM LM on VM Attempted contact twice sending letter documented in this encounter [facility] 11-26-2023 Telephone encounter Note He is way overdue for controlled substance visit. Please set up [facility] [place] [facility] 11-26-2023 Telephone encounter Note Overdue for appointment [facility] [place] [facility] 11-26-2023 Telephone encounter Note LM ON VM [facility] [place] [facility] 11-26-2023 Telephone encounter Note LM on VM [facility] [place] [facility] 11-26-2023 Telephone encounter Note Attempted contact twice sending letter [facility] [facility] 07-26-2023 Evaluation note Encounter Date Diagnosis Assessment Notes Jul, Brachial plexopathy (ICD-10 - G54.0) [employer] [facility] Other 06-21-2023 Evaluation note* Encounter Date Diagnosis Assessment Notes Treatment Notes Treatment Clinical Notes Mar, Brachial plexopathy (ICD-10 - G54.0) [employer] Other 11-22-2022 Hospital Discharge instructions Patient Education 09/01/2022 14:30:05 Chronic Pain, Adult Chronic Pain, Adult Chronic pain is a type of pain that lasts or keeps coming back (recurs) for at least six months. You may have chronic headaches, abdominal pain, or body pain. Chronic pain may be related to an illness, such as fibromyalgia or complex regional pain syndrome. Sometimes the cause of chronic pain is not known. Chronic pain can make it hard for you to do daily activities. If not treated, chronic pain can leadto other health problems, including anxiety and depression. Treatment depends on the cause and severity of your pain. You may need to work with a pain specialist to come up with a treatment plan. Theplan may include medicine, counseling, and physical therapy. Many people benefit from a combinationof two or more types of treatment to control their pain. Follow these instructions at home: Lifestyle Consider keeping a pain diary to share with your health care providers. Consider talking with a mental health care provider (psychologist) about how to cope with chronic pain. Consider joining a chronic pain support group. Try to control or lower your stress levels. Talk to your health care provider about strategies to do this. General instructions Take xanu-yoc-vumdvjm and prescription medicines only as told by your health care provider. Follow your treatment plan as told by your health care provider. This may include: ?Gentle, regular exercise. ?Eating a healthy diet that includes foods such as vegetables, fruits, fish, and lean meats. ?Cognitive or behavioral therapy. ?Working with a physical therapist. ?Meditation or yoga. ?Acupuncture or massage therapy. ?Aroma, color, light, or sound therapy. ?Local electrical stimulation. ?Shots (injections) of numbing or pain-relieving medicines into the spine or the area of pain. Check your pain level as told by your health care provider. Ask your health care provider if you should use a pain scale. Learn as much as you can about how to manage your chronic pain. Ask your health care provider if anintensive pain rehabilitation program or a chronic pain specialist would be helpful. Keep all follow-up visits as told by your health care provider. This is important. Contact a health care provider if: Your pain gets worse. You have new pain. You have trouble sleeping. You have trouble doing your normal activities. Your pain is not controlled with treatment. Your have side effects from pain medicine. You feel weak. Get help right away if: You lose feeling or have numbness in your body. You lose control of bowel or bladder function. Your pain suddenly gets much worse. You develop shaking or chills. You develop confusion. You develop chest pain. You have trouble breathing or shortness of breath. You pass out. You have thoughts about hurting yourself or others. This information is not intended to replace advice given to you by your health care provider. Make sure you discuss any questions you have with your health care provider. Document Released: 06/19/2003 Document Revised: 09/09/2018 Document Reviewed: 03/16/2017 [employer] Patient Education 2020 [facility]. Follow Up Care 09/01/2022 13:05:53 With:ANEESH RICHMOND Address: [address] [place], [place] [address] [address] Business (1) When:09/04/2022 14:29:57 [facility]11-22-2022 Evaluation + Plan noteExtracted from: Title:ED Note Author:Jourdan Reeves PA-C Artis e:09/01/22 Left shoulder pain (M25.512: Pain in left shoulder) Neck pain on left side (M54.2: Cervicalgia) Orders: acetaminophen-hydrocodone, 1 tab(s), Oral, q4hr for pain, 12 tab(s), Refill(s) 0, [employer] #72, 168, cm, 09/01/22 13:11:00 EST, Height/Length Dosing, 65, kg, 09/01/22 13:11:00 EST, Weight Dosing acetaminophen-oxycodone, 1 tab(s), Tab, Oral, Once, Stop date 09/01/22 14:18:00 EST, STAT, Start date 09/01/22 14:18:00 EST XR Shoulder Complete Left [facility]11-04-2022 Hospital Discharge instructions Patient Education 08/14/2022 16:29:57 Chronic Pain, Adult Chronic Pain, Adult Chronic pain is a type of pain that lasts or keeps coming back (recurs) for at least six months. You may have chronic headaches, abdominal pain, or body pain. Chronic pain may be related to an illness, such as fibromyalgia or complex regional pain syndrome. Sometimes the cause of chronic pain is not known. Chronic pain can make it hard for you to do daily activities. If not treated, chronic pain can leadto other health problems, including anxiety and depression. Treatment depends on the cause and severity of your pain. You may need to work with a pain specialist to come up with a treatment plan. Theplan may include medicine, counseling, and physical therapy. Many people benefit from a combinationof two or more types of treatment to control their pain. Follow these instructions at home: Lifestyle Consider keeping a pain diary to share with your health care providers. Consider talking with a mental health care provider (psychologist) about how to cope with chronic pain. Consider joining a chronic pain support group. Try to control or lower your stress levels. Talk to your health care provider about strategies to do this. General instructions Take pyzk-twi-kptrzhx and prescription medicines only as told by your health care provider. Follow your treatment plan as told by your health care provider. This may include: ?Gentle, regular exercise. ?Eating a healthy diet that includes foods such as vegetables, fruits, fish, and lean meats. ?Cognitive or behavioral therapy. ?Working with a physical therapist. ?Meditation or yoga. ?Acupuncture or massage therapy. ?Aroma, color, light, or sound therapy. ?Local electrical stimulation. ?Shots (injections) of numbing or pain-relieving medicines into the spine or the area of pain. Check your pain level as told by your health care provider. Ask your health care provider if you should use a pain scale. Learn as much as you can about how to manage your chronic pain. Ask your health care provider if anintensive pain rehabilitation program or a chronic pain specialist would be helpful. Keep all follow-up visits as told by your health care provider. This is important. Contact a health care provider if: Your pain gets worse. You have new pain. You have trouble sleeping. You have trouble doing your normal activities. Your pain is not controlled with treatment. Your have side effects from pain medicine. You feel weak. Get help right away if: You lose feeling or have numbness in your body. You lose control of bowel or bladder function. Your pain suddenly gets much worse. You develop shaking or chills. You develop confusion. You develop chest pain. You have trouble breathing or shortness of breath. You pass out. You have thoughts about hurting yourself or others. This information is not intended to replace advice given to you by your health care provider. Make sure you discuss any questions you have with your health care provider. Document Released: 06/19/2003 Document Revised: 09/09/2018 Document Reviewed: 03/16/2017 [employer] Patient Education 2020 [facility]. 08/14/2022 16:29:57 Cervical Radiculopathy, [id number] Cervical Radiculopathy Cervical radiculopathy means that a nerve in the neck (a cervical nerve) is pinched or bruised. This can happen because of an injury to the cervical spine (vertebrae) in the neck, or as a normal partof getting older. This can cause pain or loss of feeling (numbness) that runs from your neck all the way down to your arm and fingers. Often, this condition gets better with rest. Treatment may be needed if the condition does not get better. What are the causes? A neck injury. A bulging disk in your spine. Muscle movements that you cannot control (muscle spasms). Tight muscles in your neck due to overuse. Arthritis. Breakdown in the bones and joints of the spine (spondylosis) due to getting older. Bone spurs that form near the nerves in the neck. What are the signs or symptoms? Pain. The pain may: ?Run from the neck to the arm and hand. ?Be very bad or irritating. ?Be worse when you move your neck. Loss of feeling or tingling in your arm or hand. Weakness in your arm or hand, in very bad cases. How is this treated? In many cases, treatment is not needed for this condition. With rest, the condition often gets better over time. If treatment is needed, options may include: Wearing a soft neck collar (cervical collar) for short periods of time, as told by your doctor. Doing exercises (physical therapy) to strengthen your neck muscles. Taking medicines. Having shots (injections) in your spine, in very bad cases. Having surgery. This may be needed if other treatments do not help. The type of surgery that is used depends on the cause of your condition. Follow these instructions at home: If you have a soft neck collar: Wear it as told by your doctor. Remove it only as told by your doctor. Ask your doctor if you can remove the collar for cleaning and bathing. If you are allowed to removethe collar for cleaning or bathing: ?Follow instructions from your doctor about how to remove the collar safely. ?Clean the collar by wiping it with mild soap and water and drying it completely. ?Take out any removable pads in the collar every 1 2 days. Wash them by hand with soap and water. Let them air-dry completely before you put them back in the collar. ?Check your skin under the collar for redness or sores. If you see any, tell your doctor. Managing pain Take pnvm-pdt-wzvhyxa and prescription medicines only as told by your doctor. If told, put ice on the painful area. ?If you have a soft neck collar, remove it as told by your doctor. ?Put ice in a plastic bag. ?Place a towel between your skin and the bag. ?Leave the ice on for 20 minutes, 2 3 times a day. If using ice does not help, you can try using heat. Use the heat source that your doctor recommends, such as a moist heat pack or a heating pad. ?Place a towel between your skin and the heat source. ?Leave the heat on for 20 30 minutes. ?Remove the heat if your skin turns bright red. This is very important if you are unable to feel pain, heat, or cold. You may have a greater risk of getting burned. You may try a gentle neck and shoulder rub (massage). Activity Rest as needed. Return to your normal activities as told by your doctor. Ask your doctor what activities are safe for you. Do exercises as told by your doctor or physical therapist. Do not lift anything that is heavier than 10 lb (4.5 kg) until your doctor tells you that it is safe. General instructions Use a flat pillow when you sleep. Do not drive while wearing a soft neck collar. If you do not have a soft neck collar, ask your doctor if it is safe to drive while your neck heals. Ask your doctor if the medicine prescribed to you requires you to avoid driving or using heavy machinery. Do not use any products that contain nicotine or tobacco, such as cigarettes, e- cigarettes, and chewing tobacco. These can delay healing. If you need help quitting, ask your doctor. Keep all follow-up visits as told by your doctor. This is important. Contact a doctor if: Your condition does not get better with treatment. Get help right away if: Your pain gets worse and is not helped with medicine. You lose feeling or feel weak in your hand, arm, face, or leg. You have a high fever. You have a stiff neck. You cannot control when you poop or pee (have incontinence). You have trouble with walking, balance, or talking. Summary Cervical radiculopathy means that a nerve in the neck is pinched or bruised. A nerve can get pinched from a bulging disk, arthritis, an injury to the neck, or other causes. Symptoms include pain, tingling, or loss of feeling that goes from the neck into the arm or hand. Weakness in your arm or hand can happen in very bad cases. Treatment may include resting, wearing a soft neck collar, and doing exercises. You might need to take medicines for pain. In very bad cases, shots or surgery may be needed. This information is not intended to replace advice given to you by your health care provider. Make sure you discuss any questions you have with your health care provider. Document Released: 09/15/2012 Document Revised: 08/18/2019 Document Reviewed: 08/18/2019 [employer] Patient Education [employer]. Follow Up Care 08/14/2022 14:42:47 With:Alejandro Landon Address: [address] [place] [address]- Business (1) When:08/17/2022 16:26:13 Comments:May follow-up with Dr. Landon for further evaluation of your chronic neck pain. With:ANEESH RICHMOND Address: [address] [place] [address] Business (1) When:08/17/2022 16:25:51 Comments:Follow-up with your primary care provider in 3 to 5 days. If symptoms worsen, do not improve, or new symptoms arise please report back to emergency department for further evaluation. [facility]11-04-2022 Evaluation + Plan noteExtracted from: Title:ED Note Author:Darci ALVA, Yovanny Lynch te:08/14/22 Chronic neck pain (M54.2: Ce rvicalgia) Neuropathy, cervical (radicular) (M54.12: Radiculopathy, cervical region) Other chronic pain (G89.29: Other chronic pain) Orders: acetaminophen-oxycodone, 1 tab(s), Tab, Oral, Once, Stop date 08/14/22 15:01:00 EDT, STAT, Start date 08/14/22 15:01:00 EDT acetaminophen-oxycodone, 1 tab(s), Oral, q6hr for 3 day(s), 18 tab(s), Refill(s) 0, InHiro #72, 168, cm, 08/14/22 14:46:00 EDT, Height/Length Dosing, 65, kg, 08/14/22 14:46:00 EDT, Weight Dosing CT Spine Cervical w/o Contrast [facility]08-19-2022 NotePROCEDURE: XR KNEE STEPHANIE 3 V HISTORY: Pain of left knee joint ; bilateral knee pain for 6 months COMPARISON: Comparison XR knee bilateral 07/01/2021 FINDINGS: BONES:No fracture, acute abnormality, or significant arthropathy. SOFT TISSUES:Small metallic fragment within the soft tissues at the superior margin of the patella, unchanged. EFFUSION:None visible. OTHER: Negative. IMPRESSION: 1. No acute bone abnormality or significant degenerative changes of the knees. Electronically authenticated by: WENDY PERLA Date: 2022-05-29 17:44[facility] note* Diagnosis Pure [facility]cholesterolemia [facility] Well adult health check- Primary Unspecified general medical examination Paresthesia of right arm Disturbance of skin sensation Primary hypertension Unspecified essential hypertension Pulmonary emphysema, unspecified emphysema type ([facility]) Sebaceous cyst Cervical spinal stenosis Spinal stenosis in cervical region [facility] Diagnosis Cervical radiculopathy Brachial neuritis or radiculitis nos [facility] Diagnosis Cervical radiculopathy Brachial neuritis or radiculitis nos [facility] Diagnosis Cervical radiculopathy Brachial neuritis or radiculitis nos [facility] Diagnosis Cervical radiculopathy Brachial neuritis or radiculitis nos [facility] Diagnosis Cervical radiculopathy Brachial neuritis or radiculitis nos Screen for colon cancer Special screening for malignant neoplasms, colon [facility] Diagnosis Cervical radiculopathy Brachial neuritis or radiculitis nos [facility]* Diagnosis Cervical radiculopathy Brachial neuritis or radiculitis nos [facility]* Diagnosis Pure hypercholesterolemia documented [facility]* Diagnosis Cervical radiculopathy Brachial neuritis or radiculitis nos Pure hypercholesterolemia [facility]* Diagnosis Paresthesia of right arm- Primary Disturbance of skin sensation Gastroesophageal reflux disease, unspecified whether esophagitis present Cigarette smoker Tobacco use disorder Other migraine without status migrainosus, not intractable [facility]* Diagnosis Essential (primary) hypertension Unspecified essential hypertension Cervical radiculopathy Brachial neuritis or radiculitis nos Chronic obstructive pulmonary disease, unspecified (CMS-HCC) [facility] Diagnosis Cervical radiculopathy- Primary Brachial neuritis or radiculitis nos Chronic midline low back pain, unspecified whether sciatica present Screen for colon cancer Special screening for malignant neoplasms, colon Cubital tunnel syndrome on left Neck pain, chronic Cigarette smoker Tobacco use disorder [facility] Diagnosis Hyperlipidemia, unspecified Unspecified asthma, uncomplicated [facility]* Diagnosis Cervical radiculopathy Brachial neuritis or radiculitis nos [facility]* Diagnosis Screen for colon cancer- Primary Special screening for malignant neoplasms, colon Family history of rectal cancer Family history of stomach cancer Family history of malignant neoplasm of gastrointestinal tract [facility]* Diagnosis Cervical radiculopathy Brachial neuritis or radiculitis nos Screen for colon cancer Special screening for malignant neoplasms, colon [facility]* Diagnosis Cervical radiculopathy Brachial neuritis or radiculitis nos Screen for colon cancer Special screening for malignant neoplasms, colon documented [facility]* Diagnosis Cervical radiculopathy Brachial neuritis or radiculitis nos Screen for colon cancer Special screening for malignant neoplasms, colon [facility]* Diagnosis Unspecified asthma, uncomplicated [facility]* Diagnosis Cervical radiculopathy- Primary Brachial neuritis or radiculitis nos Paresthesia of right arm Disturbance of skin sensation Herpes zoster without complication [facility]* Diagnosis Cervical radiculopathy Brachial neuritis or radiculitis nos documented [facility]* Diagnosis Essential (primary) hypertension Unspecified essential hypertension Chronic obstructive pulmonary disease, unspecified (CMS-HCC) [facility]* Diagnosis Unspecified asthma, uncomplicated [facility]* Diagnosis Cervical radiculopathy- Primary Brachial neuritis or radiculitis nos Erectile dysfunction, unspecified erectile dysfunction type Pulmonary emphysema, unspecified emphysema type (CMS-HCC) Primary hypertension Unspecified essential hypertension [facility]* Diagnosis Cervical radiculopathy Brachial neuritis or radiculitis nos documented [facility]* Diagnosis Cervical radiculopathy Brachial neuritis or radiculitis nos documented [facility]* Diagnosis Essential (primary) hypertension Unspecified essential hypertension Chronic obstructive pulmonary disease, unspecified (CMS-HCC) Cervical radiculopathy Brachial neuritis or radiculitis nos documented [facility]* Diagnosis Cervical radiculopathy- Primary Brachial neuritis or radiculitis nos Cigarette smoker Tobacco use disorder Pulmonary emphysema, unspecified emphysema type (CMS-HCC) Primary hypertension Unspecified essential hypertension documented [facility]* Diagnosis Cervical radiculopathy Brachial neuritis or radiculitis nos documented in [facility]* Diagnosis Cervical radiculopathy Brachial neuritis or radiculitis nos documented [facility]* Diagnosis Unspecified asthma, uncomplicated Pulmonary emphysema, unspecified emphysema type ([facility]) Cervical radiculopathy Brachial neuritis or radiculitis nos [facility] - [facility]orted* Type Description Date Medical History shoulder pain Medical History COPD Medical History hyperlipidemia Medical History Esophageal reflux Medical History parkinsons disease Medical History basal cell carcinoma Surgical History RECTAL PROLAPSE 2009 Surgical History NECK FUSION Surgical History colonoscopy Surgical History cancer Hospitalization History see above [employer] Other Hospital course Narrative No data available for this section [facility] filedocument[facility] in this [facility] filedocumented in this [facility] filedocumented in this encounter [facility] filedocumented in this encounter [facility] filedocumented in this encounter [facility] filedocumented in this encounter [facility] filedocumented in this encounter [facility] filedocumented in this encounter [facility] filedocumented in this encounter [facility] filedocumented in this encounter [facility] filedocumented in this encounter [facility] on filedocumented in this encounter [facility] filedocumented in this encounter [facility] filedocumented in this encounter [facility] on filedocumented in this encounter [facility] No data available for this section [facility] Consultation (Routine) - Pending Review Specialty Diagnoses / Procedures Referred By Karen wilson Referred To Contact General Surgery Diagnoses Screen for colon cancer Aneesh Richmond DO [address] [facility] [address] Roma Monk DO [address] [place] [address] Referral ID Status Reason Start Date Expiration Date Visits Requested Visits Authorized [id number] Pending Review Specialty Services Required 12/30/2023 12/29/2024 1 1 [facility] Summary Purpose Family History No Family History Records FoundNo Family History Records FoundNo Family History Records FoundNo Family History Records FoundNo Family History Records FoundNo Family History Records FoundNo Family History Records Found Advance Directives No Advanced Directives Records FoundNo Advanced Directives Records FoundNo Advanced Directives Records FoundNo Advanced Directives Records FoundNo Advanced Directives Records FoundNo Advanced Directives Records FoundNo Advanced Directives Records Found Additional Source Comments (unrecognized sect ion and content) No Status Records FoundNo Status Records FoundNo Status Records FoundNo Status Records FoundNo Status Records FoundNo Status Records FoundNo Status Records Found INFORMATION SOURCE (unrecogn ized section and content) DATE CREATED AUTHOR 04/01/2022 [facility] DATE CREATED AUTHOR AUTHOR'S ORGANIZ ATION 09/02/2022 [facility] DATE CREATED AUTHOR AUTHOR'S ORGANIZ ATION 02/22/2023 [facility] DATE CREATED AUTHOR AUTHOR'S ORGANIZ ATION 02/12/2024 [facility] DATE CREATED AUTHOR AUTHOR'S ORGANIZ ATION 10/02/2024 [facility] DATE CREATED AUTHOR AUTHOR'S ORGANIZ ATION 01/04/2025 [facility] DATE CREATED AUTHOR AUTHOR'S ORGANIZ ATION 04/10/2025 [facility] Patient Care team informatio n (unrecognized section and content) Director Of Cloud Services Relationship Specialty Start Date End Date Aneesh Richmond DO [address], [facility] [place] [id number] PCP - General Family Medicine 07/16/22 Director Of Cloud Services Relationship Specialty Start Date End Date Aneesh Richmond DO [address] [place] [address] PCP - General Family Medicine 07/16/22 Director Of Cloud Services Relationship Specialty Start Date End Date Aneesh Richmond DO [address], [place] [address] PCP - General Family Medicine 07/16/22 Director Of Cloud Services Relationship Specialty Start Date End Date ElizabethjesúsAneesh encarnacion DO [address], [place] [address] PCP - General Family Medicine 07/16/22 Director Of Cloud Services Relationship Specialty Start Date End Date ElizabethjesúsAneesh encarnacion DO [address], [place] [address] PCP - General Family Medicine 07/16/22 Director Of Cloud Services Relationship Specialty Start Date End Date ElizabethjesúsAneesh encarnacion DO [address], [place] [address] PCP - General Family Medicine 07/16/22 Director Of Cloud Services Relationship Specialty Start Date End Date ElizabethjesúsAneesh encarnacion DO [address], [place] [address] PCP - General Family Medicine 07/16/22 Director Of Cloud Services Relationship Specialty Start Date End Date ElizabethjesúsAneesh encarnacion DO [address], [place] [address] PCP - General Family Medicine 07/16/22 Director Of Cloud Services Relationship Specialty Start Date End Date YiAneesh [address], [place] [address] PCP - General Family Medicine 07/16/22 Director Of Cloud Services Relationship Specialty Start Date End Date Aneesh Richmond DO [address], [place] [address] PCP - General Family Medicine 07/16/22 Director Of Cloud Services Relationship Specialty Start Date End Date Aneesh Richmond DO [address] [place] [address] PCP - General Family Medicine 07/16/22 Director Of Cloud Services Relationship Specialty Start Date End Date Aneesh Richmond DO [address], [place] [address] PCP - General Family Medicine 07/16/22 Director Of Cloud Services Relationship Specialty Start Date End Date Aneesh Richmond DO [address] [place] [address] PCP - General Family Medicine 07/16/22 Director Of Cloud Services Relationship Specialty Start Date End Date Aneesh Richmond DO [address] [place] [address] PCP - General Family Medicine 07/16/22 Director Of Cloud Services Relationship Specialty Start Date End Date Aneesh Richmond DO [address] [place] [address] PCP - General Family Medicine 07/16/22 Director Of Cloud Services Relationship Specialty Start Date End Date Aneesh Richmond DO [address], [place] [address] PCP - General Family Medicine 07/16/22 Director Of Cloud Services Relationship Specialty Start Date End Date Aneesh Richmond DO [address], [place] [address] PCP - General Family Medicine 07/16/22 Director Of Cloud Services Relationship Specialty Start Date End Date Aneesh Richmond DO [address], [place] [address] PCP - General Family Medicine 07/16/22 Director Of Cloud Services Relationship Specialty Start Date End Date Aneesh Richmond DO [address], [place] [address] PCP - General Family Medicine 07/16/22 REASON FOR VISIT (unrecogniz ed section and content) Reason Comments Med Refill Reason Comments Annual Exam Reason Onset Date Comments Med Refill 10/03/2024 Reason Onset Date Comments Med Refill 10/18/2024 Reason Onset Date Comments Med Refill 11/07/2024 Reason Onset Date Comments Med Refill 11/16/2024 Reason Onset Date Comments Med Refill 01/30/2024 Reason Onset Date Comments Med Refill 02/09/2024 Reason Onset Date Comments Med Refill 11/23/2024 Reason Onset Date Comments Med Refill 03/13/2024 Reason Onset Date Comments Med Refill 02/20/2024 Reason Onset Date Comments Med Refill 02/27/2024 Reason Onset Date Comments Med Refill 03/08/2024 Reason Onset Date Comments Med Refill 03/05/2024 Reason Onset Date Comments Med Refill 03/27/2024 Reason Comments Controlled Substance Reason Onset Date Comments Med Refill 11/26/2023 Reason Comments controlled sub Reason Comments Colon Cancer Screening Screening colonos copy Specialty Diagnoses / Procedures Referred By Karen wilson Referred To Contact General Surgery Diagnoses Screen for colon cancer Aneesh Richmond, DO [address] [facility] [address] Roma Monk, DO [address] [place] [address] Referral ID Status Reason Start Date Expiration Date V isits Requested Visits Authorized [id number] Closed Specialty Services Required 12/30/2023 12/29/2024 1 1 Reason Onset Date Comments Med Refill 01/22/2024 Reason Onset Date Comments Med Refill 01/25/2024 Reason Onset Date Comments Med Refill 07/20/2024 Reason Comments controlled medications Right sided pain in the ribs Reason Onset Date Comments Med Refill 07/29/2024 Reason Onset Date Comments Med Refill 09/18/2024 Reason Onset Date Comments Med Refill 11/29/2024 Reason Onset Date Comments Med Refill 12/07/2024 Reason Onset Date Comments Med Refill 12/14/2024 Reason Onset Date Comments Med Refill 12/21/2024 Reason Onset Date Comments Med Refill 01/02/2025 Reason Comments controlled medication check Reason Onset Date Comments Med Refill 01/09/2025 Reason Onset Date Comments Med Refill 01/15/2025 Reason Onset Date Comments Med Refill 01/22/2025 Reason Onset Date Comments Med Refill 2025 Reason Onset Date Comments Med Refill 02/04/2025 Reason Onset Date Comments Med Refill 02/11/2025 Reason Onset Date Comments Med Refill 02/18/2025 Reason Onset Date Comments Med Refill 02/26/2025 Reason Onset Date Comments Med Refill 03/05/2025 Reason Onset Date Comments Med Refill 03/06/2025 Reason Onset Date Comments Med Refill 03/19/2025 Reason Onset Date Comments Med Refill 03/12/2025 Reason Onset Date Comments Med Refill 03/26/2025 Reason Onset Date Comments Med Refill 04/02/2025 Reason Comments controlled substance Reason Onset Date Comments Med Refill 04/15/2025 Reason Onset Date Comments Med Refill 05/04/2025 Reason Onset Date Comments Med Refill 05/16/2025 Reason Onset Date Comments Med Refill 06/16/2025 Reason Onset Date Comments Med Refill 06/21/2025 Reason Onset Date Comments Med Refill 07/02/2025 FOR RECORDS PERTAINING TO PATIENTS WHO ARE OR HAVE BEEN ENROLLED IN A CHEMICAL DEPENDENCY/SUBSTANCEABUSE PROGRAM, SOME INFORMATION MAY BE OMITTED. This clinical summary was aggregated from multiple sources. Caution should be exercised in using it in the provision of clinical care. This summary normalizes information from multiple sources, and as a consequence, information in this document may materially change the coding, format and clinical context of patient data. In addition, data may be omitted in some cases. CLINICAL DECISIONS SHOULD BE BASED ON THE PRIMARY CLINICAL RECORDS. [email or web address] [facility]. provides no warranty or guarantee of the accuracy or completeness of information in this document.
--- OUTSIDE RECORDS SUMMARY | 2025-07-06 09:49 | XMS_ITS | Encounter Summary ---
Author Organization [employer] s tem Address [facility] [place]-[id number] [address] [place] [address] Care Team Providers Care Supervisor Irrigation Name Role Phone ElizabethAneesh eric Andre RODRÍGUEZ Primary Care Provider +1 [phone] Encounter Details Date Type Department Care Team (Late st Contact Info) Description 12/28/2024 Telephone [facility] Internal Medicine - Family Medicine [address] [place] [id number] Ry Gomez CMA Social History Tobacco Use Types Packs/Day Years Used Date Smoking Tobacco: Every Day Cigarettes 3 45 Smokeless Tobacco: Never Alcohol Use Standard Drinks/Week Comments Not Currently 0 (1 standard drink = 0.6 oz pur e alcohol) [facility] Utilities Answer Date Recorded In [...] often do you attend chur ch or congregational services? Never 07/13/2023 Do you belong to any clubs o r organizations such as uatsdin groups, unions, fraternal or athletic groups, or [...] Answer Date Recorded Total Score 0 07/03/2024 [facility] [place] of Occupat ional Health - Occupational Stress [...] Recorded Do you need help finding a [facility] career center and/or a training program? No [...] Telephone Encounter - Ry Gomez CMA - 12/28/2024 11:07 AM EDT Rx sent in. He is supposed to be seen every 3 months for tramadol. I won't be able to send any morein until he is seen documented in this encounter Plan of Treatment Upcoming Encounters Date Type Department Care Team (Late st Contact Info) Description 07/18/2025 10:30 AM EDT Office Visit [facility] - Family Medicine [address] [place] [address] Aneesh [place] DO [address] [facility] [place] [address] documented as of this encounter Visit Diagnoses Not on filedocumented in this encounter Additional Health Concerns Assessment Noted Time PHQ-9 Depression Total Score: 0 07/03/20 24 2:18 PM EDT documented as of this encounter Care Teams Supervisor Irrigation Relationship Specialty Start Date End Date Aneesh [place] DO [address] [facility] [place] [place] [address] PCP - General Family Medicine 07/16/22 documented as of this encounter
--- OUTSIDE RECORDS SUMMARY | 2025-07-06 09:49 | XMS_ITS | Encounter Summary ---
Author Organization [employer] Sys tem Address [facility] [place]-[id number] [address] [place] [address] Care Team Providers Care Tow Feeder Name Role Phone ElizabethAneesh eric Primary Care Provider + [phone] Reason for Visit * Reason Onset Date Comments Med Refill 03/19/2025 Encounter Details Date Type Department Care Team (Late st Contact Info) Description 03/19/2025 Refill [facility] Internal Medicine - Family Medicine [address] [place] [address] Ayse Lopez CMA Cervical radiculopathy Social History Tobacco Use Types Packs/Day Years Used Date Smoking Tobacco: Every Day Cigarettes 3 45 Smokeless Tobacco: Never Alcohol Use Standard Drinks/Week Comments Not Currently 0 (1 standard drink = 0.6 oz pur e alcohol) [facility] Utilities Answer Date Recorded In the past 12 months has [employer], gas, oil, or water company threatened to [...] any clubs o r organizations such as yazidi groups, unions, fraternal or athletic groups, or [...] Answer Date Recorded Total Score 0 01/05/2025 [facility] of Occupat ional Health - [...] Recorded Do you need help finding a [facility] career center and/or a training program? No [...] - Family Medicine [address] [place] [address] Aneesh [place] DO [address] [facility] [place] [address] documented as of this encounter Visit Diagnoses Diagnosis Cervical radiculopathy Brachial neuritis or radiculitis nos documented in this encounter Additional Health Concerns Assessment Noted Time PHQ-9 Depression Total Score: 0 01/06/20 25 8:55 AM EDT documented as of this encounter Care Teams Tow Feeder Relationship Specialty Start Date End Date Aneesh [place] DO [address] [facility] [place] [address] PCP - General Family Medicine 07/16/22 documented as of this encounter
--- OUTSIDE RECORDS SUMMARY | 2025-07-06 09:49 | XMS_ITS | Encounter Summary ---
Author Organization [facility] Address [id number] [address] [place] [address] Care Team Providers Care Corn Cutter Name Role Phone Aneesh [place] DO Primary Care Provider + [phone] Reason for Visit * Reason Comments Med Refill Encounter Details Date Type Department Care Team (Late st Contact Info) Description 02/03/2025 Refill [facility] Internal Medicine - Family Medicine [address] [place] [address] Aneesh [place] DO [address] [place] [address] Cervical radiculopathy Social History Tobacco Use Types Packs/Day Years Used Date Smoking Tobacco: Every Day Cigarettes 3 45 Smokeless Tobacco: Never Alcohol Use Standard Drinks/Week Comments Not Currently 0 (1 standard drink = 0.6 oz pur e alcohol) [facility] Utilities Answer Date Recorded In the past 12 months has [employer], gas, oil, or water [employer] threatened to shut off services in your [...] week 07/13/2023 How often do you attend [facility] or taoism services? Never 07/13/2023 Do you belong to any clubs o r organizations such as mandaen groups, unions, fraternal or athletic groups, or [...] Answer Date Recorded Total Score 0 01/05/2025 [facility] of Occupat ional Health - Occupational [...] Recorded Do you need help finding a [facility] career center and/or a training [...] Internal Medicine - Family Medicine [address] [place] [address] Aneesh [place] DO [address] [facility] [place] [address] documented as of this encounter Visit Diagnoses Diagnosis Cervical radiculopathy Brachial neuritis or radiculitis nos documented in this encounter Additional Health Concerns Assessment Noted Time PHQ-9 Depression Total Score: 0 01/06/20 25 8:55 AM EDT documented as of this encounter Care Teams Corn Cutter Relationship Specialty Start Date End Date Aneesh [place] DO [address] [facility] [place] [address] PCP - General Family Medicine 07/16/22 documented as of this encounter
--- OUTSIDE RECORDS SUMMARY | 2025-07-06 09:49 | XMS_ITS | Encounter Summary ---
Author Organization [employer] Sys tem Address [facility] [id number] [address] [place] [address] Care Team Providers Care Shop Director Name Role Phone Aneesh [place] Primary Care Provider [phone] Encounter Details Date Type Department Care Team (Late st Contact Info) Description 03/13/2025 Refill [facility] Internal Medicine - Family Medicine [address] [place] [address] Ayse Lopez, SWAPNIL Cervical radiculopathy Social History Tobacco Use Types Packs/Day Years Used Date Smoking Tobacco: Every Day Cigarettes 3 45 Smokeless Tobacco: Never Alcohol Use Standard Drinks/Week Comments Not Currently 0 (1 standard drink = 0.6 oz pur e alcohol) [facility] Utilities Answer Date Recorded In the past 12 months has [employer], gas, oil, or water company threatened [...] Answer Date Recorded Total Score 0 01/05/2025 [facility] of Occupat ional Health - [...] - Family Medicine [address] [place] [address] Aneesh [place] DO [address] [facility] [place] [address] documented as of this encounter Visit Diagnoses Diagnosis Cervical radiculopathy Brachial neuritis or radiculitis nos documented in this encounter Additional Health Concerns Assessment Noted Time PHQ-9 Depression Total Score: 0 01/06/20 25 8:55 AM EDT documented as of this encounter Care Teams Shop Director Relationship Specialty Start Date End Date Aneesh [place] DO [address] [facility] [place] [address] PCP - General Family Medicine 07/16/22 documented as of this encounter
--- OUTSIDE RECORDS SUMMARY | 2025-07-06 09:49 | XMS_ITS | Encounter Summary ---
Author Organization [email or web address] Address [id number] [address] [place] [address] Care Team Providers Care Commissary Steward Name Role Phone Aneesh [place] DO Primary Care Provider + [phone] Reason for Visit * Reason Comments Med Refill Encounter Details Date Type Department Care Team (Late st Contact Info) Description 01/15/2025 Refill [facility] Internal Medicine - Family Medicine [address] [place] [address] Aneesh [place] DO [address] [place] [address] Cervical radiculopathy Social History Tobacco Use Types Packs/Day Years Used Date Smoking Tobacco: Every Day Cigarettes 3 45 Smokeless Tobacco: Never Alcohol Use Standard Drinks/Week Comments Not Currently 0 (1 standard drink = 0.6 oz pur e alcohol) [facility] Utilities Answer Date Recorded In the past 12 months has [employer], gas, oil, or water [employer] threatened to shut off services in your [...] week 07/13/2023 How often do you attend [facility] or latter day services? Never 07/13/2023 Do you belong to any clubs o r organizations such as presybeterian groups, unions, fraternal or athletic groups, or [...] Answer Date Recorded Total Score 0 01/05/2025 [facility] of Occupat ional Health - [...] Recorded Do you need help finding a [facility] career center and/or a training [...] Internal Medicine - Family Medicine [address] [place] [address] Aneesh [place] DO [address] [place] [place] [address] documented as of this encounter Visit Diagnoses Diagnosis Cervical radiculopathy Brachial neuritis or radiculitis nos documented in this encounter Additional Health Concerns Assessment Noted Time PHQ-9 Depression Total Score: 0 01/06/20 25 8:55 AM EDT documented as of this encounter Care Teams Commissary Steward Relationship Specialty Start Date End Date Aneesh [place] DO [address] [place] [place] [address] PCP - General Family Medicine 07/16/22 documented as of this encounter
--- OUTSIDE RECORDS SUMMARY | 2025-07-06 09:49 | XMS_ITS | Encounter Summary ---
Author Organization [employer] Sys tem Address [id number] [address] [place] [address] Care Team Providers Care Field Appraiser Name Role Phone Aneesh [place] DO Primary Care Provider [phone] Encounter Details Date Type Department Care Team (Late Contact Info) Description 02/18/2023 Orders Only [facility] Internal Medicine - Family Medicine [address] [place] [address] Rose Romero CMA Cervical radiculopathy Social History [...] Medicine - Family Medicine [address] [place] [address] Aneesh [place] DO [address], [facility] [address] documented as of this encounter Procedures Procedure Name Priority Date/Time Associated Diagnosis Comments XR EYE FOREIGN BODY LOCALIZATION Routine 02/18/2023 2:11 PM EDT Cervical radiculopathy MR CERVICAL SPINE W WO CONT Routine 02/18/2023 2:10 PM EDT Cervical radiculopathy documented in this encounter Results * X-ray eye foreign body localization (02/18/2023 2:11 PM EDT) Anatomical Region Laterality Modality Neuro, Head N/A Computed Radiogr aphy us Aneesh [place] DO IMG DIAGNOSTIC IMAGING ORDER JUAN Final Result * MR cervical spine with and without contrast (02/18/2023 2:10 PM EDT) Anatomical Region Laterality Modality MSK, Neuro, Spine, C-spine, Spine Covera N/A Magnetic Resonance us Aneesh [place] DO IMG MRI ORDERABLES Final Res ult documented in this encounter Visit Diagnoses Diagnosis Cervical radiculopathy Brachial neuritis or radiculitis nos documented in this encounter Additional Health Concerns Assessment Noted Time PHQ-9 Depression Total Score: 0 10/20/19 23 1:35 PM EST documented as of this encounter Care Teams Field Appraiser Relationship Specialty Start Date End Date Aneesh [place] DO [address] [facility], [place] [address] PCP - General Family Medicine 07/16/22 documented as of this encounter
--- OUTSIDE RECORDS SUMMARY | 2025-07-06 09:49 | XMS_ITS | Encounter Summary ---
Author Organization [employer] Sys [employer] Address [facility] [id number] [address] [place] [address] Care Team Providers Care Hydrotechnical Specialist Name Role Phone Aneesh [place] Primary Care Provider [phone] Encounter Details Date Type Department Care Team (Late st Contact Info) Description 01/08/2025 Refill [facility] Internal Medicine - Family Medicine [address] [place] [address] Ry Gomez CMA Cervical radiculopathy Social History Tobacco Use Types Packs/Day Years Used Date Smoking Tobacco: Every Day Cigarettes 3 45 Smokeless Tobacco: Never Alcohol Use Standard Drinks/Week Comments Not Currently 0 (1 standard drink = 0.6 oz pur e alcohol) [facility] Utilities Answer Date Recorded In [...] Answer Date Recorded Total Score 0 01/05/2025 [facility] of Occupat ional Health - Occupational Stress [...] Telephone Encounter - Ry Gomez CMA - 01/08/2025 4:07 PM EDT Pt no longer wants to take Gabapentin he would like a refill Tramadol. Pharmacy is listed and corrrect. documented in this encounter Plan of Treatment Upcoming Encounters Date Type Department Care Team (Late st Contact Info) Description 07/18/2025 10:30 AM EDT Office Visit [facility] Internal Medicine - Family Medicine [address] [place] [address] Aneesh [place] DO [address] [facility] [place] [address] documented as of this encounter Visit Diagnoses Diagnosis Cervical radiculopathy Brachial neuritis or radiculitis nos documented in this encounter Additional Health Concerns Assessment Noted Time PHQ-9 Depression Total Score: 0 01/06/20 25 8:55 AM EDT documented as of this encounter Care Teams Hydrotechnical Specialist Relationship Specialty Start Date End Date Aneesh [place] DO [address] [facility] [place] [address] PCP - General Family Medicine 07/16/22 documented as of this encounter
--- OUTSIDE RECORDS SUMMARY | 2025-07-06 09:49 | XMS_ITS | Encounter Summary ---
Author Organization [facility] Address [address] [place] [address] Care Team Providers Care It Consultant Name Role Phone Aneesh [place] MD Primary Care Provider + [phone] Encounter Details Date Type Department Care Team (Late st Contact Info) Description 07/12/2023 Abstract [facility] [address] [place] [address] Edmar Lawrence, JOLLY [address] [place] [address] Social History Tobacco Use Types Packs/Day Years Used Date Smoking Tobacco: Every Day Cigarettes Smokeless Tobacco: Never Alcohol Use Standard Drinks/Week Comments Not Currently 0 (1 standard drink = 0.6 oz pur e alcohol) Sex and Gender Information Value Date Recorded Sex Assigned at Male 05/05/2023 11:00 AM EDT Legal Sex Male 11:51 PM EDT Gender Identity Male 05/05/2023 11:00 AM EDT Sexual Orientation Not on file documented as of this encounter Plan of Treatment Not on file documented as of this encounter Visit Diagnoses Not on filedocumented in this encounter Care Teams It Consultant Relationship Specialty Start Date End Date Aneesh [place] MD PCP - General Family Medicine 07/12/23 documented as of this encounter
--- OUTSIDE RECORDS SUMMARY | 2025-07-06 09:49 | XMS_ITS | Encounter Summary ---
Author Organization [facility] Address [address] [place] [address] Care Team Providers Care Career Counselor Name Role Phone Aneesh [place] MD Primary Care Provider + [phone] Encounter Details Date Type Department Care Team (Late st Contact Info) Description 06/23/2023 Abstract [facility] [address], [place] [address] Troy Trujillo MD [address] [facility] [address] [place] [address] Social History Tobacco Use Types Packs/Day Years Used Date Smoking Tobacco: Never Assessed Sex and Gender Information Value Date Recorded Sex Assigned at Male 05/05/2023 11:00 AM EDT Legal Sex Male 11:51 PM EDT Gender Identity Male 05/05/2023 11:00 AM EDT Sexual Orientation Not on file documented as of this encounter Plan of Treatment Not on file documented as of this encounter Visit Diagnoses Not on filedocumented in this encounter Care Teams Career Counselor Relationship Specialty Start Date End Date Aneesh [place] MD PCP - General Family Medicine 07/12/23 documented as of this encounter
--- OUTSIDE RECORDS SUMMARY | 2025-07-06 09:49 | XMS_ITS | Encounter Summary ---
Author Organization [employer] s tem Address [facility] [id number] [address] [place] [address] Care Team Providers Care Concrete Block Layer Name Role Phone Aneesh [place] DO Primary Care Provider [phone]- [phone] Encounter Details Date Type Department Care Team (Late st Contact Info) Description 02/22/2023 [facility]phone [facility] [address] [place] [address] Aneesh [place] DO [address] [place] [address] Social History Tobacco Use Types Packs/Day Years [...] encounter Miscellaneous Notes * Telephone Encounter - Apurva Micheline - 02/22/2023 9:22 AM EDT Nubia would like to be referred to a neurosurgeon in the [facility]. Dr Landon is not in the area any longer per his girlfriend Sera. Thanks documented in this encounter Plan of Treatment Upcoming Encounters Date Type Department Care Team (Late st Contact Info) Description 07/18/2025 10:30 AM EDT Office Visit [facility] Internal Medicine - Family Medicine [address] [place] [address] Aneesh [place] DO [address] [facility] [address] documented as of this encounter Visit Diagnoses Not on filedocumented in this encounter Additional Health Concerns Assessment Noted Time PHQ-9 Depression Total Score: 0 10/20/19 23 1:35 PM EST documented as of this encounter Care Teams Concrete Block Layer Relationship Specialty Start Date End Date Aneesh [place] DO [address] [facility] [place] [address] PCP - General Family Medicine 07/16/22 documented as of this encounter
--- OUTSIDE RECORDS SUMMARY | 2025-07-06 09:49 | XMS_ITS | Clinical Summary ---
Author Organization [facility] Address [address] [place] [address] Care Team Providers Care Panel Fitter Name Role Phone Aneesh Richmond MD Primary Care Provider [phone] Allergies Active Allergy Reactions Criticality Noted Date Comments Mecgnpsbwp-Tqes-Ervlwg ne Itching,Rash Low 06/09/2012 Carbidopa-Levodopa 10/20/2022 Other Reaction(s): cant walk Other reaction(s): cant walk Citrullus Vulgaris Rash Low 10/20/2022 Fluticasone-Salmeterol Palpitations,Unknown Low Racing heart Hydrocodone-Acetaminop hen GI intolerance 07/12/2023 Penicillins Hives 11/03/2011 Medications albuterol (2.5 MG/3ML) 0.083% nebulizer solution 2.5 mg. Active Symbicort 160-4.5 MCG/ACT inhaler INHALE 2 PUFFS BY MOUTH TWICE DAILY (IN THE MORNING and IN THE EVENING) 04/08/2023 Active celecoxib (CeleBREX) 200 MG capsule Take 200 mg by mouth in the morning and 200 mg in the evening. 06/08/2023 Active cyclobenzaprine (Flexeril) 10 MG tablet Take 1 tablet by mouth 3 (three) times a day as needed. 04/08/2023 Active loperamide (Imodium) 1 MG/5ML solution Take 1 mg by mouth 1 (one) time if needed. Active metoprolol tartrate (Lopressor) 25 MG tablet Take 1 tablet by mouth in the morning and 1 tablet before bedtime. 04/08/2023 Active montelukast (Singulair) 10 MG tablet Take 1 tablet by mouth at bedtime. 06/28/2023 Active simvastatin (Zocor) 40 MG tablet Take 40 mg by mouth at bedtime. Active traMADol (Ultram) 50 MG tablet TAKE 1 TABLET BY MOUTH EVERY 6 HOURS NEEDED FOR PAIN for 7 (SEVEN) days 07/07/2023 Active Active Problems Problem Noted Date Diagnosed Date Carpal tunnel syndrome of right wrist 01/03/2025 Cubital tunnel syndrome on left 05/05/2023 Numbness and tingling 05/05/2023 Weakness 05/05/2023 Family History Medical History Relation Name Comments Heart disease Father Diabetes Mother Relation Name Status Comments Father Mother Social History Tobacco Use Types Packs/Day Years Used Date Smoking Tobacco: Every Day Cigarettes Smokeless Tobacco: Never Tobacco Cessation:Ready to Q [...] AM EDT Sexual Orientation Not on file Last Filed Vital Signs Vital Sign Reading Time Taken Comments Blood Pressure - - Pulse - - Temperature - - Respiratory Rate - - Oxygen Saturation - - Inhaled Oxygen Concentration - - Weight 64.9 kg (143 lb) 07/12/2023 1:40 PM EDT Height 167.6 cm (5' 6 ) 07/12/2023 1:40 PM EDT Body Mass Index 23.08 07/12/2023 1:40 PM EDT Plan of Treatment Health Maintenance Due Date Last Done Comments CT Colonography 1964 FIT-DNA 1964 FIT 1964 FOBT 1965 Sigmoidoscopy 1964 Influenza Vaccine (#1) 2025 3, 07/17/2021, 07/23/2018, Additional history exists Colonoscopy 02/06/2034 02/07/2024 Colorectal Cancer Screening 02/06/2034 Insurance [facility] MEDICAID Care Teams Panel Fitter Relationship Specialty Start Date End Date Aneesh Richmond MD PCP - General Family Medicine 07/12/23
--- OUTSIDE RECORDS SUMMARY | 2025-07-06 09:49 | XMS_ITS | Encounter Summary ---
Author Organization [facility] Address [facility] [id number] [address] [place] [address] Care Team Providers Care Supervisor [employer] Name Role Phone Aneesh Richmond DO Primary Care Provider [phone] Reason for Visit * Reason Comments Med Refill Encounter Details Date Type Department Care Team (Late Contact Info) Description 01/08/2023 Refill [facility] Internal Medicine - Family Medicine [address] [place] [address] Aneesh Richmond DO [address] [place] [address] Unspecified asthma, uncomplicated; Cervical radiculopathy; Hyperlipidemia, unspecified; Anxiety disorder, unspecified type Social History Tobacco [...] Medicine - Family Medicine [address] [place] [address] Aneesh Richmond DO [address] [facility] [place] [address] documented as of this encounter Visit Diagnoses Diagnosis Unspecified asthma, uncomplicated Cervical radiculopathy Brachial neuritis or radiculitis nos Hyperlipidemia, unspecified Anxiety disorder, unspecified type documented in this encounter Additional Health Concerns Assessment Noted Time PHQ-9 Depression Total Score: 0 10/20/19 23 1:35 PM EST documented as of this encounter Care Teams Supervisor [employer] Relationship Specialty Start Date End Date Aneesh Richmond DO [address] [facility] [place] [address] PCP - General Family Medicine 07/16/22 documented as of this encounter
== END 2025-07-06 09:44 | disposition home or self-care (01) ==
LOC: CT 09:43
PROVIDERS: PCP Family Medicine; Visit Provider Family Medicine
DX: F17.210 Nicotine dependence, cigarettes, uncomplicated (principal); J44.9 Chronic obstructive pulmonary disease, unspecified
CPT/HCPCS: 71271